=== PATIENT | male | born 1955 | race African-American/Black ===

== ENCOUNTER 2017-12-11 21:52 | Emergency (ER) | payer OTHER ==
--- NOTE | 2017-12-12 00:53 | ER ---
Nurse's Notes [facility] Name: Shelia Miranda Age: 62 yrs Sex: Male : 1955 Arrival Date: 12/11/2017 Time: 21:55 Bed 23 Private MD: Diagnosis: Gastrostomy complication, unspecified Presentation: 12/11 21:58 Presenting complaint: EMS states: "Patient is from [facility] and today he ao pull his PEG tube. Staff was unable to put it back.". Transition of care: patient was not received from another setting of care. Onset of symptoms is unknown. Care prior to arrival: None. 21:58 Method Of Arrival: EMS: [facility] ao 21:58 Acuity: WINSOME 4 ao Triage Assessment: 12/12 01:44 General: Behavior is calm. ao Historical: - Allergies: 12/11 22:24 No Known Allergies; ao - Home Meds: 22:24 aspirin 81 mg Oral chew 1 tab once daily [Active]; Catapres Oral [Active]; Albuterol ao Nebulizer [Active]; lisinopril 20 mg Oral tab 1 tab once daily [Active]; Tegretol 100 mg/5 mL Oral susp 10 mL twice a day [Active]; Nitrostat SL [Active]; Ativan 0.5 mg Oral tab 1 tab 3 times per day [Active]; Vitamin D Oral 2000 unit daily [Active]; - PMHx: 22:24 Anxiety; Aphasia; BPH; Chronic pain; COPD; Dementia; Depression; Diabetes - NIDDM; ao Hypertension; insomnia; Pneumonia; Schizophrenia; Seizures; VASCULAR DEMENTIA; - PSHx: 22:24 Unable to obtain; ao - Immunization history:: Adult Immunizations unknown. - Social history:: Smoking status: unknown. Screenin:19 Abuse screen: Denies threats or abuse. Denies injuries from another. Nutritional ao screening: No deficits noted. Tuberculosis screening: Fall Risk Fall in past 12 months (25 points). Secondary diagnosis (15 points). Assessment: 22:15 General: Appears in no apparent distress. comfortable. ao 22:15 Pain: Unable to use pain scale. FLACC scale score is 0 out of 10. Neuro: Level of ao Consciousness is awake. Cardiovascular: Capillary refill < 3 seconds Patient's skin is warm and dry. Respiratory: Airway is patent Respiratory effort is even, unlabored, Respiratory pattern is regular, symmetrical. GI: Abdomen is non-distended, PEG tube not in place. Reported patient pull PEG tube. NO SS of bleeding noted. : No signs and/or symptoms were reported regarding the genitourinary system. EENT: No signs and/or symptoms were reported regarding the EENT system. Derm: No signs and/or symptoms reported regarding the dermatologic system. Musculoskeletal: No signs and/or symptoms reported regarding the musculoskeletal system. 23:19 Reassessment: Patient appears in no apparent distress at this time. Patient and/or ao family updated on plan of care and expected duration. Pain level reassessed. Patient is alert, oriented x 3, equal unlabored respirations, skin warm/dry/pink. PEG tube inserted by AYSE Cleaning. Patient waiting on tube placement to be discharge. 23:55 Reassessment: Report given to JANESSA Deshpande. Patient to be taken to her room. ao 12/12 00:05 Reassessment: Patient appears in no apparent distress at this time. Patient and/or ao family updated on plan of care and expected duration. Pain level reassessed. Patient is alert, oriented x 3, equal unlabored respirations, skin warm/dry/pink. Waiting on Xray report. 01:15 Reassessment: Called report to [facility] and spoke to ARIAS Mon. ao 01:24 Reassessment: Waiting on EMS. ao Vital Signs: 12/11 21:59 BP 151 / 91; Pulse 81; Resp 20; Temp 97.9(A); Pulse Ox 97% on R/A; Weight 79.38 kg (R); ao Height 5 ft. 9 in. (175.26 cm) (R); Pain 0/10; 23:10 BP 145 / 98; Pulse 86; Resp 18; Pulse Ox 98% on R/A; Pain 0/10; ao 12/12 00:06 BP 153 / 99; Pulse 82; Resp 18; Pulse Ox 99% on R/A; Pain 0/10; ao 01:15 BP 150 / 90; Pulse 76; Resp 18; Pulse Ox 96% on R/A; Pain 0/10; ao 12/11 21:59 Body Mass Index 25.84 (79.38 kg, 175.26 cm) ao ED Course: 12/11 21:55 Patient arrived in ED. em1 21:57 Pedro De Dios, RN is Primary Nurse. ao 21:59 Triage completed. ao 22:00 Arm band placed on right wrist. Patient placed in an exam room, on a stretcher, on ao nuclear monitoring technician, Patient notified of wait time. 22:04 Charlene Cleaning FNP-C is PHCP. snw 22:04 Domingo Sharma MD is Attending Physician. snw 23:15 Replace PEG Tube. Patient tolerated well. Secure tube with formtape. ao 23:20 Patient has correct armband on for positive identification. Pulse ox on. NIBP on. ao 23:37 X-ray completed. Portable x-ray completed in exam room. Patient tolerated procedure kw well. 23:37 ENTEROSTOMY TUBE CHECK W/CONTR In Process Unspecified. EDMS 12/12 01:46 Patient did not have IV access during this emergency room visit. ao Administered Medications: No medications were administered Outcome: 00:53 Discharge ordered by . snw 01:44 Discharged to half-way. Report called to VERÓNICA ao 01:44 Condition: stable 01:44 Discharge instructions given to half-way, Instructed on discharge instructions, follow up and referral plans. Demonstrated understanding of instructions, follow-up care. 01:46 Patient left the ED. ao Signatures: Dispatcher [employer] EDMA Charlene Cleaning FNP-C FNP-Juni Spangler em1 Kelsey Garcia kw Pedro De Dios, RN RN ao
--- NOTE | 2017-12-12 00:53 | EDPHYS ---
Physician Documentation [facility] Name: Shelia Miranda Age: 62 yrs Sex: Male : 1955 Arrival Date: 12/11/2017 Time: 21:55 Bed 23 Private MD: ED Physician Domingo Sharma HPI: 12/11 23:09 This 62 yrs old Black Male presents to ER via EMS with complaints of g-tube snw displacement. 23:09 The patient represents for recheck after previously being evaluated for g-tube snw dislodged. Previous care: replaced with 18 F G-tube. The patient has experienced similar episodes in the past, multiple times. It is unknown whether or not the patient has recently seen a physician. Historical: - Allergies: 22:24 No Known Allergies; ao - Home Meds: 22:24 aspirin 81 mg Oral chew 1 tab once daily [Active]; Catapres Oral [Active]; Albuterol ao Nebulizer [Active]; lisinopril 20 mg Oral tab 1 tab once daily [Active]; Tegretol 100 mg/5 mL Oral susp 10 mL twice a day [Active]; Nitrostat SL [Active]; Ativan 0.5 mg Oral tab 1 tab 3 times per day [Active]; Vitamin D Oral 2000 unit daily [Active]; - PMHx: 22:24 Anxiety; Aphasia; BPH; Chronic pain; COPD; Dementia; Depression; Diabetes - NIDDM; ao Hypertension; insomnia; Pneumonia; Schizophrenia; Seizures; VASCULAR DEMENTIA; - PSHx: 22:24 Unable to obtain; ao - Immunization history:: Adult Immunizations unknown. - Social history:: Smoking status: unknown. ROS: 23:09 Constitutional: Negative for fever, chills, and weight loss, Eyes: Negative for injury, snw pain, redness, and discharge, ENT: Negative for injury, pain, and discharge, Neck: Negative for injury, pain, and swelling, Cardiovascular: Negative for chest pain, palpitations, and edema, Respiratory: Negative for shortness of breath, cough, wheezing, and pleuritic chest pain, Back: Negative for injury and pain, : Negative for injury, bleeding, discharge, and swelling, MS/Extremity: Negative for injury and deformity, Skin: Negative for injury, rash, and discoloration, Neuro: Negative for headache, weakness, numbness, tingling, and seizure. 23:09 Abdomen/GI: Positive for abdominal pain, of the left upper quadrant. Exam: 23:11 Constitutional: This is a well developed, well nourished patient who is awake, alert, snw and in no acute distress. Head/Face: Normocephalic, atraumatic. Eyes: Pupils equal round and reactive to light, extra-ocular motions intact. Lids and lashes normal. Conjunctiva and sclera are non-icteric and not injected. Cornea within normal limits. Periorbital areas with no swelling, redness, or edema. ENT: Nares patent. No nasal discharge, no septal abnormalities noted. Tympanic membranes are normal and external auditory canals are clear. Oropharynx with no redness, swelling, or masses, exudates, or evidence of obstruction, uvula midline. Mucous membranes moist. Neck: Trachea midline, no thyromegaly or masses palpated, and no cervical lymphadenopathy. Supple, full range of motion without nuchal rigidity, or vertebral point tenderness. No Meningismus. Chest/axilla: Normal chest wall appearance and motion. Nontender with no deformity. No lesions are appreciated. Cardiovascular: Regular rate and rhythm with a normal S1 and S2. No gallops, murmurs, or rubs. Normal PMI, no JVD. No pulse deficits. Respiratory: Lungs have equal breath sounds bilaterally, clear to auscultation and percussion. No rales, rhonchi or wheezes noted. No increased work of breathing, no retractions or nasal flaring. 23:11 Abdomen/GI: Inspection: scar(s), are noted in the left upper quadrant, G-tube placement site with scarring, no exudate, no bleeding. 23:11 Musculoskeletal/extremity: Extremities: the patient is contracted, diffusely. Vital Signs: 21:59 BP 151 / 91; Pulse 81; Resp 20; Temp 97.9(A); Pulse Ox 97% on R/A; Weight 79.38 kg (R); ao Height 5 ft. 9 in. (175.26 cm) (R); Pain 0/10; 23:10 BP 145 / 98; Pulse 86; Resp 18; Pulse Ox 98% on R/A; Pain 0/10; ao 0412 00:06 BP 153 / 99; Pulse 82; Resp 18; Pulse Ox 99% on R/A; Pain 0/10; ao 01:15 BP 150 / 90; Pulse 76; Resp 18; Pulse Ox 96% on R/A; Pain 0/10; ao 12/11 21:59 Body Mass Index 25.84 (79.38 kg, 175.26 cm) ao Procedures: 12/11 23:12 G-tube placement: a 18 Yi catheter was placed, by the ED physician, Charlene DIALLO. MDM: 22:04 Patient medically screened. snw 23:12 Data reviewed: vital signs, nurses notes. Data interpreted: Pulse oximetry: on room air snw is 97 %. Interpretation: normal. Special discussion: Based on the patient's Hx, exam, and Dx evaluation, there is no indication for emergent surgery or inpatient Tx. It is understood by the patient/guardian that if the Sx's persist or worsen they need to return immediately for re-evaluation. Based on the history and exam findings, there is no indication for further emergent testing or inpatient evaluation. I discussed with the patient/guardian the need to see the primary care provider for further evaluation of the symptoms. 12/11 23:36 Order name: ENTEROSTOMY TUBE CHECK W/CONTR EDMS Administered Medications: No medications were administered Disposition: 12/12 09:13 Co-signature as Attending Physician, Domingo Sharma MD I agree with the assessment and [facility] plan of care. Disposition: 12/12/17 00:53 Discharged to Home. Impression: Gastrostomy complication, unspecified. - Condition is Stable. - Discharge Instructions: Gastrostomy Tube Replacement, Gastrostomy Tube Home Guide, Adult. - Medication Reconciliation Form, Thank You Letter, Antibiotic Education, Prescription Opioid Use, SBAR form form. - Follow up: Private Physician; When: As needed; Reason: Recheck today's complaints, Continuance of care, Re-evaluation by your physician. Signatures: Dispatcher [employer] Domingo Hammer MD MD cha Therrien, Shelly, FNP-C FNP-Pedro Mitchell, RN RN ao Corrections: (The following items were deleted from the chart) 12/11 23:36 23:14 Abdomen 1 View (KUB)+RAD.RAD.[email or web address] ordered. EDAR EDMS
[2017-12-12 02:19] VITALS: TEMP 97.9
[2017-12-12 02:23] VITALS: BP 150/90; O2SAT 96
--- NOTE | 2017-12-12 08:37 | RAD REPORT ---
EXAM DESCRIPTION: RAD - ENTEROSTOMY TUBE CHECK W/CONTR - 12/11/2017 11:58 pm CLINICAL HISTORY: Abdominal pain evaluate gastrostomy tube FINDINGS: Contrast has been injected into the gastrostomy tube. It opacifies the proximal duodenum. The tip of the tube probably lies within the distal stomach. There is no extravasation of contrast
== END 2017-12-12 01:46 | disposition home or self-care (01) ==
LOC: ER 21:52
PROC: 0D20XUZ Change Feeding Device in Upper Intestinal Tract, External Approach (ICD-10-PCS; principal; 2017-12-12)
DX: K94.20 Gastrostomy complication, unspecified (principal); I10 Essential (primary) hypertension; E11.9 Type 2 diabetes mellitus without complications; J44.9 Chronic obstructive pulmonary disease, unspecified; F32.9 Major depressive disorder, single episode, unspecified; F41.9 Anxiety disorder, unspecified; F01.50 Vascular dementia, unspecified severity, without behavioral disturbance, psychotic disturbance, mood disturbance, and anxiety; Z79.82 Long term (current) use of aspirin
CPT/HCPCS: 49465; 99284

== ENCOUNTER 2018-02-26 14:39 | Emergency (ER) | payer OTHER ==
--- NOTE | 2018-02-26 14:46 | EDPHYS ---
Physician Documentation [facility] Name: Shelia Miranda Age: 62 yrs Sex: Male : 1955 Arrival Date: 02/26/2018 Time: 14:40 Bed 6 Private MD: ED Physician Domingo Sharma HPI: 02/26 14:42 This 62 yrs old Black Male presents to ER via Unassigned with complaints of Problem jr8 With Feeding Tube. 14:42 Onset: The symptoms/episode began/occurred acutely, today. Severity of symptoms: At jr8 their worst the symptoms were mild in the emergency department the symptoms are unchanged. The patient has experienced similar episodes in the past, multiple times. The patient has not recently seen a physician. Pulled gastrostomy tube out today after feeding . Historical: - Allergies: 14:53 No Known Drug Allergies; ph - Home Meds: 14:53 aspirin 81 mg Oral chew 1 tab once daily [Active]; Albuterol Inhl [Active]; Ativan 0.5 ph mg Oral tab 1 tab 3 times per day [Active]; Catapres Oral [Active]; lisinopril 20 mg Oral tab 1 tab once daily [Active]; Nitrostat SL [Active]; Tegretol 100 mg/5 mL Oral susp 10 mL twice a day [Active]; Vitamin D Oral 2000 unit daily [Active]; - PMHx: 14:53 Anxiety; Aphasia; BPH; Chronic pain; COPD; Dementia; Depression; Diabetes - NIDDM; ph Hypertension; insomnia; Pneumonia; Schizophrenia; Seizures; VASCULAR DEMENTIA; - PSHx: 14:53 Unable to obtain; ph - Immunization history:: Adult Immunizations unknown. - Social history:: Smoking status: unknown. - Ebola Screening: : No symptoms or risks identified at this time. ROS: 14:42 Eyes: Negative for injury, pain, redness, and discharge, ENT: Negative for injury, jr8 pain, and discharge, Neck: Negative for injury, pain, and swelling, Cardiovascular: Negative for chest pain, palpitations, and edema, Respiratory: Negative for shortness of breath, cough, wheezing, and pleuritic chest pain, Abdomen/GI: Negative for abdominal pain, nausea, vomiting, diarrhea, and constipation, Back: Negative for injury and pain, MS/Extremity: Negative for injury and deformity, Skin: Negative for injury, rash, and discoloration, Neuro: Negative for headache, weakness, numbness, tingling, and seizure. Exam: 14:42 Eyes: Pupils equal round and reactive to light, extra-ocular motions intact. Lids and jr8 lashes normal. Conjunctiva and sclera are non-icteric and not injected. Cornea within normal limits. Periorbital areas with no swelling, redness, or edema. ENT: Nares patent. No nasal discharge, no septal abnormalities noted. Tympanic membranes are normal and external auditory canals are clear. Oropharynx with no redness, swelling, or masses, exudates, or evidence of obstruction, uvula midline. Mucous membranes moist. Neck: Trachea midline, no thyromegaly or masses palpated, and no cervical lymphadenopathy. Supple, full range of motion without nuchal rigidity, or vertebral point tenderness. No Meningismus. Cardiovascular: Regular rate and rhythm with a normal S1 and S2. No gallops, murmurs, or rubs. Normal PMI, no JVD. No pulse deficits. Respiratory: Lungs have equal breath sounds bilaterally, clear to auscultation and percussion. No rales, rhonchi or wheezes noted. No increased work of breathing, no retractions or nasal flaring. Abdomen/GI: Soft, non-tender, with normal bowel sounds. No distension or tympany. No guarding or rebound. No evidence of tenderness throughout. Back: No spinal tenderness. No costovertebral tenderness. Full range of motion. Skin: Warm, dry with normal turgor. Normal color with no rashes, no lesions, and no evidence of cellulitis. MS/ Extremity: Pulses equal, no cyanosis. Neurovascular intact. Full, normal range of motion. Neuro: Awake and alert, GCS 15, oriented to person, place, time, and situation. Cranial nerves II-XII grossly intact. Motor strength 5/5 in all extremities. Sensory grossly intact. Cerebellar exam normal. Normal gait. Vital Signs: 14:47 BP 137 / 68; Pulse 64; Resp 18; Temp 97.8; Pulse Ox 99% ; ph Procedures: 14:42 G-tube placement: a 16 [place] catheter was placed, by the ED physician, Presley VELEZ jr8 confirmed with KUB with gastrographin . MDM: 14:41 Patient medically screened. jr8 14:42 Data reviewed: vital signs, nurses notes, radiologic studies, plain films, and as a jr8 result, I will discharge patient. Data interpreted: Pulse oximetry: on room air is 100 %. Interpretation: normal. Counseling: I had a detailed discussion with the patient and/or guardian regarding: the historical points, exam findings, and any diagnostic results supporting the discharge/admit diagnosis, radiology results, the need for outpatient follow up, a front desk lead, to return to the emergency department if symptoms worsen or persist or if there are any questions or concerns that arise at home. 02/26 14:42 Order name: PEG Tube Check w/contrast; Complete Time: 15:25 jr8 Administered Medications: No medications were administered Disposition: 02/27 06:34 Co-signature as Attending Physician, Domingo Sharma MD I agree with the assessment and lana plan of care. Disposition: 02/26/18 14:45 Discharged to Home. Impression: Gastrostomy complications - pulled G-Tube. - Condition is Stable. - Discharge Instructions: Gastrostomy Tube Replacement. - Medication Reconciliation Form, Thank You Letter, Antibiotic Education, Prescription Opioid Use form. - Follow up: Private Physician; When: 2 - 3 days; Reason: Recheck today's complaints, Continuance of care, Re-evaluation by your physician. - Problem is new. - Symptoms have improved. Signatures: Dispatcher [employer] EDCO Domingo Sharma MD MD cha Roszak, Josh, PA PA jr8 Ximena Camara RN RN ph Corrections: (The following items were deleted from the chart) 02/26 16:03 14:45 02/26/2018 14:45 Discharged to Home. Impression: Gastrostomy complications - ph pulled G-Tube. Condition is Stable. Forms are Medication Reconciliation Form, Thank You Letter, Antibiotic Education, Prescription Opioid Use. Follow up: Private Physician; When: 2 - 3 days; Reason: Recheck today's complaints, Continuance of care, Re-evaluation by your physician. Problem is new. Symptoms have improved. jr8
--- NOTE | 2018-02-26 15:24 | RAD REPORT ---
EXAM DESCRIPTION: RAD - ENTEROSTOMY TUBE CHECK W/CONTR - 02/26/2018 3:04 pm CLINICAL HISTORY: Abdominal pain, enterostomy tube check COMPARISON: KUB December 2017 FINDINGS: Enterostomy tube was adjusted or repositioned. Two images were obtained prior to and follo wing retrograde injection of contrast through the enterostomy tube. Initial image shows a nonspecific bowel gas pattern. No obstruction, free air or pneumatosis. Post co ntrast injection image shows all contrast contained within the lumen of the stomach and proximal duod enum. No extravasation. Tube is well positioned. IMPRESSION: Enterostomy tube is well positioned within the stomach. No extravasation.
--- NOTE | 2018-02-26 16:04 | ER ---
Nurse's Notes [facility] Name: Shelia Miranda Age: 62 yrs Sex: Male : 1955 Arrival Date: 02/26/2018 Time: 14:40 Bed 6 Private MD: Diagnosis: Gastrostomy complications-pulled G-Tube Presentation: 02/26 14:41 Presenting complaint: EMS states: " Pt from [facility], pulled out PEG tube, last ph seen in place by staff at approx 8 am. Transition of care: patient was not received from another setting of care. Onset of symptoms was February 26, 2018. Risk Assessment: Do you want to hurt yourself or someone else? Patient reports no desire to harm self or others. Initial Sepsis Screen: Does the patient meet any 2 criteria? No. Patient's initial sepsis screen is negative. Does the patient have a suspected source of infection? No. Patient's initial sepsis screen is negative. Care prior to arrival: None. 14:41 Method Of Arrival: EMS: [facility] 14:41 Acuity: WINSOME 4 ph Historical: - Allergies: 14:53 No Known Drug Allergies; ph - Home Meds: 14:53 aspirin 81 mg Oral chew 1 tab once daily [Active]; Albuterol Inhl [Active]; Ativan 0.5 ph mg Oral tab 1 tab 3 times per day [Active]; Catapres Oral [Active]; lisinopril 20 mg Oral tab 1 tab once daily [Active]; Nitrostat SL [Active]; Tegretol 100 mg/5 mL Oral susp 10 mL twice a day [Active]; Vitamin D Oral 2000 unit daily [Active]; - PMHx: 14:53 Anxiety; Aphasia; BPH; Chronic pain; COPD; Dementia; Depression; Diabetes - NIDDM; ph Hypertension; insomnia; Pneumonia; Schizophrenia; Seizures; VASCULAR DEMENTIA; - PSHx: 14:53 Unable to obtain; ph - Immunization history:: Adult Immunizations unknown. - Social history:: Smoking status: unknown. - Ebola Screening: : No symptoms or risks identified at this time. Screenin:49 Abuse screen: Denies threats or abuse. Denies injuries from another. Nutritional ph screening: No deficits noted. Tuberculosis screening: No symptoms or risk factors identified. Fall Risk None identified. Assessment: 14:53 General: Appears in no apparent distress. comfortable, slender, Behavior is calm, ph cooperative. Pain: Denies pain. Neuro: Level of Consciousness is awake, alert, obeys commands, Oriented to person, place. Cardiovascular: Capillary refill < 3 seconds Patient's skin is warm and dry. Respiratory: Airway is patent Respiratory effort is even, unlabored. GI: Abdomen is flat, non-distended, PEG tube site noted to L abdomen, tube accidentally removed by pt, site slightly reddened and swollen in appearance, ERP currently at bedside to insert new tube, 18 omani Santiago placed. Derm: Skin is healthy with good turgor, Skin is pink, warm \\T\\ dry. 14:55 Reassessment: Radiology at bedside for Xray to check placement of PEG. ph 15:20 Reassessment: [facility] notified that pt is ready to be transported back to facility. Vital Signs: 14:47 BP 137 / 68; Pulse 64; Resp 18; Temp 97.8; Pulse Ox 99% ; ph ED Course: 14:40 Patient arrived in ED. ph 14:41 Presley Gilbert PA is PHCP. jr8 14:41 Domingo Sharma MD is Attending Physician. jr8 14:47 Triage completed. ph 14:49 Arm band placed on. ph 14:49 Patient has correct armband on for positive identification. Placed in gown. Bed in low ph position. Call light in reach. Side rails up X2. Pulse ox on. NIBP on. Warm blanket given. 15:01 X-ray completed. Portable x-ray completed in exam room. Patient tolerated procedure kc2 well. 15:01 PEG Tube Check w/contrast In Process Unspecified. EDMS 16:03 Ximena Camara, ARIAS is Primary Nurse. ph 16:03 No provider procedures requiring assistance completed. Patient did not have IV access ph during this emergency room visit. Administered Medications: No medications were administered Outcome: 14:45 Discharge ordered by . jr8 16:03 Patient left the ED. ph 16:03 Discharged to halfway. ph 16:03 Condition: good Signatures: Dispatcher [employer] EDNazia Devries RN RN Presley Gilbert PA PA jr8 Ximena Camara RN RN Crys Petersen kc2 Corrections: (The following items were deleted from the chart) 17:20 14:53 GI: Abdomen is flat, non-distended, PEG tube site noted to L abdomen, tube ph accidentally removed by pt, site slightly reddened and swollen in appearance, ERP currently at bedside to insert new tube ph
[2018-02-26 16:07] VITALS: BP 137/68; TEMP 97.8; O2SAT 99
== END 2018-02-26 16:03 | disposition home or self-care (01) ==
LOC: ER 14:39
PROC: 0D20XUZ Change Feeding Device in Upper Intestinal Tract, External Approach (ICD-10-PCS; principal; 2018-02-26)
DX: K94.23 Gastrostomy malfunction (principal); Y83.3 Surgical operation with formation of external stoma as the cause of abnormal reaction of the patient, or of later complication, without mention of misadventure at the time of the procedure; Y73.8 Miscellaneous gastroenterology and urology devices associated with adverse incidents, not elsewhere classified; Y92.129 Unspecified place in nursing home as the place of occurrence of the external cause; I10 Essential (primary) hypertension; E11.9 Type 2 diabetes mellitus without complications; J44.9 Chronic obstructive pulmonary disease, unspecified
CPT/HCPCS: 49465; 99283

== ENCOUNTER 2018-03-13 09:17 | Emergency (ER) | payer OTHER ==
--- NOTE | 2018-03-13 10:40 | ER ---
Nurse's Notes [facility] Name: Shelia Miranda Age: 62 yrs Sex: Male : 1955 Arrival Date: 03/13/2018 Time: 09:16 Bed 18 Private MD: Diagnosis: PEG TUBE Replacement Presentation: 03/13 09:28 Presenting complaint: EMS states: NH staff called this morning, d/t pt having a sg displaced PEG/G-Tube, believed to have been in place all night and dislodged this morning some time. Transition of care: patient was not received from another setting of care. Onset of symptoms was March 13, 2018. Risk Assessment: Do you want to hurt yourself or someone else? Patient reports no desire to harm self or others. Initial Sepsis Screen: Does the patient meet any 2 criteria? No. Patient's initial sepsis screen is negative. Does the patient have a suspected source of infection? No. Patient's initial sepsis screen is negative. Care prior to arrival: None. 09:28 Method Of Arrival: EMS: [facility] sg 09:28 Acuity: WINSOME 4 sg Historical: - Allergies: 09:30 No Known Allergies; sg - PMHx: 09:30 Anxiety; Aphasia; BPH; Chronic pain; COPD; Dementia; Depression; Diabetes - NIDDM; sg Hypertension; insomnia; Pneumonia; Schizophrenia; Seizures; VASCULAR DEMENTIA; - PSHx: 09:30 Unable to obtain; sg - Immunization history:: Adult Immunizations up to date. - Social history:: Smoking status: Patient/guardian denies using tobacco. - Ebola Screening: : Patient negative for fever greater than or equal to 101.5 degrees Fahrenheit, and additional compatible Ebola Virus Disease symptoms Patient denies exposure to infectious person Patient denies travel to an Ebola-affected area in the 21 days before illness onset No symptoms or risks identified at this time. - Family history:: not pertinent. - Hospitalizations: : No recent hospitalization is reported. - History obtained from: EMS. Screenin:30 Abuse screen: Denies threats or abuse. Denies injuries from another. Nutritional sg screening: No deficits noted. Tuberculosis screening: No symptoms or risk factors identified. Never had TB. Fall Risk None identified. Assessment: 09:30 Reassessment: Roosevelt CUHNG at bedside evaluating pt at this time. General: Appears in no sg apparent distress. comfortable, slender, unkempt, well developed, well nourished, Behavior is calm, cooperative, appropriate for age. Pain: Denies pain. Neuro: Level of Consciousness is awake, obeys commands, confused, Oriented to person, Contour Path Tape Mill Operator are equal bilaterally Moves all extremities. Speech is normal, Facial symmetry appears normal. Cardiovascular: Heart tones S1 S2 present Capillary refill is brisk in bilateral fingers Patient's skin is warm and dry. Chest pain is denied. Respiratory: Airway is patent Respiratory effort is even, unlabored, Respiratory pattern is regular, symmetrical. GI: Abdomen is flat, non-distended, PEG tube Site clean. Site reddened. PEG tube missing from the site at this time. : No deficits noted. EENT: No deficits noted. Derm: Skin is intact, is thin, Skin is dry, Skin is normal, Skin temperature is warm. Musculoskeletal: Circulation, motion, and sensation intact. Swelling absent. 09:41 Reassessment: Patient appears in no apparent distress at this time. XRAY at bedside at this time. 10:48 Reassessment: Patient appears in no apparent distress at this time. Report called to [facility], awaiting transport at this time. 11:30 Reassessment: Patient appears in no apparent distress at this time. Patient and/or sg family updated on plan of care and expected duration. Pain level reassessed. pt resting at this time, resp even and unlabored, no S/S of distress noted at this time. Vital Signs: 09:34 BP 122 / 71; Pulse 72; Resp 17; Temp 97.9; Pulse Ox 99% on R/A; Pain 0/10; sg ED Course: 09:16 Patient arrived in ED. sg 09:22 [facility] kav 09:22 Jonathan Noble MD is Attending Physician. kav 09:29 Triage completed. sg 09:30 Patient has correct armband on for positive identification. Bed in low position. Call light in reach. Side rails up X2. Pulse ox on. NIBP on. Warm blanket given. Head of bed elevated. 09:30 No provider procedures requiring assistance completed. sg 09:33 Arm band placed on. EKG completed in triage. Results shown to MD. sg 09:41 Cortes Monae, RN is Primary Nurse. sg 10:05 PEG Tube Check w/contrast In Process Unspecified. EDMS 12:02 Awaiting transportation. sg 12:54 Patient did not have IV access during this emergency room visit. sg Administered Medications: No medications were administered Outcome: 10:39 Discharge ordered by MD. núñez 12:53 Discharged to home ambulatory, with family. sg 12:53 Condition: good 12:53 Discharge instructions given to patient, Instructed on discharge instructions, follow up and referral plans. safety practices, Demonstrated understanding of instructions, follow-up care. 12:54 Patient left the ED. sg Signatures: Dispatcher [employer] EDMS Cortes Monae, RN RN Nadine Smith, COILER SHELDON núñez
--- NOTE | 2018-03-13 10:40 | EDPHYS ---
Physician Documentation [facility] Name: Shelia Miranda Age: 62 yrs Sex: Male : 1955 Arrival Date: 03/13/2018 Time: 09:16 Bed 18 Private MD: ED Physician Jonathan Noble HPI: 03/13 09:36 This 62 yrs old Black Male presents to ER via EMS with complaints of Removed PEG Tube. kav 09:36 Onset: The symptoms/episode began/occurred acutely, this morning. Associated signs and kav symptoms: The patient has no apparent associated signs or symptoms. Modifying factors: The patient symptoms are alleviated by nothing, the patient symptoms are aggravated by nothing. The patient has experienced similar episodes in the past, multiple times. patient reportedly removed his peg tube this morning. 09:37 reported peg tube removal by patient. Severity of symptoms: At their worst the symptoms kav were very mild just prior to arrival. Historical: - Allergies: 09:30 No Known Allergies; sg - PMHx: 09:30 Anxiety; Aphasia; BPH; Chronic pain; COPD; Dementia; Depression; Diabetes - NIDDM; sg Hypertension; insomnia; Pneumonia; Schizophrenia; Seizures; VASCULAR DEMENTIA; - PSHx: 09:30 Unable to obtain; sg - Immunization history:: Adult Immunizations up to date. - Social history:: Smoking status: Patient/guardian denies using tobacco. - Ebola Screening: : Patient negative for fever greater than or equal to 101.5 degrees Fahrenheit, and additional compatible Ebola Virus Disease symptoms Patient denies exposure to infectious person Patient denies travel to an Ebola-affected area in the 21 days before illness onset No symptoms or risks identified at this time. - Family history:: not pertinent. - Hospitalizations: : No recent hospitalization is reported. - History obtained from: EMS. ROS: 09:37 Constitutional: Negative for fever, chills, and weight loss, Eyes: Negative for injury, kav pain, redness, and discharge, ENT: Negative for injury, pain, and discharge, Neck: Negative for injury, pain, and swelling, Cardiovascular: Negative for chest pain, palpitations, and edema, Respiratory: Negative for shortness of breath, cough, wheezing, and pleuritic chest pain, Back: Negative for injury and pain, : Negative for injury, bleeding, discharge, and swelling, MS/Extremity: Negative for injury and deformity, Skin: Negative for injury, rash, and discoloration, Neuro: Negative for headache, weakness, numbness, tingling, and seizure, Psych: Negative for depression, anxiety, suicide ideation, homicidal ideation, and hallucinations, Allergy/Immunology: Negative for hives, rash, and allergies, Endocrine: Negative for neck swelling, polydipsia, polyuria, polyphagia, and marked weight changes, Hematologic/Lymphatic: Negative for swollen nodes, abnormal bleeding, and unusual bruising. 09:37 Abdomen/GI: Positive for PEG Tube removal this am. Exam: 09:37 Constitutional: This is a well developed, well nourished patient who is awake, alert, kav and in no acute distress. Head/Face: Normocephalic, atraumatic. Eyes: Pupils equal round and reactive to light, extra-ocular motions intact. Lids and lashes normal. Conjunctiva and sclera are non-icteric and not injected. Cornea within normal limits. Periorbital areas with no swelling, redness, or edema. ENT: Nares patent. No nasal discharge, no septal abnormalities noted. Tympanic membranes are normal and external auditory canals are clear. Oropharynx with no redness, swelling, or masses, exudates, or evidence of obstruction, uvula midline. Mucous membranes moist. Neck: Trachea midline, no thyromegaly or masses palpated, and no cervical lymphadenopathy. Supple, full range of motion without nuchal rigidity, or vertebral point tenderness. No Meningismus. Chest/axilla: Normal chest wall appearance and motion. Nontender with no deformity. No lesions are appreciated. Cardiovascular: Regular rate and rhythm with a normal S1 and S2. No gallops, murmurs, or rubs. Normal PMI, no JVD. No pulse deficits. Respiratory: Lungs have equal breath sounds bilaterally, clear to auscultation and percussion. No rales, rhonchi or wheezes noted. No increased work of breathing, no retractions or nasal flaring. Back: No spinal tenderness. No costovertebral tenderness. Full range of motion. Skin: Warm, dry with normal turgor. Normal color with no rashes, no lesions, and no evidence of cellulitis. MS/ Extremity: Pulses equal, no cyanosis. Neurovascular intact. Full, normal range of motion. Neuro: Awake and alert, GCS 15, oriented to person, place, time, and situation. Cranial nerves II-XII grossly intact. Motor strength 5/5 in all extremities. Sensory grossly intact. Cerebellar exam normal. Normal gait. Psych: Awake, alert, with orientation to person, place and time. Behavior, mood, and affect are within normal limits. 09:37 Abdomen/GI: Inspection: ostomy opening with no peg tube, Bowel sounds: normal, Palpation: abdomen is soft and non-tender, in all quadrants. Vital Signs: 09:34 BP 122 / 71; Pulse 72; Resp 17; Temp 97.9; Pulse Ox 99% on R/A; Pain 0/10; sg Procedures: 09:37 G-tube placement: a 18 Mongolian catheter was placed, by the ED physician, Nadine CHUNG. MDM: 09:37 Differential Diagnosis PEG tube removed by patient. Data reviewed: vital signs, nurses ka notes. 10:35 ED course: awaiting radiology results. ka 10:39 Medical screening is not applicable. kav 10:41 ED course: post gastrograffin xray with appropriate placement. [facility] 03/13 09:23 Order name: PEG Tube Check w/contrast; Complete Time: 11:54 kav Administered Medications: No medications were administered Disposition: 17:18 Co-signature as Attending Physician, Jonathan Noble MD I agree with the assessment and kdr plan of care. Disposition: 03/13/18 10:39 Discharged to Home. Impression: PEG TUBE Replacement. - Condition is Stable. - Discharge Instructions: PEG, Home Care, [id number]. - Medication Reconciliation Form, Thank You Letter, Antibiotic Education, Prescription Opioid Use form. - Follow up: Private Physician; When: 5 - 6 days; Reason: If symptoms return, Recheck today's complaints, Continuance of care, Re-evaluation by your physician. - Problem is new. - Symptoms have improved. Signatures: Dispatcher [employer] EDMS Cortes Monae RN RN sg Rittger, Kevin, MD MD kdr Vern, Katherine, FNP FNP ka Corrections: (The following items were deleted from the chart) 12:54 10:39 03/13/2018 10:39 Discharged to Home. Impression: PEG TUBE Replacement. Condition sg is Stable. Discharge Instructions: PEG, Home Care, [id number]. Forms are Medication Reconciliation Form, Thank You Letter, Antibiotic Education, Prescription Opioid Use. Follow up: Private Physician; When: 5 - 6 days; Reason: If symptoms return, Recheck today's complaints, Continuance of care, Re-evaluation by your physician. Problem is new. Symptoms have improved. kav
--- NOTE | 2018-03-13 11:22 | RAD REPORT ---
EXAM DESCRIPTION: RAD - ENTEROSTOMY TUBE CHECK W/CONTR - 03/13/2018 10:05 am CLINICAL HISTORY: peg tube replacement COMPARISON: ENTEROSTOMY TUBE CHECK W/CONTR dated 02/26/2018; ENTEROSTOMY TUBE CHECK W/CONTR dated 12/01 FINDINGS: Contrast was infused via existing enterostomy tube. Contrast is seen to fill the stomach a nd small intestine, indicating appropriate localization.
[2018-03-13 12:58] VITALS: BP 122/71; TEMP 97.9; O2SAT 99
== END 2018-03-13 12:54 | disposition home or self-care (01) ==
LOC: ER 09:17
PROC: 0D20XUZ Change Feeding Device in Upper Intestinal Tract, External Approach (ICD-10-PCS; principal; 2018-03-13)
DX: Z43.1 Encounter for attention to gastrostomy (principal); J44.9 Chronic obstructive pulmonary disease, unspecified; E11.9 Type 2 diabetes mellitus without complications; I10 Essential (primary) hypertension
CPT/HCPCS: 49465; 99284

== ENCOUNTER 2018-03-14 09:16 | Emergency (ER) | payer OTHER ==
--- NOTE | 2018-03-14 10:20 | ER ---
Nurse's Notes [facility] Name: Shelia Miranda Age: 62 yrs Sex: Male : 1955 Arrival Date: 03/14/2018 Time: 09:19 Bed 23 Private MD: Diagnosis: Gastrostomy [id number]-M-ceav displacement Presentation: 03/14 09:19 Presenting complaint: EMS states: pt brought to ED for peg tube displacement. No other dm5 complaints. Transition of care: patient was received from another setting of care (long-term care [facility]. Onset of symptoms was March 14, 2018. Risk Assessment: Do you want to hurt yourself or someone else? Patient reports no desire to harm self or others. Initial Sepsis Screen: Does the patient meet any 2 criteria? No. Patient's initial sepsis screen is negative. Does the patient have a suspected source of infection? Yes: Dysuria/Frequency/Urgency/UTI. Care prior to arrival: None. 09:19 Method Of Arrival: EMS: [facility]5 09:19 Acuity: WINSOME 4 dm5 Triage Assessment: 09:25 General: Appears in no apparent distress. Behavior is calm, cooperative. Pain: Denies dm5 pain. GI: Abdomen is round. Historical: - Allergies: 09:25 No Known Allergies; aa5 - PMHx: 09:23 Anxiety; Aphasia; BPH; Chronic pain; COPD; Dementia; Depression; Diabetes - NIDDM; dm5 Hypertension; insomnia; Pneumonia; Schizophrenia; Seizures; VASCULAR DEMENTIA; - Immunization history:: Adult Immunizations unknown. - Social history:: Smoking status: unknown. - Ebola Screening: : No symptoms or risks identified at this time. Screenin:25 Abuse screen: No signs of abuse noted. Nutritional screening: No deficits noted. aa5 Tuberculosis screening: No symptoms or risk factors identified. Fall Risk Fall in past 12 months (25 points). Secondary diagnosis (15 points) impaired mobility, Mental Status- Overestimates/Forgets Limitations (15 pts.). Total Stephens Fall Scale indicates High Risk Score (45 or more points). Fall prevention measures have been instituted. Side Rails Up X 2 Placed Close to Nursing Station. Assessment: 09:25 General: Appears comfortable, Behavior is calm, cooperative. Pain: Denies pain. Neuro: aa5 Level of Consciousness is awake, obeys commands, confused, Oriented to person, place, Police Detective are equal bilaterally Speech is normal, Left pupil is round and reactive to light, measures 3 mm in size. Right eye is cloudy. . Cardiovascular: Heart tones S1 S2 present Rhythm is regular. Respiratory: Airway is patent Respiratory effort is even, unlabored, Respiratory pattern is regular, symmetrical, Breath sounds are clear bilaterally. GI: Abdomen is flat, non-distended, no s/s of infection noted to PEG tube site. Bowel sounds present X 4 quads. Abd is soft and non tender X 4 quads. : brief noted. EENT: No signs and/or symptoms were reported regarding the EENT system. Derm: Skin is dry, Skin is normal, Skin temperature is warm. Musculoskeletal: Range of motion: limited in left knee, left ankle, right knee and right ankle. 09:30 Reassessment: PEG tube replaced by PA, 16 FR. . aa5 10:30 Reassessment: Report given to Natasha nurse at [facility]. Natasha states aa5 they will arrange transportation back to retirement with [facility] [place] . 10:50 Reassessment: Pt cleaned of urinary incontinence, clean brief applied. Abdominal binder aa5 placer to prevent pt from pulling PEG tube out per PA. . 10:50 Neuro: Level of Consciousness is awake, obeys commands, confused, Oriented to person, aa5 place. Respiratory: Airway is patent Respiratory effort is even, unlabored, Respiratory pattern is regular, symmetrical. Derm: Skin is dry, Skin is normal, Skin temperature is warm. 11:30 Neuro: Level of Consciousness is awake, obeys commands, confused, Oriented to person, aa5 place. Respiratory: Airway is patent Respiratory effort is even, unlabored, Respiratory pattern is regular, symmetrical. Derm: Skin is dry, Skin is normal, Skin temperature is warm. 12:30 Reassessment: Pt resting in bed with eyes closed, respirations are even and unlabored. aa5 Pt easy to awaken to verbal stimuli. States no complaints at this time. Awaiting transportation for transfer back to retirement. . 13:20 Neuro: Level of Consciousness is awake, obeys commands, confused, Oriented to person, aa5 place. Respiratory: Airway is patent Respiratory effort is even, unlabored, Respiratory pattern is regular, symmetrical. Derm: Skin is dry, Skin is normal, Skin temperature is warm. Vital Signs: 09:23 BP 115 / 86; Pulse 70; Resp 18; Temp 98.3(TE); Pulse Ox 99% on R/A; dm5 10:30 BP 144 / 87; Pulse 69; Resp 18 S; Pulse Ox 98% on R/A; aa5 11:30 BP 137 / 93; Pulse 66; Resp 16 S; Pulse Ox 97% on R/A; aa5 12:30 BP 140 / 85; Pulse 66; Resp 16 S; Temp 98.0(TE); Pulse Ox 98% on R/A; aa5 12:56 BP 132 / 86; Pulse 66; Resp 16 S; Pulse Ox 97% on R/A; aa5 13:20 BP 130 / 79; Pulse 67; Resp 18 S; Temp 98.2(TE); Pulse Ox 99% on R/A; aa5 ED Course: 09:19 Patient arrived in ED. dm5 09:21 Triage completed. dm5 09:23 Arm band placed on left wrist. dm5 09:24 Presley Gilbert PA is PHCP. jr8 09:24 Jonathan Noble MD is Attending Physician. jr8 09:25 Patient has correct armband on for positive identification. Bed in low position. Call aa5 light in reach. Side rails up X2. 09:25 No provider procedures requiring assistance completed. aa5 09:44 Elana Mortensen, ARIAS is Primary Nurse. aa5 10:00 Report given to ARIAS Worthington. aa5 10:13 PEG Tube Check w/contrast In Process Unspecified. EDTN 10:45 [facility] called to notify us that transport will be here from 08-02, to transport Mr Miranda back to the facility. 10:50 Patient did not have IV access during this emergency room visit. aa5 Administered Medications: No medications were administered Outcome: 10:20 Discharge ordered by . jr8 13:45 Patient left the ED. aa5 13:45 Discharged to retirement. Report called to Natasha with [facility] transportation aa5 13:45 Condition: stable 13:45 Discharge instructions given to Natasha (nurse at [facility]) Instructed on discharge instructions, follow up and referral plans. Signatures: [facility] Roxie Ramirez RN RN dm5 Elana Mortensen, RN RN aa5 Presley Gilbert, AGUSTIN PA jr8 Dainelle Arguello Corrections: (The following items were deleted from the chart) General: Appears comfortable, Behavior is calm, cooperative, aa5 aa5 : Pain: Denies pain. aa5 aa5 : Neuro: Level of Consciousness is awake, obeys commands, confused, Oriented to aa5 person, place, Police Detective are equal bilaterally Speech is normal, Left pupil is round and reactive to light, measures 3 mm in size. Right eye is cloudy. . aa5 Cardiovascular: Heart tones S1 S2 present Rhythm is regular aa5 aa5 Respiratory: Airway is patent Respiratory effort is even, unlabored, Respiratory aa5 pattern is regular, symmetrical, Breath sounds are clear bilaterally. aa5 : GI: Abdomen is flat, non-distended, no s/s of infection noted to PEG tube site. aa5 Bowel sounds present X 4 quads. Abd is soft and non tender X 4 quads. aa5 : brief noted aa5 aa5 : EENT: No signs and/or symptoms were reported regarding the EENT system. aa5 aa5 : Derm: Skin is dry, Skin is normal, Skin temperature is warm aa5 aa5 : Musculoskeletal: Range of motion: limited in left knee, left ankle, right knee aa5 and right ankle aa5 13:53 13:51 Patient left the ED. aa5 aa5
--- NOTE | 2018-03-14 10:20 | EDPHYS ---
Physician Documentation [facility] Name: Shelia Miranda Age: 62 yrs Sex: Male : 1955 Arrival Date: 03/14/2018 Time: 09:19 Bed 23 Private MD: ED Physician Jonathan Noble HPI: 03/14 10:16 This 62 yrs old Black Male presents to ER via EMS with complaints of Peg tube jr8 displacement. 10:16 Onset: The symptoms/episode began/occurred acutely, today. Associated signs and jr8 symptoms: The patient has no apparent associated signs or symptoms. The patient has experienced similar episodes in the past, multiple times. The patient has not recently seen a physician. Patient had G-Tube displacement again . Historical: - Allergies: 09:25 No Known Allergies; aa5 - PMHx: 09:23 Anxiety; Aphasia; BPH; Chronic pain; COPD; Dementia; Depression; Diabetes - NIDDM; dm5 Hypertension; insomnia; Pneumonia; Schizophrenia; Seizures; VASCULAR DEMENTIA; - Immunization history:: Adult Immunizations unknown. - Social history:: Smoking status: unknown. - Ebola Screening: : No symptoms or risks identified at this time. ROS: 10:16 Eyes: Negative for injury, pain, redness, and discharge, ENT: Negative for injury, jr8 pain, and discharge, Neck: Negative for injury, pain, and swelling, Cardiovascular: Negative for chest pain, palpitations, and edema, Respiratory: Negative for shortness of breath, cough, wheezing, and pleuritic chest pain, Abdomen/GI: Negative for abdominal pain, nausea, vomiting, diarrhea, and constipation, Back: Negative for injury and pain, MS/Extremity: Negative for injury and deformity, Skin: Negative for injury, rash, and discoloration, Neuro: Negative for headache, weakness, numbness, tingling, and seizure. Exam: 10:16 Cardiovascular: Regular rate and rhythm with a normal S1 and S2. No gallops, murmurs, jr8 or rubs. Normal PMI, no JVD. No pulse deficits. Respiratory: Lungs have equal breath sounds bilaterally, clear to auscultation and percussion. No rales, rhonchi or wheezes noted. No increased work of breathing, no retractions or nasal flaring. Abdomen/GI: Soft, non-tender, with normal bowel sounds. No distension or tympany. No guarding or rebound. No evidence of tenderness throughout. Gastrostomy stoma site without discharge, erythema, or cellulitis Back: No spinal tenderness. No costovertebral tenderness. Full range of motion. Skin: Warm, dry with normal turgor. Normal color with no rashes, no lesions, and no evidence of cellulitis. MS/ Extremity: Pulses equal, no cyanosis. Neurovascular intact. Full, normal range of motion. Neuro: Awake and alert, GCS 15, oriented to person, place, time, and situation. Cranial nerves II-XII grossly intact. Motor strength 5/5 in all extremities. Sensory grossly intact. Cerebellar exam normal. Normal gait. Vital Signs: 09:23 BP 115 / 86; Pulse 70; Resp 18; Temp 98.3(TE); Pulse Ox 99% on R/A; dm5 10:30 BP 144 / 87; Pulse 69; Resp 18 S; Pulse Ox 98% on R/A; aa5 11:30 BP 137 / 93; Pulse 66; Resp 16 S; Pulse Ox 97% on R/A; aa5 12:30 BP 140 / 85; Pulse 66; Resp 16 S; Temp 98.0(TE); Pulse Ox 98% on R/A; aa5 12:56 BP 132 / 86; Pulse 66; Resp 16 S; Pulse Ox 97% on R/A; aa5 13:20 BP 130 / 79; Pulse 67; Resp 18 S; Temp 98.2(TE); Pulse Ox 99% on R/A; aa5 Procedures: 10:16 G-tube placement: a 16 [place] catheter was placed, by the ED physician, Presley VELEZ. jr8 MDM: 09:24 Patient medically screened. jr8 10:16 Data reviewed: vital signs, nurses notes, radiologic studies, plain films, and as a jr8 result, I will discharge patient. Data interpreted: Pulse oximetry: on room air is 99 %. Interpretation: normal. Counseling: I had a detailed discussion with the patient and/or guardian regarding: the historical points, exam findings, and any diagnostic results supporting the discharge/admit diagnosis, radiology results, the need for outpatient follow up, a chief optometry service, to return to the emergency department if symptoms worsen or persist or if there are any questions or concerns that arise at home. 03/14 09:35 Order name: PEG Tube Check w/contrast; Complete Time: 11:28 jr8 Administered Medications: No medications were administered Disposition: 17:28 Co-signature as Attending Physician, Jonathan Noble MD I agree with the assessment and kdr plan of care. Disposition: 03/14/18 10:20 Discharged to Home. Impression: Gastrostomy complications - G-tube displacement . - Condition is Stable. - Discharge Instructions: Gastrostomy Tube Replacement. - Medication Reconciliation Form, Thank You Letter, Antibiotic Education, Prescription Opioid Use form. - Follow up: Private Physician; When: 2 - 3 days; Reason: Recheck today's complaints, Continuance of care, Re-evaluation by your physician. - Problem is new. - Symptoms have improved. Signatures: Dispatcher [employer] EDNJ Roxie Rose, RN RN dm5 Jonathan Noble MD MD [facility] Elana Mortensen RN RN aa5 Presley Gilbert PA PA jr8 Corrections: (The following items were deleted from the chart) 13:51 10:20 03/14/2018 10:20 Discharged to Home. Impression: Gastrostomy complications - aa5 G-tube displacement . Condition is Stable. Forms are Medication Reconciliation Form, Thank You Letter, Antibiotic Education, Prescription Opioid Use. Follow up: Private Physician; When: 2 - 3 days; Reason: Recheck today's complaints, Continuance of care, Re-evaluation by your physician. Problem is new. Symptoms have improved. jr8
--- NOTE | 2018-03-14 11:17 | RAD REPORT ---
EXAM DESCRIPTION: RAD - ENTEROSTOMY TUBE CHECK W/CONTR - 03/14/2018 10:13 am CLINICAL HISTORY: G-tube COMPARISON: ENTEROSTOMY TUBE CHECK W/CONTR dated 03/13/2018 FINDINGS: Contrast was infused into the patient's gastrostomy tube. Contrast was seen filling the st omach and duodenum. No leakage of contrast into the peritoneal cavity identified. IMPRESSION: Appropriate placement of the gastrostomy tube noted.
[2018-03-14 13:59] VITALS: TEMP 98
[2018-03-14 14:00] VITALS: BP 132/86; O2SAT 97
== END 2018-03-14 13:51 | disposition home or self-care (01) ==
LOC: ER 09:16
PROC: 0DH63UZ Insertion of Feeding Device into Stomach, Percutaneous Approach (ICD-10-PCS; principal; 2018-03-14)
DX: K94.23 Gastrostomy malfunction (principal); F01.50 Vascular dementia, unspecified severity, without behavioral disturbance, psychotic disturbance, mood disturbance, and anxiety; I10 Essential (primary) hypertension
CPT/HCPCS: 49465; 99283

== ENCOUNTER 2018-03-21 17:59 | Emergency (ER) | payer OTHER ==
[2012-04-03 10:07] VITALS: BP 166/77
--- NOTE | 2018-03-21 18:57 | ER ---
Nurse's Notes [facility] Name: Shelia Miranda Age: 62 yrs Sex: Male : 1955 Arrival Date: 03/21/2018 Time: 18:01 Bed 28 Private MD: Diagnosis: Encounter for fitting and adjustment of other gastrointestinal appliance and device-PEG tube displaced Presentation: 03/21 18:34 Presenting complaint: EMS states: "PULLED OUT HIS PEG TUBE". Transition of care: rv patient was received from another setting of care (home health care), [place]. Onset of symptoms was March 21, 2018 at 18:00. Risk Assessment: Do you want to hurt yourself or someone else? Patient reports no desire to harm self or others. Initial Sepsis Screen: Does the patient meet any 2 criteria? No. Patient's initial sepsis screen is negative. Does the patient have a suspected source of infection? No. Patient's initial sepsis screen is negative. Care prior to arrival: None. 18:34 Method Of Arrival: EMS: [facility] rv 18:34 Acuity: WINSOME 3 rv Historical: - Allergies: 18:38 No Known Allergies; rv - Home Meds: 18:38 Albuterol Inhl [Active]; aspirin 81 mg Oral chew 1 tab once daily [Active]; Ativan 0.5 rv mg Oral tab 1 tab 3 times per day [Active]; Catapres Oral [Active]; lisinopril 20 mg Oral tab 1 tab once daily [Active]; Nitrostat SL [Active]; Tegretol 100 mg/5 mL Oral susp 10 mL twice a day [Active]; Vitamin D Oral 2000 unit daily [Active]; - Immunization history:: Adult Immunizations up to date. - Social history:: Smoking status: unknown. - Ebola Screening: : Patient negative for fever greater than or equal to 101.5 degrees Fahrenheit, and additional compatible Ebola Virus Disease symptoms Patient denies exposure to infectious person Patient denies travel to an Ebola-affected area in the 21 days before illness onset. Screenin:41 Abuse screen: Denies threats or abuse. Denies injuries from another. Nutritional rv screening: No deficits noted. Tuberculosis screening: No symptoms or risk factors identified. Fall Risk None identified. Assessment: 18:39 General: Appears in no apparent distress. comfortable, Behavior is calm, cooperative. rv Pain: Denies pain. Neuro: Level of Consciousness is awake, alert, Oriented to person. Cardiovascular: Heart tones S1 S2 present. Respiratory: Airway is patent. GI: No signs and/or symptoms were reported involving the gastrointestinal system. GI:. : No signs and/or symptoms were reported regarding the genitourinary system. EENT: No signs and/or symptoms were reported regarding the EENT system. Derm: Skin is intact. 20:06 Reassessment: Patient appears in no apparent distress at this time. Patient and/or rv family updated on plan of care and expected duration. Pain level reassessed. Patient is alert, oriented x 3, equal unlabored respirations, skin warm/dry/pink. CALLED [facility]. AWAITING TRANSPORT FROM "[facility]". 21:38 Reassessment: Patient appears in no apparent distress at this time. Patient and/or rv family updated on plan of care and expected duration. Pain level reassessed. Patient is alert, oriented x 3, equal unlabored respirations, skin warm/dry/pink. STILL AWAITING FOR THE TRANSPORT FROM [facility]. Vital Signs: 18:59 BP 138 / 89; Pulse 64; Pulse Ox 99% on R/A; rv 20:06 BP 131 / 81; Pulse Ox 100% on R/A; rv 21:37 BP 121 / 87; Pulse 77; Pulse Ox 95% on R/A; rv ED Course: 18:01 Patient arrived in ED. iw 18:12 Alexx Curtis NP is PHCP. pm1 18:12 Hakeem Peters MD is Attending Physician. pm1 18:35 Triage completed. rv 18:41 Arm band placed on right wrist. rv 18:41 PEG TUBE INSERTION. rv 18:42 Patient has correct armband on for positive identification. Bed in low position. Call rv light in reach. Side rails up X 1. Side rails up X2. Pulse ox on. NIBP on. 18:45 X-ray completed. Portable x-ray completed in exam room. Patient tolerated procedure bb2 well. 18:45 PEG Tube Check w/contrast In Process Unspecified. EDMS 22:10 Patient did not have IV access during this emergency room visit. rv Administered Medications: No medications were administered Outcome: 18:56 Discharge ordered by . pm1 22:09 Discharged to HOME HEALTH rv 22:09 Condition: improved 22: Discharge instructions given to patient. 22:10 Patient left the ED. rv Signatures: Dispatcher [employer] Nazia Mendoza RN RN iw Marinas, Patrick, NP MIXING PAN TENDER pm1 Kasey Cote bb2 Gregorio Sewell RN RN rv
--- NOTE | 2018-03-21 18:57 | EDPHYS ---
Physician Documentation [facility] Name: Shelia Miranda Age: 62 yrs Sex: Male : 1955 Arrival Date: 03/21/2018 Time: 18:01 Bed 28 Private MD: ED Physician Hakeem Peters HPI: 03/21 18:27 This 62 yrs old Black Male presents to ER via Unassigned with complaints of Displaced pm1 G-tube. 18:27 Pulled out PEG tube by accident. Possibly out for three hours per senior care due to pm1 last time he was checked on. 18:27 Onset: The symptoms/episode began/occurred today. The patient has experienced similar pm1 episodes in the past, multiple times, and the symptoms today are exactly the same, Displaced PEG Tube. Historical: - Allergies: 18:38 No Known Allergies; rv - Home Meds: 18:38 Albuterol Inhl [Active]; aspirin 81 mg Oral chew 1 tab once daily [Active]; Ativan 0.5 rv mg Oral tab 1 tab 3 times per day [Active]; Catapres Oral [Active]; lisinopril 20 mg Oral tab 1 tab once daily [Active]; Nitrostat SL [Active]; Tegretol 100 mg/5 mL Oral susp 10 mL twice a day [Active]; Vitamin D Oral 2000 unit daily [Active]; - Immunization history:: Adult Immunizations up to date. - Social history:: Smoking status: unknown. - Ebola Screening: : Patient negative for fever greater than or equal to 101.5 degrees Fahrenheit, and additional compatible Ebola Virus Disease symptoms Patient denies exposure to infectious person Patient denies travel to an Ebola-affected area in the 21 days before illness onset. ROS: 18:40 Constitutional: Negative for fever, chills, and weight loss, Cardiovascular: Negative pm1 for chest pain, palpitations, and edema, Respiratory: Negative for shortness of breath, cough, wheezing, and pleuritic chest pain, Abdomen/GI: Negative for abdominal pain, nausea, vomiting, diarrhea, and constipation, Back: Negative for injury and pain, MS/Extremity: Negative for injury and deformity, Skin: Negative for injury, rash, and discoloration, Neuro: Negative for headache, weakness, numbness, tingling, and seizure. Exam: 18:40 Constitutional: This is a well developed, well nourished patient who is awake, alert, pm1 and in no acute distress. Head/Face: Normocephalic, atraumatic. Neck: Trachea midline, no thyromegaly or masses palpated, and no cervical lymphadenopathy. Supple, full range of motion without nuchal rigidity, or vertebral point tenderness. No Meningismus. Chest/axilla: Normal chest wall appearance and motion. Nontender with no deformity. No lesions are appreciated. Cardiovascular: Regular rate and rhythm with a normal S1 and S2. No gallops, murmurs, or rubs. Normal PMI, no JVD. No pulse deficits. Respiratory: Lungs have equal breath sounds bilaterally, clear to auscultation and percussion. No rales, rhonchi or wheezes noted. No increased work of breathing, no retractions or nasal flaring. 18:40 Back: No spinal tenderness. No costovertebral tenderness. Full range of motion. Skin: Warm, dry with normal turgor. Normal color with no rashes, no lesions, and no evidence of cellulitis. MS/ Extremity: Pulses equal, no cyanosis. Neurovascular intact. Contractures to bilateral lower extremities 18:40 Abdomen/GI: Inspection: PEG tube stoma without any signs of redness, irritation, or infection, Bowel sounds: normal, Palpation: abdomen is soft and non-tender. Vital Signs: 18:59 BP 138 / 89; Pulse 64; Pulse Ox 99% on R/A; rv 20:06 BP 131 / 81; Pulse Ox 100% on R/A; rv 21:37 BP 121 / 87; Pulse 77; Pulse Ox 95% on R/A; rv Procedures: 18:26 G-tube placement: a 16 [place] catheter was placed, by the ED physician, Alexx Curtis pm1 [employer] OFFIC[employer] Patient tolerated well. Placement verified by auscultation. Pending verification with contrast and x-ray. MDM: 18:12 Patient medically screened. pm1 18:53 Counseling: I had a detailed discussion with the patient and/or guardian regarding: the pm1 historical points, exam findings, and any diagnostic results supporting the discharge/admit diagnosis, radiology results, the need for outpatient follow up, to return to the emergency department if symptoms worsen or persist or if there are any questions or concerns that arise at home. 21:30 Data reviewed: vital signs. Data interpreted: Pulse oximetry: on room air is 100 %. pm1 Interpretation: normal. 03/21 18:26 Order name: PEG Tube Check w/contrast; Complete Time: 21:08 pm1 Administered Medications: No medications were administered Disposition: 03/22 07:16 Co-signature as Attending Physician, Hakeem Peters MD. rn Disposition: 03/21/18 18:56 Discharged to Home. Impression: Encounter for fitting and adjustment of other gastrointestinal appliance and device - PEG tube displaced. - Condition is Stable. - Discharge Instructions: PEG Tube Home Guide. - Medication Reconciliation Form, Thank You Letter form. - Follow up: Emergency Department; When: As needed; Reason: Worsening of condition. Follow up: Private Physician; When: As needed; Reason: Recheck today's complaints, Continuance of care, Re-evaluation by your physician. - Problem is new. - Symptoms have improved. Signatures: Dispatcher [employer] EDHakeem Ahuja MD MD rn Alexx Curtis, MAJOR GIFTS OFFICER MAJOR GIFTS OFFICER pm1 Gregorio Sewell RN RN rv Corrections: (The following items were deleted from the chart) 03/21 22:10 18:56 03/21/2018 18:56 Discharged to Home. Impression: Encounter for fitting and rv adjustment of other gastrointestinal appliance and device - PEG tube displaced. Condition is Stable. Forms are Medication Reconciliation Form, Thank You Letter, Antibiotic Education, Prescription Opioid Use. Follow up: Emergency Department; When: As needed; Reason: Worsening of condition. Follow up: Private Physician; When: As needed; Reason: Recheck today's complaints, Continuance of care, Re-evaluation by your physician. Problem is new. Symptoms have improved. pm1
--- NOTE | 2018-03-21 21:06 | RAD REPORT ---
EXAM DESCRIPTION: RAD - ENTEROSTOMY TUBE CHECK W/CONTR - 03/21/2018 6:48 pm CLINICAL HISTORY: Dislodged PEG tube COMPARISON: KUB March 14 FINDINGS: KUB images were obtained prior to and subsequent to retrograde injection of contrast throu gh the patient's indwelling PEG tube. PEG tube was replaced or repositioned prior to contrast injecti on. Initial image shows a large amount of contrast and stool throughout nondilated colon. No abnormal air collection, calcification or other worrisome finding. Post contrast injection shows all contrast contained within the lumen of the stomach. Balloon tip PEG tube is in the distal stomach. IMPRESSION: PEG tube is in good position. No extravasation or leakage of contrast.
[2018-03-21 22:16] VITALS: BP 121/87; O2SAT 95
== END 2018-03-21 22:10 | disposition home or self-care (01) ==
LOC: ER 17:59
PROC: 0D20XUZ Change Feeding Device in Upper Intestinal Tract, External Approach (ICD-10-PCS; principal; 2018-03-21)
DX: Z43.1 Encounter for attention to gastrostomy (principal)
CPT/HCPCS: 49465; 99283

== ENCOUNTER 2018-03-27 13:21 | Emergency (ER) | payer OTHER ==
--- NOTE | 2018-03-27 14:52 | EDPHYS ---
Physician Documentation [facility] Name: Shelia Miranda Age: 62 yrs Sex: Male : 1955 Arrival Date: 03/27/2018 Time: 13:24 Bed 18 Private MD: ED Physician Jonathan Noble HPI: 03/27 13:28 This 62 yrs old Black Male presents to ER via EMS with complaints of Pulled Out G-Tube. kav 13:28 Onset: The symptoms/episode began/occurred acutely, just prior to arrival. Associated kav signs and symptoms: The patient has no apparent associated signs or symptoms. The patient has experienced similar episodes in the past, chronically. Historical: - Allergies: 13:30 No Known Allergies; aj1 - Home Meds: 13:30 aspirin 81 mg Oral chew 1 tab once daily [Active]; Catapres 0.1 mg oral tab every 8 aj1 hours as needed for SBP >160 [Active]; Vitamin D Oral 2000 unit daily [Active]; Albuterol Inhl [Active]; lisinopril 20 mg Oral tab 1 tab once daily [Active]; Ativan 0.5 mg Oral tab 1 tab 3 times per day [Active]; Nitrostat 0.3 mg sublingual subl as needed [Active]; Tegretol 100 mg/5 mL Oral susp 10 mL twice a day [Active]; - PMHx: 13:30 vitamin d deficiency; dysphagia; aphasia; Dementia; Anxiety; Schizophrenia; bph; COPD; aj1 Depression; Hypertension; - Immunization history:: Adult Immunizations up to date. - Social history:: Smoking status: Patient/guardian denies using tobacco. - Family history:: not pertinent. - Ebola Screening: : Patient denies travel to an Ebola-affected area in the 21 days before illness onset. - Hospitalizations: : No recent hospitalization is reported. - History obtained from: EMS. ROS: 13:28 Constitutional: Negative for fever, chills, and weight loss, Eyes: Negative for injury, kav pain, redness, and discharge, ENT: Negative for injury, pain, and discharge, Neck: Negative for injury, pain, and swelling, Cardiovascular: Negative for chest pain, palpitations, and edema, Respiratory: Negative for shortness of breath, cough, wheezing, and pleuritic chest pain, Back: Negative for injury and pain, : Negative for injury, bleeding, discharge, and swelling, MS/Extremity: Negative for injury and deformity, Skin: Negative for injury, rash, and discoloration, Neuro: Negative for headache, weakness, numbness, tingling, and seizure, Psych: Negative for depression, anxiety, suicide ideation, homicidal ideation, and hallucinations, Allergy/Immunology: Negative for hives, rash, and allergies, Endocrine: Negative for neck swelling, polydipsia, polyuria, polyphagia, and marked weight changes, Hematologic/Lymphatic: Negative for swollen nodes, abnormal bleeding, and unusual bruising. 13:28 Abdomen/GI: Positive for PEG tube displaced. Exam: 13:28 Constitutional: This is a well developed, well nourished patient who is awake, alert, kav and in no acute distress. Head/Face: Normocephalic, atraumatic. Eyes: Pupils equal round and reactive to light, extra-ocular motions intact. Lids and lashes normal. Conjunctiva and sclera are non-icteric and not injected. Cornea within normal limits. Periorbital areas with no swelling, redness, or edema. ENT: Nares patent. No nasal discharge, no septal abnormalities noted. Tympanic membranes are normal and external auditory canals are clear. Oropharynx with no redness, swelling, or masses, exudates, or evidence of obstruction, uvula midline. Mucous membranes moist. Neck: Trachea midline, no thyromegaly or masses palpated, and no cervical lymphadenopathy. Supple, full range of motion without nuchal rigidity, or vertebral point tenderness. No Meningismus. Chest/axilla: Normal chest wall appearance and motion. Nontender with no deformity. No lesions are appreciated. Cardiovascular: Regular rate and rhythm with a normal S1 and S2. No gallops, murmurs, or rubs. Normal PMI, no JVD. No pulse deficits. Respiratory: Lungs have equal breath sounds bilaterally, clear to auscultation and percussion. No rales, rhonchi or wheezes noted. No increased work of breathing, no retractions or nasal flaring. Back: No spinal tenderness. No costovertebral tenderness. Full range of motion. Skin: Warm, dry with normal turgor. Normal color with no rashes, no lesions, and no evidence of cellulitis. MS/ Extremity: Pulses equal, no cyanosis. Neurovascular intact. Full, normal range of motion. Neuro: Awake and alert, GCS 15, oriented to person, place, time, and situation. Cranial nerves II-XII grossly intact. Motor strength 5/5 in all extremities. Sensory grossly intact. Cerebellar exam normal. Normal gait. Psych: Awake, alert, with orientation to person, place and time. Behavior, mood, and affect are within normal limits. 13:28 Abdomen/GI: Inspection: no peg tube in place on arrival to ED, Bowel sounds: normal, Palpation: abdomen is soft and non-tender, in all quadrants. Vital Signs: 13:30 BP 129 / 92; Pulse 67; Resp 20; Temp 97.7; Pulse Ox 98% on R/A; Pain 0/10; aj1 15:15 BP 122 / 85; Pulse 62; Resp 18; Pulse Ox 97% ; aj1 Procedures: 13:28 G-tube placement: a 20 [place] catheter was placed, by the ED physician, Nadine CHUNG. MDM: 13:26 Medical screening is not applicable. [facility] 13:28 Data reviewed: vital signs, nurses notes. [facility] 03/27 13:27 Order name: PEG Tube Check w/contrast; Complete Time: 17:25 ka Administered Medications: No medications were administered Disposition: 15:36 Co-signature as Attending Physician, Jonathan Noble MD I agree with the assessment and kdr plan of care. Disposition: 03/27/18 14:52 Discharged to Home. Impression: Gastrostomy complication, unspecified. - Condition is Stable. - Discharge Instructions: Gastrostomy Tube Replacement, Gastrostomy Tube Home Guide, Adult, Gastrostomy Tube Replacement, Care After. - Medication Reconciliation Form, Thank You Letter form. - Follow up: Private Physician; When: 2 - 3 days; Reason: If symptoms return, Recheck today's complaints, Continuance of care, Re-evaluation by your physician. - Problem is new. - Symptoms have improved. Signatures: Dispatcher [employer] EDMS Va Mitchell, RN RN aj1 Jonathan Noble MD MD kdr Vern, Katherine, SHELDON LAMBERTP Marisol Kinsey RN RN ss Corrections: (The following items were deleted from the chart) 15:16 14:52 03/27/2018 14:52 Discharged to Home. Impression: Gastrostomy complication, ss unspecified. Condition is Stable. Forms are Medication Reconciliation Form, Thank You Letter, Antibiotic Education, Prescription Opioid Use. Follow up: Private Physician; When: 2 - 3 days; Reason: If symptoms return, Recheck today's complaints, Continuance of care, Re-evaluation by your physician. Problem is new. Symptoms have improved. kav
--- NOTE | 2018-03-27 14:52 | ER ---
Nurse's Notes [facility] Name: Shelia Miranda Age: 62 yrs Sex: Male : 1955 Arrival Date: 03/27/2018 Time: 13:24 Bed 18 Private MD: Diagnosis: Gastrostomy complication, unspecified Presentation: 03/27 13:25 Presenting complaint: EMS states: They were called by retirement staff because aj1 patient pulled out his G-tube. Transition of care: patient was received from another setting of care ([facility]. Onset of symptoms was March 27, 2018. Risk Assessment: Do you want to hurt yourself or someone else? Patient reports no desire to harm self or others. Initial Sepsis Screen: Does the patient meet any 2 criteria? No. Patient's initial sepsis screen is negative. Does the patient have a suspected source of infection? No. Patient's initial sepsis screen is negative. Care prior to arrival: None. 13:25 Method Of Arrival: EMS: [place] [id number] 13:25 Acuity: WINSOME 4 aj1 Triage Assessment: 13:30 General: Appears in no apparent distress. comfortable, Behavior is calm, cooperative. aj1 Pain: Denies pain. Historical: - Allergies: 13:30 No Known Allergies; aj1 - Home Meds: 13:30 aspirin 81 mg Oral chew 1 tab once daily [Active]; Catapres 0.1 mg oral tab every 8 aj1 hours as needed for SBP >160 [Active]; Vitamin D Oral 2000 unit daily [Active]; Albuterol Inhl [Active]; lisinopril 20 mg Oral tab 1 tab once daily [Active]; Ativan 0.5 mg Oral tab 1 tab 3 times per day [Active]; Nitrostat 0.3 mg sublingual subl as needed [Active]; Tegretol 100 mg/5 mL Oral susp 10 mL twice a day [Active]; - PMHx: 13:30 vitamin d deficiency; dysphagia; aphasia; Dementia; Anxiety; Schizophrenia; bph; COPD; aj1 Depression; Hypertension; - Immunization history:: Adult Immunizations up to date. - Social history:: Smoking status: Patient/guardian denies using tobacco. - Family history:: not pertinent. - Ebola Screening: : Patient denies travel to an Ebola-affected area in the 21 days before illness onset. - Hospitalizations: : No recent hospitalization is reported. - History obtained from: EMS. Screenin:31 Abuse screen: Denies threats or abuse. Denies injuries from another. Nutritional aj1 screening: No deficits noted. Tuberculosis screening: No symptoms or risk factors identified. 15:15 Fall Risk None identified. aj1 Assessment: 13:31 General: Appears in no apparent distress. comfortable, Behavior is calm, cooperative, aj1 appropriate for age. Pain: Denies pain. Neuro: Level of Consciousness is awake, alert. Cardiovascular: Patient's skin is warm and dry. Respiratory: Airway is patent Respiratory effort is even, unlabored, Respiratory pattern is regular, symmetrical. GI: Abdomen is flat, non-distended, Patient has pulled out his G-tube. : No signs and/or symptoms were reported regarding the genitourinary system. EENT: No signs and/or symptoms were reported regarding the EENT system. Derm: No signs and/or symptoms reported regarding the dermatologic system. Skin is pink, warm \T\ dry. normal. Musculoskeletal: No signs and/or symptoms reported regarding the musculoskeletal system. 14:30 Reassessment: Patient appears in no apparent distress at this time. No changes from aj1 previously documented assessment. Patient and/or family updated on plan of care and expected duration. Pain level reassessed. Patient is alert, oriented x 3, equal unlabored respirations, skin warm/dry/pink. 15:10 Reassessment: Report called to healthcare nurse, JANESSA Kaur. 15:15 Reassessment: Patient appears in no apparent distress at this time. No changes from aj1 previously documented assessment. Patient and/or family updated on plan of care and expected duration. Pain level reassessed. Patient is alert, oriented x 3, equal unlabored respirations, skin warm/dry/pink. Vital Signs: 13:30 BP 129 / 92; Pulse 67; Resp 20; Temp 97.7; Pulse Ox 98% on R/A; Pain 0/10; aj1 15:15 BP 122 / 85; Pulse 62; Resp 18; Pulse Ox 97% ; aj1 ED Course: 13:24 Patient arrived in ED. aj1 13:26 Triage completed. aj1 13:26 Nadine Davidson FNP is PHCP. kaerik 13:26 Jonathan Noble MD is Attending Physician. kav 13:30 Arm band placed on Patient placed in an exam room. aj1 13:31 Patient has correct armband on for positive identification. Bed in low position. Call aj1 light in reach. Side rails up X2. 13:31 No provider procedures requiring assistance completed. aj1 14:59 PEG Tube Check w/contrast In Process Unspecified. EDLA 15:15 Va Mitchell, RN is Primary Nurse. aj1 15:15 Patient did not have IV access during this emergency room visit. ss 15:15 Patient did not have IV access during this emergency room visit. aj1 Administered Medications: No medications were administered Outcome: 14:52 Discharge ordered by MD. kav 15:15 Discharged to retirement. Report called to JANESSA Kaur 15:15 Condition: good 15:15 Discharge instructions given to patient, retirement, Instructed on discharge instructions, follow up and referral plans. Demonstrated understanding of instructions, follow-up care. 15:16 Discharged to retirement. via ambulance aj 15:16 Condition: good 15:16 Discharge instructions given to retirement, Instructed on discharge instructions, follow up and referral plans. Demonstrated understanding of instructions, follow-up care. 15:16 Patient left the ED. ss Signatures: Dispatcher [employer] EDLA Va Mitchell, RN RN aj1 Nadine Davidson, Marisol Chaidez, RN RN
[2018-03-27 15:20] VITALS: TEMP 97.7
[2018-03-27 15:21] VITALS: BP 122/85; O2SAT 97
--- NOTE | 2018-03-27 15:27 | RAD REPORT ---
EXAM DESCRIPTION: RAD - ENTEROSTOMY TUBE CHECK W/CONTR - 03/27/2018 2:59 pm CLINICAL HISTORY: Dislodged enterostomy tube COMPARISON: March 21 FINDINGS: Enterostomy tube was replaced or repositioned. Imaging was performed prior to and followin g retrograde contrast in traction through the tube. Hospitality Services Manager film shows a large amount of contrast scattered in the colon from a prior diagnostic study. No obstruction or free air. Post-injection image shows the balloon tip in the antrum of the stomach all contrast is contained wit hin the lumen of the stomach and duodenum. IMPRESSION: Enterostomy tube has been repositioned. No extravasation or leakage of contrast.
== END 2018-03-27 15:16 | disposition home or self-care (01) ==
LOC: ER 13:21
PROC: 0DH63UZ Insertion of Feeding Device into Stomach, Percutaneous Approach (ICD-10-PCS; principal; 2018-03-27)
DX: K94.23 Gastrostomy malfunction (principal); I10 Essential (primary) hypertension; F03.90 Unspecified dementia, unspecified severity, without behavioral disturbance, psychotic disturbance, mood disturbance, and anxiety; J44.9 Chronic obstructive pulmonary disease, unspecified
CPT/HCPCS: 49465; 99283

== ENCOUNTER 2018-03-28 14:48 | Emergency (ER) | payer OTHER ==
--- NOTE | 2018-03-28 16:08 | EDPHYS ---
Physician Documentation [facility] Name: Shelia Mrianda Age: 62 yrs Sex: Male : 1955 Arrival Date: 03/28/2018 Time: 14:54 Bed 26 Private MD: ED Physician Domingo Sharma HPI: 03/28 15:27 This 62 yrs old Black Male presents to ER via EMS with complaints of Pulled G tube out. lana 15:27 The patient presents with abdominal pain in the upper abdomen. Onset: The lana symptoms/episode began/occurred just prior to arrival. The symptoms radiate to. Associated signs and symptoms: none. The symptoms are described as dull. Severity of pain: At its worst the pain was very mild in the emergency department the pain is unchanged. The patient has experienced similar episodes in the past, multiple times. Historical: - Allergies: 14:57 No Known Allergies; mb3 - Immunization history:: Adult Immunizations up to date. - Social history:: Smoking status: unknown. - Ebola Screening: : Patient denies travel to an Ebola-affected area in the 21 days before illness onset No symptoms or risks identified at this time. - Family history:: not pertinent. ROS: 15:27 Constitutional: Negative for fever, chills, and weight loss, Eyes: Negative for injury, lana pain, redness, and discharge, ENT: Negative for injury, pain, and discharge, Neck: Negative for injury, pain, and swelling, Cardiovascular: Negative for chest pain, palpitations, and edema, Respiratory: Negative for shortness of breath, cough, wheezing, and pleuritic chest pain, Back: Negative for injury and pain, : Negative for injury, bleeding, discharge, and swelling, MS/Extremity: Negative for injury and deformity, Skin: Negative for injury, rash, and discoloration, Neuro: Negative for headache, weakness, numbness, tingling, and seizure, Psych: Negative for depression, anxiety, suicide ideation, homicidal ideation, and hallucinations, Allergy/Immunology: Negative for hives, rash, and allergies, Endocrine: Negative for neck swelling, polydipsia, polyuria, polyphagia, and marked weight changes, Hematologic/Lymphatic: Negative for swollen nodes, abnormal bleeding, and unusual bruising. 15:27 Abdomen/GI: Positive for abdominal pain, of the left upper quadrant. Exam: 15:27 Constitutional: This is a well developed, well nourished patient who is awake, alert, lana and in no acute distress. Head/Face: Normocephalic, atraumatic. Eyes: Pupils equal round and reactive to light, extra-ocular motions intact. Lids and lashes normal. Conjunctiva and sclera are non-icteric and not injected. Cornea within normal limits. Periorbital areas with no swelling, redness, or edema. ENT: Nares patent. No nasal discharge, no septal abnormalities noted. Tympanic membranes are normal and external auditory canals are clear. Oropharynx with no redness, swelling, or masses, exudates, or evidence of obstruction, uvula midline. Mucous membranes moist. Neck: Trachea midline, no thyromegaly or masses palpated, and no cervical lymphadenopathy. Supple, full range of motion without nuchal rigidity, or vertebral point tenderness. No Meningismus. Chest/axilla: Normal chest wall appearance and motion. Nontender with no deformity. No lesions are appreciated. Cardiovascular: Regular rate and rhythm with a normal S1 and S2. No gallops, murmurs, or rubs. Normal PMI, no JVD. No pulse deficits. Respiratory: Lungs have equal breath sounds bilaterally, clear to auscultation and percussion. No rales, rhonchi or wheezes noted. No increased work of breathing, no retractions or nasal flaring. Back: No spinal tenderness. No costovertebral tenderness. Full range of motion. Male : Normal genitalia with no discharge or lesions. Skin: Warm, dry with normal turgor. Normal color with no rashes, no lesions, and no evidence of cellulitis. MS/ Extremity: Pulses equal, no cyanosis. Neurovascular intact. Full, normal range of motion. Neuro: Awake and alert, GCS 15, oriented to person, place, time, and situation. Cranial nerves II-XII grossly intact. Motor strength 5/5 in all extremities. Sensory grossly intact. Cerebellar exam normal. Normal gait. Psych: Awake, alert, with orientation to person, place and time. Behavior, mood, and affect are within normal limits. 15:27 Abdomen/GI: Inspection: abdomen appears normal, Bowel sounds: normal, Palpation: nontender, Liver: no appreciated palpable abnormalities, Hernia: not appreciated, peg missing. Vital Signs: 14:59 BP 140 / 94; Pulse 80; Resp 18; Temp 98(O); Pulse Ox 98% ; Weight 86.18 kg; Height 6 mb3 ft. 3 in. (190.50 cm); Pain 0/10; 16:37 BP 145 / 98; Pulse 79; Resp 18; Pulse Ox 98% on R/A; mb3 17:31 BP 155 / 97; Pulse 80; Resp 18; Pulse Ox 98% ; mb3 14:59 Body Mass Index 23.75 (86.18 kg, 190.50 cm) mb3 Procedures: 16:08 G-tube placement: a 18 Yi catheter was placed, by the ED physician, Domingo Sharma cha, MD. MDM: 14:54 Patient medically screened. [facility] 15:27 Data reviewed: vital signs, nurses notes, radiologic studies. [facility] 03/28 15:39 Order name: ENTEROSTOMY TUBE CHECK W/CONTR EDAZ Administered Medications: No medications were administered Disposition: 03/28/18 16:08 Discharged to Home. Impression: Gastrostomy status - replacement. - Condition is Stable. - Discharge Instructions: Gastrostomy Tube Home Guide, Adult, PEG Tube Home Guide, [id number], PEG Tube Home Guide. - Medication Reconciliation Form, Thank You Letter, Antibiotic Education, Prescription Opioid Use form. - Follow up: Private Physician; When: 2 - 3 days; Reason: Recheck today's complaints, Continuance of care, Re-evaluation by your physician. Follow up: Kenan Wong MD; When: 5 - 6 days; Reason: Recheck today's complaints, Re-evaluation by your physician. - Problem is new. - Symptoms have improved. Signatures: Dispatcher [employer] [facility] Domingo Sharma MD MD cha Barnett, Mark, RN RN mb3 Corrections: (The following items were deleted from the chart) 15:39 15:33 Abdomen 1 View+RAD.RAD.BRZ ordered. [facility] 16:09 16:08 03/28/2018 16:08 Discharged to Home. Impression: Gastrostomy status - lana replacement. Condition is Stable. Discharge Instructions: Gastrostomy Tube Home Guide, Adult, PEG Tube Home Guide, [id number]-ox-Uqke, PEG Tube Home Guide. Forms are Medication Reconciliation Form, Thank You Letter, Antibiotic Education, Prescription Opioid Use. Follow up: Private Physician; When: 2 - 3 days; Reason: Recheck today's complaints, Continuance of care, Re-evaluation by your physician. Problem is new. Symptoms have improved. lana 17:32 16:09 03/28/2018 16:08 Discharged to Home. Impression: Gastrostomy status - mb3 replacement. Condition is Stable. Discharge Instructions: Gastrostomy Tube Home Guide, Adult, PEG Tube Home Guide, [id number], PEG Tube Home Guide. Forms are Medication Reconciliation Form, Thank You Letter, Antibiotic Education, Prescription Opioid Use. Follow up: Private Physician; When: 2 - 3 days; Reason: Recheck today's complaints, Continuance of care, Re-evaluation by your physician. Follow up: Kenan Wong; When: 5 - 6 days; Reason: Recheck today's complaints, Re-evaluation by your physician. Problem is new. Symptoms have improved. lana
--- NOTE | 2018-03-28 16:08 | ER ---
Nurse's Notes [facility] Name: Shelia Miranda Age: 62 yrs Sex: Male : 1955 Arrival Date: 03/28/2018 Time: 14:54 Bed 26 Private MD: Diagnosis: Gastrostomy status-replacement Presentation: 03/28 14:54 Presenting complaint: EMS states: Pt from [facility], pulled his peg tube mb3 out. Was here yesterday for the same thing. Transition of care: patient was received from another setting of care (long-term care facility), [facility]. Onset of symptoms is unknown. Risk Assessment: Do you want to hurt yourself or someone else? Patient reports no desire to harm self or others. Initial Sepsis Screen: Does the patient meet any 2 criteria? No. Patient's initial sepsis screen is negative. Does the patient have a suspected source of infection? No. Patient's initial sepsis screen is negative. Care prior to arrival: None. 14:54 Method Of Arrival: EMS: [facility] mb3 14:54 Acuity: WINSOME 4 mb3 14:54 Acuity: WINSOME 4 mb3 Triage Assessment: 14:57 General: Appears in no apparent distress. comfortable, Behavior is calm, cooperative, mb3 flat. Pain: Denies pain. EENT: No deficits noted. Neuro: No deficits noted. Neuro: at baseline for pt. Cardiovascular: No deficits noted. Respiratory: No deficits noted. GI: Reports G tube out, pt does not know how it came out. Does have dementia. : No signs and/or symptoms were reported regarding the genitourinary system. Derm: hole for gtube present at [facility]. Historical: - Allergies: 14:57 No Known Allergies; mb3 - Immunization history:: Adult Immunizations up to date. - Social history:: Smoking status: unknown. - Ebola Screening: : Patient denies travel to an Ebola-affected area in the 21 days before illness onset No symptoms or risks identified at this time. - Family history:: not pertinent. Screenin:00 Abuse screen: Denies threats or abuse. Nutritional screening: No deficits noted. mb3 Tuberculosis screening: No symptoms or risk factors identified. Fall Risk Fall in past 12 months (25 points). Secondary diagnosis (15 points) No IV (0 pts). Ambulatory Aid- None/Bed Rest/Nurse Assist (0 pts). Gait- Impaired (20 pts.). Mental Status- Overestimates/Forgets Limitations (15 pts.). Total Stephens Fall Scale indicates High Risk Score (45 or more points). Fall prevention measures have been instituted. Side Rails Up X 2 Placed Close to Nursing Station Frequent Obs/Assessments Occuring As available patient and family educated on Fall Prevention Program and Strategies. Assessment: 16:35 Reassessment: see triage assessment. 3 16:38 Reassessment: Called [facility], they will get transport on the [facility] here to pick pt up. Vital Signs: 14:59 BP 140 / 94; Pulse 80; Resp 18; Temp 98(O); Pulse Ox 98% ; Weight 86.18 kg; Height 6 3 ft. 3 in. (190.50 cm); Pain 0/10; 16:37 BP 145 / 98; Pulse 79; Resp 18; Pulse Ox 98% on R/A; mb3 17:31 BP 155 / 97; Pulse 80; Resp 18; Pulse Ox 98% ; mb3 14:59 Body Mass Index 23.75 (86.18 kg, 190.50 cm) mb3 ED Course: 14:54 Patient arrived in ED. mb3 14:54 Domingo Sharma MD is Attending Physician. [facility] 14:56 Triage completed. mb3 16:08 Kenan Wong MD is Referral Physician. [facility] 16:09 Patient moved to radiology via stretcher. bb2 16:09 X-ray completed. Patient tolerated procedure well. Patient moved back from radiology. bb2 16:10 ENTEROSTOMY TUBE CHECK W/CONTR In Process Unspecified. EDIN 16:32 Cristofer Lo, RN is Primary Nurse. mb3 17:29 Arm band placed on right wrist. mb3 17:30 g tube placement. Patient did not have IV access during this emergency room visit. mb3 17:31 Patient has correct armband on for positive identification. mb3 Administered Medications: No medications were administered Outcome: 16:08 Discharge ordered by . [facility] 17:30 Discharged to home via ambulance. mb3 17:30 Condition: stable 17:30 Discharge instructions given to EMS, Instructed on discharge instructions, Demonstrated understanding of instructions, follow-up care. 17:32 Patient left the ED. mb3 Signatures: Dispatcher [employer] EDMS Domingo Sharma, MD MD lana Kera, Kasey bb2 Cristofer Lo, RN RN mb3
--- NOTE | 2018-03-28 16:37 | RAD REPORT ---
EXAM DESCRIPTION: RAD - ENTEROSTOMY TUBE CHECK W/CONTR - 03/28/2018 4:12 pm CLINICAL HISTORY: Replacement or repositioning of enterostomy tube COMPARISON: March 27 FINDINGS: Imaging was performed prior to and subsequent to retrograde injection of contrast through the replaced or repositioned enterostomy tube. The initial examination shows continued presence of a large quantity of contrast opacified stool in t he colon. The post-injection image shows balloon tip in the antrum of the stomach. All injected contrast remain s within the lumen of the stomach and duodenal C-loop. IMPRESSION: Enterostomy tube in good position.
[2018-03-28 17:37] VITALS: TEMP 98; O2SAT 98
[2018-03-28 17:39] VITALS: BP 155/97
== END 2018-03-28 17:32 | disposition home or self-care (01) ==
LOC: ER 14:48
PROC: 0D20XUZ Change Feeding Device in Upper Intestinal Tract, External Approach (ICD-10-PCS; principal; 2018-03-28)
DX: Z43.1 Encounter for attention to gastrostomy (principal); Z46.59 Encounter for fitting and adjustment of other gastrointestinal appliance and device
CPT/HCPCS: 49465; 99283

== ENCOUNTER 2018-03-29 07:23 | Emergency (ER) | payer OTHER ==
--- NOTE | 2018-03-29 08:18 | EDPHYS ---
Physician Documentation [facility] Name: Shelia Miranda Age: 62 yrs Sex: Male : 1955 Arrival Date: 03/29/2018 Time: 07:25 Bed 16 Private MD: ED Physician Jonathan Noble HPI: 03/29 07:33 This 62 yrs old Black Male presents to ER via EMS with complaints of g - tube pulled rh1 out. 07:33 Onset: The symptoms/episode began/occurred this morning. Associated signs and symptoms: rh1 Pertinent negatives: abdominal pain, vomiting. The patient has experienced similar episodes in the past. The patient has been recently seen at the [facility] Emergency Department, yesterday. Pt. reported to have pulled out his g - tube this morning around 0430.. Historical: - Allergies: 07:33 No Known Allergies; em - Home Meds: 07:33 Albuterol Inhl [Active]; Vitamin D Oral 2000 unit daily [Active]; Tegretol 100 mg/5 mL em Oral susp 10 mL twice a day [Active]; Nitrostat 0.3 mg SL subl as needed [Active]; aspirin 81 mg Oral chew 1 tab once daily [Active]; Ativan 0.5 mg Oral tab 1 tab 3 times per day [Active]; Catapres 0.1 mg Oral tab every 8 hours as needed for SBP >160 [Active]; lisinopril 20 mg Oral tab 1 tab once daily [Active]; - PMHx: 07:33 Dementia; COPD; Depression; DYSPHAGIA; Hypertension; Schizophrenia; BPH; Aphasia; em Anxiety; vitamin d deficiency; - Immunization history:: Adult Immunizations up to date. - Social history:: Smoking status: unknown. - Ebola Screening: : Patient negative for fever greater than or equal to 101.5 degrees Fahrenheit, and additional compatible Ebola Virus Disease symptoms Patient denies exposure to infectious person Patient denies travel to an Ebola-affected area in the 21 days before illness onset No symptoms or risks identified at this time. ROS: 07:33 Constitutional: Negative for fever and weight loss. rh1 07:33 Abdomen/GI: Negative for abdominal pain, vomiting. 07:33 All other systems are negative. Exam: 07:33 Constitutional: This is a well developed, well nourished patient who is awake, alert, rh1 and in no acute distress. Cardiovascular: Regular rate and rhythm with a normal S1 and S2. No gallops, murmurs, or rubs. No JVD. No pulse deficits. Respiratory: Lungs have equal breath sounds bilaterally, clear to auscultation. No rales, rhonchi or wheezes noted. No increased work of breathing. 07:33 Abdomen/GI: Inspection: abdomen appears normal, bruising, is not seen, distension, is not seen, with left upper abdomen g - tube site, minimal bloody crusting, Bowel sounds: normal, in all quadrants, active, all quadrants, Palpation: abdomen is soft and non-tender, in all quadrants. 07:33 Neuro: Orientation: to person, place, Mentation: is normal, no acute changes. Vital Signs: 07:33 BP 155 / 101; Pulse 96; Resp 16; Temp 98.6(O); Pulse Ox 100% on R/A; Pain 0/10; em 08:27 BP 133 / 94; Pulse 89; Resp 17; Pulse Ox 99% on R/A; em MDM: 07:33 ED course: G - tube replaced, awaiting xray confirmation. rh1 07:36 Patient medically screened. rh1 08:16 Data reviewed: vital signs, nurses notes, old medical records, radiologic studies, rh1 plain films, no evidence of extravasation of contrast - reviewed with Aide KILLIAN. Data interpreted: Pulse oximetry: on room air is 100 %. Counseling: I had a detailed discussion with the patient and/or guardian regarding: the historical points, exam findings, and any diagnostic results supporting the discharge/admit diagnosis, radiology results, the need for outpatient follow up, a family practitioner, to return to the emergency department if symptoms worsen or persist or if there are any questions or concerns that arise at home. 03/29 07:37 Order name: ENTEROSTOMY TUBE CHECK W/CONTR EDMS Administered Medications: No medications were administered Disposition: 15:45 Co-signature as Attending Physician, Jonathan Noble MD I agree with the assessment and kdr plan of care. Disposition: 03/29/18 08:18 Discharged to Home. Impression: Encounter for attention to gastrostomy. - Condition is Stable. - Discharge Instructions: Gastrostomy Tube Replacement. - Medication Reconciliation Form, Thank You Letter, Antibiotic Education, Prescription Opioid Use form. - Follow up: Private Physician; When: 1 - 2 days; Reason: Recheck today's complaints, Continuance of care, Re-evaluation by your physician. Follow up: Emergency Department; When: As needed; Reason: If symptoms return, Worsening of condition. - Problem is new. - Symptoms have improved. Signatures: Dispatcher [employer] [facility] Jonathan Noble MD MD kdr Gunnar Hercules, CRIME INVESTIGATOR SPECIAL AGENT CRIME INVESTIGATOR SPECIAL AGENT em Juana Brooks, CLAY THROWER CLAY THROWER rh1 Corrections: (The following items were deleted from the chart) 07:37 07:34 Abdomen 1 View (KUB)+RAD.RAD.BRZ ordered. [facility] 09:18 08:18 03/29/2018 08:18 Discharged to Home. Impression: Encounter for attention to em gastrostomy. Condition is Stable. Forms are Medication Reconciliation Form, Thank You Letter, Antibiotic Education, Prescription Opioid Use. Follow up: Private Physician; When: 1 - 2 days; Reason: Recheck today's complaints, Continuance of care, Re-evaluation by your physician. Follow up: Emergency Department; When: As needed; Reason: If symptoms return, Worsening of condition. Problem is new. Symptoms have improved. rh1
--- NOTE | 2018-03-29 08:18 | ER ---
Nurse's Notes [facility] Name: Shelia Miranda Age: 62 yrs Sex: Male : 1955 Arrival Date: 03/29/2018 Time: 07:25 Bed 16 Private MD: Diagnosis: Encounter for attention to gastrostomy Presentation: 03/29 07:25 Transition of care: patient was received from another setting of care (long-term care facility), [facility]. 07:25 Acuity: WINSOME 4 07:30 Presenting complaint: EMS states: c/o pulled 18 Fr G tube around [id number] this em morning, denies pain. Onset of symptoms was March 29, 2018. Risk Assessment: Do you want to hurt yourself or someone else? Patient reports no desire to harm self or others. Initial Sepsis Screen: Does the patient meet any 2 criteria? No. Patient's initial sepsis screen is negative. Does the patient have a suspected source of infection? No. Patient's initial sepsis screen is negative. Care prior to arrival: None. 07:30 Method Of Arrival: EMS: [facility] [place] em Triage Assessment: 07:33 General: Appears in no apparent distress. comfortable, Behavior is calm, cooperative. em Pain: Denies pain. Historical: - Allergies: 07:33 No Known Allergies; em - Home Meds: 07:33 Albuterol Inhl [Active]; Vitamin D Oral 2000 unit daily [Active]; Tegretol 100 mg/5 mL em Oral susp 10 mL twice a day [Active]; Nitrostat 0.3 mg SL subl as needed [Active]; aspirin 81 mg Oral chew 1 tab once daily [Active]; Ativan 0.5 mg Oral tab 1 tab 3 times per day [Active]; Catapres 0.1 mg Oral tab every 8 hours as needed for SBP >160 [Active]; lisinopril 20 mg Oral tab 1 tab once daily [Active]; - PMHx: 07:33 Dementia; COPD; Depression; DYSPHAGIA; Hypertension; Schizophrenia; BPH; Aphasia; em Anxiety; vitamin d deficiency; - Immunization history:: Adult Immunizations up to date. - Social history:: Smoking status: unknown. - Ebola Screening: : Patient negative for fever greater than or equal to 101.5 degrees Fahrenheit, and additional compatible Ebola Virus Disease symptoms Patient denies exposure to infectious person Patient denies travel to an Ebola-affected area in the 21 days before illness onset No symptoms or risks identified at this time. Screenin:36 Abuse screen: no apparent signs noted. Nutritional screening: No deficits noted. em Tuberculosis screening: No symptoms or risk factors identified. Fall Risk None identified. Assessment: 07:37 General: Appears in no apparent distress. comfortable, Behavior is calm, cooperative. em Pain: Denies pain. Neuro: Level of Consciousness is awake, alert, obeys commands, Oriented to person, place. Cardiovascular: Capillary refill < 3 seconds Patient's skin is warm and dry. Respiratory: Airway is patent Respiratory effort is even, unlabored, Respiratory pattern is regular, symmetrical, Breath sounds are clear bilaterally. GI: PEG tube Site clean. out Bowel sounds present X 4 quads. Derm: Skin is intact, Skin is pink, warm \T\ dry. Musculoskeletal: Capillary refill < 3 seconds. 07:45 General: The previous assessment is accurate, call light remains within reach of ss patient. Appears comfortable. . 07:48 Reassessment: Patient appears in no apparent distress at this time. taped G tube in em place with sterile gauze. 08:27 Reassessment: Patient appears in no apparent distress at this time. Patient and/or em family updated on plan of care and expected duration. Pain level reassessed. awake and alert, respirations even and unlabored, skin pink warm and dry. 09:16 Reassessment: Patient appears in no apparent distress at this time. report given to em EMS, report called to [facility] spoke with Vijay. Vital Signs: 07:33 BP 155 / 101; Pulse 96; Resp 16; Temp 98.6(O); Pulse Ox 100% on R/A; Pain 0/10; em 08:27 BP 133 / 94; Pulse 89; Resp 17; Pulse Ox 99% on R/A; em ED Course: 07:25 Patient arrived in ED. em 07:25 Triage completed. ss 07:29 Juana Brooks NP is PHCP. rh1 07:29 Jonathan Noble MD is Attending Physician. rh1 07:33 Arm band placed on. em 07:36 Patient has correct armband on for positive identification. Bed in low position. Call em light in reach. Side rails up X2. 07:47 Gunnar Hercules LVN is Primary Nurse. em 08:22 X-ray completed. Portable x-ray completed in exam room. Patient tolerated procedure kw well. 08:27 No provider procedures requiring assistance completed. Patient did not have IV access em during this emergency room visit. 08:39 attempted to call [facility] to arrange transport. Unable to speak to anyone. So I called [facility] for transportation back to [facility] they will dispatch a truck this way. 08:58 ENTEROSTOMY TUBE CHECK W/CONTR In Process Unspecified. EDMS Administered Medications: No medications were administered Outcome: 08:18 Discharge ordered by . [facility] 09:17 Discharged to home via ambulance. em 09:17 Condition: good 09:17 Discharge instructions given to half-way, EMS, Instructed on discharge instructions, Demonstrated understanding of instructions. 09:18 Patient left the ED. em Signatures: Dispatcher [employer] EDMS Gunnar Hercules LVN LVN em Marisol Cordova RN RN Kelsey Turner Rachel, NP SEMI DRIVER [facility] Danielle Arguello
[2018-03-29 09:23] VITALS: TEMP 98.6
[2018-03-29 09:25] VITALS: BP 133/94; O2SAT 99
--- NOTE | 2018-03-29 11:40 | RAD REPORT ---
EXAM DESCRIPTION: RAD - ENTEROSTOMY TUBE CHECK W/CONTR - 03/29/2018 8:58 am CLINICAL HISTORY: with contrast, confirm g - tube placement Abdominal pain COMPARISON: ENTEROSTOMY TUBE CHECK W/CONTR dated 03/28/2018 FINDINGS: Two abdominal radiographs were obtained, before and after the injection of contrast into t he PEG tube. On the pre-injection radiograph, oral contrast is seen in the colon. On the post injecti on radiographs, the stomach and duodenum is seen to fill with contrast without leakage, confirming ap propriate PEG tube placement.
== END 2018-03-29 09:18 | disposition home or self-care (01) ==
LOC: ER 07:23
DX: Z43.1 Encounter for attention to gastrostomy (principal); I10 Essential (primary) hypertension; F32.9 Major depressive disorder, single episode, unspecified; J44.9 Chronic obstructive pulmonary disease, unspecified; F41.9 Anxiety disorder, unspecified; F03.90 Unspecified dementia, unspecified severity, without behavioral disturbance, psychotic disturbance, mood disturbance, and anxiety; Z79.82 Long term (current) use of aspirin
CPT/HCPCS: 49465; 99283

== ENCOUNTER 2018-03-30 06:08 | Emergency (ER) | payer OTHER ==
--- NOTE | 2018-03-30 07:17 | ER ---
Nurse's Notes [facility] Name: Shelia Miranda Age: 62 yrs Sex: Male : 1955 Arrival Date: 03/30/2018 Time: 06:11 Bed 18 Private MD: Diagnosis: Peg Tube Replacment;Peg Tube Dislogement Presentation: 03/30 06:12 Presenting complaint: EMS states: [facility] staff reports that pt has pulled out his g-tube aa1 again. Transition of care: patient was received from another setting of care (long-term care facility), [facility]. Onset of symptoms was March 30, 2018. Risk Assessment: Do you want to hurt yourself or someone else? Patient reports no desire to harm self or others. Initial Sepsis Screen: Does the patient meet any 2 criteria? No. Patient's initial sepsis screen is negative. Does the patient have a suspected source of infection? No. Patient's initial sepsis screen is negative. Care prior to arrival: None. 06:12 Method Of Arrival: EMS: [facility] aa1 06:12 Acuity: WINSOME 4 aa1 Historical: - Allergies: 06:18 No Known Allergies; aa1 - PMHx: 06:18 Anxiety; Aphasia; BPH; COPD; Dementia; Depression; DYSPHAGIA; Hypertension; aa1 Schizophrenia; vitamin d deficiency; - PSHx: 06:18 peg tube; aa1 - Immunization history:: Adult Immunizations up to date. - Social history:: Smoking status: Patient/guardian denies using tobacco. - Ebola Screening: : No symptoms or risks identified at this time. - Family history:: not pertinent. - Hospitalizations: : No recent hospitalization is reported. Screenin:19 Abuse screen: Denies threats or abuse. Denies injuries from another. Nutritional aa1 screening: On NPO diet. Tuberculosis screening: No symptoms or risk factors identified. Fall Risk None identified. Assessment: 06:19 General: Appears in no apparent distress. comfortable, Behavior is calm. Pain: Denies aa1 pain. Neuro: Level of Consciousness is awake, alert, Oriented to person. Respiratory: Airway is patent Respiratory effort is even, unlabored, Respiratory pattern is regular, symmetrical. GI: peg tube insertion site present with no peg tube in place. : No signs and/or symptoms were reported regarding the genitourinary system. EENT: No signs and/or symptoms were reported regarding the EENT system. Derm: Skin is intact, is healthy with good turgor, Skin is pink, warm \T\ dry. Musculoskeletal: Circulation, motion, and sensation intact. Capillary refill < 3 seconds. 06:50 Reassessment: Patient appears in no apparent distress at this time. No changes from aa1 previously documented assessment. Patient and/or family updated on plan of care and expected duration. Pain level reassessed. Awaiting CT scan to confirm tube placement. 07:17 Reassessment: Patient appears in no apparent distress at this time. No changes from em previously documented assessment. Patient and/or family updated on plan of care and expected duration. Pain level reassessed. pending CT results. 07:30 Reassessment: Patient appears in no apparent distress at this time. Patient and/or em family updated on plan of care and expected duration. Pain level reassessed. placed abdominal binder on pt with Velcro side on back, pt discharged, pending transportation back to facility. 09:06 Reassessment: report given to [facility], ER provider emphasized the use em of abdominal binder to [facility], staff verbalizes understanding with providers instructions. 10:00 Reassessment: Patient appears in no apparent distress at this time. Patient and/or em family updated on plan of care and expected duration. Pain level reassessed. pt abdominal binder in place. 11:02 Reassessment: cleaned patient of urinary incontinence and placed extensive padded ss dressing under abd binder. Pt verbalizes understanding importance of leaving abdominal area alone if tempted to feel the urge to tug on G tube. 11:48 Reassessment: updated report given to [facility], new G tube inserted, re-bandaged and em abdominal binder placed, report given to EMS. Vital Signs: 06:18 BP 125 / 87; Pulse 74; Resp 18; Temp 97.6; Pulse Ox 98% on R/A; Pain 0/10; aa1 07:18 BP 134 / 92; Pulse 63; Resp 18; Pulse Ox 97% on R/A; Pain 0/10; em 08:30 BP 140 / 88; Pulse 65; Resp 16; Pulse Ox 97% on R/A; em 09:30 BP 154 / 91; Pulse 61; Resp 18; Pulse Ox 98% on R/A; em 11:37 BP 131 / 93; Pulse 68; Resp 16; Pulse Ox 98% on R/A; em ED Course: 06:11 Patient arrived in ED. aa1 06:12 Nadine Davidson FNP is PHCP. kav 06:12 Domingo Sharma MD is Attending Physician. kav 06:16 Triage completed. aa1 06:18 Arm band placed on right wrist. Patient placed in an exam room, on a stretcher. aa1 06:19 Patient has correct armband on for positive identification. Bed in low position. Call aa1 light in reach. Pulse ox on. NIBP on. 07:00 Report given to Gunnar Hercules LVN. aa1 07:00 Report received from ARIAS Anderson. em 07:00 Pulse ox on. NIBP on. em 07:09 Gunnar Hercules LVN is Primary Nurse. 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 07:48 PEG Tube Check w/contrast In Process Unspecified. EDMS 08:17 called [facility] and let the staff know the patient was ready to come eb back and the RN said she would call and arrange transport for patient. 08:28 No provider procedures requiring assistance completed. Patient did not have IV access em during this emergency room visit. 11:25 PEG Tube Check w/contrast In Process Unspecified. EDMS Administered Medications: No medications were administered Outcome: 07:16 Discharge ordered by . ka 11:49 Discharged to [facility]. Report called to ARIAS Linares em 11:49 Condition: stable 11:49 Discharge instructions given to [facility], EMS, Instructed on discharge instructions, Demonstrated understanding of instructions. 11:50 Patient left the ED. Signatures: Dispatcher [employer] Trudy Davey RN RN aa1 Nadine Davidson FNP FNP kav Munoz, Edgar, LVN LVN em Marisol Cordova RN RN Danielle Arguello
--- NOTE | 2018-03-30 07:17 | EDPHYS ---
Physician Documentation [facility] Name: Shelia Miranda Age: 62 yrs Sex: Male : 1955 Arrival Date: 03/30/2018 Time: 06:11 Bed 18 Private MD: ED Physician Domingo Sharma HPI: 03/30 06:13 This 62 yrs old Black Male presents to ER via Unassigned with complaints of Pulled out kav G-Tube. 06:13 This 62 yrs old Black Male presents to ER via Unassigned with complaints of Pulled out kav G-Tube. 06:16 The patient presents with Patient removed PEG-Tube. Onset: The symptoms/episode kav began/occurred acutely. The symptoms do not radiate. Associated signs and symptoms: none. Modifying factors: The symptoms are alleviated by nothing, the symptoms are aggravated by Not wearing abdominal binder. Severity of pain: At its worst the pain was very mild just prior to arrival. The patient has experienced similar episodes in the past, chronically, and the symptoms today are exactly the same. The patient has been recently seen at the [facility] Emergency Department, yesterday. Patient has multiple ED visits for replacement of PEG Tube.. Historical: - Allergies: 06:18 No Known Allergies; aa1 - PMHx: 06:18 Anxiety; Aphasia; BPH; COPD; Dementia; Depression; DYSPHAGIA; Hypertension; aa1 Schizophrenia; vitamin d deficiency; - PSHx: 06:18 peg tube; aa1 - Immunization history:: Adult Immunizations up to date. - Social history:: Smoking status: Patient/guardian denies using tobacco. - Ebola Screening: : No symptoms or risks identified at this time. - Family history:: not pertinent. - Hospitalizations: : No recent hospitalization is reported. ROS: 06:25 Constitutional: Negative for fever, chills, and weight loss, Eyes: Negative for injury, kav pain, redness, and discharge, ENT: Negative for injury, pain, and discharge, Neck: Negative for injury, pain, and swelling, Cardiovascular: Negative for chest pain, palpitations, and edema, Respiratory: Negative for shortness of breath, cough, wheezing, and pleuritic chest pain, Back: Negative for injury and pain, : Negative for injury, bleeding, discharge, and swelling, MS/Extremity: Negative for injury and deformity, Skin: Negative for injury, rash, and discoloration, Neuro: Negative for headache, weakness, numbness, tingling, and seizure, Psych: Negative for depression, anxiety, suicide ideation, homicidal ideation, and hallucinations, Allergy/Immunology: Negative for hives, rash, and allergies, Endocrine: Negative for neck swelling, polydipsia, polyuria, polyphagia, and marked weight changes, Hematologic/Lymphatic: Negative for swollen nodes, abnormal bleeding, and unusual bruising. 06:25 Abdomen/GI: Positive for PEG Tube replacement. Exam: 06:25 Constitutional: This is a well developed, well nourished patient who is awake, alert, kav and in no acute distress. Head/Face: Normocephalic, atraumatic. Eyes: Pupils equal round and reactive to light, extra-ocular motions intact. Lids and lashes normal. Conjunctiva and sclera are non-icteric and not injected. Cornea within normal limits. Periorbital areas with no swelling, redness, or edema. ENT: Nares patent. No nasal discharge, no septal abnormalities noted. Tympanic membranes are normal and external auditory canals are clear. Oropharynx with no redness, swelling, or masses, exudates, or evidence of obstruction, uvula midline. Mucous membranes moist. Neck: Trachea midline, no thyromegaly or masses palpated, and no cervical lymphadenopathy. Supple, full range of motion without nuchal rigidity, or vertebral point tenderness. No Meningismus. Chest/axilla: Normal chest wall appearance and motion. Nontender with no deformity. No lesions are appreciated. Cardiovascular: Regular rate and rhythm with a normal S1 and S2. No gallops, murmurs, or rubs. Normal PMI, no JVD. No pulse deficits. Respiratory: Lungs have equal breath sounds bilaterally, clear to auscultation and percussion. No rales, rhonchi or wheezes noted. No increased work of breathing, no retractions or nasal flaring. Back: No spinal tenderness. No costovertebral tenderness. Full range of motion. Skin: Warm, dry with normal turgor. Normal color with no rashes, no lesions, and no evidence of cellulitis. MS/ Extremity: Pulses equal, no cyanosis. Neurovascular intact. Full, normal range of motion. Neuro: Awake and alert, GCS 15, oriented to person, place, time, and situation. Cranial nerves II-XII grossly intact. Motor strength 5/5 in all extremities. Sensory grossly intact. Cerebellar exam normal. Normal gait. Psych: Awake, alert, with orientation to person, place and time. Behavior, mood, and affect are within normal limits. 06:25 Abdomen/GI: Inspection: PEG Tube removed by patient, Bowel sounds: normal, in all quadrants. Vital Signs: 06:18 BP 125 / 87; Pulse 74; Resp 18; Temp 97.6; Pulse Ox 98% on R/A; Pain 0/10; aa1 07:18 BP 134 / 92; Pulse 63; Resp 18; Pulse Ox 97% on R/A; Pain 0/10; em 08:30 BP 140 / 88; Pulse 65; Resp 16; Pulse Ox 97% on R/A; em 09:30 BP 154 / 91; Pulse 61; Resp 18; Pulse Ox 98% on R/A; em 11:37 BP 131 / 93; Pulse 68; Resp 16; Pulse Ox 98% on R/A; em Procedures: 06:25 G-tube placement: a 18 Telugu catheter was placed, by the ED physician, Nadine CHUNG. MDM: 06:12 Medical screening is not applicable. [facility] 06:25 Data reviewed: vital signs, nurses notes. [facility] 10:12 ED course: awaiting EMS transfer. [facility] 03/30 06:13 Order name: PEG Tube Check w/contrast [facility] 03/30 10:49 Order name: PEG Tube Check w/contrast [facility] 03/30 06:35 Order name: Misc. Order: Abdominal Binder; Complete Time: 07:42 ka Administered Medications: No medications were administered Disposition: 03/31 10:47 Co-signature as Attending Physician, Domingo Sharma MD I agree with the assessment and lana plan of care. Disposition: 03/30/18 07:16 Discharged to Home. Impression: Peg Tube Replacment, Peg Tube Dislogement. - Condition is Stable. - Discharge Instructions: PEG Tube Home Guide, [id number]. - Medication Reconciliation Form, Thank You Letter form. - Follow up: Private Physician; When: 1 - 2 days; Reason: If symptoms return, Recheck today's complaints, Continuance of care, Re-evaluation by your physician. - Problem is new. - Symptoms have improved. - Notes: Please ensure that abdominal binder is in place at all times. Signatures: Dispatcher [employer] EDTrudy Wilson, RN RN aa1 Domingo Sharma MD MD cha Vern, Katherine, LUGGER LUGGER Marisol Kinsey RN RN ss Corrections: (The following items were deleted from the chart) 03/30 06:18 06:13 Onset: The symptoms/episode began/occurred acutely, kav kav :18 06:13 Associated signs and symptoms: The patient has no apparent associated signs or kav symptoms, kav :18 06:13 Modifying factors: The patient symptoms are alleviated by nothing, the patient kav symptoms are aggravated by nothing, kav :18 06:13 The patient has experienced similar episodes in the past, chronically, and the kav symptoms today are exactly the same, kav :18 06:13 The patient has not recently seen a physician, kav kav :18 06:13 Patient reportedly pulled out his peg-tube. . wilton núñez 11:50 07:16 03/30/2018 07:16 Discharged to Home. Impression: Peg Tube Replacment; Peg Tube ss Dislogement. Condition is Stable. Forms are Medication Reconciliation Form, Thank You Letter, Antibiotic Education, Prescription Opioid Use. Follow up: Private Physician; When: 1 - 2 days; Reason: If symptoms return, Recheck today's complaints, Continuance of care, Re-evaluation by your physician. Problem is new. Symptoms have improved. kav
--- NOTE | 2018-03-30 11:40 | RAD REPORT ---
EXAM DESCRIPTION: RAD - ENTEROSTOMY TUBE CHECK W/CONTR - 03/30/2018 7:48 am CLINICAL HISTORY: Enterostomy tube repositioning or replacement COMPARISON: March 29, March 28 FINDINGS: Initial image continues to show dense contrast filling the nondilated colon. No antegrade movement of this stool and contrast column. Post-injection image shows contrast within the duodenum. Enterostomy tube but bulging is in the right upper quadrant. This is probably within the duodenal bulb given the absence of any gastric contrast. IMPRESSION: Enterostomy tube positioning as detailed.
--- NOTE | 2018-03-30 11:47 | RAD REPORT ---
EXAM DESCRIPTION: RAD - ENTEROSTOMY TUBE CHECK W/CONTR - 03/30/2018 11:26 am CLINICAL HISTORY: Enterostomy tube check or repositioning COMPARISON: March 30 FINDINGS: Enterostomy tube was repositioned. Balloon tip is now in the left upper quadrant gastric f undus. All injected contrast remains within the lumen of the stomach. IMPRESSION: Enterostomy tube tip is in the fundus of the stomach. No extravasation.
[2018-03-30 11:53] VITALS: TEMP 97.6
[2018-03-30 11:56] VITALS: O2SAT 98
[2018-03-30 11:57] VITALS: BP 131/93
== END 2018-03-30 11:50 | disposition home or self-care (01) ==
LOC: ER 06:08
PROC: 0DH63UZ Insertion of Feeding Device into Stomach, Percutaneous Approach (ICD-10-PCS; principal; 2018-03-30)
DX: K94.23 Gastrostomy malfunction (principal); I10 Essential (primary) hypertension; F03.90 Unspecified dementia, unspecified severity, without behavioral disturbance, psychotic disturbance, mood disturbance, and anxiety; Y83.3 Surgical operation with formation of external stoma as the cause of abnormal reaction of the patient, or of later complication, without mention of misadventure at the time of the procedure
CPT/HCPCS: 49465; 99284

== ENCOUNTER 2018-03-31 14:59 | Emergency (ER) | payer OTHER ==
--- NOTE | 2018-03-31 15:21 | EDPHYS ---
Physician Documentation [facility] Name: Shelia Miranda Age: 62 yrs Sex: Male : 1955 Arrival Date: 03/31/2018 Time: 14:58 Bed 17 Private MD: ED Physician Hari Cam HPI: 03/31 15:09 This 62 yrs old Black Male presents to ER via EMS with complaints of Pulled out G tube. ps1 15:09 The patient has experienced similar episodes in the past. The patient has been recently ps1 seen at the [facility] Emergency Department, yesterday. patient here for g tube being pulled out. Seen multiple times for same. No pain. . Historical: - Allergies: 15:02 No Known Drug Allergies; aj - Home Meds: 15:02 Albuterol Inhl [Active]; aspirin 81 mg Oral chew 1 tab once daily [Active]; Ativan 0.5 aj mg Oral tab 1 tab 3 times per day [Active]; Catapres 0.1 mg Oral tab every 8 hours as needed for SBP >160 [Active]; lisinopril 20 mg Oral tab 1 tab once daily [Active]; Nitrostat 0.3 mg SL subl as needed [Active]; Tegretol 100 mg/5 mL Oral susp 10 mL twice a day [Active]; Vitamin D Oral 2000 unit daily [Active]; - PMHx: 15:02 Anxiety; Aphasia; BPH; COPD; Dementia; Depression; DYSPHAGIA; Hypertension; aj Schizophrenia; vitamin d deficiency; - PSHx: 15:02 peg tube; aj - Immunization history:: Adult Immunizations up to date. - Social history:: Smoking status: Patient/guardian denies using tobacco. - Ebola Screening: : Patient negative for fever greater than or equal to 101.5 degrees Fahrenheit, and additional compatible Ebola Virus Disease symptoms Patient denies exposure to infectious person Patient denies travel to an Ebola-affected area in the 21 days before illness onset No symptoms or risks identified at this time. ROS: 15:09 Unable to obtain ROS due to non verbal. ps1 Exam: 15:09 Constitutional: This is a well developed, well nourished patient who is awake, alert, ps1 and in no acute distress. Head/Face: Normocephalic, atraumatic. Chest/axilla: Normal chest wall appearance and motion. Nontender with no deformity. No lesions are appreciated. Cardiovascular: Regular rate and rhythm. No gallops, murmurs, or rubs. Normal PMI, no JVD. No pulse deficits. Respiratory: Lungs have equal breath sounds bilaterally, clear to auscultation and percussion. No rales, rhonchi or wheezes noted. No increased work of breathing, no retractions or nasal flaring. Skin: Warm, dry with normal turgor. Normal color with no rashes, no lesions, and no evidence of cellulitis. 15:09 Abdomen/GI: displaced G tube. Open ostomy. . ps1 Vital Signs: 15:02 BP 123 / 87; Pulse 71; Resp 19; Temp 97.8; Pulse Ox 95% on R/A; Weight 79.38 kg; Height aj 6 ft. 0 in. (182.88 cm); 15:02 Body Mass Index 23.73 (79.38 kg, 182.88 cm) Procedures: 15:12 G-tube placement: a 16 [place] Island[place] catheter was placed, by the ED physician, Hari caruso MD. MDM: 15:09 Patient medically screened. ps1 15:20 Data reviewed: vital signs, nurses notes, radiologic studies, plain films. ED course: ps1 16F patel placed. Patient tolerated procedure well. Stable for discharge. . 07 15:23 Order name: ENTEROSTOMY TUBE CHECK W/CONTR EDMS Administered Medications: No medications were administered Disposition: 15:22 Chart complete. ps1 Disposition: 03/31/18 15:20 Discharged to Home. Impression: Encounter for percutaneous gastrostomy tube replacement. - Condition is Stable. - Discharge Instructions: PEG Tube Home Guide, [id number]. - Medication Reconciliation Form, Thank You Letter, Antibiotic Education, Prescription Opioid Use form. - Follow up: Private Physician; When: As needed; Reason: Continuance of care, Re-evaluation by your physician. Follow up: Emergency Department; When: As needed; Reason: If symptoms return. - Problem is new. - Symptoms have improved. Signatures: [facility] Shannen Sequeira RN RN aj Singer, Phillip, MD MD ps1 Corrections: (The following items were deleted from the chart) 15:23 15:19 Abdomen 1 View (KUB)+RAD.RAD.BRZ ordered. [facility] 16:05 15:20 03/31/2018 15:20 Discharged to Home. Impression: Encounter for percutaneous aj gastrostomy tube replacement. Condition is Stable. Forms are Medication Reconciliation Form, Thank You Letter, Antibiotic Education, Prescription Opioid Use. Follow up: Private Physician; When: As needed; Reason: Continuance of care, Re-evaluation by your physician. Follow up: Emergency Department; When: As needed; Reason: If symptoms return. Problem is new. Symptoms have improved. ps1
--- NOTE | 2018-03-31 15:21 | ER ---
Nurse's Notes [facility] Name: Shelia Miranda Age: 62 yrs Sex: Male : 1955 Arrival Date: 03/31/2018 Time: 14:58 Bed 17 Private MD: Diagnosis: Encounter for percutaneous gastrostomy tube replacement Presentation: 03/31 14:59 Presenting complaint: EMS states: Pulled out G tube just prior to arrival. aj 15:00 Transition of care: patient was not received from another setting of care. Onset of aj symptoms was March 31, 2018. Risk Assessment: Do you want to hurt yourself or someone else? Patient reports no desire to harm self or others. Initial Sepsis Screen: Does the patient meet any 2 criteria? No. Patient's initial sepsis screen is negative. Does the patient have a suspected source of infection? No. Patient's initial sepsis screen is negative. Care prior to arrival: None. 15:00 Method Of Arrival: EMS: [facility] aj 15:00 Acuity: WINSOME 4 aj Triage Assessment: 15:02 General: Appears in no apparent distress. comfortable, Behavior is calm, cooperative, aj appropriate for age. Pain: Denies pain. Neuro: Level of Consciousness is awake, alert, obeys commands, Oriented to person, place, time, situation, Appropriate for age. Respiratory: Airway is patent Respiratory effort is even, unlabored, Respiratory pattern is regular, symmetrical. GI: PEG tube site with missing tube. Patient removed [employer]. Derm: Skin is intact, is healthy with good turgor, Skin is pink, warm \T\ dry. normal. Historical: - Allergies: 15:02 No Known Drug Allergies; aj - Home Meds: 15:02 Albuterol Inhl [Active]; aspirin 81 mg Oral chew 1 tab once daily [Active]; Ativan 0.5 aj mg Oral tab 1 tab 3 times per day [Active]; Catapres 0.1 mg Oral tab every 8 hours as needed for SBP >160 [Active]; lisinopril 20 mg Oral tab 1 tab once daily [Active]; Nitrostat 0.3 mg SL subl as needed [Active]; Tegretol 100 mg/5 mL Oral susp 10 mL twice a day [Active]; Vitamin D Oral 2000 unit daily [Active]; - PMHx: 15:02 Anxiety; Aphasia; BPH; COPD; Dementia; Depression; DYSPHAGIA; Hypertension; aj Schizophrenia; vitamin d deficiency; - PSHx: 15:02 peg tube; aj - Immunization history:: Adult Immunizations up to date. - Social history:: Smoking status: Patient/guardian denies using tobacco. - Ebola Screening: : Patient negative for fever greater than or equal to 101.5 degrees Fahrenheit, and additional compatible Ebola Virus Disease symptoms Patient denies exposure to infectious person Patient denies travel to an Ebola-affected area in the 21 days before illness onset No symptoms or risks identified at this time. Screenin:21 Abuse screen: Denies threats or abuse. Denies injuries from another. Nutritional aj screening: No deficits noted. Tuberculosis screening: No symptoms or risk factors identified. Fall Risk None identified. Assessment: 15:19 Reassessment: See triage note. aj 15:42 Reassessment: Called Ced at [facility] and notified him that patient is ready aj for discharge and informed nurse of patel placement and verification. Vital Signs: 15:02 BP 123 / 87; Pulse 71; Resp 19; Temp 97.8; Pulse Ox 95% on R/A; Weight 79.38 kg; Height aj 6 ft. 0 in. (182.88 cm); 15:02 Body Mass Index 23.73 (79.38 kg, 182.88 cm) aj ED Course: 14:58 Patient arrived in ED. aj 15:00 Hari Cam MD is Attending Physician. aj 15:01 Triage completed. aj 15:02 Arm band placed on left wrist. Patient placed in an exam room. aj 15:06 Shannen Sequeira, RN is Primary Nurse. aj 15:20 Patel placement to PEG tube site by Dr Cam. aj 15:21 Patient has correct armband on for positive identification. aj 15:21 Patient did not have IV access during this emergency room visit. aj 15:43 ENTEROSTOMY TUBE CHECK W/CONTR In Process Unspecified. EDMS Administered Medications: No medications were administered Outcome: 15:20 Discharge ordered by . ps1 16:04 Discharged to intermediate. Report called to See nurses notes aj 16:04 Condition: good 16:04 Discharge instructions given to intermediate, Instructed on follow up and referral plans. Demonstrated understanding of instructions, follow-up care. 16:05 Patient left the ED. aj Signatures: Dispatcher zulily Shannen Aviles, ARIAS RN Hari Castaneda MD MD ps1
[2018-03-31 16:17] VITALS: BP 123/87; TEMP 97.8; O2SAT 95
--- NOTE | 2018-03-31 16:30 | RAD REPORT ---
EXAM DESCRIPTION: RAD - ENTEROSTOMY TUBE CHECK W/CONTR - 03/31/2018 3:42 pm CLINICAL HISTORY: Enterostomy tube check or repositioning COMPARISON: Multiple preceding studies FINDINGS: Initial image shows the large contrast opacified stool volume throughout the colon. No sig nificant antegrade movement has occurred. Post-injection image shows the PEG tube balloon to be present in the body of the stomach. All injecte d contrast is contained within the lumen of the stomach. IMPRESSION: Repositioning and testing of the enterostomy tube as detailed.
== END 2018-03-31 16:05 | disposition home or self-care (01) ==
LOC: ER 14:59
DX: Z43.1 Encounter for attention to gastrostomy (principal); I10 Essential (primary) hypertension; J44.9 Chronic obstructive pulmonary disease, unspecified; F20.9 Schizophrenia, unspecified; Z79.82 Long term (current) use of aspirin
CPT/HCPCS: 49465; 99283

== ENCOUNTER 2018-04-01 09:22 | Emergency (ER) | payer OTHER ==
--- NOTE | 2018-04-01 11:03 | RAD REPORT ---
EXAM DESCRIPTION: RAD - ENTEROSTOMY TUBE CHECK W/CONTR - 04/01/2018 10:54 am CLINICAL HISTORY: Enterostomy tube repositioning or replacement COMPARISON: Multiple similar examinations over several days FINDINGS: Initial examination again notes a large volume of contrast opacified stool in a nondilated colon. There has been some minimal antegrade movement of the stool volume. Postcontrast examination shows balloon tip in the proximal to midportion of the stomach. All administ ered contrast remains within the lumen of the stomach. IMPRESSION: Enterostomy tube is in good position. No extravasation of contrast.
--- NOTE | 2018-04-01 11:13 | EDPHYS ---
Physician Documentation [facility] Name: Shelia Miranda Age: 62 yrs Sex: Male : 1955 Arrival Date: 04/01/2018 Time: 09:25 Bed 8 Private MD: ED Physician Domingo Sharma HPI: 04/01 09:50 This 62 yrs old Black Male presents to ER via EMS with complaints of dislodged peg tube.cp 09:50 Onset: The symptoms/episode began/occurred at an unknown time. The patient has cp experienced similar episodes in the past, multiple times. Historical: - Home Meds: 09:29 Albuterol Inhl [Active]; aspirin 81 mg Oral chew 1 tab once daily [Active]; Ativan 0.5 ph mg Oral tab 1 tab 3 times per day [Active]; Catapres 0.1 mg Oral tab every 8 hours as needed for SBP >160 [Active]; lisinopril 20 mg Oral tab 1 tab once daily [Active]; Nitrostat 0.3 mg SL subl as needed [Active]; Tegretol 100 mg/5 mL Oral susp 10 mL twice a day [Active]; Vitamin D Oral 2000 unit daily [Active]; - PMHx: 09:29 Anxiety; Aphasia; BPH; COPD; Dementia; Depression; DYSPHAGIA; Hypertension; ph Schizophrenia; vitamin d deficiency; - PSHx: 09:29 peg tube; ph - Immunization history:: Adult Immunizations unknown. - Social history:: Smoking status: Patient/guardian denies using tobacco. - Ebola Screening: : No symptoms or risks identified at this time. ROS: 09:55 Abdomen/GI: Positive for dislodged PEG tube. cp 09:55 All other systems are negative. Exam: 11:00 Constitutional: The patient appears in no acute distress, alert, awake, non-toxic, well cp developed, frail. 11:00 Head/Face: Normocephalic, atraumatic. cp 11:00 Eyes: Periorbital structures: appear normal, Conjunctiva: normal, no exudate, no injection, Lids and lashes: appear normal, bilaterally. 11:00 ENT: External ear(s): are unremarkable, Nose: is normal, Mouth: Lips: moist, Oral mucosa: moist, Posterior pharynx: is normal, airway is patent. 11:00 Chest/axilla: Inspection: normal, Palpation: is normal, no crepitus, no tenderness. 11:00 Cardiovascular: Rate: normal, Rhythm: regular. 11:00 Respiratory: the patient does not display signs of respiratory distress, Respirations: normal, no use of accessory muscles, no retractions, no splinting, no tachypnea, labored breathing, is not present, Breath sounds: are clear throughout, no decreased breath sounds, no stridor, no wheezing. 11:00 Abdomen/GI: Inspection: distension, is not seen, open ostomy w/o PEG in place, Bowel cp sounds: active, all quadrants, Palpation: abdomen is soft and non-tender, in all quadrants, rebound tenderness, is not appreciated, involuntary guarding, is not appreciated. 11:00 Skin: cellulitis, is not appreciated, no rash present. cp Vital Signs: 09:31 BP 131 / 87; Pulse 72; Resp 18; Temp 97.5; Pulse Ox 98% on R/A; ph 11:00 BP 137 / 91; Pulse 68; Resp 19; Temp 98.0; Pulse Ox 96% on R/A; ph Procedures: 11:15 G-tube placement: a 18 Slovenian catheter was placed, by the ED physician, Domingo EVLEZ. cp MDM: 09:27 Patient medically screened. cp 11:12 Data reviewed: vital signs, nurses notes, radiologic studies, plain films. cp 11:12 Counseling: I had a detailed discussion with the patient and/or guardian regarding: the cp historical points, exam findings, and any diagnostic results supporting the discharge/admit diagnosis, radiology results, to return to the emergency department if symptoms worsen or persist or if there are any questions or concerns that arise at home. Response to treatment: the patient's symptoms have resolved after treatment, and as a result, I will discharge patient. 04/01 09:55 Order name: PEG Tube Check w/contrast; Complete Time: 11:06 cp 04/01 09:32 Order name: Misc. Order: 18 kosovan peg tube; Complete Time: 10:16 cp 04/01 09:33 Order name: Misc. Order: abdominal binder; Complete Time: 10:16 cp Administered Medications: No medications were administered Disposition: 13:00 Chart complete. cp 13:34 Co-signature as Attending Physician, Domingo Sharma MD I agree with the assessment and lana plan of care. Disposition: 04/01/18 11:13 Discharged to Home. Impression: Encounter for attention to gastrostomy. - Condition is Stable. - Medication Reconciliation Form, Thank You Letter, Antibiotic Education, Prescription Opioid Use form. - Follow up: Private Physician; When: 1 - 2 days; Reason: Recheck today's complaints. - Problem is an ongoing problem. - Symptoms have improved. Signatures: Dispatcher [employer] Domingo Hammer MD MD cha Hall, Patricia, RN RN ph Domingo Bronson, PA PA cp Corrections: (The following items were deleted from the chart) 12:43 11:13 04/01/2018 11:13 Discharged to Home. Impression: Encounter for attention to ph gastrostomy. Condition is Stable. Forms are Medication Reconciliation Form, Thank You Letter, Antibiotic Education, Prescription Opioid Use. Follow up: Private Physician; When: 1 - 2 days; Reason: Recheck today's complaints. Problem is an ongoing problem. Symptoms have improved. cp
--- NOTE | 2018-04-01 11:13 | ER ---
Nurse's Notes [facility] Name: Shelia Miranda Age: 62 yrs Sex: Male : 1955 Arrival Date: 04/01/2018 Time: 09:25 Bed 8 Private MD: Diagnosis: Encounter for attention to gastrostomy Presentation: 04/01 09:29 Presenting complaint: EMS states: " Pt from [facility], pulled out feeding tube.". ph Transition of care: patient was not received from another setting of care. Onset of symptoms was April 01, 2018. Risk Assessment: Do you want to hurt yourself or someone else? Patient reports no desire to harm self or others. Initial Sepsis Screen: Does the patient meet any 2 criteria? No. Patient's initial sepsis screen is negative. Does the patient have a suspected source of infection? No. Patient's initial sepsis screen is negative. 09:29 Method Of Arrival: EMS: [facility] 09:29 Acuity: WINSOME 4 09:29 Care prior to arrival: None. ph Historical: - Home Meds: : Albuterol Inhl [Active]; aspirin 81 mg Oral chew 1 tab once daily [Active]; Ativan 0.5 ph mg Oral tab 1 tab 3 times per day [Active]; Catapres 0.1 mg Oral tab every 8 hours as needed for SBP >160 [Active]; lisinopril 20 mg Oral tab 1 tab once daily [Active]; Nitrostat 0.3 mg SL subl as needed [Active]; Tegretol 100 mg/5 mL Oral susp 10 mL twice a day [Active]; Vitamin D Oral 2000 unit daily [Active]; - PMHx: 09:29 Anxiety; Aphasia; BPH; COPD; Dementia; Depression; DYSPHAGIA; Hypertension; ph Schizophrenia; vitamin d deficiency; - PSHx: 09:29 peg tube; ph - Immunization history:: Adult Immunizations unknown. - Social history:: Smoking status: Patient/guardian denies using tobacco. - Ebola Screening: : No symptoms or risks identified at this time. Screenin:32 Abuse screen: Denies threats or abuse. Denies injuries from another. Nutritional ph screening: No deficits noted. Tuberculosis screening: No symptoms or risk factors identified. Fall Risk No fall in past 12 months (0 pts). Secondary diagnosis (15 points) impaired mobility, No IV (0 pts). Ambulatory Aid- None/Bed Rest/Nurse Assist (0 pts). Gait- Normal/Bed Rest/Wheelchair (0 pts) Mental Status- Overestimates/Forgets Limitations (15 pts.). Total Stephens Fall Scale indicates High Risk Score (45 or more points). Fall prevention measures have been instituted. Side Rails Up X 2 Placed Close to Nursing Station Frequent Obs/Assessments Occuring As available patient and family educated on Fall Prevention Program and Strategies. Assessment: 09:50 General: Appears in no apparent distress. comfortable, slender, Behavior is calm, ph cooperative. Pain: Denies pain. Neuro: Level of Consciousness is awake, alert, obeys commands, Oriented to person, place, situation. Cardiovascular: Capillary refill < 3 seconds in bilateral fingers Patient's skin is warm and dry. Respiratory: Airway is patent Respiratory effort is even, unlabored. GI: Abdomen is flat, non-distended, PEG tube removed, site clean with no redness or discharge noted. Derm: Skin is intact, is healthy with good turgor, Skin is normal. Musculoskeletal: Circulation, motion, and sensation intact. 10:00 Reassessment: Patient appears in no apparent distress at this time. Patient and/or ph family updated on plan of care and expected duration. Pain level reassessed. ERP at bedside to place PEG tube, [address], awaiting XRAY to check placement. Vital Signs: 09:31 BP 131 / 87; Pulse 72; Resp 18; Temp 97.5; Pulse Ox 98% on R/A; ph 11:00 BP 137 / 91; Pulse 68; Resp 19; Temp 98.0; Pulse Ox 96% on R/A; ph ED Course: 09:25 Patient arrived in ED. iw 09:27 Domingo Bronson PA is PHCP. cp 09:27 Domingo Sharma MD is Attending Physician. cp 09:31 Triage completed. ph 09:32 Arm band placed on. ph 09:33 Ximena Camara, RN is Primary Nurse. ph 09:33 Patient has correct armband on for positive identification. Bed in low position. Call ph light in reach. Side rails up X2. Pulse ox on. NIBP on. Warm blanket given. 10:19 No provider procedures requiring assistance completed. Patient did not have IV access ph during this emergency room visit. 10:49 X-ray completed. Portable x-ray completed in exam room. Patient tolerated procedure jb2 well. 10:50 PEG Tube Check w/contrast In Process Unspecified. EDMS Administered Medications: No medications were administered Outcome: 11:13 Discharge ordered by . cp 12:43 Patient left the ED. ph 12:43 Discharged to prison. ph 12:43 Condition: good 12:43 Discharge instructions given to prison. Signatures: Dispatcher [employer] EDMS Stew Dewey jb2 Nazia Bose, ARIAS RN iw Ximena Camara RN RN ph Aiyana, Domingo, PA PA cp Corrections: (The following items were deleted from the chart) 10:20 10:16 General: Appears in no apparent distress. comfortable, slender, Behavior is calm, ph cooperative, ph 10:20 10:16 Pain: Denies pain. ph ph 10:20 10:16 Neuro: Level of Consciousness is awake, alert, obeys commands, Oriented to ph person, place, situation, ph 10:20 10:16 Cardiovascular: Capillary refill < 3 seconds in bilateral fingers Patient's skin ph is warm and dry. ph 10:20 10:16 Respiratory: Airway is patent Respiratory effort is even, unlabored, ph ph 10:20 10:16 GI: Abdomen is flat, non-distended, PEG tube removed, site clean with no redness ph or discharge noted ph 10:20 10:16 Derm: Skin is intact, is healthy with good turgor, Skin is normal, ph ph 10:20 10:16 Musculoskeletal: Circulation, motion, and sensation intact. ph ph
[2018-04-01 12:48] VITALS: BP 131/87; TEMP 97.5; O2SAT 98
== END 2018-04-01 12:43 | disposition home or self-care (01) ==
LOC: ER 09:22
PROC: 0DH63UZ Insertion of Feeding Device into Stomach, Percutaneous Approach (ICD-10-PCS; principal; 2018-04-01)
DX: K94.23 Gastrostomy malfunction (principal); F03.90 Unspecified dementia, unspecified severity, without behavioral disturbance, psychotic disturbance, mood disturbance, and anxiety; I10 Essential (primary) hypertension; Y83.3 Surgical operation with formation of external stoma as the cause of abnormal reaction of the patient, or of later complication, without mention of misadventure at the time of the procedure
CPT/HCPCS: 49465; 99283

== ENCOUNTER 2018-04-07 15:22 | Emergency (ER) | payer OTHER ==
--- NOTE | 2018-04-07 17:24 | EDPHYS ---
Physician Documentation [facility] Name: Shelia Miranda Age: 62 yrs Sex: Male : 1955 Arrival Date: 04/07/2018 Time: 15:29 Bed 24 Private MD: ED Physician Jonathan Noble HPI: 04/07 16:00 This 62 yrs old Black Male presents to ER via EMS with complaints of Problem With pm1 Feeding Tube. 16:00 Patient accidentally removed his PEG tube. Onset: The symptoms/episode began/occurred pm1 just prior to arrival. Severity of symptoms: Pain is currently a 0 / 10. The patient has experienced similar episodes in the past, multiple times. The patient has been recently seen at the [facility] Emergency Department, last week, same complaint of PEG tube removal. Historical: - Allergies: 16:08 No Known Allergies; rv - PMHx: 15:31 Anxiety; Aphasia; BPH; COPD; Dementia; Depression; DYSPHAGIA; Hypertension; ss Schizophrenia; vitamin d deficiency; - Immunization history:: Adult Immunizations up to date. - Social history:: Smoking status: Patient/guardian denies using tobacco. - Ebola Screening: : Patient denies exposure to infectious person Patient denies travel to an Ebola-affected area in the 21 days before illness onset. ROS: 16:00 Constitutional: Negative for fever, chills, and weight loss, Eyes: Negative for injury, pm1 pain, redness, and discharge, ENT: Negative for injury, pain, and discharge, Neck: Negative for injury, pain, and swelling, Cardiovascular: Negative for chest pain, palpitations, and edema, Respiratory: Negative for shortness of breath, cough, wheezing, and pleuritic chest pain, Abdomen/GI: Negative for abdominal pain, nausea, vomiting, diarrhea, and constipation, Back: Negative for injury and pain, MS/Extremity: Negative for injury and deformity, Skin: Negative for injury, rash, and discoloration, Neuro: Negative for headache, weakness, numbness, tingling, and seizure. Exam: 16:00 Constitutional: This is a well developed, well nourished patient who is awake, alert, pm1 and in no acute distress. Head/Face: Normocephalic, atraumatic. Eyes: Pupils equal round and reactive to light, extra-ocular motions intact. Lids and lashes normal. Conjunctiva and sclera are non-icteric and not injected. Cornea within normal limits. Periorbital areas with no swelling, redness, or edema. ENT: Nares patent. No nasal discharge, no septal abnormalities noted. Tympanic membranes are normal and external auditory canals are clear. Oropharynx with no redness, swelling, or masses, exudates, or evidence of obstruction, uvula midline. Mucous membranes moist. Neck: Trachea midline, no thyromegaly or masses palpated, and no cervical lymphadenopathy. Supple, full range of motion without nuchal rigidity, or vertebral point tenderness. No Meningismus. Chest/axilla: Normal chest wall appearance and motion. Nontender with no deformity. No lesions are appreciated. Cardiovascular: Regular rate and rhythm with a normal S1 and S2. No gallops, murmurs, or rubs. Normal PMI, no JVD. No pulse deficits. Respiratory: Lungs have equal breath sounds bilaterally, clear to auscultation and percussion. No rales, rhonchi or wheezes noted. No increased work of breathing, no retractions or nasal flaring. 16:00 Back: No spinal tenderness. No costovertebral tenderness. Full range of motion. Skin: Warm, dry with normal turgor. Normal color with no rashes, no lesions, and no evidence of cellulitis. MS/ Extremity: Pulses equal, no cyanosis. Neurovascular intact. Full, normal range of motion. 16:00 Abdomen/GI: Inspection: PEG stoma without any signs of infection, surrounding cellulitis or bleeding, Bowel sounds: Palpation: abdomen is soft and non-tender. Vital Signs: 15:31 BP 134 / 94; Pulse 84; Resp 16; Temp 97.6(O); Pulse Ox 97% on R/A; Weight 95.25 kg; ss Pain 0/10; 16:44 BP 133 / 82; rv 17:21 BP 143 / 93; rv 18:31 BP 140 / 91 LA Supine (auto/reg); jp3 Procedures: 16:40 G-tube placement: a 18 Bengali catheter was placed, by the ED physician, Alexx Curtis pm1 [employer] Patient tolerated well. Placement verified by auscultation and return of gastric content. MDM: 15:45 Patient medically screened. pm1 17:23 Data reviewed: vital signs. Data interpreted: Pulse oximetry: on room air is 97 %. pm1 Interpretation: normal. Counseling: I had a detailed discussion with the patient and/or guardian regarding: the historical points, exam findings, and any diagnostic results supporting the discharge/admit diagnosis, radiology results, to return to the emergency department if symptoms worsen or persist or if there are any questions or concerns that arise at home. 04/07 16:27 Order name: PEG Tube Check w/contrast; Complete Time: 17:28 pm1 Administered Medications: No medications were administered Disposition: 04/07/18 17:24 Discharged to Home. Impression: Encounter for fitting and adjustment of other gastrointestinal appliance and device - PEG tube placement. - Condition is Stable. - Discharge Instructions: PEG Tube Home Guide. - Medication Reconciliation Form, Thank You Letter, Antibiotic Education, Prescription Opioid Use form. - Follow up: Emergency Department; When: As needed; Reason: Worsening of condition. Follow up: Private Physician; When: As needed; Reason: Recheck today's complaints, Continuance of care, Re-evaluation by your physician. - Problem is new. - Symptoms have improved. Addendum: 04/10/2018 07:26 Co-signature as Attending Physician, Jonathan Noble MD I agree with the assessment and k dr plan of care. Signatures: Dispatcher [employer] EDVT Jonathan Noble MD MD kdr Marisol Cordova RN RN ss Alexx Curtis, AYSE [employer]RARIAN pm1 Gergorio Sewell RN RN rv Corrections: (The following items were deleted from the chart) 04/07 19:05 17:24 04/07/2018 17:24 Discharged to Home. Impression: Encounter for fitting and rv adjustment of other gastrointestinal appliance and device - PEG tube placement. Condition is Stable. Forms are Medication Reconciliation Form, Thank You Letter, Antibiotic Education, Prescription Opioid Use. Follow up: Emergency Department; When: As needed; Reason: Worsening of condition. Follow up: Private Physician; When: As needed; Reason: Recheck today's complaints, Continuance of care, Re-evaluation by your physician. Problem is new. Symptoms have improved. pm1
--- NOTE | 2018-04-07 17:24 | ER ---
Nurse's Notes [facility] Name: Shelia Miranda Age: 62 yrs Sex: Male : 1955 Arrival Date: 04/07/2018 Time: 15:29 Bed 24 Private MD: Diagnosis: Encounter for fitting and adjustment of other gastrointestinal appliance and device-PEG tube placement Presentation: 04/07 15:29 Presenting complaint: EMS states: sent by [facility] for evaluation of partially displaced ss G-TUBE. Transition of care: patient was received from [facility] setting of care [facility]. Onset of symptoms is unknown. Risk Assessment: Do you want to hurt yourself or someone else? Patient reports no desire to harm self or others. Initial Sepsis Screen: Does the patient meet any 2 criteria? No. Patient's initial sepsis screen is negative. Does the patient have a suspected source of infection? No. Patient's initial sepsis screen is negative. Care prior to arrival: None. 15:29 Method Of Arrival: EMS: [facility] 15:29 Acuity: WINSOME 4 ss 15:[address] in [address]. ss Historical: - Allergies: 16:08 No Known Allergies; rv - PMHx: 15:31 Anxiety; Aphasia; BPH; COPD; Dementia; Depression; DYSPHAGIA; Hypertension; ss Schizophrenia; vitamin d deficiency; - Immunization history:: Adult Immunizations up to date. - Social history:: Smoking status: Patient/guardian denies using tobacco. - Ebola Screening: : Patient denies exposure to infectious person Patient denies travel to an Ebola-affected area in the 21 days before illness onset. Screenin:01 Abuse screen: Denies threats or abuse. Denies injuries from another. Nutritional rv screening: No deficits noted. Tuberculosis screening: No symptoms or risk factors identified. Fall Risk None identified. Assessment: 15:59 General: Appears in no apparent distress. comfortable, Behavior is calm. Pain: Denies rv pain. Neuro: Level of Consciousness is awake, alert, Oriented to person, place. Cardiovascular: Capillary refill < 3 seconds. Respiratory: Airway is patent. GI: PEG TUBE IS DISPLACED. : No signs and/or symptoms were reported regarding the genitourinary system. EENT: No signs and/or symptoms were reported regarding the EENT system. Derm: Skin is intact. 17:47 Reassessment: Patient appears in no apparent distress at this time. Patient and/or rv family updated on plan of care and expected duration. Pain level reassessed. Patient is alert, oriented x 3, equal unlabored respirations, skin warm/dry/pink. CALLED IN [place] FOR REPORT AND ARRANGEMENT OF TRANSPORTATION FOR THE PATIENT. 18:41 Reassessment: TALKED TO [facility], TRANSPORTATION WAS rv ARRANGED AN A HOUR AGO. Vital Signs: 15:31 BP 134 / 94; Pulse 84; Resp 16; Temp 97.6(O); Pulse Ox 97% on R/A; Weight 95.25 kg; ss Pain 0/10; 16:44 BP 133 / 82; rv 17:21 BP 143 / 93; rv 18:31 BP 140 / 91 LA Supine (auto/reg); jp3 ED Course: 15:29 Patient arrived in ED. ss 15:30 Triage completed. ss 15:31 Arm band placed on right wrist. ss 15:44 Alexx Curtis NP is PHCP. pm1 15:44 Jonathan Noble MD is Attending Physician. pm1 16:44 PEG TUBE PLACEMENT. rv 16:45 Patient has correct armband on for positive identification. Bed in low position. Call rv light in reach. Side rails up X2. NIBP on. 17:11 X-ray completed. Portable x-ray completed in exam room. Patient tolerated procedure ml well. 17:12 PEG Tube Check w/contrast In Process Unspecified. EDMS 19:04 Patient did not have IV access during this emergency room visit. rv Administered Medications: No medications were administered Outcome: 17:24 Discharge ordered by . pm1 19:04 Discharged to assisted. Report called to [facility] Transfer form completed. rv 19:04 Condition: good 19:04 Discharge instructions given to EMS, Instructed on discharge instructions. 19:05 Patient left the ED. rv Signatures: Dispatcher [employer] SHIRLEYMS Jodi Gómez Shelby, RN RN Alexx Curtis, AYSE BIOLOGICAL CHEMIST pm1 Gregorio Sewell RN RN Isak Yarbrough jp3
--- NOTE | 2018-04-07 17:27 | RAD REPORT ---
EXAM DESCRIPTION: RAD - ENTEROSTOMY TUBE CHECK W/CONTR - 04/07/2018 5:14 pm CLINICAL HISTORY: PEG tube replacement COMPARISON: ENTEROSTOMY TUBE CHECK W/CONTR dated 04/01/2018; ENTEROSTOMY TUBE CHECK W/CONTR dated 03/04 FINDINGS: Two radiographs of the abdomen were performed. The pre-injection radiograph demonstrates c ontrast in the colon. The post-injection radiograph through the G-tube shows contrast within the smal l bowel, indicating appropriate placement.
[2018-04-07 19:17] VITALS: TEMP 97.6; O2SAT 97
[2018-04-07 19:20] VITALS: BP 140/91
== END 2018-04-07 19:05 | disposition home or self-care (01) ==
LOC: ER 15:22
PROC: 0DH63UZ Insertion of Feeding Device into Stomach, Percutaneous Approach (ICD-10-PCS; principal; 2018-04-07)
DX: T85.598A Other mechanical complication of other gastrointestinal prosthetic devices, implants and grafts, initial encounter (principal); F03.90 Unspecified dementia, unspecified severity, without behavioral disturbance, psychotic disturbance, mood disturbance, and anxiety; I10 Essential (primary) hypertension; Y83.3 Surgical operation with formation of external stoma as the cause of abnormal reaction of the patient, or of later complication, without mention of misadventure at the time of the procedure; Y92.9 Unspecified place or not applicable
CPT/HCPCS: 49465; 99283

== ENCOUNTER 2018-04-09 10:21 | Emergency (ER) | payer OTHER ==
--- NOTE | 2018-04-09 10:29 | EDPHYS ---
Physician Documentation [facility] Name: Shelia Miranda Age: 62 yrs Sex: Male : 1955 Arrival Date: 04/09/2018 Time: 10:22 Bed 18 Private MD: ED Physician Hakeem Peters HPI: 04/09 10:31 This 62 yrs old Black Male presents to ER via Unassigned with complaints of PEG tube. jr8 10:31 Patient brought in by EMS today because he pulled his gastrostomy tube again. Patient jr8 otherwise without complaint and hemodynamically stable . Severity of symptoms: At their worst the symptoms were very mild in the emergency department the symptoms are unchanged. The patient has experienced similar episodes in the past, multiple times. The patient has not recently seen a physician. Historical: - Allergies: 10:34 No Known Allergies; jl7 - Immunization history:: Adult Immunizations unknown. - Social history:: Smoking status: Patient/guardian denies using tobacco. - Ebola Screening: : No symptoms or risks identified at this time. ROS: 10:31 Eyes: Negative for injury, pain, redness, and discharge, ENT: Negative for injury, jr8 pain, and discharge, Neck: Negative for injury, pain, and swelling, Cardiovascular: Negative for chest pain, palpitations, and edema, Respiratory: Negative for shortness of breath, cough, wheezing, and pleuritic chest pain, Abdomen/GI: Negative for abdominal pain, nausea, vomiting, diarrhea, and constipation, Back: Negative for injury and pain, MS/Extremity: Negative for injury and deformity, Skin: Negative for injury, rash, and discoloration, Neuro: Negative for headache, weakness, numbness, tingling, and seizure. Exam: 10:31 Eyes: Pupils equal round and reactive to light, extra-ocular motions intact. Lids and jr8 lashes normal. Conjunctiva and sclera are non-icteric and not injected. Cornea within normal limits. Periorbital areas with no swelling, redness, or edema. ENT: Nares patent. No nasal discharge, no septal abnormalities noted. Tympanic membranes are normal and external auditory canals are clear. Oropharynx with no redness, swelling, or masses, exudates, or evidence of obstruction, uvula midline. Mucous membranes moist. Neck: Trachea midline, no thyromegaly or masses palpated, and no cervical lymphadenopathy. Supple, full range of motion without nuchal rigidity, or vertebral point tenderness. No Meningismus. Cardiovascular: Regular rate and rhythm with a normal S1 and S2. No gallops, murmurs, or rubs. Normal PMI, no JVD. No pulse deficits. Respiratory: Lungs have equal breath sounds bilaterally, clear to auscultation and percussion. No rales, rhonchi or wheezes noted. No increased work of breathing, no retractions or nasal flaring. Abdomen/GI: Soft, non-tender, with normal bowel sounds. No distension or tympany. No guarding or rebound. No evidence of tenderness throughout. Stoma site for gastrostomy present, clean, and without erythema or discharge Back: No spinal tenderness. No costovertebral tenderness. Full range of motion. Skin: Warm, dry with normal turgor. Normal color with no rashes, no lesions, and no evidence of cellulitis. MS/ Extremity: Pulses equal, no cyanosis. Neurovascular intact. Full, normal range of motion. Neuro: Awake and alert, GCS 15, oriented to person, place, time, and situation. Cranial nerves II-XII grossly intact. Motor strength 5/5 in all extremities. Sensory grossly intact. Cerebellar exam normal. Normal gait. Vital Signs: 10:34 BP 125 / 84; Pulse 72; Resp 16; Pulse Ox 100% ; Pain 0/10; jl7 Procedures: 10:31 G-tube placement: a 14 Brazilian catheter was placed, by the ED physician, Presley VELEZ. jr8 MDM: 10:23 Patient medically screened. jr8 10:28 Data reviewed: vital signs, nurses notes, and as a result, I will discharge patient. jr8 Data interpreted: Pulse oximetry: on room air is 100 %. Interpretation: normal. Counseling: I had a detailed discussion with the patient and/or guardian regarding: the historical points, exam findings, and any diagnostic results supporting the discharge/admit diagnosis, the need for outpatient follow up, a on site coordinator, to return to the emergency department if symptoms worsen or persist or if there are any questions or concerns that arise at home. Administered Medications: No medications were administered Disposition: 15:22 Co-signature as Attending Physician, Hakeem Peters MD. rn Disposition: 04/09/18 10:29 Discharged to Home. Impression: Gastrostomy complications - Gastrostomy Replacement . - Condition is Stable. - Discharge Instructions: Gastrostomy Tube Replacement, Gastrostomy Tube Replacement, Care After. - Medication Reconciliation Form, Thank You Letter, Antibiotic Education, Prescription Opioid Use form. - Follow up: Private Physician; When: As needed; Reason: Recheck today's complaints, Continuance of care, Re-evaluation by your physician. - Problem is new. - Symptoms are resolved. Signatures: Hakeem Peters MD MD rn Roszak, Josh, PA PA jr8 Jennifer Bang RN RN jl7 Corrections: (The following items were deleted from the chart) 10:58 10:29 04/09/2018 10:29 Discharged to Home. Impression: Gastrostomy complications - jl7 Gastrostomy Replacement . Condition is Stable. Forms are Medication Reconciliation Form, Thank You Letter, Antibiotic Education, Prescription Opioid Use. Follow up: Private Physician; When: As needed; Reason: Recheck today's complaints, Continuance of care, Re-evaluation by your physician. Problem is new. Symptoms are resolved. jr8
--- NOTE | 2018-04-09 10:58 | ER ---
Nurse's Notes [facility] Name: Shelia Miranda Age: 62 yrs Sex: Male : 1955 Arrival Date: 04/09/2018 Time: 10:22 Bed 18 Private MD: Diagnosis: Gastrostomy complications-Gastrostomy Replacement Presentation: 04/09 10:23 Presenting complaint: EMS states: He pulled his PEG tube out about 0600 this morning. jl7 Transition of care: patient was not received from another setting of care. Onset of symptoms was April 09, 2018 at 06:00. Risk Assessment: Do you want to hurt yourself or someone else? Patient reports no desire to harm self or others. Initial Sepsis Screen: Does the patient meet any 2 criteria? No. Patient's initial sepsis screen is negative. Does the patient have a suspected source of infection? No. Patient's initial sepsis screen is negative. Care prior to arrival: None. 10:23 Method Of Arrival: EMS: [facility] jl7 10:23 Acuity: WINSOME 4 jl7 Triage Assessment: 10:34 General: Appears in no apparent distress. uncomfortable, Behavior is calm, cooperative. jl7 Pain: Denies pain. Neuro: Level of Consciousness is awake, alert, obeys commands, Oriented to person, place. Cardiovascular: Patient's skin is warm and dry. Respiratory: Airway is patent Respiratory effort is even, unlabored, Respiratory pattern is regular, symmetrical. GI:. Derm: Skin is dry, Skin is normal, Skin temperature is warm. Historical: - Allergies: 10:34 No Known Allergies; jl7 - Immunization history:: Adult Immunizations unknown. - Social history:: Smoking status: Patient/guardian denies using tobacco. - Ebola Screening: : No symptoms or risks identified at this time. Screenin:37 Abuse screen: Denies threats or abuse. Denies injuries from another. Nutritional jl7 screening: No deficits noted. Tuberculosis screening: No symptoms or risk factors identified. 10:46 Fall Risk Total Stephens Fall Scale indicates High Risk Score (45 or more points). Fall jl7 prevention measures have been instituted. Side Rails Up X 2 Placed Close to Nursing Station Frequent Obs/Assessments Occuring As available patient and family educated on Fall Prevention Program and Strategies. Assessment: 10:37 Reassessment: ERP at bedside, Tube placed and secured. jl7 Vital Signs: 10:34 BP 125 / 84; Pulse 72; Resp 16; Pulse Ox 100% ; Pain 0/10; jl7 ED Course: 10:22 Patient arrived in ED. jl7 10:23 Presley Gilbert PA is PHCP. jr8 10:23 Hakeem Peters MD is Attending Physician. jr8 10:34 Triage completed. jl7 10:34 Arm band placed on right wrist. jl7 10:37 Patient has correct armband on for positive identification. Bed in low position. Call jl7 light in reach. Side rails up X2. Pulse ox on. NIBP on. 10:37 No provider procedures requiring assistance completed. Patient did not have IV access jl7 during this emergency room visit. 10:40 Jennifer Bang, RN is Primary Nurse. jl7 Administered Medications: No medications were administered Outcome: 10:29 Discharge ordered by . jr8 10:37 Discharged to [facility]. jl7 10:37 Condition: stable 10:37 Discharge instructions given to patient, EMS, Instructed on discharge instructions, follow up and referral plans. Demonstrated understanding of instructions, follow-up care. 10:58 Patient left the ED. jl7 Signatures: Presley Gilbert PA PA jr8 Jennifer Bang, RN RN jl7
[2018-04-09 11:01] VITALS: BP 125/84; O2SAT 100
== END 2018-04-09 10:58 | disposition home or self-care (01) ==
LOC: ER 10:21
PROC: 0D20XUZ Change Feeding Device in Upper Intestinal Tract, External Approach (ICD-10-PCS; principal; 2018-04-09)
DX: K94.29 Other complications of gastrostomy (principal)
CPT/HCPCS: 99283

== ENCOUNTER 2018-04-15 16:16 | Emergency (ER) | payer OTHER ==
--- NOTE | 2018-04-15 17:25 | EDPHYS ---
Physician Documentation [facility] Name: Shelia Miranda Age: 62 yrs Sex: Male : 1955 Arrival Date: 04/15/2018 Time: 16:20 Bed 11 Private MD: ED Physician Domingo Sharma HPI: 04/15 17:20 This 62 yrs old Black Male presents to ER via EMS with complaints of Displaced G-tube. lana 17:20 The patient presents with abdominal pain in the upper abdomen, in the left upper lana quadrant. Onset: The symptoms/episode began/occurred just prior to arrival. The symptoms do not radiate. Associated signs and symptoms: none. The symptoms are described as peg out. Severity of pain: At its worst the pain was very mild in the emergency department the pain is unchanged. The patient has experienced similar episodes in the past, multiple times. Historical: - Allergies: 19:16 NKA; iw - PMHx: 16:53 Anxiety; Aphasia; BPH; COPD; Dementia; Depression; DYSPHAGIA; Hypertension; iw Schizophrenia; vitamin d deficiency; - Immunization history:: Adult Immunizations up to date. - Ebola Screening: : Patient negative for fever greater than or equal to 101.5 degrees Fahrenheit, and additional compatible Ebola Virus Disease symptoms Patient denies exposure to infectious person Patient denies travel to an Ebola-affected area in the 21 days before illness onset No symptoms or risks identified at this time. - Family history:: not pertinent. - Social history:: Smoking status: unknown. ROS: 17:20 Constitutional: Negative for fever, chills, and weight loss, Eyes: Negative for injury, lana pain, redness, and discharge, ENT: Negative for injury, pain, and discharge, Neck: Negative for injury, pain, and swelling, Cardiovascular: Negative for chest pain, palpitations, and edema, Respiratory: Negative for shortness of breath, cough, wheezing, and pleuritic chest pain, Back: Negative for injury and pain, : Negative for injury, bleeding, discharge, and swelling, MS/Extremity: Negative for injury and deformity, Skin: Negative for injury, rash, and discoloration, Neuro: Negative for headache, weakness, numbness, tingling, and seizure, Psych: Negative for depression, anxiety, suicide ideation, homicidal ideation, and hallucinations, Allergy/Immunology: Negative for hives, rash, and allergies, Endocrine: Negative for neck swelling, polydipsia, polyuria, polyphagia, and marked weight changes, Hematologic/Lymphatic: Negative for swollen nodes, abnormal bleeding, and unusual bruising. 17:20 Abdomen/GI: Positive for abdominal pain, of the left upper quadrant. Exam: 17:20 Constitutional: This is a well developed, well nourished patient who is awake, alert, lana and in no acute distress. Head/Face: Normocephalic, atraumatic. Eyes: Pupils equal round and reactive to light, extra-ocular motions intact. Lids and lashes normal. Conjunctiva and sclera are non-icteric and not injected. Cornea within normal limits. Periorbital areas with no swelling, redness, or edema. ENT: Nares patent. No nasal discharge, no septal abnormalities noted. Tympanic membranes are normal and external auditory canals are clear. Oropharynx with no redness, swelling, or masses, exudates, or evidence of obstruction, uvula midline. Mucous membranes moist. Neck: Trachea midline, no thyromegaly or masses palpated, and no cervical lymphadenopathy. Supple, full range of motion without nuchal rigidity, or vertebral point tenderness. No Meningismus. Chest/axilla: Normal chest wall appearance and motion. Nontender with no deformity. No lesions are appreciated. Cardiovascular: Regular rate and rhythm with a normal S1 and S2. No gallops, murmurs, or rubs. Normal PMI, no JVD. No pulse deficits. Respiratory: Lungs have equal breath sounds bilaterally, clear to auscultation and percussion. No rales, rhonchi or wheezes noted. No increased work of breathing, no retractions or nasal flaring. Back: No spinal tenderness. No costovertebral tenderness. Full range of motion. Male : Normal genitalia with no discharge or lesions. Skin: Warm, dry with normal turgor. Normal color with no rashes, no lesions, and no evidence of cellulitis. MS/ Extremity: Pulses equal, no cyanosis. Neurovascular intact. Full, normal range of motion. Neuro: Awake and alert, GCS 15, oriented to person, place, time, and situation. Cranial nerves II-XII grossly intact. Motor strength 5/5 in all extremities. Sensory grossly intact. Cerebellar exam normal. Normal gait. Psych: Awake, alert, with orientation to person, place and time. Behavior, mood, and affect are within normal limits. 17:20 Abdomen/GI: Inspection: abdomen appears normal, Bowel sounds: normal, Palpation: abdomen is soft and non-tender, Liver: no appreciated palpable abnormalities, Hernia: not appreciated, peg site with small deflatedfoley. Vital Signs: 16:53 BP 134 / 75; Pulse 89; Resp 16; Temp 98.2; Pulse Ox 98% on R/A; Weight 74.84 kg; Height iw 5 ft. 10 in. (177.80 cm); Pain 0/10; 16:53 Body Mass Index 23.67 (74.84 kg, 177.80 cm) iw Procedures: 17:20 G-tube placement: a 20 Turkmen catheter was placed, by the ED physician, Domingo Sharma cha, MD. MDM: 16:23 Patient medically screened. [facility] 17:20 Data reviewed: vital signs, nurses notes, radiologic studies, plain films. [facility] 04/15 17:44 Order name: ENTEROSTOMY TUBE CHECK W/CONTR EDMS Administered Medications: No medications were administered Disposition: 04/15/18 17:24 Discharged to Home. Impression: Gastrostomy status - replacment. - Condition is Stable. - Discharge Instructions: Gastrostomy Tube Home Guide, Adult, PEG Tube Home Guide, [id number], PEG Tube Home Guide. - Medication Reconciliation Form, Thank You Letter, Antibiotic Education, Prescription Opioid Use form. - Follow up: Private Physician; When: 2 - 3 days; Reason: Recheck today's complaints, Continuance of care, Re-evaluation by your physician. Follow up: Kenan Wong MD; When: 2 - 3 days; Reason: Recheck today's complaints, Re-evaluation by your physician. - Problem is new. - Symptoms have improved. Signatures: Dispatcher [employer] [facility] Domingo Sharma MD MD cha Chretien, Felicia, RN RN Nazia Bose RN RN iw Corrections: (The following items were deleted from the chart) 17:44 17:21 Abdomen 1 View (KUB)+RAD.RAD.BRZ ordered. [facility] 20:25 17:24 04/15/2018 17:24 Discharged to Home. Impression: Gastrostomy status - replacment. fc Condition is Stable. Forms are Medication Reconciliation Form, Thank You Letter, Antibiotic Education, Prescription Opioid Use. Follow up: Private Physician; When: 2 - 3 days; Reason: Recheck today's complaints, Continuance of care, Re-evaluation by your physician. Follow up: Kenan Wong; When: 2 - 3 days; Reason: Recheck today's complaints, Re-evaluation by your physician. Problem is new. Symptoms have improved. lana
--- NOTE | 2018-04-15 17:25 | ER ---
Nurse's Notes [facility] Name: Shelia Miranda Age: 62 yrs Sex: Male : 1955 Arrival Date: 04/15/2018 Time: 16:20 Bed 11 Private MD: Diagnosis: Gastrostomy status-replacment Presentation: 04/15 16:30 Presenting complaint: EMS states: displaced G-tube, patel in place temporarily. iw Transition of care: patient was received from another setting of care (long-term care [facility]. Onset of symptoms was April 15, 2018. Risk Assessment: Do you want to hurt yourself or someone else? Patient reports no desire to harm self or others. Initial Sepsis Screen: Does the patient meet any 2 criteria? No. Patient's initial sepsis screen is negative. Does the patient have a suspected source of infection? No. Patient's initial sepsis screen is negative. Care prior to arrival: None. 16:30 Method Of Arrival: EMS: [facility] iw 16:30 Acuity: WINSOME 4 iw Historical: - Allergies: 19:16 NKA; iw - PMHx: 16:53 Anxiety; Aphasia; BPH; COPD; Dementia; Depression; DYSPHAGIA; Hypertension; iw Schizophrenia; vitamin d deficiency; - Immunization history:: Adult Immunizations up to date. - Ebola Screening: : Patient negative for fever greater than or equal to 101.5 degrees Fahrenheit, and additional compatible Ebola Virus Disease symptoms Patient denies exposure to infectious person Patient denies travel to an Ebola-affected area in the 21 days before illness onset No symptoms or risks identified at this time. - Family history:: not pertinent. - Social history:: Smoking status: unknown. Screenin:00 Abuse screen: Denies threats or abuse. Denies injuries from another. Nutritional iw screening: On NPO diet. Tuberculosis screening: No symptoms or risk factors identified. Fall Risk None identified. Assessment: 16:45 General: Appears in no apparent distress. Behavior is calm. Pain: Unable to use pain iw scale. FLACC scale score is 0 out of 10. Neuro: Level of Consciousness is awake, alert. Cardiovascular: Patient's skin is warm and dry. Respiratory: Respiratory effort is even, unlabored, Respiratory pattern is regular, symmetrical. GI: Abdomen is flat, patel in place. :. Derm: Skin is pink, warm \T\ dry. normal. 19:17 Reassessment: Patient appears in no apparent distress at this time. Patient and/or iw family updated on plan of care and expected duration. Pain level reassessed. oriented to self, baseline. 19:19 Reassessment: waiting for transportation back to [facility]. iw 19:30 Reassessment: No changes from previously documented assessment. Patient and/or family fc updated on plan of care and expected duration. Pain level reassessed. Patient is alert, oriented x 3, equal unlabored respirations, skin warm/dry/pink. Pt with binder intact. 19:50 Reassessment: [facility] contacted for transport back to longterm, ID was fc contacted and informed pt would be returning there soon. Vital Signs: 16:53 BP 134 / 75; Pulse 89; Resp 16; Temp 98.2; Pulse Ox 98% on R/A; Weight 74.84 kg; Height iw 5 ft. 10 in. (177.80 cm); Pain 0/10; 16:53 Body Mass Index 23.67 (74.84 kg, 177.80 cm) ED Course: 16:20 Patient arrived in ED. iw 16:22 Domingo Sharma MD is Attending Physician. lana 16:51 Nazia Bose, RN is Primary Nurse. iw 16:52 Triage completed. iw 16:53 Arm band placed on. iw 17:23 Kenan Wong MD is Referral Physician. lana 17:44 X-ray completed. Portable x-ray completed in exam room. Patient tolerated procedure ag1 well. 17:45 ENTEROSTOMY TUBE CHECK W/CONTR In Process Unspecified. EDMS 17:45 G-tube placement. iw 19:06 Patient has correct armband on for positive identification. Bed in low position. Call mh5 light in reach. Side rails up X2. Warm blanket given. changed into clean diaper . 19:23 Patient did not have IV access during this emergency room visit. iw 19:34 Primary Nurse role handed off by Nazia Bose, RN rg2 Administered Medications: No medications were administered Outcome: 17:24 Discharge ordered by . lana 19:18 Discharged to longterm. iw 19:18 Condition: good 19:18 Discharge instructions given to patient, Instructed on discharge instructions, follow up and referral plans. Demonstrated understanding of instructions, follow-up care. 20:25 Patient left the ED. fc Signatures: Dispatcher [employer] EDAnjelica Multani rg2 Domingo Sharma MD MD cha Chretien, Felicia, RN RN Nazia Cole RN RN iw [place], [facility] Natasha Hammonds [facility]
--- NOTE | 2018-04-15 18:14 | RAD REPORT ---
EXAM DESCRIPTION: RAD - ENTEROSTOMY TUBE CHECK W/CONTR - 04/15/2018 5:48 pm CLINICAL HISTORY: Abdominal pain/ re- insertion of a gastrostomy tube FINDINGS: The family service worker film demonstrates contrast throughout the colon. A gastrostomy tube overlies the stomach. Gastrografin was administered into the gastrostomy tube. The stomach is opacified with contrast. No extravasation of contrast is seen. A total of 2 films were obtained
[2018-04-15 20:39] VITALS: BP 134/75; TEMP 98.2; O2SAT 98
== END 2018-04-15 20:25 | disposition home or self-care (01) ==
LOC: ER 16:16
PROC: 0D20XUZ Change Feeding Device in Upper Intestinal Tract, External Approach (ICD-10-PCS; principal; 2018-04-15)
DX: Z93.1 Gastrostomy status (principal); I10 Essential (primary) hypertension; R13.10 Dysphagia, unspecified; F03.90 Unspecified dementia, unspecified severity, without behavioral disturbance, psychotic disturbance, mood disturbance, and anxiety; F20.9 Schizophrenia, unspecified
CPT/HCPCS: 49465; 99283

== ENCOUNTER 2018-04-16 09:16 | Emergency (ER) | payer OTHER ==
--- NOTE | 2018-04-16 09:36 | ER ---
Nurse's Notes [facility] Name: Shelia Miranda Age: 62 yrs Sex: Male : 1955 Arrival Date: 04/16/2018 Time: 09:18 Bed 15 Private MD: Diagnosis: Gastrostomy complications Presentation: 04/16 09:19 Presenting complaint: EMS states: Pt pulled out feeding approx 3 hours ago, replaced w/ ph 18 Fr Santiago by detention staff. EMS states, " He has been approved to have a button placed so they were hoping that he could be admitted through the ER and have it done.". Transition of care: patient was not received from another setting of care. Onset of symptoms was April 16, 2018. Risk Assessment: Do you want to hurt yourself or someone else? Patient reports no desire to harm self or others. Initial Sepsis Screen: Does the patient meet any 2 criteria? No. Patient's initial sepsis screen is negative. Does the patient have a suspected source of infection? No. Patient's initial sepsis screen is negative. Care prior to arrival: None. 09:19 Method Of Arrival: EMS: [employer] 09:19 Acuity: WINSOME 4 ph Triage Assessment: 09:27 General: Appears in no apparent distress. comfortable, slender, Behavior is calm, ph cooperative, quiet. Pain: Denies pain. Neuro: Level of Consciousness is awake, alert, obeys commands, Oriented to person, place. Cardiovascular: Capillary refill < 3 seconds in bilateral fingers Patient's skin is warm and dry. Respiratory: Airway is patent Respiratory effort is even, unlabored. GI: Abdomen is flat, non-distended, [address] of PEG tube. Derm: Skin is healthy with good turgor, Skin is pink, warm \\T\\ dry. Historical: - Allergies: 09:24 NKA; ph - PMHx: 09:24 Anxiety; Aphasia; BPH; COPD; Dementia; Depression; DYSPHAGIA; Hypertension; ph Schizophrenia; vitamin d deficiency; - Immunization history:: Adult Immunizations unknown. - Social history:: Smoking status: Patient/guardian denies using tobacco. - Ebola Screening: : No symptoms or risks identified at this time. Screenin:25 Abuse screen: Denies threats or abuse. Denies injuries from another. Nutritional ph screening: No deficits noted. Tuberculosis screening: No symptoms or risk factors identified. Fall Risk None identified. Assessment: 09:50 Reassessment: Patient appears in no apparent distress at this time. ph 10:28 Reassessment: Patient appears in no apparent distress at this time. Patient and/or ph family updated on plan of care and expected duration. Pain level reassessed. Report called to Ellen BIANCHI at [facility], informed receiving nurse that pt could not be admitted for G button placement because it is an outpatient procedure, awaiting EMS for transport. 12:19 Reassessment: Patient appears in no apparent distress at this time. Patient and/or ph family updated on plan of care and expected duration. Pain level reassessed. Pt resting quietly, Santiago remains in place in abdomen, awaiting EMS for transport back to detention. Vital Signs: 09:25 BP 142 / 95; Pulse 84; Resp 18; Temp 97.9; Pulse Ox 97% on R/A; ph 11:07 BP 141 / 87; Pulse 81; Resp 18; Pulse Ox 98% on R/A; ph 12:29 BP 137 / 89; Pulse 85; Resp 18; Pulse Ox 98% on R/A; ph 13:12 Temp 97.7(TE); ph ED Course: 09:18 Patient arrived in ED. ph 09:22 Presley Gilbert PA is [facility]. jr8 09:22 Jonathan Noble MD is Attending Physician. jr8 09:23 Triage completed. ph 09:23 Arm band placed on. ph 09:26 Patient has correct armband on for positive identification. Bed in low position. Call ph light in reach. Side rails up X2. Pulse ox on. NIBP on. Warm blanket given. 09:34 Kenan Wong MD is Referral Physician. jr8 09:36 Ximena Camara, ARIAS is Primary Nurse. ph 11:07 No provider procedures requiring assistance completed. Patient did not have IV access ph during this emergency room visit. Administered Medications: No medications were administered Outcome: 09:35 Discharge ordered by . jr8 13:12 Discharged to detention. Report called to Ellen ph 13:12 Condition: good 13:12 Discharge instructions given to detention, Instructed on discharge instructions. ph 13:13 Patient left the ED. ph Signatures: Presley Gilbert PA PA jr8 Ximena Camara, RN RN ph
--- NOTE | 2018-04-16 09:36 | EDPHYS ---
Physician Documentation [facility] Name: Shelia Miranda Age: 62 yrs Sex: Male : 1955 Arrival Date: 04/16/2018 Time: 09:18 Bed 15 Private MD: ED Physician Jonathan Noble HPI: 04/16 09:23 This 62 yrs old Black Male presents to ER via EMS with complaints of Problem With jr8 Feeding Tube. 09:23 Patient was sent over for gastrostomy tube placement as he pulled it out. Upon arrival jr8 patient has patent and functioning Santiago in place of gastrostomy tube. It was explained by EMS that the [facility] was hoping we could admit him for a button placement as he was cleared by his physicians to have one placed . Severity of symptoms: At their worst the symptoms were very mild in the emergency department the symptoms are unchanged. The patient has experienced similar episodes in the past, multiple times. The patient has not recently seen a physician. Historical: - Allergies: 09:24 NKA; ph - PMHx: 09:24 Anxiety; Aphasia; BPH; COPD; Dementia; Depression; DYSPHAGIA; Hypertension; ph Schizophrenia; vitamin d deficiency; - Immunization history:: Adult Immunizations unknown. - Social history:: Smoking status: Patient/guardian denies using tobacco. - Ebola Screening: : No symptoms or risks identified at this time. ROS: 09:23 Eyes: Negative for injury, pain, redness, and discharge, ENT: Negative for injury, jr8 pain, and discharge, Neck: Negative for injury, pain, and swelling, Cardiovascular: Negative for chest pain, palpitations, and edema, Respiratory: Negative for shortness of breath, cough, wheezing, and pleuritic chest pain, Abdomen/GI: Negative for abdominal pain, nausea, vomiting, diarrhea, and constipation, Back: Negative for injury and pain, MS/Extremity: Negative for injury and deformity, Skin: Negative for injury, rash, and discoloration, Neuro: Negative for headache, weakness, numbness, tingling, and seizure. Exam: 09:23 Eyes: Pupils equal round and reactive to light, extra-ocular motions intact. Lids and jr8 lashes normal. Conjunctiva and sclera are non-icteric and not injected. Cornea within normal limits. Periorbital areas with no swelling, redness, or edema. ENT: Nares patent. No nasal discharge, no septal abnormalities noted. Tympanic membranes are normal and external auditory canals are clear. Oropharynx with no redness, swelling, or masses, exudates, or evidence of obstruction, uvula midline. Mucous membranes moist. Neck: Trachea midline, no thyromegaly or masses palpated, and no cervical lymphadenopathy. Supple, full range of motion without nuchal rigidity, or vertebral point tenderness. No Meningismus. Cardiovascular: Regular rate and rhythm with a normal S1 and S2. No gallops, murmurs, or rubs. Normal PMI, no JVD. No pulse deficits. Respiratory: Lungs have equal breath sounds bilaterally, clear to auscultation and percussion. No rales, rhonchi or wheezes noted. No increased work of breathing, no retractions or nasal flaring. Abdomen/GI: Soft, non-tender, with normal bowel sounds. No distension or tympany. No guarding or rebound. No evidence of tenderness throughout. Back: No spinal tenderness. No costovertebral tenderness. Full range of motion. Skin: Warm, dry with normal turgor. Normal color with no rashes, no lesions, and no evidence of cellulitis. MS/ Extremity: Pulses equal, no cyanosis. Neurovascular intact. Full, normal range of motion. Neuro: Awake and alert, GCS 15, oriented to person, place, time, and situation. Cranial nerves II-XII grossly intact. Motor strength 5/5 in all extremities. Sensory grossly intact. Cerebellar exam normal. Normal gait. Vital Signs: 09:25 BP 142 / 95; Pulse 84; Resp 18; Temp 97.9; Pulse Ox 97% on R/A; ph 11:07 BP 141 / 87; Pulse 81; Resp 18; Pulse Ox 98% on R/A; ph 12:29 BP 137 / 89; Pulse 85; Resp 18; Pulse Ox 98% on R/A; ph 13:12 Temp 97.7(TE); ph MDM: 09:22 Patient medically screened. jr8 09:23 Data reviewed: vital signs, nurses notes, and as a result, I will discharge patient. jr8 Data interpreted: Pulse oximetry: on room air is 97 %. Interpretation: normal. 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 ED course: Relayed to patients nurse that this is considered an outpatient procedure and that the ED will not admit for the possibly having button placed. GI has not seen patient yet or established care from we understand. We do not have GI on today to see him as well . Administered Medications: No medications were administered Disposition: 14:46 Co-signature as Attending Physician, Jonathan Noble MD I agree with the assessment and kdr plan of care. Disposition: 04/16/18 09:35 Discharged to Home. Impression: Gastrostomy complications. - Condition is Stable. - Discharge Instructions: Gastrostomy Tube Home Guide, Adult. - Medication Reconciliation Form, Thank You Letter, Antibiotic Education, Prescription Opioid Use form. - Follow up: Knean Wong MD; When: 2 - 3 days; Reason: Recheck today's complaints, Continuance of care, Re-evaluation by your physician. - Problem is new. - Symptoms have improved. Signatures: Jonathan Noble MD MD kdr Presley Gilbert PA PA jr8 Ximena Camara RN RN ph Corrections: (The following items were deleted from the chart) 13:13 09:35 04/16/2018 09:35 Discharged to Home. Impression: Gastrostomy complications. ph Condition is Stable. Forms are Medication Reconciliation Form, Thank You Letter, Antibiotic Education, Prescription Opioid Use. Follow up: Kenan Wong; When: 2 - 3 days; Reason: Recheck today's complaints, Continuance of care, Re-evaluation by your physician. Problem is new. Symptoms have improved. jr8
[2018-04-16 13:28] VITALS: O2SAT 98
[2018-04-16 13:29] VITALS: BP 137/89; TEMP 97.7
== END 2018-04-16 13:13 | disposition home or self-care (01) ==
LOC: ER 09:16
DX: K94.29 Other complications of gastrostomy (principal); I10 Essential (primary) hypertension; F03.90 Unspecified dementia, unspecified severity, without behavioral disturbance, psychotic disturbance, mood disturbance, and anxiety
CPT/HCPCS: 99283

== ENCOUNTER 2018-04-18 08:57 | Emergency (ER) | payer OTHER ==
--- NOTE | 2018-04-18 09:51 | RAD REPORT ---
EXAM DESCRIPTION: RAD - ENTEROSTOMY TUBE CHECK W/CONTR - 04/18/2018 9:39 am CLINICAL HISTORY: Enterostomy tube repositioning COMPARISON: April 15 FINDINGS: Two KUB images were obtained, 1 prior to and 1 subsequent to retrograde injection of contr ast via the repositioned or replaced enterostomy tube. Post-contrast image shows the enterostomy tube bulb to be positioned in the antrum of the stomach. Th e majority of contrast remains within the lumen of the stomach and duodenum. There is a minimal amoun t of contrast present were the tube enters the stomach. A small extraluminal collection is suspected. Patient continues to show the impacted nondilated colon filled with stool and contrast. No antegrade movement from prior imaging. IMPRESSION: Enterostomy tube check shows a small amount of contrast near the tube entry site into th e stomach. A small amount of extraluminal contrast is suspected.
--- NOTE | 2018-04-18 10:43 | RAD REPORT ---
EXAM DESCRIPTION: CT - Abdomen Pelvis Wo Contrast - 04/18/2018 10:25 am CLINICAL HISTORY: Abdominal pain, dementia, altered mental status, chronic displacement of G-tube COMPARISON: KUB imaging same date TECHNIQUE: Axial [address] imaging of the abdomen and pelvis was performed without IV contrast. No IV contrast was given because of allergy, abnormal renal function, patient refusal or physician re quest. Oral contrast was given. All CT scans are performed using dose optimization technique as appropriate and may include automated exposure control or mA/KV adjustment according to patient size. FINDINGS: Scarring and/ or atelectasis present. No pneumothorax or pleural effusion. No pericardial effusion. The liver, spleen and pancreas show no suspicious findings on non-contrast imaging. Gallbladder is co ntracted. No biliary tree dilatation. No hydronephrosis or suspicious renal mass. No significant adrenal finding. Isodense renal masses an d pyelonephritis cannot be excluded in the absence of IV contrast. The urinary bladder is without sig nificant finding. G-tube is in place. Balloon tip is in the antrum of the stomach. The retrograde contrast injection fo r the tube placement check ease contained within the lumen of the stomach. No abscess or free air. No acute small bowel finding. No dilated colon. The patient has a dense contrast and stool collection t hroughout the colon as has been seen on numerous prior KUB studies. Patient may have little or no col on peristalsis with the barium impaction. Garcia of the rectum are mildly prominent. There is no surro unding inflammatory stranding. No free air, free fluid or inflammatory stranding. No hernia, mass or bulky lymphadenopathy. No suspicious bony findings. IMPRESSION: CT demonstrates no extraluminal contrast. G-tube tip is in the antrum of the stomach. Th e CT study is more sensitive for assessment of contrast positioning. No free air or surgically emergent finding. Continued barium and stool impaction throughout a nondilated colon. Full assessment is limited is the absence of IV contrast.
--- NOTE | 2018-04-18 10:47 | ER ---
Nurse's Notes [facility] Name: Shelia Miranda Age: 62 yrs Sex: Male : 1955 Arrival Date: 04/18/2018 Time: 08:59 Bed 25 Private MD: Diagnosis: Gastrostomy status-replaced Presentation: 04/18 09:05 Presenting complaint: EMS states: called out for pulled G-tube, pt was seen here 2 days em ago for same complaint. Transition of care: patient was not received from another setting of care. Onset of symptoms was April 18, 2018. Risk Assessment: Do you want to hurt yourself or someone else? Patient reports no desire to harm self or others. Initial Sepsis Screen: Does the patient meet any 2 criteria? No. Patient's initial sepsis screen is negative. Does the patient have a suspected source of infection? No. Patient's initial sepsis screen is negative. Care prior to arrival: None. 09:05 Method Of Arrival: EMS: [facility], [place] em 09:32 Acuity: WINSOME 4 iw Triage Assessment: 09:07 General: Appears in no apparent distress. comfortable, Behavior is calm, cooperative. em Pain: Denies pain. Historical: - Allergies: 09:07 NKA; em - PMHx: 09:07 Dementia; COPD; BPH; Aphasia; Anxiety; DYSPHAGIA; Hypertension; Depression; vitamin d em deficiency; Schizophrenia; - Immunization history:: Adult Immunizations up to date. - Social history:: Smoking status: unknown. - Ebola Screening: : Patient negative for fever greater than or equal to 101.5 degrees Fahrenheit, and additional compatible Ebola Virus Disease symptoms Patient denies exposure to infectious person Patient denies travel to an Ebola-affected area in the 21 days before illness onset No symptoms or risks identified at this time. Screenin:07 Abuse screen: no apparent signs noted. Nutritional screening: No deficits noted. em Tuberculosis screening: No symptoms or risk factors identified. Fall Risk Secondary diagnosis (15 points) dementia, impaired mobility, Gait- Normal/Bed Rest/Wheelchair (0 pts) Mental Status- Overestimates/Forgets Limitations (15 pts.). Total Stephens Fall Scale indicates Low Risk Score (25-44 pts). Fall prevention measures have been instituted. Side Rails Up X 2 Placed close to Nursing Station. Assessment: 09:10 General: Appears in no apparent distress. comfortable, Behavior is calm, cooperative. em Pain: Denies pain. Neuro: Level of Consciousness is awake, alert, Oriented to person. Cardiovascular: Capillary refill < 3 seconds Patient's skin is warm and dry. Respiratory: Airway is patent Respiratory effort is even, unlabored, Respiratory pattern is regular, symmetrical. GI: Abdomen is flat, surgical site, missing G tube Bowel sounds present X 4 quads. 09:20 Reassessment: Patient appears in no apparent distress at this time. I agree with above iw assessment by Gunnar Hercules LVN. 10:00 Reassessment: Patient appears in no apparent distress at this time. Patient and/or em family updated on plan of care and expected duration. Pain level reassessed. respirations even and unlabored, skin pink warm and dry. 10:58 Reassessment: Patient appears in no apparent distress at this time. Patient and/or em family updated on plan of care and expected duration. Pain level reassessed. respirations even and unlabored, skin pink warm and dry. Vital Signs: 09:09 BP 116 / 80; Pulse 85; Resp 16; Temp 97.8(O); Pulse Ox 98% on R/A; Pain 0/10; em 09:49 BP 121 / 81; Pulse 66; Resp 18; Pulse Ox 98% on R/A; mh5 10:57 BP 123 / 83; Pulse 70; Resp 16; Pulse Ox 98% on R/A; em ED Course: 08:59 Patient arrived in ED. jb4 09:04 Gunnar Hercules LVN is Primary Nurse. em 09:05 Marlo Mills MD is Attending Physician. gs 09:07 Arm band placed on. em 09:07 Patient has correct armband on for positive identification. Placed in gown. Bed in low em position. Call light in reach. 09:08 [facility]C [facility] kb 09:32 Triage completed. iw 09:36 X-ray completed. Patient tolerated procedure well. Patient moved back from radiology. jb2 09:37 ENTEROSTOMY TUBE CHECK W/CONTR In Process Unspecified. EDMS 09:47 G TUBE PLACEMENT. mh5 10:25 CT Abd/Pelvis - Without Cont In Process Unspecified. EDMS 10:55 Patient did not have IV access during this emergency room visit. em Administered Medications: No medications were administered Outcome: 10:46 Discharge ordered by MD. puga 12:25 Discharged to [facility]. iw 12:25 Condition: good 12:25 Discharge instructions given to 12:26 Patient left the ED. iw Signatures: Dispatcher [employer] EDShari Quinn, YOEL MANAGER INTERVENTIONAL-Stew Nielsen jb2 Gunnar Hercules, LIME SUPERVISOR LIME SUPERVISOR Nazia Corral RN RN iw Bryson, James, RN RN jb4 Martinez, Maria [facility] Marlo Mills MD MD Corrections: (The following items were deleted from the chart) 10:58 09:10 : No signs and/or symptoms were reported regarding the genitourinary system. em em
--- NOTE | 2018-04-18 10:47 | EDPHYS ---
Physician Documentation [facility] Name: Shelia Miranda Age: 62 yrs Sex: Male : 1955 Arrival Date: 04/18/2018 Time: 08:59 Bed 25 Private MD: ED Physician Marlo Mills HPI: 04/18 09:18 This 62 yrs old Black Male presents to ER via EMS with complaints of pulled out g-tube. kb 09:18 Pt sent from correction for replacement of g-tube. Onset: The symptoms/episode kb began/occurred today. Severity of symptoms: At their worst the symptoms were moderate in the emergency department the symptoms are unchanged. The patient has experienced similar episodes in the past, multiple times. The patient has been recently seen at the [facility] Emergency Department, this week, for similar complaints. Historical: - Allergies: 09:07 NKA; em - PMHx: 09:07 Dementia; COPD; BPH; Aphasia; Anxiety; DYSPHAGIA; Hypertension; Depression; vitamin d em deficiency; Schizophrenia; - Immunization history:: Adult Immunizations up to date. - Social history:: Smoking status: unknown. - Ebola Screening: : Patient negative for fever greater than or equal to 101.5 degrees Fahrenheit, and additional compatible Ebola Virus Disease symptoms Patient denies exposure to infectious person Patient denies travel to an Ebola-affected area in the 21 days before illness onset No symptoms or risks identified at this time. ROS: 09:17 Constitutional: Negative for fever, chills, and weight loss, Cardiovascular: Negative kb for chest pain, palpitations, and edema, Respiratory: Negative for shortness of breath, cough, wheezing, and pleuritic chest pain, Back: Negative for injury and pain, : Negative for injury, bleeding, discharge, and swelling, MS/Extremity: Negative for injury and deformity, Skin: Negative for injury, rash, and discoloration, Neuro: Negative for headache, weakness, numbness, tingling, and seizure. 09:17 Abdomen/GI: Positive for gastrostomy to abdomen. Exam: 09:17 Constitutional: This is a well developed, well nourished patient who is awake, alert, kb and in no acute distress. Head/Face: Normocephalic, atraumatic. Chest/axilla: Normal chest wall appearance and motion. Nontender with no deformity. No lesions are appreciated. Cardiovascular: Regular rate and rhythm with a normal S1 and S2. No gallops, murmurs, or rubs. Normal PMI, no JVD. No pulse deficits. Respiratory: Lungs have equal breath sounds bilaterally, clear to auscultation and percussion. No rales, rhonchi or wheezes noted. No increased work of breathing, no retractions or nasal flaring. Back: No spinal tenderness. No costovertebral tenderness. Full range of motion. Skin: Warm, dry with normal turgor. Normal color with no rashes, no lesions, and no evidence of cellulitis. MS/ Extremity: Pulses equal, no cyanosis. Neurovascular intact. Full, normal range of motion. Neuro: Awake and alert, GCS 15, oriented to person, place, time, and situation. Cranial nerves II-XII grossly intact. Motor strength 5/5 in all extremities. Sensory grossly intact. Cerebellar exam normal. Normal gait. 09:17 Abdomen/GI: Inspection: gastrostomy noted , Bowel sounds: normal, in all quadrants. Vital Signs: 09:09 BP 116 / 80; Pulse 85; Resp 16; Temp 97.8(O); Pulse Ox 98% on R/A; Pain 0/10; em 09:49 BP 121 / 81; Pulse 66; Resp 18; Pulse Ox 98% on R/A; mh5 10:57 BP 123 / 83; Pulse 70; Resp 16; Pulse Ox 98% on R/A; em Procedures: 09:16 G-tube placement: a 20 Andorran catheter was placed, by the ED physician, Shari puga PROGRAM CLINICIAN-C. MDM: 09:17 Data reviewed: vital signs, nurses notes. Data interpreted: Pulse oximetry: on room air kb is 98 %. Interpretation: normal. 09:17 Patient medically screened. kb 10:46 Counseling: I had a detailed discussion with the patient and/or guardian regarding: the kb historical points, exam findings, and any diagnostic results supporting the discharge/admit diagnosis, radiology results, the need for outpatient follow up, a family practitioner, to return to the emergency department if symptoms worsen or persist or if there are any questions or concerns that arise at home. 04/18 09:25 Order name: ENTEROSTOMY TUBE CHECK W/CONTR; Complete Time: 09:52 EDMS 04/18 10:01 Order name: CT Abd/Pelvis - Without Cont; Complete Time: 10:45 kb Administered Medications: No medications were administered Disposition: 04/18/18 10:46 Discharged to Home. Impression: Gastrostomy status - replaced. - Condition is Stable. - Discharge Instructions: Gastrostomy Tube Home Guide, Adult. - Medication Reconciliation Form, Thank You Letter, Antibiotic Education, Prescription Opioid Use form. - Follow up: Emergency Department; When: As needed; Reason: Worsening of condition. Follow up: Private Physician; When: 2 - 3 days; Reason: Recheck today's complaints, Continuance of care, Re-evaluation by your physician. Addendum: 04/19/2018 16:01 Co-signature as Attending Physician, Marlo Mills MD. g s Signatures: Dispatcher [employer] [facility] Shari Silva, PROGRAM CLINICIAN-C PROGRAM CLINICIAN-Ckb Gunnar Hercules, OPTOMECHANICAL TECHNICIAN OPTOMECHANICAL TECHNICIAN em Nazia Bose, ARIAS RN iw Marlo Mills MD MD Corrections: (The following items were deleted from the chart) 04/18 09:25 09:16 Abdomen 1 View (KUB)+RAD.RAD.BRZ ordered. [facility] 12:26 10:46 04/18/2018 10:46 Discharged to Home. Impression: Gastrostomy status - replaced. iw Condition is Stable. Discharge Instructions: Gastrostomy Tube Home Guide, Adult. Forms are Medication Reconciliation Form, Thank You Letter, Antibiotic Education, Prescription Opioid Use. Follow up: Emergency Department; When: As needed; Reason: Worsening of condition. Follow up: Private Physician; When: 2 - 3 days; Reason: Recheck today's complaints, Continuance of care, Re-evaluation by your physician. kb
[2018-04-18 12:46] VITALS: TEMP 97.8; O2SAT 98
[2018-04-18 12:48] VITALS: BP 123/83
== END 2018-04-18 12:26 | disposition home or self-care (01) ==
LOC: ER 08:57
DX: Z93.1 Gastrostomy status (principal); I10 Essential (primary) hypertension; F03.90 Unspecified dementia, unspecified severity, without behavioral disturbance, psychotic disturbance, mood disturbance, and anxiety
CPT/HCPCS: 49465; 74176; 99283

== ENCOUNTER 2018-04-22 19:36 | Emergency (ER) | payer OTHER ==
--- NOTE | 2018-04-22 21:23 | ER ---
Nurse's Notes [facility] Name: Shelia Miranda Age: 62 yrs Sex: Male : 1955 Arrival Date: 04/22/2018 Time: 19:37 Bed 19 Private MD: Diagnosis: Displaced gastronomy tube Presentation: 04/22 19:37 Presenting complaint: EMS states: "Patient pulled out PEG tube again, [place] [id number] Healthcare reports patient pulled feeding tube out sometime today.". 19:37 Transition of care: patient was received from another setting of care ([facility]. Onset of symptoms was April 22, 2018. Risk Assessment: Do you want to hurt yourself or someone else? Patient reports no desire to harm self or others. Initial Sepsis Screen: Does the patient meet any 2 criteria? No. Patient's initial sepsis screen is negative. Does the patient have a suspected source of infection? No. Patient's initial sepsis screen is negative. Care prior to arrival: None. 19:37 Method Of Arrival: EMS: [facility] 19:37 Acuity: WINSOME 3 bs1 Historical: - Allergies: 19:48 NKA; bs1 - Home Meds: 19:48 aspirin 81 mg Oral chew 1 tab once daily [Active]; Catapres 0.1 mg Oral tab [Active]; bs1 cholecalciferol (vitamin D3) oral oral [Active]; Albuterol-Ipratropium Inhl [Active]; Lisinopril Oral [Active]; lorazepam 1 mg Oral tab [Active]; Nitroglycerin SL [Active]; Tegretol Oral [Active]; TwoCal HN oral oral [Active]; tylenol [Active]; Tylenol #3 Oral [Active]; - PMHx: 19:48 Anxiety; Aphasia; BPH; COPD; Dementia; Depression; DYSPHAGIA; Hypertension; bs1 Schizophrenia; vitamin d deficiency; Pneumonia; pressure ulcer stage 2; contracture; - PSHx: 19:48 PEG tube; bs1 - Immunization history:: Adult Immunizations up to date. - Social history:: Smoking status: unknown. - Ebola Screening: : Patient negative for fever greater than or equal to 101.5 degrees Fahrenheit, and additional compatible Ebola Virus Disease symptoms Patient denies exposure to infectious person. Screenin:07 Abuse screen: Denies threats or abuse. Denies injuries from another. Nutritional bs1 screening: No deficits noted. Tuberculosis screening: No symptoms or risk factors identified. Fall Risk None identified. Assessment: 20:15 General: Appears in no apparent distress. Behavior is flat. Pain: Denies pain. Neuro: bs1 Level of Consciousness is awake, alert, Oriented to person, Facial symmetry appears normal. Cardiovascular: Heart tones S1 S2 present Capillary refill < 3 seconds Patient's skin is warm and dry. Respiratory: Airway is patent Trachea midline Respiratory effort is even, unlabored, Respiratory pattern is regular, symmetrical, Breath sounds are clear bilaterally. GI: Abdomen is flat, non-distended, patient came in for pulling PEG tube out, patient has abdominal binder in place. : No signs and/or symptoms were reported regarding the genitourinary system. EENT: No signs and/or symptoms were reported regarding the EENT system. Derm: history of stage 2 to sacral area. Musculoskeletal: Circulation, motion, and sensation intact. Capillary refill < 3 seconds. 21:15 Reassessment: Dr Martin inserted new PEG tube, patient tolerated. bs1 22:00 Reassessment: Patient appears in no apparent distress at this time. Patient and/or bs1 family updated on plan of care and expected duration. Pain level reassessed. Patient is alert, oriented x 3, equal unlabored respirations, skin warm/dry/pink. Report given to Anh Kaur [facility]. Vital Signs: 19:40 BP 123 / 90; Pulse 74; Resp 16; Temp 97.3(TE); Pulse Ox 99% on R/A; Pain 0/10; bs1 20:45 BP 128 / 72; Pulse 76; Resp 17; Pulse Ox 100% on R/A; bs1 21:45 BP 129 / 68; Pulse 72; Resp 16; Pulse Ox 99% on R/A; bs1 22:00 BP 144 / 83; Pulse 83; Resp 16; Temp 98; Pulse Ox 100% on R/A; Pain 0/10; bs1 ED Course: 19:37 Patient arrived in ED. bs1 19:37 Mayo Martin MD is Attending Physician. tw4 19:42 Triage completed. bs1 20:13 Sage, Kasey, RN is Primary Nurse. bs1 20:55 Inserted saline lock: 24 gauge in right wrist, using aseptic technique. bs1 21:07 Arm band placed on left wrist. bs1 21:07 Patient has correct armband on for positive identification. Bed in low position. Call bs1 light in reach. Side rails up X 1. Pulse ox on. NIBP on. Warm blanket given. 21:39 Abdomen 1 View (KUB) XRAY In Process Unspecified. EDMS 22:27 No provider procedures requiring assistance completed. bs1 22:31 IV discontinued, bleeding controlled, No redness/swelling at site. Pressure dressing bs1 applied. Administered Medications: No medications were administered Outcome: : Discharge ordered by . tw4 22:00 Discharged to snf. Report called to Natasha Kamara LVN bs1 22:00 Condition: stable 22:00 Discharge instructions given to EMS, Report given to [place] [facility] Instructed on discharge instructions. 22:32 Patient left the ED. bs1 Signatures: Dispatcher [employer] Kasey Saldaña RN RN bs1 Mayo Martin MD MD tw4
--- NOTE | 2018-04-22 21:23 | EDPHYS ---
Physician Documentation [facility] Name: Shelia Miranda Age: 62 yrs Sex: Male : 1955 Arrival Date: 04/22/2018 Time: 19:37 Bed 19 Private MD: ED Physician Mayo Martin HPI: 04/22 21:10 This 62 yrs old Black Male presents to ER via EMS with complaints of pulled G tube out. tw4 21:10 sent by the long term staff secondary to G tube displacement. Onset: The tw4 symptoms/episode began/occurred today. Severity of symptoms: At their worst the symptoms were moderate in the emergency department the symptoms are unchanged. The patient has not experienced similar symptoms in the past. Historical: - Allergies: 19:48 NKA; bs1 - Home Meds: 19:48 aspirin 81 mg Oral chew 1 tab once daily [Active]; Catapres 0.1 mg Oral tab [Active]; bs1 cholecalciferol (vitamin D3) oral oral [Active]; Albuterol-Ipratropium Inhl [Active]; Lisinopril Oral [Active]; lorazepam 1 mg Oral tab [Active]; Nitroglycerin SL [Active]; Tegretol Oral [Active]; TwoCal HN oral oral [Active]; tylenol [Active]; Tylenol #3 Oral [Active]; - PMHx: 19:48 Anxiety; Aphasia; BPH; COPD; Dementia; Depression; DYSPHAGIA; Hypertension; bs1 Schizophrenia; vitamin d deficiency; Pneumonia; pressure ulcer stage 2; contracture; - PSHx: 19:48 PEG tube; bs1 - Immunization history:: Adult Immunizations up to date. - Social history:: Smoking status: unknown. - Ebola Screening: : Patient negative for fever greater than or equal to 101.5 degrees Fahrenheit, and additional compatible Ebola Virus Disease symptoms Patient denies exposure to infectious person. ROS: 21:10 Constitutional: Negative for fever, chills, and weight loss, Cardiovascular: Negative tw4 for chest pain, palpitations, and edema, Respiratory: Negative for shortness of breath, cough, wheezing, and pleuritic chest pain, Abdomen/GI: Negative for abdominal pain, nausea, vomiting, diarrhea, and constipation, Back: Negative for injury and pain. Vital Signs: 19:40 BP 123 / 90; Pulse 74; Resp 16; Temp 97.3(TE); Pulse Ox 99% on R/A; Pain 0/10; bs1 20:45 BP 128 / 72; Pulse 76; Resp 17; Pulse Ox 100% on R/A; bs1 21:45 BP 129 / 68; Pulse 72; Resp 16; Pulse Ox 99% on R/A; bs1 22:00 BP 144 / 83; Pulse 83; Resp 16; Temp 98; Pulse Ox 100% on R/A; Pain 0/10; bs1 Procedures: 21:17 G-tube placement: a 18 Telugu catheter was placed, by the ED physician, Mayo peres MD. MDM: 19:37 Patient medically screened. tw4 21:17 Data reviewed: vital signs, nurses notes. 04/23 04:24 Counseling: I had a detailed discussion with the patient and/or guardian regarding: the tw4 historical points, exam findings, and any diagnostic results supporting the discharge/admit diagnosis. Special discussion: I discussed with the patient/guardian in detail that at this point there is no indication for admission to the hospital. It is understood, however, that if the symptoms persist or worsen the patient needs to return immediately for re-evaluation. 04/22 20:56 Order name: CBC with Manual Differential bs1 04/22 20:56 Order name: BMP bs1 04/22 20:56 Order name: Ptt, Activated bs1 04/22 20:56 Order name: PT-INR [facility] 04/22 21:18 Order name: Abdomen 1 View (KUB) XRAY Administered Medications: No medications were administered Disposition: 04:24 Chart complete. 04:24 Co-signature as Attending Physician, Mayo Martin MD. Disposition: 04/22/18 21:22 Discharged to Home. Impression: Displaced gastronomy tube. - Condition is Stable. - Discharge Instructions: PEG Tube Home Guide, [id number]. - Medication Reconciliation Form, Thank You Letter, Antibiotic Education, Prescription Opioid Use form. - Follow up: Private Physician; When: Upon discharge from the Emergency Department; Reason: Further diagnostic work-up, Recheck today's complaints, Re-evaluation by your physician. - Problem is new. - Symptoms have improved. Signatures: Dispatcher [employer] Kasey Saldaña RN RN bs1 Mayo Martin MD MD tw4 Corrections: (The following items were deleted from the chart) 04/22 22:32 21:22 04/22/2018 21:22 Discharged to Home. Impression: Displaced gastronomy tube. bs1 Condition is Stable. Forms are Medication Reconciliation Form, Thank You Letter, Antibiotic Education, Prescription Opioid Use. Follow up: Private Physician; When: Upon discharge from the Emergency Department; Reason: Further diagnostic work-up, Recheck today's complaints, Re-evaluation by your physician. Problem is new. Symptoms have improved. tw4
[2018-04-22 21:29] LABS: Absolute Monocytes 0.4 K/uL (0.1-1.3); Absolute Neutrophil 2.1 K/uL (1.8-8.0); Basophils % 0.7 % (0-1.3); Eosinophils % 9.1 % (0-4.4); Hematocrit 39.8 % (39.6-49.0); Lymphocytes % 40.1 % (15.3-44.8); MCH 30.8 pg (27.0-35.0); MCV 91.3 fL (80-100); Monocytes % 8.4 % (3.3-12.3); RBC Red Blood Cell Count 4.36 M/uL (4.33-5.43)
[2018-04-22 21:40] LABS: Protime INR 1.02
[2018-04-22 21:41] LABS: BUN Blood Urea Nitrogen 24 mg/dL (7-18); Bicarbonate 31 mmol/L (21-32); Glucose Level 76 mg/dL (74-106); Potassium 4.5 mmol/L (3.5-5.1); Sodium Level 138 mmol/L (136-145)
[2018-04-22 22:01] LABS: Blood Morphology Comment NOT SEEN (NOT SEEN); Platelet Estimate ADEQ
[2018-04-22 22:41] VITALS: BP 144/83; TEMP 98; O2SAT 100
--- NOTE | 2018-04-23 06:31 | RAD REPORT ---
EXAM DESCRIPTION: RAD - Abdomen 1 View (KUB) - 04/22/2018 9:39 pm CLINICAL HISTORY: Peg tube replacement or repositioning COMPARISON: April 18 FINDINGS: Barium impaction pattern of the colon again noted and stable. After repositioning or repla cement of the PEG tube the post-contrast image shows all contrast within the lumen of the stomach. Ba lloon tip is near the antrum.
== END 2018-04-22 22:32 | disposition home or self-care (01) ==
LOC: ER 19:36
DX: T85.528A Displacement of other gastrointestinal prosthetic devices, implants and grafts, initial encounter (principal); I10 Essential (primary) hypertension; F41.9 Anxiety disorder, unspecified; J44.9 Chronic obstructive pulmonary disease, unspecified; F32.9 Major depressive disorder, single episode, unspecified
CPT/HCPCS: 36415; 74018; 80048; 85025; 85610; 85730; 99284

== ENCOUNTER 2018-04-23 21:17 | Emergency (ER) | payer OTHER ==
--- NOTE | 2018-04-23 22:52 | RAD REPORT ---
EXAM DESCRIPTION: RAD - ENTEROSTOMY TUBE CHECK W/CONTR - 04/23/2018 10:44 pm CLINICAL HISTORY: gtube study Enterostomy tube placement. COMPARISON: Abdomen Pelvis Wo Contrast dated 04/18/2018 FINDINGS: Pre and post enterostomy tube contrast injection radiographs were performed. Contrast is n oted in the colon. On the post enterostomy tube injection study, contrast is seen within the distal s tomach/ small bowel, indicating appropriate enterostomy tube placement. No leakage is seen.
--- NOTE | 2018-04-23 22:56 | ER ---
Nurse's Notes [facility] Name: Shelia Miranda Age: 62 yrs Sex: Male : 1955 Arrival Date: 04/23/2018 Time: 21:20 Bed 18 Private MD: Diagnosis: Gastrostomy complications;Gastrostomy malfunction Presentation: 04/23 21:25 Presenting complaint: EMS states: "Patient pulled out PEG tube again today, blood sugar bs1 was 68 prior to arrival.". Transition of care: patient was received [facility]. Onset of symptoms was April 23, 2018. Risk Assessment: Do you want to hurt yourself or someone else? Patient reports no desire to harm self or others. Initial Sepsis Screen: Does the patient meet any 2 criteria? No. Patient's initial sepsis screen is negative. Does the patient have a suspected source of infection? No. Patient's initial sepsis screen is negative. Care prior to arrival: Glucose check: 68. 21:25 Method Of Arrival: EMS: [facility] bs1 21:25 Acuity: WINSOME 3 bs1 Historical: - Allergies: 21:30 NKA; bs1 - Home Meds: 21:30 Albuterol-Ipratropium Inhl [Active]; aspirin 81 mg Oral chew 1 tab once daily [Active]; bs1 Catapres 0.1 mg Oral tab [Active]; cholecalciferol (vitamin D3) Oral [Active]; lisinopril Oral [Active]; lorazepam 1 mg Oral tab [Active]; Nitroglycerin SL [Active]; Tegretol Oral [Active]; TwoCal HN Oral [Active]; Tylenol [Active]; Tylenol #3 Oral [Active]; - PMHx: 21:30 Anxiety; Aphasia; BPH; Contracture; COPD; Dementia; Depression; DYSPHAGIA; bs1 Hypertension; Pneumonia; pressure ulcer stage 2; Schizophrenia; vitamin d deficiency; - PSHx: 21:30 PEG tube placement; bs1 - Immunization history:: Adult Immunizations up to date. - Social history:: Smoking status: Patient/guardian denies using tobacco. - Ebola Screening: : Patient negative for fever greater than or equal to 101.5 degrees Fahrenheit, and additional compatible Ebola Virus Disease symptoms Patient denies exposure to infectious person. Screenin:43 Abuse screen: Denies threats or abuse. Denies injuries from another. Nutritional bs1 screening: No deficits noted. Tuberculosis screening: No symptoms or risk factors identified. Fall Risk None identified. Assessment: 21:31 General: Appears in no apparent distress. Behavior is calm. Pain: Denies pain. Neuro: bs1 Level of Consciousness is awake, alert. Cardiovascular: Heart tones S1 S2 present Capillary refill < 3 seconds Patient's skin is warm and dry. Respiratory: Airway is patent Trachea midline Respiratory effort is even, unlabored, Respiratory pattern is regular, symmetrical, Breath sounds are clear bilaterally. GI: PEG tube stoma open to air, abdominal binder on. per EMS report patient pulled PEG tube out. : No signs and/or symptoms were reported regarding the genitourinary system. EENT: No signs and/or symptoms were reported regarding the EENT system. Derm: stage 2 pressure ulcer to sacral area. Musculoskeletal: Circulation, motion, and sensation intact. Capillary refill < 3 seconds, Range of motion: limited in all extremities, patient contracted. 22:25 Reassessment: PEG tube inserted by Dr Mills. PEG tube secured with gauze/tape. bs1 Abdominal binder in place. 22:45 Reassessment: Patient appears in no apparent distress at this time. Patient and/or bs1 family updated on plan of care and expected duration. Pain level reassessed. Patient is alert, oriented x 3, equal unlabored respirations, skin warm/dry/pink. 23:08 Reassessment: Report called to [facility], report given to ARIAS Rocha. Nurse bs1 states that she will be calling [facility] for Transportation. Informed Charge nurse. 04/24 00:52 Reassessment: Patient appears in no apparent distress at this time. Patient and/or bs1 family updated on plan of care and expected duration. Pain level reassessed. Patient is alert, oriented x 3, equal unlabored respirations, skin warm/dry/pink. Report given to [facility]. Vital Signs: 04/23 21:30 BP 126 / 86; Pulse 72; Resp 16; Temp 98.2(A); Pulse Ox 97% on R/A; bs1 22:00 BP 122 / 77; Pulse 63; Resp 16; Pulse Ox 96% on R/A; bs1 23:00 BP 138 / 94; Pulse 75; Resp 16; Temp 98(A); Pulse Ox 96% on R/A; bs1 04/24 00:15 BP 135 / 95; Pulse 75; Resp 16; Temp 98(A); Pulse Ox 100% on R/A; Pain 0/10; bs1 ED Course: 04/23 21:20 Patient arrived in ED. edi 21:25 Kasey Sage RN is Primary Nurse. bs1 21:26 Marlo Mills MD is Attending Physician. 21:27 Triage completed. bs1 22:25 Reinsert of PEG tube. Dr Mills inserted 16Fr PEG tube. Patient tolertaed. bs1 22:42 X-ray completed. Patient tolerated procedure well. kp1 22:43 ENTEROSTOMY TUBE CHECK W/CONTR In Process Unspecified. EDMS 23:43 Patient has correct armband on for positive identification. Bed in low position. Call bs1 light in reach. Side rails up X 1. Pulse ox on. NIBP on. 04/24 00:51 Patient did not have IV access during this emergency room visit. bs1 00:52 Arm band placed on right wrist. bs1 Administered Medications: 04/23 22:59 Drug: Gastrografin Liquid 60 ml {Note: given by Radiologist.} Route: PO; bs1 04/24 00:52 Follow up: Response: No adverse reaction bs1 Outcome: 04/23 22:56 Discharge ordered by . 23:43 Condition: stable bs1 04/24 00:44 Discharged to alf. Report called to ARIAS Rocha bs1 Discharge instructions given to EMS, [facility], report givem to [facility] 00:53 Patient left the ED. bs1 Signatures: Dispatcher [employer] EDAZ Chahal Alycia kp1 Debbie Felipe RN RN ea Starr, Gregory, MD MD gs Salazar, Brittany, RN RN bs1
--- NOTE | 2018-04-23 22:56 | EDPHYS ---
Physician Documentation [facility] Name: Shelia Miranda Age: 62 yrs Sex: Male : 1955 Arrival Date: 04/23/2018 Time: 21:20 Bed 18 Private MD: ED Physician Marlo Mills Historical: - Allergies: 04/23 21:30 NKA; bs1 - Home Meds: 21:30 Albuterol-Ipratropium Inhl [Active]; aspirin 81 mg Oral chew 1 tab once daily [Active]; bs1 Catapres 0.1 mg Oral tab [Active]; cholecalciferol (vitamin D3) Oral [Active]; lisinopril Oral [Active]; lorazepam 1 mg Oral tab [Active]; Nitroglycerin SL [Active]; Tegretol Oral [Active]; TwoCal HN Oral [Active]; Tylenol [Active]; Tylenol #3 Oral [Active]; - PMHx: 21:30 Anxiety; Aphasia; BPH; Contracture; COPD; Dementia; Depression; DYSPHAGIA; bs1 Hypertension; Pneumonia; pressure ulcer stage 2; Schizophrenia; vitamin d deficiency; - PSHx: 21:30 PEG tube placement; bs1 - Immunization history:: Adult Immunizations up to date. - Social history:: Smoking status: Patient/guardian denies using tobacco. - Ebola Screening: : Patient negative for fever greater than or equal to 101.5 degrees Fahrenheit, and additional compatible Ebola Virus Disease symptoms Patient denies exposure to infectious person. Vital Signs: 21:30 BP 126 / 86; Pulse 72; Resp 16; Temp 98.2(A); Pulse Ox 97% on R/A; bs1 22:00 BP 122 / 77; Pulse 63; Resp 16; Pulse Ox 96% on R/A; bs1 23:00 BP 138 / 94; Pulse 75; Resp 16; Temp 98(A); Pulse Ox 96% on R/A; bs1 04/24 00:15 BP 135 / 95; Pulse 75; Resp 16; Temp 98(A); Pulse Ox 100% on R/A; Pain 0/10; bs1 MDM: 04/23 22:01 Patient medically screened. 04/23 22:38 Order name: ENTEROSTOMY TUBE CHECK W/CONTR; Complete Time: 22:55 EDMS Administered Medications: 22:59 Drug: Gastrografin Liquid 60 ml {Note: given by Radiologist.} Route: PO; bs1 04/24 00:52 Follow up: Response: No adverse reaction bs1 Disposition: 04/23/18 22:56 Discharged to Home. Impression: Gastrostomy complications, Gastrostomy malfunction. - Condition is Stable. - Discharge Instructions: Gastrostomy Tube Replacement. - Medication Reconciliation Form, Thank You Letter, Antibiotic Education, Prescription Opioid Use form. - Follow up: Private Physician; When: 2 - 3 days; Reason: Re-evaluation by your physician. Addendum: 05/02/2018 20:03 Addendum: cc-g-tube displaced HPI - limited pt in chronic vegetative state PMH-reviewed g s VSS SOC-[place] ROS-unable to obtain secondary to vegetative state no other concerns by providers. EXAM-AVSS GEN-NAD CV-rrr P-lungs clear GI-soft nontender G-tube site stable Procedure - replaced GTUBE without difficulty placement confirmed by gastrograffin pt tolerated well. Signatures: Dispatcher [employer] [facility] Marlo Mills MD MD Kasey Sage RN RN bs1 Corrections: (The following items were deleted from the chart) 04/23 22:38 22:25 Abdomen 1 View+RAD.RAD.BRZ ordered. [facility] 04/24 00:53 04/23 22:56 04/23/2018 22:56 Discharged to Home. Impression: Gastrostomy complications; bs1 Gastrostomy malfunction. Condition is Stable. Forms are Medication Reconciliation Form, Thank You Letter, Antibiotic Education, Prescription Opioid Use. Follow up: Private Physician; When: 2 - 3 days; Reason: Re-evaluation by your physician.
[2018-04-24 01:03] VITALS: TEMP 98
[2018-04-24 01:05] VITALS: BP 135/95; O2SAT 100
== END 2018-04-24 00:53 | disposition home or self-care (01) ==
LOC: ER 21:17
DX: K94.23 Gastrostomy malfunction (principal); F03.90 Unspecified dementia, unspecified severity, without behavioral disturbance, psychotic disturbance, mood disturbance, and anxiety; F20.9 Schizophrenia, unspecified; I10 Essential (primary) hypertension; J44.9 Chronic obstructive pulmonary disease, unspecified; Z79.82 Long term (current) use of aspirin
CPT/HCPCS: 49465; 82962; 99283; 99284

== ENCOUNTER 2018-04-24 09:57 | Emergency (ER) | payer OTHER ==
--- NOTE | 2018-04-24 12:34 | RAD REPORT ---
EXAM DESCRIPTION: RAD - ENTEROSTOMY TUBE CHECK W/CONTR - 04/24/2018 12:27 pm CLINICAL HISTORY: Enterostomy tube replacement/repositioning COMPARISON: Multiple prior studies FINDINGS: The following enterostomy tube replacement or repositioning. The balloon tip is in the fun dus of the stomach. All injected contrast remains within the lumen of the stomach. Barium impaction in the colon remains. No evidence for antegrade movement. IMPRESSION: Enterostomy tube tip is in the gastric fundus. All injected contrast remains within the lumen of the stomach.
--- NOTE | 2018-04-24 12:38 | EDPHYS ---
Physician Documentation [facility] Name: Shelia Miranda Age: 62 yrs Sex: Male : 1955 Arrival Date: 04/24/2018 Time: 09:59 Bed 18 Private MD: ED Physician Demetri Kenney HPI: 04/24 10:54 This 62 yrs old Black Male presents to ER via EMS with complaints of dislodged G-tube. snw 10:54 Onset: The symptoms/episode began/occurred suddenly. Associated signs and symptoms: The snw patient has no apparent associated signs or symptoms. The patient has experienced similar episodes in the past, chronically. multiple displacements over time. Historical: - Allergies: 10:05 NKA; dm5 - Immunization history:: Adult Immunizations up to date. - Social history:: Smoking status: Patient/guardian denies using tobacco. - Ebola Screening: : Patient negative for fever greater than or equal to 101.5 degrees Fahrenheit, and additional compatible Ebola Virus Disease symptoms Patient denies exposure to infectious person Patient denies travel to an Ebola-affected area in the 21 days before illness onset No symptoms or risks identified at this time. ROS: 10:51 Constitutional: Negative for fever, chills, and weight loss, Eyes: Negative for injury, snw pain, redness, and discharge, ENT: Negative for injury, pain, and discharge, Neck: Negative for injury, pain, and swelling, Cardiovascular: Negative for chest pain, palpitations, and edema, Respiratory: Negative for shortness of breath, cough, wheezing, and pleuritic chest pain, Back: Negative for injury and pain, : Negative for injury, bleeding, discharge, and swelling, MS/Extremity: Negative for injury and deformity, Skin: Negative for injury, rash, and discoloration, Neuro: Negative for headache, weakness, numbness, tingling, and seizure, Psych: Negative for depression, anxiety, suicide ideation, homicidal ideation, and hallucinations. 10:51 Abdomen/GI: Positive for pulled G-tube out. Exam: 10:48 Constitutional: This is a well developed, well nourished patient who is awake, alert, snw and in no acute distress. Head/Face: Normocephalic, atraumatic. 10:48 Neck: Trachea midline, no thyromegaly or masses palpated, and no cervical lymphadenopathy. Supple, full range of motion without nuchal rigidity, or vertebral point tenderness. No Meningismus. Chest/axilla: Normal chest wall appearance and motion. Nontender with no deformity. No lesions are appreciated. Cardiovascular: Regular rate and rhythm with a normal S1 and S2. No gallops, murmurs, or rubs. Normal PMI, no JVD. No pulse deficits. Respiratory: Lungs have equal breath sounds bilaterally, clear to auscultation and percussion. No rales, rhonchi or wheezes noted. No increased work of breathing, no retractions or nasal flaring. Abdomen/GI: Soft, non-tender, with normal bowel sounds. No distension or tympany. No guarding or rebound. No evidence of tenderness throughout. G-tube dislodged, scarring to stoma Back: No spinal tenderness. No costovertebral tenderness. Full range of motion. Skin: Warm, dry with normal turgor. Normal color with no rashes, no lesions, and no evidence of cellulitis. MS/ Extremity: Pulses equal, no cyanosis. Neurovascular intact. Full, normal range of motion. Neuro: Awake and alert, GCS 15, oriented to person, place, time, and situation. Cranial nerves II-XII grossly intact. Motor strength 5/5 in all extremities. Sensory grossly intact. Cerebellar exam normal. Normal gait. 10:48 Eyes: Sclera: + cataract to bilateral eyes, worse to right. 10:48 ENT: Dental exam: dental caries, missing teeth. Vital Signs: 10:05 BP 125 / 91; Pulse 74; Resp 18; Temp 97.7(TE); Pulse Ox 97% on R/A; Pain 0/10; em 11:02 BP 124 / 84; Pulse 71; Resp 16; Pulse Ox 97% on R/A; em Procedures: 10:47 G-tube placement: a 20 Uzbek catheter was placed, placed with surgilube, area snw frequently cannulated with scar tissue around stoma, site without evidence of infection. 12:20 G-tube placement: a 22 Uzbek catheter was placed, replaced in dept post pulling out snw again. Abd binder placed over dressing. MDM: 10:11 Patient medically screened. snw 11:45 Data reviewed: vital signs, nurses notes. Data interpreted: Pulse oximetry: on room air snw is 97 %. Awaiting: while awaiting x-ray for placement, Mr. Miranda pulled g-tube out, will replace. 04/24 12:27 Order name: ENTEROSTOMY TUBE CHECK W/CONTR; Complete Time: 12:37 EDMS Administered Medications: No medications were administered Disposition: 04/24/18 12:37 Discharged to Home. Impression: Enterostomy malfunction - replaced. - Condition is Stable. - Discharge Instructions: Gastrostomy Tube Replacement. - Medication Reconciliation Form, Thank You Letter, Antibiotic Education, Prescription Opioid Use form. - Follow up: Private Physician; When: 1 week; Reason: Recheck today's complaints, Continuance of care, Re-evaluation by your physician. - Problem is an acute exacerbation. - Symptoms are resolved. Addendum: 04/26/2018 08:06 Co-signature as Attending Physician, Demetri Kenney MD I agree with the assessment and w a plan of care. Signatures: Dispatcher [employer] Roxie Ramirez, ARIAS RN dm5 Charlene Cleaning, RESIDENTIAL REAL ESTATE SALES MANAGER-C RESIDENTIAL REAL ESTATE SALES MANAGER-Csnw Gunnar Hercules, ONLINE PROJECT MANAGER ONLINE PROJECT MANAGER em Demetri Kenney MD MD hi Corrections: (The following items were deleted from the chart) 04/24 10:54 10:48 Neck: Trachea midline, no thyromegaly or masses palpated, and no cervical snw lymphadenopathy. Supple, full range of motion without nuchal rigidity, or vertebral point tenderness. No Meningismus. Chest/axilla: Normal chest wall appearance and motion. Nontender with no deformity. No lesions are appreciated. Cardiovascular: Regular rate and rhythm with a normal S1 and S2. No gallops, murmurs, or rubs. Normal PMI, no JVD. No pulse deficits. Respiratory: Lungs have equal breath sounds bilaterally, clear to auscultation and percussion. No rales, rhonchi or wheezes noted. No increased work of breathing, no retractions or nasal flaring. Abdomen/GI: Soft, non-tender, with normal bowel sounds. No distension or tympany. No guarding or rebound. No evidence of tenderness throughout. Back: No spinal tenderness. No costovertebral tenderness. Full range of motion. Skin: Warm, dry with normal turgor. Normal color with no rashes, no lesions, and no evidence of cellulitis. MS/ Extremity: Pulses equal, no cyanosis. Neurovascular intact. Full, normal range of motion. Neuro: Awake and alert, GCS 15, oriented to person, place, time, and situation. Cranial nerves II-XII grossly intact. Motor strength 5/5 in all extremities. Sensory grossly intact. Cerebellar exam normal. Normal gait. snw 12:27 10:40 Abdomen 1 View (KUB)+RAD.RAD.BRZ ordered. EDMS EDMS 14:06 12:37 04/24/2018 12:37 Discharged to Home. Impression: Enterostomy malfunction - em replaced. Condition is Stable. Forms are Medication Reconciliation Form, Thank You Letter, Antibiotic Education, Prescription Opioid Use. Follow up: Private Physician; When: 1 week; Reason: Recheck today's complaints, Continuance of care, Re-evaluation by your physician. Problem is an acute exacerbation. Symptoms are resolved. snw
--- NOTE | 2018-04-24 12:38 | ER ---
Nurse's Notes [facility] Name: Shelia Miranda Age: 62 yrs Sex: Male : 1955 Arrival Date: 04/24/2018 Time: 09:59 Bed 18 Private MD: Diagnosis: Enterostomy malfunction-replaced Presentation: 04/24 10:03 Presenting complaint: EMS states: dislodged g-tube. Seen yesterday for the same thing. dm5 Transition of care: patient was received from another setting of care (long-term care [facility]), [facility]. Onset of symptoms was April 24, 2018. Risk Assessment: Do you want to hurt yourself or someone else? Patient reports no desire to harm self or others. Initial Sepsis Screen: Does the patient meet any 2 criteria? No. Patient's initial sepsis screen is negative. Does the patient have a suspected source of infection? No. Patient's initial sepsis screen is negative. Care prior to arrival: None. 10:03 Method Of Arrival: EMS: [facility] dm5 10:03 Acuity: WINSOME 4 dm5 Historical: - Allergies: 10:05 NKA; dm5 - Immunization history:: Adult Immunizations up to date. - Social history:: Smoking status: Patient/guardian denies using tobacco. - Ebola Screening: : Patient negative for fever greater than or equal to 101.5 degrees Fahrenheit, and additional compatible Ebola Virus Disease symptoms Patient denies exposure to infectious person Patient denies travel to an Ebola-affected area in the 21 days before illness onset No symptoms or risks identified at this time. Screenin:40 Abuse screen: no apparent signs noted. Nutritional screening: Difficulty em chewing/swallowing? Yes. Tuberculosis screening: No symptoms or risk factors identified. Fall Risk Ambulatory Aid- None/Bed Rest/Nurse Assist (0 pts). Gait- Impaired (20 pts.). Mental Status- Overestimates/Forgets Limitations (15 pts.). Total Stephens Fall Scale indicates Low Risk Score (25-44 pts). Fall prevention measures have been instituted. Side Rails Up X 2 Placed close to Nursing Station Frequent Obs/Assesments occuring. Assessment: 10:17 General: Appears in no apparent distress. comfortable, Behavior is calm, cooperative. em Pain: Denies pain. Neuro: Level of Consciousness is awake, alert, obeys commands, Oriented to person. Cardiovascular: Capillary refill < 3 seconds Patient's skin is warm and dry. Respiratory: Airway is patent Respiratory effort is even, unlabored, Respiratory pattern is regular, symmetrical, Breath sounds are clear bilaterally. GI: Abdomen is flat, Site clean. Site with drainage. PEG tube removed, covered with 4x4s. :. Derm: Skin is intact, Skin is pink, warm \T\ dry. 10:30 Reassessment: Patient appears in no apparent distress at this time. I agree with above iw assessment by Gunnar Hercules LVN. 11:01 Reassessment: Patient appears in no apparent distress at this time. Patient and/or em family updated on plan of care and expected duration. Pain level reassessed. pending radiology study. 11:40 Reassessment: Patient appears in no apparent distress at this time. pt pulled out PEG em tube, no trauma noted to site, charge nurse and AYSE Chang notified, called material dept. for new PEG tube. 12:00 Reassessment: AYSE Chang re-inserted PEG tube and abdominal binder placed on pt, [facility] em [facility] 12:45 Reassessment: Patient appears in no apparent distress at this time. Patient and/or em family updated on plan of care and expected duration. Pain level reassessed. pending transportation. 14:03 Reassessment: Patient appears in no apparent distress at this time. No changes from em previously documented assessment. Patient and/or family updated on plan of care and expected duration. Pain level reassessed. Vital Signs: 10:05 BP 125 / 91; Pulse 74; Resp 18; Temp 97.7(TE); Pulse Ox 97% on R/A; Pain 0/10; em 11:02 BP 124 / 84; Pulse 71; Resp 16; Pulse Ox 97% on R/A; em ED Course: 09:59 Patient arrived in ED. em 10:02 Triage completed. em 10:09 Gunnar Hercules LVN is Primary Nurse. em 10:11 Charlene Cleaning FNP-C is PHCP. snw 10:11 Demetri Kenney MD is Attending Physician. snw 10:40 Patient has correct armband on for positive identification. Bed in low position. Side em rails up X2. 10:46 Arm band placed on. em 11:53 Radiology exam delayed due to waiting for another tube to be placed. 1 12:27 ENTEROSTOMY TUBE CHECK W/CONTR In Process Unspecified. EDMS 12:27 X-ray completed. Patient tolerated procedure well. Patient moved back from radiology. mh1 12:47 [facility] contacted and informed that pt is ready to transport. mb4 12:47 EMS eta 45min per [facility] rep. mb4 14:04 No provider procedures requiring assistance completed. Patient did not have IV access em during this emergency room visit. Administered Medications: No medications were administered Outcome: 12:37 Discharge ordered by . snw 14:04 Discharged to retirement. Report called to [facility] Transfer form em completed. 14:04 Condition: good 14:04 Discharge instructions given to EMS, Instructed on discharge instructions, follow up and referral plans. Demonstrated understanding of instructions, follow-up care. 14:06 Patient left the ED. em Signatures: Dispatcher [employer] EDMS Roxie Rose, RN RN dm5 Charlene Cleaning, CORPORATE ACCOUNTANT-C CORPORATE ACCOUNTANT-Csnw Audra Rush 1 Gunnar Hercules, AUTOMOTIVE LOT ATTENDANT AUTOMOTIVE LOT ATTENDANT em Nazia Bose, RN ARIAS iw [place]er [place] RN RN tl2 Moraima Tyler mb4 Corrections: (The following items were deleted from the chart) 10:03 10:00 Presenting complaint: EMS states: dislodged g-tube. Seen here last night for the em same problem. em 10: 10:00 Transition of care: patient was received from another setting of care (long-term care facility), [facility] em 10: 10:00 Method Of Arrival: EMS: [facility] em em 10: 10:01 Onset of symptoms was April 24, 2018 em em 10: 10:01 Risk Assessment: Do you want to hurt yourself or someone else? Patient reports no em desire to harm self or others. em 10: 10:01 Initial Sepsis Screen: Does the patient meet any 2 criteria? No. Patient's em initial sepsis screen is negative. Does the patient have a suspected source of infection? No. Patient's initial sepsis screen is negative. em 10: 10:01 Care prior to arrival: None. em em 10:03 10:01 Acuity: WINSOME 4 em em 10:35 10:05 Pulse 74bpm; Resp 18bpm; Pulse Ox 97% RA; dm5 em 14:06 13:45 Reassessment: Patient appears in no apparent distress at this time. Patient em and/or family updated on plan of care and expected duration. Pain level reassessed. pending transportation em 19:12 10:30 Reassessment: Patient appears in no apparent distress at this time. I agree with iw above assessment by Gunnar Hercules LVN tl2
[2018-04-24 14:10] VITALS: TEMP 97.7; O2SAT 97
[2018-04-24 14:11] VITALS: BP 124/84
== END 2018-04-24 14:06 | disposition home or self-care (01) ==
LOC: ER 09:57
DX: K94.13 Enterostomy malfunction (principal)
CPT/HCPCS: 49465; 99283

== ENCOUNTER 2018-04-25 17:06 | Emergency (ER) | payer OTHER ==
--- NOTE | 2018-04-25 18:09 | ER ---
Nurse's Notes [facility] Name: Shelia Miranda Age: 62 yrs Sex: Male : 1955 Arrival Date: 04/25/2018 Time: 17:03 Bed 19 Private MD: Diagnosis: Enterostomy complication, unspecified Presentation: 04/25 17:03 Presenting complaint: EMS states: pt has pulled out g-tube at an unknown time, per EMS dm5 probably before 1400. Transition of care: patient was received from another setting of care ([facility]. Onset of symptoms was April 25, 2018. Risk Assessment: Do you want to hurt yourself or someone else? Patient reports no desire to harm self or others. Initial Sepsis Screen: Does the patient meet any 2 criteria? No. Patient's initial sepsis screen is negative. Does the patient have a suspected source of infection? No. Patient's initial sepsis screen is negative. Care prior to arrival: None. 17:03 Method Of Arrival: EMS: [facility] dm5 17:03 Acuity: WINSOME 4 dm5 Triage Assessment: 17:12 General: Appears in no apparent distress. Behavior is calm, cooperative. Pain: Denies dm5 pain. GI: G-tube has been removed with ballon still inflated and brought to facility by EMS. Site reddened some with some light bleeding noted on gauze covering insertion site. Historical: - Allergies: 17:09 NKA; dm5 - Home Meds: 17:09 Albuterol-Ipratropium Inhl [Active]; aspirin 81 mg Oral chew 1 tab once daily [Active]; dm5 Catapres 0.1 mg Oral tab [Active]; cholecalciferol (vitamin D3) Oral [Active]; lisinopril Oral [Active]; lorazepam 1 mg Oral tab [Active]; Nitroglycerin SL [Active]; Tegretol Oral [Active]; TwoCal HN Oral [Active]; Tylenol [Active]; Tylenol #3 Oral [Active]; - PMHx: 17:09 Anxiety; Aphasia; BPH; Contracture; COPD; Dementia; Depression; DYSPHAGIA; dm5 Hypertension; Pneumonia; pressure ulcer stage 2; Schizophrenia; vitamin d deficiency; - Immunization history:: Adult Immunizations up to date. - Social history:: Smoking status: Patient/guardian denies using tobacco. - Ebola Screening: : Patient negative for fever greater than or equal to 101.5 degrees Fahrenheit, and additional compatible Ebola Virus Disease symptoms Patient denies exposure to infectious person Patient denies travel to an Ebola-affected area in the 21 days before illness onset No symptoms or risks identified at this time. Screenin:03 Abuse screen: Denies threats or abuse. Denies injuries from another. Nutritional ss screening: No deficits noted. Tuberculosis screening: Never had TB. Fall Risk No fall in past 12 months (0 pts). Secondary diagnosis (15 points) impaired mobility, CVA, No IV (0 pts). Ambulatory Aid- None/Bed Rest/Nurse Assist (0 pts). Gait- Normal/Bed Rest/Wheelchair (0 pts) Mental Status- Overestimates/Forgets Limitations (15 pts.). Assessment: 17:03 General: Appears in no apparent distress. Behavior is calm, cooperative. Pain: Denies ss pain. Neuro: Level of Consciousness is awake, alert. Neuro: Reports Patient is at baseline mental status. . Cardiovascular: Capillary refill < 3 seconds is brisk in bilateral fingers. Respiratory: Airway is patent Respiratory effort is even, unlabored. GI: Patient pulled Gtube out. Is an often occurrence. No bleeding or drainage noted to stoma. Derm: No signs and/or symptoms reported regarding the dermatologic system. 18:03 Reassessment: Patient appears in no apparent distress at this time. XRAY at bedside to ss obtain post Gtube insertion to verify placement. 18:22 Reassessment: Called [facility] who report they will call for ss transportation now. 18:33 Reassessment: [facility] called back stating that ETA for transportation ss is approx 45 minutes. 19:19 Reassessment: Upon discharge, pt lying supine in bed, calm/cooperative, Gtube in place, sr5 tape secure. [place] at bedside for transport. Vital Signs: 17:09 BP 136 / 86; Pulse 80; Resp 18; Pulse Ox 98% on R/A; dm5 18:05 BP 137 / 87; Pulse 80; Resp 18; Pulse Ox 100% ; mh5 19:19 BP 138 / 84; Pulse 79; Resp 16; Temp 98.5(A); Pulse Ox 98% on R/A; sr5 ED Course: 17:03 Patient arrived in ED. dm5 17:06 Triage completed. dm5 17:08 Charlene Cleaning [facility]C [facility]. snw 17:08 Demetri Kenney MD is Attending Physician. snw 17:09 Arm band placed on right wrist. Patient placed in an exam room, on a stretcher. dm5 17:52 Patient has correct armband on for positive identification. Bed in low position. Call 5 light in reach. Side rails up X2. Warm blanket given. Pulse ox on. NIBP on. 18:07 ENTEROSTOMY TUBE CHECK W/CONTR In Process Unspecified. EDMS 18:09 X-ray completed. Portable x-ray completed in exam room. Patient tolerated procedure sw well. 18:09 Marisol Cordova, RN is Primary Nurse. 19:19 No provider procedures requiring assistance completed. Patient did not have IV access sr5 during this emergency room visit. Administered Medications: No medications were administered Outcome: 18:09 Discharge ordered by . snw 19:07 Patient left the ED. 5 19:[facility] [address] [address] sr5 19:19 Condition: stable 19:19 Discharge instructions given to EMS, Instructed on discharge instructions, follow up and referral plans. Demonstrated understanding of instructions, follow-up care. Signatures: Dispatcher [employer] Roxie Ramirez, RN RN [email or web address] Charlene Cleaning FNP-C [facility] Marisol Cordova, RN RN Lillie Wakefield Sam RN RN sr5 Natasha Hamm[address] [facility]
--- NOTE | 2018-04-25 18:09 | EDPHYS ---
Physician Documentation [facility] Name: Shelia Miranda Age: 62 yrs Sex: Male : 1955 Arrival Date: 04/25/2018 Time: 17:03 Bed 19 Private MD: ED Physician Demetri Kenney HPI: 04/25 17:41 This 62 yrs old Black Male presents to ER via EMS with complaints of dislodged G-tube. snw 17:41 The patient represents for recheck after previously being evaluated for g-tube snw dislodged. The patient was previously evaluated in the emergency department yesterday. Previous care: g-tube replaced. Present symptoms: none. The patient has experienced similar episodes in the past, chronically, with the last episode occurring yesterday. The patient has been recently seen by a physician: The patient has been recently seen at the [facility] Emergency Department, yesterday, for similar complaints. Historical: - Allergies: 17:09 NKA; dm5 - Home Meds: 17:09 Albuterol-Ipratropium Inhl [Active]; aspirin 81 mg Oral chew 1 tab once daily [Active]; dm5 Catapres 0.1 mg Oral tab [Active]; cholecalciferol (vitamin D3) Oral [Active]; lisinopril Oral [Active]; lorazepam 1 mg Oral tab [Active]; Nitroglycerin SL [Active]; Tegretol Oral [Active]; TwoCal HN Oral [Active]; Tylenol [Active]; Tylenol #3 Oral [Active]; - PMHx: 17:09 Anxiety; Aphasia; BPH; Contracture; COPD; Dementia; Depression; DYSPHAGIA; dm5 Hypertension; Pneumonia; pressure ulcer stage 2; Schizophrenia; vitamin d deficiency; - Immunization history:: Adult Immunizations up to date. - Social history:: Smoking status: Patient/guardian denies using tobacco. - Ebola Screening: : Patient negative for fever greater than or equal to 101.5 degrees Fahrenheit, and additional compatible Ebola Virus Disease symptoms Patient denies exposure to infectious person Patient denies travel to an Ebola-affected area in the 21 days before illness onset No symptoms or risks identified at this time. ROS: 17:40 Constitutional: Negative for fever, chills, and weight loss, Eyes: Negative for injury, snw pain, redness, and discharge, ENT: Negative for injury, pain, and discharge, Neck: Negative for injury, pain, and swelling, Cardiovascular: Negative for chest pain, palpitations, and edema, Respiratory: Negative for shortness of breath, cough, wheezing, and pleuritic chest pain, Back: Negative for injury and pain, : Negative for injury, bleeding, discharge, and swelling, MS/Extremity: Negative for injury and deformity, Skin: Negative for injury, rash, and discoloration, Neuro: Negative for headache, weakness, numbness, tingling, and seizure, Psych: Negative for depression, anxiety, suicide ideation, homicidal ideation, and hallucinations. 17:40 Abdomen/GI: Positive for pulled G-tube. Exam: 17:37 Constitutional: This is a well developed, well nourished patient who is awake, alert, snw and in no acute distress. Head/Face: Normocephalic, atraumatic. Eyes: Pupils equal round and reactive to light, extra-ocular motions intact. Lids and lashes normal. Conjunctiva and sclera are non-icteric and not injected. Cornea within normal limits. Periorbital areas with no swelling, redness, or edema. ENT: Nares patent. No nasal discharge, no septal abnormalities noted. Tympanic membranes are normal and external auditory canals are clear. Oropharynx with no redness, swelling, or masses, exudates, or evidence of obstruction, uvula midline. Mucous membranes moist. Neck: Trachea midline, no thyromegaly or masses palpated, and no cervical lymphadenopathy. Supple, full range of motion without nuchal rigidity, or vertebral point tenderness. No Meningismus. Chest/axilla: Normal chest wall appearance and motion. Nontender with no deformity. No lesions are appreciated. Cardiovascular: Regular rate and rhythm with a normal S1 and S2. No gallops, murmurs, or rubs. Normal PMI, no JVD. No pulse deficits. Respiratory: Lungs have equal breath sounds bilaterally, clear to auscultation and percussion. No rales, rhonchi or wheezes noted. No increased work of breathing, no retractions or nasal flaring. Back: No spinal tenderness. No costovertebral tenderness. Full range of motion. Skin: Warm, dry with normal turgor. Normal color with no rashes, no lesions, and no evidence of cellulitis. MS/ Extremity: Pulses equal, no cyanosis. Neurovascular intact. Full, normal range of motion. Neuro: Awake and alert, GCS 15, oriented to person, place, time, and situation. Cranial nerves II-XII grossly intact. Motor strength 5/5 in all extremities. Sensory grossly intact. Cerebellar exam normal. Normal gait. 17:37 Abdomen/GI: Inspection: abdomen appears normal, scar(s), are noted in the epigastric area, Bowel sounds: normal, Palpation: abdomen is soft and non-tender, in the G tube stoma with scarring, replaced G-tube yesterday x 2 while pt in ED. . Vital Signs: 17:09 BP 136 / 86; Pulse 80; Resp 18; Pulse Ox 98% on R/A; dm5 18:05 BP 137 / 87; Pulse 80; Resp 18; Pulse Ox 100% ; mh5 19:19 BP 138 / 84; Pulse 79; Resp 16; Temp 98.5(A); Pulse Ox 98% on R/A; sr5 MDM: 17:08 Patient medically screened. snw 18:09 Data reviewed: vital signs, nurses notes. Data interpreted: Pulse oximetry: on room air snw is 100 %. Interpretation: normal. Counseling: I had a detailed discussion with the patient and/or guardian regarding: the historical points, exam findings, and any diagnostic results supporting the discharge/admit diagnosis, radiology results, the need for outpatient follow up, to return to the emergency department if symptoms worsen or persist or if there are any questions or concerns that arise at home. Special discussion: Based on the history and exam findings, there is no indication for further emergent testing or inpatient evaluation. I discussed with the patient/guardian the need to see the garden consultant for further evaluation of the symptoms. 04/25 17:30 Order name: ENTEROSTOMY TUBE CHECK W/CONTR; Complete Time: 18:20 EDMS Administered Medications: No medications were administered Disposition: 04/26 08:31 Co-signature as Attending Physician, Demetri Kenney MD I agree with the assessment and wa plan of care. Disposition: 04/25/18 18:09 Discharged to Home. Impression: Enterostomy complication, unspecified. - Condition is Stable. - Discharge Instructions: Gastrostomy Tube Replacement. - Medication Reconciliation Form, Thank You Letter, Antibiotic Education, Prescription Opioid Use, SBAR form form. - Follow up: Private Physician; When: 2 - 3 days; Reason: Recheck today's complaints, Continuance of care, Re-evaluation by your physician. Follow up: Emergency Department; When: As needed; Reason: Worsening of condition. Signatures: Dispatcher [employer] [facility] Roxie Rose RN RN dm5 Charlene Cleaning, YOEL CHUNG-Natasha Spangler 5 Demetri Kenney MD MD wa Corrections: (The following items were deleted from the chart) 04/25 17:31 17:18 Abdomen 1 View (KUB)+RAD.RAD.BRZ ordered. [facility] EDAR 19:07 18:09 04/25/2018 18:09 Discharged to Home. Impression: Enterostomy complication, mh5 unspecified. Condition is Stable. Forms are Medication Reconciliation Form, Thank You Letter, Antibiotic Education, Prescription Opioid Use. Follow up: Private Physician; When: 2 - 3 days; Reason: Recheck today's complaints, Continuance of care, Re-evaluation by your physician. Follow up: Emergency Department; When: As needed; Reason: Worsening of condition. snw
--- NOTE | 2018-04-25 18:18 | RAD REPORT ---
EXAM DESCRIPTION: RAD - ENTEROSTOMY TUBE CHECK W/CONTR - 04/25/2018 6:07 pm CLINICAL HISTORY: Gtube placement COMPARISON: ENTEROSTOMY TUBE CHECK W/CONTR dated 04/24/2018 FINDINGS: Two abdominal radiographs were performed, pre and post injection of contrast via gastrosto my tube. On the post injection study, contrast is seen filling the stomach, confirming appropriate pl acement. Barium is present within the colon.
[2018-04-25 19:13] VITALS: BP 137/87; O2SAT 100
== END 2018-04-25 19:07 | disposition home or self-care (01) ==
LOC: ER 17:06
PROC: 0D20XUZ Change Feeding Device in Upper Intestinal Tract, External Approach (ICD-10-PCS; principal; 2018-04-25)
DX: Z43.1 Encounter for attention to gastrostomy (principal); R13.10 Dysphagia, unspecified; F20.9 Schizophrenia, unspecified; I10 Essential (primary) hypertension
CPT/HCPCS: 49465; 99283

== ENCOUNTER 2018-04-27 23:49 | Emergency (ER) | payer OTHER ==
--- NOTE | 2018-04-27 23:55 | EDPHYS ---
Physician Documentation [facility] Name: Shelia Miranda Age: 62 yrs Sex: Male : 1955 Arrival Date: 04/27/2018 Time: 23:54 Bed 17 Private MD: ED Physician Hakeem Peters HPI: 04/27 23:55 This 62 yrs old Black Male presents to ER via Unassigned with complaints of pulled out kb g-tube. 23:55 Pt pulled out g-tube. Onset: The symptoms/episode began/occurred today. Severity of kb symptoms: At their worst the symptoms were mild in the emergency department the symptoms are unchanged. The patient has experienced similar episodes in the past, multiple times. The patient has been recently seen at the [facility] Emergency Department, this week, for similar complaints. Historical: - Allergies: 04/28 00:10 NKA; lp1 - Home Meds: 00:10 Tegretol 100 mg/5 mL oral susp 10 mL twice a day [Active]; aspirin 81 mg Oral TbEC 1 lp1 tab once daily [Active]; lisinopril 20 mg oral tab once daily [Active]; Vitamin D3 1,000 unit oral tab daily [Active]; acetaminophen-codeine 300-30 mg oral tab three times a day [Active]; Catapres 0.1 mg Oral tab every 8 hours [Active]; ipratropium-albuterol 0.5 mg-3 mg(2.5 mg base)/3 mL inhalation nebu three times a day [Active]; - PMHx: 00:10 Anxiety; Aphasia; BPH; Contracture; COPD; Dementia; Depression; DYSPHAGIA; lp1 Hypertension; Pneumonia; pressure ulcer stage 2; Schizophrenia; vitamin d deficiency; - PSHx: 00:10 Unable to obtain; lp1 - Immunization history:: Adult Immunizations up to date. - Social history:: Smoking status: Patient/guardian denies using tobacco. - Ebola Screening: : No symptoms or risks identified at this time. ROS: 04/27 23:56 Constitutional: Negative for fever, chills, and weight loss, Cardiovascular: Negative kb for chest pain, palpitations, and edema, Respiratory: Negative for shortness of breath, cough, wheezing, and pleuritic chest pain, Back: Negative for injury and pain, : Negative for injury, bleeding, discharge, and swelling, Skin: Negative for injury, rash, and discoloration. MS/extremity: Positive for pulled out g-tube. Exam: 23:56 Constitutional: This is a well developed, well nourished patient who is awake, alert, kb and in no acute distress. Head/Face: Normocephalic, atraumatic. Chest/axilla: Normal chest wall appearance and motion. Nontender with no deformity. No lesions are appreciated. Cardiovascular: Regular rate and rhythm with a normal S1 and S2. No gallops, murmurs, or rubs. Normal PMI, no JVD. No pulse deficits. Respiratory: Lungs have equal breath sounds bilaterally, clear to auscultation and percussion. No rales, rhonchi or wheezes noted. No increased work of breathing, no retractions or nasal flaring. 23:56 Abdomen/GI: Inspection: gastrostomy noted, no bleeding or drainage. Vital Signs: 04/28 00:02 BP 111 / 74; Pulse 94; Resp 20; Temp 98.9(A); Pulse Ox 93% on R/A; Weight 77.11 kg; lp1 Procedures: 04/27 23:55 G-tube placement: a 18 [place] catheter was placed, by the ED physician, Shari LAMBERTP-C. MDM: 23:54 Patient medically screened. kb 23:55 Data reviewed: vital signs, nurses notes. Data interpreted: Pulse oximetry: on room air kb is 98 %. Interpretation: normal. Counseling: I had a detailed discussion with the patient and/or guardian regarding: the historical points, exam findings, and any diagnostic results supporting the discharge/admit diagnosis, the need for outpatient follow up, a family practitioner, to return to the emergency department if symptoms worsen or persist or if there are any questions or concerns that arise at home. Administered Medications: No medications were administered Disposition: 04/28 02:03 Co-signature as Attending Physician, Hakeem Peters MD. rn Disposition: 04/27/18 23:54 Discharged to Home. Impression: Gastrostomy status - replaced. - Condition is Stable. - Discharge Instructions: Gastrostomy Tube Home Guide, Adult. - Medication Reconciliation Form, Thank You Letter, Antibiotic Education, Prescription Opioid Use form. - Follow up: Emergency Department; When: As needed; Reason: Worsening of condition. Follow up: Private Physician; When: 2 - 3 days; Reason: Recheck today's complaints, Continuance of care, Re-evaluation by your physician. Signatures: Shari Silva FNP-C FNP-Hakeem Myers MD MD rn ManuelNichole RN RN lp1 Corrections: (The following items were deleted from the chart) 00:12 04/27 23:54 04/27/2018 23:54 Discharged to Home. Impression: Gastrostomy status - lp1 replaced. Condition is Stable. Forms are Medication Reconciliation Form, Thank You Letter, Antibiotic Education, Prescription Opioid Use. Follow up: Emergency Department; When: As needed; Reason: Worsening of condition. Follow up: Private Physician; When: 2 - 3 days; Reason: Recheck today's complaints, Continuance of care, Re-evaluation by your physician. kb
--- NOTE | 2018-04-28 00:12 | ER ---
Nurse's Notes [facility] Name: Shelia Miranda Age: 62 yrs Sex: Male : 1955 Arrival Date: 04/27/2018 Time: 23:54 Bed 17 Private MD: Diagnosis: Gastrostomy status-replaced Presentation: 04/28 00:00 Presenting complaint: EMS states: Called for patient who pulled out G-tube; No redness lp1 noted to site. Transition of care: patient was not received from another setting of care. Onset of symptoms was April 27, 2018 at 23:15. Risk Assessment: Do you want to hurt yourself or someone else? Patient reports no desire to harm self or others. Initial Sepsis Screen: Does the patient meet any 2 criteria? No. Patient's initial sepsis screen is negative. Does the patient have a suspected source of infection? No. Patient's initial sepsis screen is negative. Care prior to arrival: None. 00:00 Method Of Arrival: EMS: [facility] lp1 00:00 Acuity: WINSOME 4 lp1 Historical: - Allergies: 00:10 NKA; lp1 - Home Meds: 00:10 Tegretol 100 mg/5 mL oral susp 10 mL twice a day [Active]; aspirin 81 mg Oral TbEC 1 lp1 tab once daily [Active]; lisinopril 20 mg oral tab once daily [Active]; Vitamin D3 1,000 unit oral tab daily [Active]; acetaminophen-codeine 300-30 mg oral tab three times a day [Active]; Catapres 0.1 mg Oral tab every 8 hours [Active]; ipratropium-albuterol 0.5 mg-3 mg(2.5 mg base)/3 mL inhalation nebu three times a day [Active]; - PMHx: 00:10 Anxiety; Aphasia; BPH; Contracture; COPD; Dementia; Depression; DYSPHAGIA; lp1 Hypertension; Pneumonia; pressure ulcer stage 2; Schizophrenia; vitamin d deficiency; - PSHx: 00:10 Unable to obtain; lp1 - Immunization history:: Adult Immunizations up to date. - Social history:: Smoking status: Patient/guardian denies using tobacco. - Ebola Screening: : No symptoms or risks identified at this time. Screenin:02 Abuse screen: Denies threats or abuse. Denies injuries from another. Nutritional lp1 screening: No deficits noted. Tuberculosis screening: No symptoms or risk factors identified. Fall Risk Total Stephens Fall Scale indicates High Risk Score (45 or more points). Fall prevention measures have been instituted. Side Rails Up X 2 Frequent Obs/Assessments Occuring As available patient and family educated on Fall Prevention Program and Strategies. Assessment: 00:02 General: Appears in no apparent distress. Behavior is calm. Pain: Unable to use pain lp1 scale. Patient is disoriented. FLACC scale score is 0 out of 10. Neuro: Level of Consciousness is awake. Cardiovascular: Patient's skin is warm and dry. Respiratory: Respiratory effort is even. GI: Abdomen is flat, non-distended, Site clean. : No deficits noted. EENT: No deficits noted. Derm: No signs and/or symptoms reported regarding the dermatologic system. Musculoskeletal: Range of motion: limited in left knee and right knee. Vital Signs: 00:02 BP 111 / 74; Pulse 94; Resp 20; Temp 98.9(A); Pulse Ox 93% on R/A; Weight 77.11 kg; lp1 ED Course: 04/27 23:54 Patient arrived in ED. kb 23:54 [facility] kb 23:54 Hakeem Peters MD is Attending Physician. 04/28 00:00 Nichole Manuel, RN is Primary Nurse. lp1 00:01 Triage completed. lp1 00:02 Arm band placed on right wrist. lp1 00:04 Patient has correct armband on for positive identification. lp1 00:10 Assisted Shari Silva NP with insertion of G-tube. Patient did not have IV access lp1 during this emergency room visit. Administered Medications: No medications were administered Outcome: 04/27 23:54 Discharge ordered by . kb 04/28 00:11 Discharged to [facility]. lp1 Condition: good Discharge instructions given to EMS. 00:12 Patient left the ED. lp1 Signatures: Shari Silva FNP-C FNP-Nichole Sotelo, RN RN lp1
[2018-04-28 00:16] VITALS: BP 111/74; TEMP 98.9; O2SAT 93
== END 2018-04-28 00:12 | disposition home or self-care (01) ==
LOC: ER 23:49
DX: Z93.1 Gastrostomy status (principal); F41.9 Anxiety disorder, unspecified; F32.9 Major depressive disorder, single episode, unspecified; J44.9 Chronic obstructive pulmonary disease, unspecified; F03.90 Unspecified dementia, unspecified severity, without behavioral disturbance, psychotic disturbance, mood disturbance, and anxiety; Z79.82 Long term (current) use of aspirin
CPT/HCPCS: 49465; 71045; 99283

== ENCOUNTER 2018-04-28 09:07 | Emergency (ER) | payer OTHER ==
--- NOTE | 2018-04-28 10:55 | RAD REPORT ---
EXAM DESCRIPTION: RAD - Chest Single View - 04/28/2018 10:27 am CLINICAL HISTORY: Low-grade temperature COMPARISON: July 2016 TECHNIQUE: AP portable chest image was obtained 0955 hours . FINDINGS: No peripheral mass or consolidation. Interstitial markings are prominent but not clearly d ifferent. No failure or volume overload. Heart and vasculature are normal. No measurable pleural effu bianca and no pneumothorax. No gross bony abnormality seen. No acute aortic findings suspected. IMPRESSION: No acute cardiopulmonary process. Interstitial markings are prominent but not clearly different from the comparison.
--- NOTE | 2018-04-28 10:56 | RAD REPORT ---
EXAM DESCRIPTION: RAD - ENTEROSTOMY TUBE CHECK W/CONTR - 04/28/2018 10:27 am CLINICAL HISTORY: Peg tube placement or repositioning COMPARISON: Multiple prior studies FINDINGS: Enterostomy tube is in the fundus of the stomach. Post contrast imaging shows all contrast remaining within the lumen of the stomach. The barium and stool volume within the colon has been reduced since prior imaging. There is a signifi cant amount of stool and contrast remaining. IMPRESSION: Enterostomy tube tip is in the fundus of the stomach. All injected contrast remains within the lumen of the stomach.
--- NOTE | 2018-04-28 11:03 | ER ---
Nurse's Notes [facility] Name: Shelia Miranda Age: 62 yrs Sex: Male : 1955 Arrival Date: 04/28/2018 Time: 09:09 Bed 16 Private MD: Diagnosis: Enterostomy complication, unspecified Presentation: 04/28 09:10 Presenting complaint: EMS states: pt denies pulling PEG tube at skilled nursing; PEG tube hj was out since this AM per nursing staff;. Transition of care: patient was received from another setting of care (long-term care facility). Onset of symptoms was April 28, 2018. Risk Assessment: Do you want to hurt yourself or someone else? Patient reports no desire to harm self or others. Initial Sepsis Screen: Does the patient meet any 2 criteria? No. Patient's initial sepsis screen is negative. Does the patient have a suspected source of infection? No. Patient's initial sepsis screen is negative. Care prior to arrival: None. 09:10 Method Of Arrival: EMS: [facility]; 09:10 Acuity: WINSOME 4 hj Triage Assessment: 09:10 General: Appears in no apparent distress. uncomfortable, Behavior is calm, cooperative, hj appropriate for age. Pain: Denies pain. 09:10 EENT: No signs and/or symptoms were reported regarding the EENT system. Neuro: Level of hj Consciousness is awake, alert, obeys commands, Oriented to person, place, time, situation, Appropriate for age. Cardiovascular: Capillary refill < 3 seconds Patient's skin is warm and dry. Respiratory: Airway is patent Respiratory effort is even, unlabored, Respiratory pattern is regular, symmetrical. GI: PEG tube out, stoma is healthy;. Historical: - Allergies: 09:14 NKA; hj - PMHx: 09:14 Anxiety; Aphasia; BPH; Contracture; COPD; Dementia; Depression; DYSPHAGIA; hj Hypertension; Pneumonia; pressure ulcer stage 2; Schizophrenia; vitamin d deficiency; - PSHx: 09:14 Unable to obtain; hj - Immunization history:: Adult Immunizations up to date. - Social history:: Smoking status: Patient/guardian denies using tobacco. - Ebola Screening: : Patient negative for fever greater than or equal to 101.5 degrees Fahrenheit, and additional compatible Ebola Virus Disease symptoms Patient denies exposure to infectious person Patient denies travel to an Ebola-affected area in the 21 days before illness onset. Screenin:10 Abuse screen: Denies threats or abuse. Denies injuries from another. Nutritional hj screening: No deficits noted. Tuberculosis screening: No symptoms or risk factors identified. Fall Risk None identified. Assessment: 09:14 Reassessment: see triage assessment;. hj 10:32 Reassessment: Patient and/or family updated on plan of care and expected duration. Pain hj level reassessed. Patient is alert, oriented x 3, equal unlabored respirations, skin warm/dry/pink. awaiting xray results for PEG placement;. 11:11 Reassessment: Patient and/or family updated on plan of care and expected duration. Pain hj level reassessed. Patient is alert, oriented x 3, equal unlabored respirations, skin warm/dry/pink. called report to [facility] for transport; pt supposed to go to GI clinic after PEG tube placement here at ED;. 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 Vital Signs: 09:17 BP 125 / 87; Pulse 114; Resp 20; Temp 100(O); Pulse Ox 95% on R/A; Weight 49.9 kg; hj Height 5 ft. 9 in. (175.26 cm); 10:32 BP 124 / 85; Pulse 110; Resp 18; Temp 99.4(O); Pulse Ox 96% on R/A; hj 12:00 BP 123 / 87; Pulse 105; Resp 18; Pulse Ox 97% on R/A; hj 09:17 Body Mass Index 16.24 (49.90 kg, 175.26 cm) ED Course: 09:09 Patient arrived in ED. iw 09:09 Ander Lopez, RN is Primary Nurse. hj 09:10 Patient has correct armband on for positive identification. Bed in low position. Call light in reach. Side rails up X2. 09:12 Triage completed. hj 09:15 Charlene Cleaning FNP-C is PHCP. snw 09:15 Domingo Sharma MD is Attending Physician. snw 10:02 Arm band placed on left wrist. hj 10:26 X-ray completed. Patient tolerated procedure well. Patient moved back from radiology. mh1 10:27 Chest Single View XRAY In Process Unspecified. EDMS 10:27 Enterostomy Tube Check w/contr In Process Unspecified. EDMS 12:29 No provider procedures requiring assistance completed. Patient did not have IV access hj during this emergency room visit. Administered Medications: No medications were administered Outcome: 11:02 Discharge ordered by . carissa 12:30 Discharged to skilled nursing. Transfer form completed. Valuables list done. ARIAS goyal 12:30 Condition: stable 12:30 Instructed on follow up and referral plans. Demonstrated understanding of follow-up care. 12:31 Patient left the ED. hj Signatures: Dispatcher [employer] EDMS Charlene Cleaning, ASSOCIATE QUALITY ENGINEER-C ASSOCIATE QUALITY ENGINEER-Csnw Audra Rush 1 Nazia Bose, ARIAS RN Ander Lopez RN RN hj Corrections: (The following items were deleted from the chart) 11:59 11:11 Reassessment: Patient and/or family updated on plan of care and expected hj duration. Pain level reassessed. Patient is alert, oriented x 3, equal unlabored respirations, skin warm/dry/pink. called report to [facility] for transport; hj
--- NOTE | 2018-04-28 11:03 | EDPHYS ---
Physician Documentation [facility] Name: Shelia Miranda Age: 62 yrs Sex: Male : 1955 Arrival Date: 04/28/2018 Time: 09:09 Bed 16 Private MD: ED Physician Domingo Sharma HPI: 04/28 09:26 This 62 yrs old Black Male presents to ER via EMS with complaints of g-tube removed. snw 09:26 Patient presents to ED for recheck of: recent recurrent removal per pt. Progress: The snw patient reports stoma sclerosed. mildly tender. The patient has experienced similar episodes in the past, chronically. Historical: - Allergies: 09:14 NKA; hj - PMHx: :14 Anxiety; Aphasia; BPH; Contracture; COPD; Dementia; Depression; DYSPHAGIA; hj Hypertension; Pneumonia; pressure ulcer stage 2; Schizophrenia; vitamin d deficiency; - PSHx: :14 Unable to obtain; hj - Immunization history:: Adult Immunizations up to date. - Social history:: Smoking status: Patient/guardian denies using tobacco. - Ebola Screening: : Patient negative for fever greater than or equal to 101.5 degrees Fahrenheit, and additional compatible Ebola Virus Disease symptoms Patient denies exposure to infectious person Patient denies travel to an Ebola-affected area in the 21 days before illness onset. ROS: 09:26 Constitutional: Negative for fever, chills, and weight loss, Eyes: Negative for injury, snw pain, redness, and discharge, ENT: Negative for injury, pain, and discharge, Neck: Negative for injury, pain, and swelling, Cardiovascular: Negative for chest pain, palpitations, and edema, Respiratory: Negative for shortness of breath, cough, wheezing, and pleuritic chest pain, Back: Negative for injury and pain, : Negative for injury, bleeding, discharge, and swelling, MS/Extremity: Negative for injury and deformity, Skin: Negative for injury, rash, and discoloration, Neuro: Negative for headache, weakness, numbness, tingling, and seizure. 09:26 Abdomen/GI: Positive for enterostomy tube pulled. Exam: 09:22 Head/Face: Normocephalic, atraumatic. Eyes: Pupils equal round and reactive to light, snw extra-ocular motions intact. Lids and lashes normal. Conjunctiva and sclera are non-icteric and not injected. Cornea within normal limits. Periorbital areas with no swelling, redness, or edema. 09:22 Neck: Trachea midline, no thyromegaly or masses palpated, and no cervical lymphadenopathy. Supple, full range of motion without nuchal rigidity, or vertebral point tenderness. No Meningismus. Chest/axilla: Normal chest wall appearance and motion. Nontender with no deformity. No lesions are appreciated. 09:22 Respiratory: Lungs have equal breath sounds bilaterally, clear to auscultation and percussion. No rales, rhonchi or wheezes noted. No increased work of breathing, no retractions or nasal flaring. Back: No spinal tenderness. No costovertebral tenderness. Full range of motion. Skin: Warm, dry with normal turgor. Normal color with no rashes, no lesions, and no evidence of cellulitis. MS/ Extremity: Pulses equal, no cyanosis. Neurovascular intact. Full, normal range of motion. 09:22 Constitutional: The patient appears alert, awake, unkempt. 09:22 ENT: External ear(s): are unremarkable, Nose: is normal, Mouth: is normal, Dental exam: missing teeth, Voice: is normal. 09:22 Cardiovascular: Rate: tachycardic, Heart sounds: normal. 09:22 Abdomen/GI: Inspection: scar(s), are noted in the epigastric area, Bowel sounds: normal, Palpation: abdomen is soft and non-tender, in all quadrants, 20F enterostomy tube placed in sclerosed stoma without diff, baloon filled with 20ml NS, pt to x-ray for placement and Chest x-ray, 2nd to low grade temp. Vital Signs: 09:17 BP 125 / 87; Pulse 114; Resp 20; Temp 100(O); Pulse Ox 95% on R/A; Weight 49.9 kg; Height 5 ft. 9 in. (175.26 cm); 10:32 BP 124 / 85; Pulse 110; Resp 18; Temp 99.4(O); Pulse Ox 96% on R/A; 12:00 BP 123 / 87; Pulse 105; Resp 18; Pulse Ox 97% on R/A; 09:17 Body Mass Index 16.24 (49.90 kg, 175.26 cm) MDM: 09:16 Patient medically screened. snw 11:03 Data reviewed: vital signs, nurses notes. Data interpreted: Pulse oximetry: on room air snw is 96 %. Interpretation: acceptable. Counseling: I had a detailed discussion with the patient and/or guardian regarding: the historical points, exam findings, and any diagnostic results supporting the discharge/admit diagnosis, the presence of at least one elevated blood pressure reading (>120/80) during this emergency department visit, radiology results, the need for outpatient follow up, to return to the emergency department if symptoms worsen or persist or if there are any questions or concerns that arise at home. Special discussion: Based on the history and exam findings, there is no indication for further emergent testing or inpatient evaluation. I discussed with the patient/guardian the need to see the primary care provider for further evaluation of the symptoms. 04/28 09:17 Order name: Chest Single View XRAY; Complete Time: 10:58 snw 04/28 09:17 Order name: Enterostomy Tube Check w/contr; Complete Time: 10:58 snw Administered Medications: No medications were administered Disposition: 04/29 12:05 Co-signature as Attending Physician, Domingo Sharma MD I agree with the assessment and [facility] plan of care. Disposition: 04/28/18 11:02 Discharged to Home. Impression: Enterostomy complication, unspecified. - Condition is Stable. - Discharge Instructions: Gastrostomy Tube Replacement. - Medication Reconciliation Form, Thank You Letter, Antibiotic Education, Prescription Opioid Use form. - Follow up: Private Physician; When: Today; Reason: Recheck today's complaints, Continuance of care, Re-evaluation by your physician. Signatures: Dispatcher [employer] Domingo Hammer MD MD cha Therrien, Shelly, POLICE JUDGE-C POLICE JUDGE-Csnw Ander Lopez RN RN hj Corrections: (The following items were deleted from the chart) 04/28 12:31 11:02 04/28/2018 11:02 Discharged to Home. Impression: Enterostomy complication, hj unspecified. Condition is Stable. Forms are Medication Reconciliation Form, Thank You Letter, Antibiotic Education, Prescription Opioid Use. Follow up: Private Physician; When: Today; Reason: Recheck today's complaints, Continuance of care, Re-evaluation by your physician. snw
[2018-04-28 12:36] VITALS: TEMP 99.4
[2018-04-28 12:37] VITALS: BP 123/87; O2SAT 97
== END 2018-04-28 12:31 | disposition home or self-care (01) ==
LOC: ER 09:07
DX: K94.19 Other complications of enterostomy (principal)
CPT/HCPCS: 49465; 71045; 99283

== ENCOUNTER 2018-05-01 13:56 | Emergency (ER) | payer OTHER ==
--- NOTE | 2018-05-01 15:06 | EDPHYS ---
Physician Documentation [facility] Name: Shelia Miranda Age: 62 yrs Sex: Male : 1955 Arrival Date: 05/01/2018 Time: 13:59 Bed 26 Private MD: ED Physician Hakeem Peters HPI: 05/01 15:03 This 62 yrs old Black Male presents to ER via EMS with complaints of Problem With jr8 Feeding Tube - pulled tube out. 15:03 Patient pulled Gastrostomy tube . Onset: The symptoms/episode began/occurred acutely, jr8 today. Severity of symptoms: At their worst the symptoms were very mild. The patient has experienced similar episodes in the past, multiple times. Historical: - Allergies: 14:19 NKA; kr2 - Home Meds: 14:19 acetaminophen-codeine 300-30 mg Oral tab three times a day [Active]; aspirin 81 mg Oral kr2 TbEC 1 tab once daily [Active]; Catapres 0.1 mg Oral tab every 8 hours [Active]; ipratropium-albuterol 0.5 mg-3 mg(2.5 mg base)/3 mL Inhl nebu three times a day [Active]; Tegretol 100 mg/5 mL Oral susp 10 mL twice a day [Active]; lisinopril 20 mg Oral tab once daily [Active]; Vitamin D3 1,000 unit Oral tab daily [Active]; - PMHx: 14:19 Anxiety; Aphasia; BPH; Contracture; COPD; Dementia; Depression; DYSPHAGIA; kr2 Hypertension; Pneumonia; pressure ulcer stage 2; Schizophrenia; vitamin d deficiency; - PSHx: 14:20 G tube; kr2 - Immunization history:: Adult Immunizations unknown. - Social history:: Smoking status: Patient/guardian denies using tobacco. - Ebola Screening: : No symptoms or risks identified at this time. ROS: 15:03 Eyes: Negative for injury, pain, redness, and discharge, ENT: Negative for injury, jr8 pain, and discharge, Neck: Negative for injury, pain, and swelling, Cardiovascular: Negative for chest pain, palpitations, and edema, Respiratory: Negative for shortness of breath, cough, wheezing, and pleuritic chest pain, Abdomen/GI: Negative for abdominal pain, nausea, vomiting, diarrhea, and constipation, Back: Negative for injury and pain, MS/Extremity: Negative for injury and deformity, Skin: Negative for injury, rash, and discoloration, Neuro: Negative for headache, weakness, numbness, tingling, and seizure. Exam: 15:03 Cardiovascular: Regular rate and rhythm with a normal S1 and S2. No gallops, murmurs, jr8 or rubs. Normal PMI, no JVD. No pulse deficits. Respiratory: Lungs have equal breath sounds bilaterally, clear to auscultation and percussion. No rales, rhonchi or wheezes noted. No increased work of breathing, no retractions or nasal flaring. Abdomen/GI: Soft, non-tender, with normal bowel sounds. No distension or tympany. No guarding or rebound. No evidence of tenderness throughout. Back: No spinal tenderness. No costovertebral tenderness. Full range of motion. Skin: Warm, dry with normal turgor. Normal color with no rashes, no lesions, and no evidence of cellulitis. MS/ Extremity: Pulses equal, no cyanosis. Neurovascular intact. Full, normal range of motion. Neuro: Awake and alert, GCS 15, oriented to person, place, time, and situation. Cranial nerves II-XII grossly intact. Motor strength 5/5 in all extremities. Sensory grossly intact. Cerebellar exam normal. Normal gait. Vital Signs: 14:10 BP 135 / 84; Pulse 72; Resp 17; Temp 98.1; Pulse Ox 99% on R/A; Pain 0/10; kr2 15:26 BP 128 / 85; Pulse 70; Resp 17; Pulse Ox 98% on R/A; ss 16:24 BP 130 / 90; Pulse 72; Resp 18; Pulse Ox 99% on R/A; kr2 Procedures: 15:03 G-tube placement: a 16 Wallisian catheter was placed, by the ED physician, Presley VELEZ. jr8 MDM: 14:02 Patient medically screened. jr8 15:03 Data reviewed: vital signs, nurses notes, and as a result, I will discharge patient. jr8 Data interpreted: Pulse oximetry: on room air is 99 %. Interpretation: normal. Counseling: I had a detailed discussion with the patient and/or guardian regarding: the historical points, exam findings, and any diagnostic results supporting the discharge/admit diagnosis, the need for outpatient follow up, a aircraft technician, to return to the emergency department if symptoms worsen or persist or if there are any questions or concerns that arise at home. ED course: auscultated with normal gas sound over the stomach when air was pushed through tube . Administered Medications: No medications were administered Disposition: 17:09 Co-signature as Attending Physician, Hakeem Peters MD. rn Disposition: 05/01/18 15:05 Discharged to Home. Impression: Gastrostomy complications. - Condition is Stable. - Discharge Instructions: Gastrostomy Tube Replacement. - Medication Reconciliation Form, Thank You Letter, Antibiotic Education, Prescription Opioid Use form. - Follow up: Private Physician; When: As needed; Reason: Recheck today's complaints, Continuance of care, Re-evaluation by your physician. - Problem is new. - Symptoms have improved. Signatures: Hakeem Peters MD MD rn Roszak, Josh, PA PA jr8 No Shabazz RN RN kr2 Corrections: (The following items were deleted from the chart) 16:55 15:05 05/01/2018 15:05 Discharged to Home. Impression: Gastrostomy complications. kr2 Condition is Stable. Forms are Medication Reconciliation Form, Thank You Letter, Antibiotic Education, Prescription Opioid Use. Follow up: Private Physician; When: As needed; Reason: Recheck today's complaints, Continuance of care, Re-evaluation by your physician. Problem is new. Symptoms have improved. jr8
--- NOTE | 2018-05-01 15:06 | ER ---
Nurse's Notes [facility] Name: Shelia Miranda Age: 62 yrs Sex: Male : 1955 Arrival Date: 05/01/2018 Time: 13:59 Bed 26 Private MD: Diagnosis: Gastrostomy complications Presentation: 05/01 14:16 Presenting complaint: EMS states: patient pulled his PEG tube out. Transition of care: kr2 patient was received from another setting of care (long-term care [facility]. Onset of symptoms was May 01, 2018. Risk Assessment: Do you want to hurt yourself or someone else? Patient reports no desire to harm self or others. Initial Sepsis Screen: Does the patient meet any 2 criteria? No. Patient's initial sepsis screen is negative. Does the patient have a suspected source of infection? No. Patient's initial sepsis screen is negative. Care prior to arrival: None. 14:16 Method Of Arrival: EMS: [facility] kr2 14:16 Acuity: WINSOME 4 kr2 Triage Assessment: 14:20 General: Appears in no apparent distress. Behavior is calm, cooperative. Pain: Denies kr2 pain. EENT: Oral mucosa is dry. Neuro: Level of Consciousness is awake, alert, Oriented to person, place, situation. Cardiovascular: Capillary refill < 3 seconds in bilateral fingers Patient's skin is warm and dry. Respiratory: Airway is patent Respiratory effort is even, unlabored, Respiratory pattern is regular, symmetrical. GI: Abdomen is flat, non-distended, Patient has dressing covering PEG tube site, shelter reports he pulled it out. Derm: Skin with poor turgor Skin is dry, Skin is pink, warm \T\ dry. Skin temperature is warm. Musculoskeletal: Contractures to BLE. Historical: - Allergies: 14:19 NKA; kr2 - Home Meds: 14:19 acetaminophen-codeine 300-30 mg Oral tab three times a day [Active]; aspirin 81 mg Oral kr2 TbEC 1 tab once daily [Active]; Catapres 0.1 mg Oral tab every 8 hours [Active]; ipratropium-albuterol 0.5 mg-3 mg(2.5 mg base)/3 mL Inhl nebu three times a day [Active]; Tegretol 100 mg/5 mL Oral susp 10 mL twice a day [Active]; lisinopril 20 mg Oral tab once daily [Active]; Vitamin D3 1,000 unit Oral tab daily [Active]; - PMHx: 14:19 Anxiety; Aphasia; BPH; Contracture; COPD; Dementia; Depression; DYSPHAGIA; kr2 Hypertension; Pneumonia; pressure ulcer stage 2; Schizophrenia; vitamin d deficiency; - PSHx: 14:20 G tube; kr2 - Immunization history:: Adult Immunizations unknown. - Social history:: Smoking status: Patient/guardian denies using tobacco. - Ebola Screening: : No symptoms or risks identified at this time. Screenin:18 Abuse screen: Denies threats or abuse. Denies injuries from another. Nutritional kr2 screening: No deficits noted. Tuberculosis screening: No symptoms or risk factors identified. Fall Risk None identified. Assessment: 14:20 General: See triage assessment. kr2 15:00 Reassessment: Patient appears in no apparent distress at this time. Patient and/or kr2 family updated on plan of care and expected duration. Pain level reassessed. Patient is alert, oriented x 3, equal unlabored respirations, skin warm/dry/pink. AGUSTIN Simmons inserted new G tube, placement verified via auscultation. Binder in place to abdomen to protect G tube. 15:11 Reassessment: called [facility] and spoke with nurse who states that they will call to arrange transportation back to [facility]. Will call back with [facility]. Warm blanket provided to patient. ABD binder in place to protect new GTUBE. 16:24 Reassessment: No changes from previously documented assessment. kr2 Vital Signs: 14:10 BP 135 / 84; Pulse 72; Resp 17; Temp 98.1; Pulse Ox 99% on R/A; Pain 0/10; kr2 15:26 BP 128 / 85; Pulse 70; Resp 17; Pulse Ox 98% on R/A; ss 16:24 BP 130 / 90; Pulse 72; Resp 18; Pulse Ox 99% on R/A; kr2 ED Course: 13:59 Patient arrived in ED. kr2 14:00 Patient has correct armband on for positive identification. Bed in low position. Call kr2 light in reach. Side rails up X2. Pulse ox on. NIBP on. Noise minimized. Warm blanket given. Head of bed elevated. 14:01 Presley Gilbert PA is PHCP. jr8 14:01 Hakeem Peters MD is Attending Physician. jr8 14:16 No Shabazz, RN is Primary Nurse. kr2 14:18 Triage completed. kr2 14:22 Arm band placed on right wrist. kr2 16:54 No provider procedures requiring assistance completed. Patient did not have IV access kr2 during this emergency room visit. Administered Medications: No medications were administered Outcome: 15:05 Discharge ordered by . jr8 16:54 Discharged to shelter. transported back to [facility] via EMS due to kr2 inability to sit up and contractures to BLE. 16:54 Condition: good 16:55 Discharge instructions given to EMS, Instructed on discharge instructions, follow up kr2 and referral plans. Demonstrated understanding of instructions, follow-up care. 16:55 Patient left the ED. kr2 Signatures: Marisol Cordova RN RN Presley Gilbert PA PA jr8 No Shabazz, RN RN kr2 Corrections: (The following items were deleted from the chart) 15:27 14:16 General: See triage assessment. ss ss 15:27 15:00 Reassessment: Patient appears in no apparent distress at this time. Patient ss and/or family updated on plan of care and expected duration. Pain level reassessed. Patient is alert, oriented x 3, equal unlabored respirations, skin warm/dry/pink. Troy inserted new G tube, placement verified via auscultation ss
[2018-05-01 17:07] VITALS: TEMP 98.1
[2018-05-01 17:10] VITALS: BP 130/90; O2SAT 99
== END 2018-05-01 16:55 | disposition home or self-care (01) ==
LOC: ER 13:56
DX: K94.29 Other complications of gastrostomy (principal); I10 Essential (primary) hypertension; F32.9 Major depressive disorder, single episode, unspecified; F03.90 Unspecified dementia, unspecified severity, without behavioral disturbance, psychotic disturbance, mood disturbance, and anxiety; J44.9 Chronic obstructive pulmonary disease, unspecified; Z79.82 Long term (current) use of aspirin
CPT/HCPCS: 99283

== ENCOUNTER 2018-05-07 13:09 | Emergency (ER) | payer OTHER ==
[2012-04-03 10:07] VITALS: BP 166/77
--- NOTE | 2018-05-07 13:22 | EDPHYS ---
Physician Documentation [facility] Name: Shelia Miranda Age: 62 yrs Sex: Male : 1955 Arrival Date: 05/07/2018 Time: 13:17 Bed 26 Private MD: ED Physician Domingo Sharma HPI: 05/07 13:36 This 62 yrs old Black Male presents to ER via EMS with complaints of Displaced G-tube. snw 13:36 Onset: The symptoms/episode began/occurred suddenly, today. Associated signs and snw symptoms: The patient has no apparent associated signs or symptoms. Modifying factors: The patient symptoms are alleviated by nothing. The patient has experienced similar episodes in the past, chronically. last Mr. Miranda was here, I replaced his G-tube and discharged him to appt for g-button per [place] report. Pt arrives with stoma in same condition as last I saw. No g-button. Historical: - Allergies: 13:19 NKA; iw - PMHx: 13:19 Anxiety; BPH; Contracture; COPD; Dementia; Depression; DYSPHAGIA; Hypertension; iw Pneumonia; pressure ulcer stage 2; Schizophrenia; vitamin d deficiency; Aphasia; - PSHx: 13:19 G tube; iw - Immunization history:: Adult Immunizations up to date. - Social history:: Smoking status: Patient/guardian denies using tobacco. - Ebola Screening: : No symptoms or risks identified at this time. ROS: 13:37 Constitutional: Negative for fever, chills, and weight loss, Eyes: Negative for injury, snw pain, redness, and discharge, ENT: Negative for injury, pain, and discharge, Neck: Negative for injury, pain, and swelling, Cardiovascular: Negative for chest pain, palpitations, and edema, Respiratory: Negative for shortness of breath, cough, wheezing, and pleuritic chest pain, Back: Negative for injury and pain, : Negative for injury, bleeding, discharge, and swelling, MS/Extremity: Negative for injury and deformity, Skin: Negative for injury, rash, and discoloration, Neuro: Negative for headache, weakness, numbness, tingling, and seizure. 13:37 Abdomen/GI: Positive for displaced g-tube. Exam: 13:37 Constitutional: This is a well developed, well nourished patient who is awake, alert, snw and in no acute distress. Head/Face: Normocephalic, atraumatic. Eyes: Pupils equal round and reactive to light, extra-ocular motions intact. Lids and lashes normal. Conjunctiva and sclera are non-icteric and not injected. Cornea within normal limits. Periorbital areas with no swelling, redness, or edema. 13:37 Neck: Trachea midline, no thyromegaly or masses palpated, and no cervical lymphadenopathy. Supple, full range of motion without nuchal rigidity, or vertebral point tenderness. No Meningismus. Chest/axilla: Normal chest wall appearance and motion. Nontender with no deformity. No lesions are appreciated. Cardiovascular: Regular rate and rhythm with a normal S1 and S2. No gallops, murmurs, or rubs. Normal PMI, no JVD. No pulse deficits. Respiratory: Lungs have equal breath sounds bilaterally, clear to auscultation and percussion. No rales, rhonchi or wheezes noted. No increased work of breathing, no retractions or nasal flaring. Back: No spinal tenderness. No costovertebral tenderness. Full range of motion. Skin: Warm, dry with normal turgor. Normal color with no rashes, no lesions, and no evidence of cellulitis. MS/ Extremity: Pulses equal, no cyanosis. Neurovascular intact. Full, normal range of motion. Neuro: Awake and alert, GCS 15, oriented to person, place, time, and situation. Cranial nerves II-XII grossly intact. Motor strength 5/5 in all extremities. Sensory grossly intact. Cerebellar exam normal. Normal gait. 13:37 ENT: missing teeth. 13:37 Abdomen/GI: Inspection: abdomen appears normal, thin with stoma intact, no dc/bleeding, Bowel sounds: normal, Palpation: abdomen is soft and non-tender, in the left upper quadrant. Vital Signs: 13:56 BP 151 / 85; Pulse 60; Resp 18; Pulse Ox 98% ; tl3 Procedures: 13:32 Performed replacement of g-tube post pt removed. 22F g-tube placed, 20ml cc filled, snw will x-ray for placement. MDM: 13:19 Patient medically screened. snw 13:35 Data reviewed: vital signs, nurses notes. Data interpreted: Pulse oximetry: on room air snw is 98 %. Interpretation: normal. Counseling: I had a detailed discussion with the patient and/or guardian regarding: the historical points, exam findings, and any diagnostic results supporting the discharge/admit diagnosis, the presence of at least one elevated blood pressure reading (>120/80) during this emergency department visit, radiology results, the need for outpatient follow up, to return to the emergency department if symptoms worsen or persist or if there are any questions or concerns that arise at home. Special discussion: Based on the history and exam findings, there is no indication for further emergent testing or inpatient evaluation. I discussed with the patient/guardian the need to see the primary care provider for further evaluation of the symptoms. 05/07 13:19 Order name: Enterostomy Tube Check w/contr snw Administered Medications: No medications were administered Disposition: 14:24 Co-signature as Attending Physician, Domingo Sharma MD I agree with the assessment and lana plan of care. Disposition: 05/07/18 13:20 Discharged to Home. Impression: Encounter for fitting and adjustment of other gastrointestinal appliance and device. - Condition is Stable. - Discharge Instructions: Gastrostomy Tube Home Guide, Adult, Gastrostomy Tube Replacement, Care After. - Medication Reconciliation Form, Thank You Letter, Antibiotic Education, Prescription Opioid Use form. - Follow up: Private Physician; When: 2 - 3 days; Reason: Recheck today's complaints, Continuance of care, Re-evaluation by your physician. Follow up: Emergency Department; When: As needed; Reason: Worsening of condition. Signatures: Dispatcher [employer] Domingo Hammer MD MD cha Therrien, Shelly, COOPERER-C COOPERER-Csnw Nazia Bose, Patsy Miller RN, RN RN tl3 Corrections: (The following items were deleted from the chart) 14:01 13:20 05/07/2018 13:20 Discharged to Home. Impression: Encounter for fitting and tl3 adjustment of other gastrointestinal appliance and device. Condition is Stable. Forms are Medication Reconciliation Form, Thank You Letter, Antibiotic Education, Prescription Opioid Use. Follow up: Private Physician; When: 2 - 3 days; Reason: Recheck today's complaints, Continuance of care, Re-evaluation by your physician. Follow up: Emergency Department; When: As needed; Reason: Worsening of condition. snw
--- NOTE | 2018-05-07 13:22 | ER ---
Nurse's Notes [facility] Name: Shelia Miranda Age: 62 yrs Sex: Male : 1955 Arrival Date: 05/07/2018 Time: 13:17 Bed 26 Private MD: Diagnosis: Encounter for fitting and adjustment of other gastrointestinal appliance and device Presentation: 05/07 13:18 Presenting complaint: EMS states: displaced G-tube since 1100. Transition of care: iw patient was received from another setting of care ([facility]), [facility]. Onset of symptoms was May 07, 2018. Risk Assessment: Do you want to hurt yourself or someone else? Patient reports no desire to harm self or others. Initial Sepsis Screen: Does the patient meet any 2 criteria? No. Patient's initial sepsis screen is negative. Does the patient have a suspected source of infection? No. Patient's initial sepsis screen is negative. Care prior to arrival: None. 13:18 Method Of Arrival: EMS: [facility] iw 13:18 Acuity: WINSOME 4 iw Triage Assessment: 14:00 General: Behavior is calm, cooperative. tl3 Historical: - Allergies: 13:19 NKA; iw - PMHx: 13:19 Anxiety; BPH; Contracture; COPD; Dementia; Depression; DYSPHAGIA; Hypertension; iw Pneumonia; pressure ulcer stage 2; Schizophrenia; vitamin d deficiency; Aphasia; - PSHx: 13:19 G tube; iw - Immunization history:: Adult Immunizations up to date. - Social history:: Smoking status: Patient/guardian denies using tobacco. - Ebola Screening: : No symptoms or risks identified at this time. Screenin:19 Abuse screen: Denies threats or abuse. Denies injuries from another. Nutritional iw screening: On NPO diet. Tuberculosis screening: No symptoms or risk factors identified. Fall Risk None identified. Assessment: 13:56 General: Appears in no apparent distress. Pain: Denies pain. Neuro: Level of tl3 Consciousness is awake, obeys commands. Cardiovascular: Patient's skin is warm and dry. GI: g-tube replaced by Charlene. Vital Signs: 13:56 BP 151 / 85; Pulse 60; Resp 18; Pulse Ox 98% ; tl3 ED Course: 13:17 Patient arrived in ED. iw 13:17 Nazia Bose, RN is Primary Nurse. iw 13:18 Triage completed. iw 13:19 Charl[facility] Cleaning [facility]C [facility]. snw 13:19 Domingo Sharma MD is Attending Physician. snw 13:23 Arm band placed on. iw 13:38 X-ray completed. Portable x-ray completed in exam room. Patient tolerated procedure jb2 well. 13:43 Enterostomy Tube Check w/contr In Process Unspecified. EDMS 13:56 Patient has correct armband on for positive identification. Placed in gown. tl3 13:56 No provider procedures requiring assistance completed. Patient did not have IV access tl3 during this emergency room visit. Administered Medications: No medications were administered Outcome: 13:20 Discharge ordered by . snw 13:56 Discharged to assisted. tl3 13:56 Condition: stable 13:56 Discharge instructions given to assisted. 14:01 Patient left the ED. tl3 Signatures: Dispatcher [employer] EDOR Charlene Cleaning FNP-C DIGITAL ANALYST-[facility] Stew Dewey jb2 Nazia Bose, RN RN Patsy Lew RN RN tl3
--- NOTE | 2018-05-07 14:04 | RAD REPORT ---
EXAM DESCRIPTION: RAD - ENTEROSTOMY TUBE CHECK W/CONTR - 05/07/2018 1:43 pm CLINICAL HISTORY: g-tube placement COMPARISON: ENTEROSTOMY TUBE CHECK W/CONTR dated 04/28/2018 FINDINGS: Pre and post contrast injection radiographs were performed. Following contrast injection i nto the G-tube, the contrast is seen to pool in the stomach, indicating appropriate placement.
== END 2018-05-07 14:01 | disposition home or self-care (01) ==
LOC: ER 13:09
DX: Z46.59 Encounter for fitting and adjustment of other gastrointestinal appliance and device (principal); I10 Essential (primary) hypertension; F03.90 Unspecified dementia, unspecified severity, without behavioral disturbance, psychotic disturbance, mood disturbance, and anxiety; F20.9 Schizophrenia, unspecified
CPT/HCPCS: 49465; 99283

== ENCOUNTER 2018-05-09 10:09 | Emergency (ER) | payer OTHER ==
--- NOTE | 2018-05-09 10:41 | EDPHYS ---
Physician Documentation [facility] Name: Shelia Miranda Age: 62 yrs Sex: Male : 1955 Arrival Date: 05/09/2018 Time: 10:16 Bed 16 Private MD: ED Physician Jonathan Noble HPI: 05/09 10:39 This 62 yrs old Black Male presents to ER via EMS with complaints of Displaced G-tube. kb 10:39 Pt pulled G-tube out and was sent to have it replaced. Onset: The symptoms/episode kb began/occurred today. Severity of symptoms: At their worst the symptoms were moderate in the emergency department the symptoms are unchanged. The patient has experienced similar episodes in the past, multiple times. The patient has been recently seen at the [facility] Emergency Department, this week, for similar complaints. Historical: - Allergies: 10:39 NKA; em - PMHx: 10:39 Anxiety; Aphasia; BPH; Contracture; COPD; Dementia; Depression; DYSPHAGIA; em Hypertension; Pneumonia; pressure ulcer stage 2; Schizophrenia; vitamin d deficiency; - Immunization history:: Adult Immunizations up to date. - Social history:: Smoking status: unknown. - Ebola Screening: : Patient negative for fever greater than or equal to 101.5 degrees Fahrenheit, and additional compatible Ebola Virus Disease symptoms Patient denies exposure to infectious person Patient denies travel to an Ebola-affected area in the 21 days before illness onset No symptoms or risks identified at this time. ROS: 10:38 Constitutional: Negative for fever, chills, and weight loss, Cardiovascular: Negative kb for chest pain, palpitations, and edema, Respiratory: Negative for shortness of breath, cough, wheezing, and pleuritic chest pain, Abdomen/GI: Negative for abdominal pain, nausea, vomiting, diarrhea, and constipation, Back: Negative for injury and pain, MS/Extremity: Negative for injury and deformity, Neuro: Negative for headache, weakness, numbness, tingling, and seizure. Exam: 10:38 Constitutional: This is a well developed, well nourished patient who is awake, alert, kb and in no acute distress. Cardiovascular: Regular rate and rhythm with a normal S1 and S2. No gallops, murmurs, or rubs. Normal PMI, no JVD. No pulse deficits. Respiratory: Lungs have equal breath sounds bilaterally, clear to auscultation and percussion. No rales, rhonchi or wheezes noted. No increased work of breathing, no retractions or nasal flaring. 10:38 Abdomen/GI: Inspection: gastrostomy noted without tube in place . Vital Signs: 10:40 BP 147 / 86; Pulse 74; Resp 16; Temp 98.2; Pulse Ox 98% on R/A; Pain 0/10; iw Procedures: 10:37 G-tube placement: a 22 Kazakh catheter was placed, by the ED physician, Shari DIALLO. MDM: 10:30 Patient medically screened. kb 10:38 Data reviewed: vital signs, nurses notes. Data interpreted: Pulse oximetry: on room air kb is 98 %. Interpretation: normal. Counseling: I had a detailed discussion with the patient and/or guardian regarding: the historical points, exam findings, and any diagnostic results supporting the discharge/admit diagnosis, the need for outpatient follow up, a family practitioner, to return to the emergency department if symptoms worsen or persist or if there are any questions or concerns that arise at home. [id number] 11:14 Order name: ENTEROSTOMY TUBE CHECK W/CONTR; Complete Time: 11:50 EDMS Administered Medications: No medications were administered Disposition: 16:39 Co-signature as Attending Physician, Jonathan Noble MD I agree with the assessment and kdr plan of care. Disposition: 05/09/18 10:40 Discharged to Home. Impression: Gastrostomy status - tube replaced. - Condition is Stable. - Discharge Instructions: Gastrostomy Tube Home Guide, Adult. - Medication Reconciliation Form, Thank You Letter, Antibiotic Education, Prescription Opioid Use form. - Follow up: Emergency Department; When: As needed; Reason: Worsening of condition. Follow up: Private Physician; When: 2 - 3 days; Reason: Recheck today's complaints, Continuance of care, Re-evaluation by your physician. Signatures: Dispatcher [employer] EDMS Shari Silva FNP-C FNP-Ckb Rittger, Kevin, MD MD kdr Munoz, Edgar, TALCER TALCER em Nazia Bose, ARIAS RN iw Corrections: (The following items were deleted from the chart) 11:14 10:37 Abdomen 1 View (KUB)+RAD.RAD.BRZ ordered. EDMS EDSD 12:18 10:40 05/09/2018 10:40 Discharged to Home. Impression: Gastrostomy status - tube iw replaced. Condition is Stable. Forms are Medication Reconciliation Form, Thank You Letter, Antibiotic Education, Prescription Opioid Use. Follow up: Emergency Department; When: As needed; Reason: Worsening of condition. Follow up: Private Physician; When: 2 - 3 days; Reason: Recheck today's complaints, Continuance of care, Re-evaluation by your physician. kb
--- NOTE | 2018-05-09 10:41 | ER ---
Nurse's Notes [facility] Name: Shelia Miranda Age: 62 yrs Sex: Male : 1955 Arrival Date: 05/09/2018 Time: 10:16 Bed 16 Private MD: Diagnosis: Gastrostomy status-tube replaced Presentation: 05/09 10:38 Presenting complaint: EMS states: pulled g-tube. Transition of care: patient was not em received from another setting of care. Onset of symptoms was May 09, 2018. Risk Assessment: Do you want to hurt yourself or someone else? Patient reports no desire to harm self or others. Initial Sepsis Screen: Does the patient meet any 2 criteria? No. Patient's initial sepsis screen is negative. Does the patient have a suspected source of infection? No. Patient's initial sepsis screen is negative. Care prior to arrival: None. 10:38 Method Of Arrival: EMS: [facility] em 10:40 Acuity: WINSOME 4 iw Triage Assessment: 10:39 General: Appears in no apparent distress. comfortable, Behavior is calm, cooperative. em Pain: Denies pain. Historical: - Allergies: 10:39 NKA; em - PMHx: 10:39 Anxiety; Aphasia; BPH; Contracture; COPD; Dementia; Depression; DYSPHAGIA; em Hypertension; Pneumonia; pressure ulcer stage 2; Schizophrenia; vitamin d deficiency; - Immunization history:: Adult Immunizations up to date. - Social history:: Smoking status: unknown. - Ebola Screening: : Patient negative for fever greater than or equal to 101.5 degrees Fahrenheit, and additional compatible Ebola Virus Disease symptoms Patient denies exposure to infectious person Patient denies travel to an Ebola-affected area in the 21 days before illness onset No symptoms or risks identified at this time. Screenin:40 Abuse screen: Denies threats or abuse. Denies injuries from another. Nutritional iw screening: On NPO diet, Difficulty chewing/swallowing? Yes. Tuberculosis screening: No symptoms or risk factors identified. Fall Risk None identified. Assessment: 10:41 General: Appears in no apparent distress. Behavior is cooperative. Neuro: Level of iw Consciousness is awake, alert, obeys commands. 11:49 Reassessment: Patient appears in no apparent distress at this time. Patient and/or iw family updated on plan of care and expected duration. Pain level reassessed. called report [facility]. Vital Signs: 10:40 BP 147 / 86; Pulse 74; Resp 16; Temp 98.2; Pulse Ox 98% on R/A; Pain 0/10; iw ED Course: 10:16 Patient arrived in ED. iw 10:29 Shari Silva FNP-C is [facility]. kb 10:29 Jonathan Noble MD is Attending Physician. kb 10:37 Gunnar Hercules LVN is Primary Nurse. em 10:39 Arm band placed on. em 10:41 G-tube placement, 22 Fr. Patient did not have IV access during this emergency room iw visit. 10:45 Patient has correct armband on for positive identification. iw 11:18 X-ray completed. Portable x-ray completed in exam room. Patient tolerated procedure ml well. 11:19 ENTEROSTOMY TUBE CHECK W/CONTR In Process Unspecified. EDMS 12:18 Primary Nurse role handed off by Gunnar Hercules LVN iw 12:18 Nazia Bose, RN is Primary Nurse. iw 15:08 Triage completed. iw Administered Medications: No medications were administered Outcome: 10:40 Discharge ordered by . kb 12:15 Discharged to halfway. iw 12:15 Condition: good 12:15 Discharge instructions given to patient, Instructed on discharge instructions, Demonstrated understanding of instructions. 12:18 Patient left the ED. iw Signatures: Dispatcher [employer] EDTN Shari Silva FNP-C FNP-Gunnar Burrows LVN LVN em Nazia Bose, RN RN Jodi Gómez
--- NOTE | 2018-05-09 11:49 | RAD REPORT ---
EXAM DESCRIPTION: RAD - ENTEROSTOMY TUBE CHECK W/CONTR - 05/09/2018 11:21 am CLINICAL HISTORY: Dislodged PEG tube COMPARISON: May 07 and April 28 FINDINGS: Initial image shows PEG tube in the right upper quadrant. No abnormal air collection. Ther e remains a large stool and contrast volume in the colon. After retrograde contrast administration, contrast is seen within the antrum and duodenal C-loop. No extravasation identified.
[2018-05-09 12:23] VITALS: BP 147/86; TEMP 98.2; O2SAT 98
== END 2018-05-09 12:18 | disposition home or self-care (01) ==
LOC: ER 10:09
DX: Z93.1 Gastrostomy status (principal)
CPT/HCPCS: 49465; 99283

== ENCOUNTER 2018-05-27 12:04 | Emergency (ER) | payer OTHER ==
--- NOTE | 2018-05-27 13:25 | RAD REPORT ---
EXAM DESCRIPTION: RAD - ENTEROSTOMY TUBE CHECK W/CONTR - 05/27/2018 1:11 pm CLINICAL HISTORY: Enterostomy tube check or repositioning COMPARISON: Numerous similar examinations FINDINGS: KUB images of the abdomen and pelvis were obtained prior to and following the replacement or repositioning procedure of the gastric tube. Approximately 30 mL of Gastrografin contrast material was injected through the tubing. Post-contrast injection imaging shows all contrast within the lumen of the stomach and duodenal C-loo p. Bulb is in the antrum of the stomach. Patient continues to have a large amount of contrast opacified stool throughout the colon. IMPRESSION: Gastric enterostomy tube tip is in the antrum. No extravasation of the injected contrast .
--- NOTE | 2018-05-27 13:40 | EDPHYS ---
Physician Documentation [facility] Name: Shelia Miranda Age: 62 yrs Sex: Male : 1955 Arrival Date: 05/27/2018 Time: 12:07 Bed 26 Private MD: ED Physician Marlo Mills HPI: 05/27 12:15 This 62 yrs old Black Male presents to ER via EMS with complaints of peg tube placement.cp 12:15 The patient presents with missing PEG tube. Patient referred to ED for replacement of cp PEG tube. Patient seen multiple times in ED after reportedly pulling PEG tube out. 12:15 Onset: The symptoms/episode began/occurred at an unknown time. Associated signs and cp symptoms: Pertinent negatives: blood in stools, diarrhea, fever, vomiting. Historical: - Allergies: 12:17 NKA; aj - Home Meds: 12:17 acetaminophen-codeine 300-30 mg Oral tab three times a day [Active]; aspirin 81 mg Oral aj TbEC 1 tab once daily [Active]; Catapres 0.1 mg Oral tab every 8 hours [Active]; ipratropium-albuterol 0.5 mg-3 mg(2.5 mg base)/3 mL Inhl nebu three times a day [Active]; lisinopril 20 mg Oral tab once daily [Active]; Tegretol 100 mg/5 mL Oral susp 10 mL twice a day [Active]; Vitamin D3 1,000 unit Oral tab daily [Active]; - PMHx: 12:17 Anxiety; Aphasia; BPH; Contracture; COPD; Dementia; Depression; DYSPHAGIA; aj Hypertension; Pneumonia; pressure ulcer stage 2; Schizophrenia; vitamin d deficiency; - PSHx: 12:17 PEG tube; aj - Immunization history:: Adult Immunizations up to date. - Social history:: Smoking status: Patient/guardian denies using tobacco. - Ebola Screening: : Patient negative for fever greater than or equal to 101.5 degrees Fahrenheit, and additional compatible Ebola Virus Disease symptoms Patient denies exposure to infectious person Patient denies travel to an Ebola-affected area in the 21 days before illness onset No symptoms or risks identified at this time. ROS: 12:20 Constitutional: Negative for fever. cp 12:20 Abdomen/GI: Negative for vomiting, diarrhea, constipation, black/tarry stool, rectal cp bleeding. 12:20 Skin: Negative for cellulitis, rash. 12:20 Neuro: Negative for altered mental status. 12:20 Unable to obtain ROS due to baseline dementia. Exam: 12:30 Constitutional: The patient appears in no acute distress, non-toxic, well developed, cp frail. 12:30 Head/Face: Normocephalic, atraumatic. cp 12:30 Eyes: Periorbital structures: appear normal, Conjunctiva: normal, no exudate, no injection, Sclera: no appreciated abnormality, Lids and lashes: appear normal, bilaterally. 12:30 ENT: External ear(s): are unremarkable, Nose: is normal, Mouth: Lips: dry, Oral mucosa: moist, Posterior pharynx: is normal, airway is patent, no erythema, no exudate. 12:30 Chest/axilla: Inspection: normal, Palpation: is normal, no crepitus, no tenderness. 12:30 Cardiovascular: Rate: normal, Rhythm: regular, JVD: is not appreciated. 12:30 Respiratory: the patient does not display signs of respiratory distress, Respirations: normal, no use of accessory muscles, no retractions, no splinting, no tachypnea, labored breathing, is not present, Breath sounds: are clear throughout, no decreased breath sounds, no stridor, no wheezing. 12:30 Abdomen/GI: Inspection: gastrostomy noted w/o PEG tube, Bowel sounds: active, all cp quadrants, Palpation: abdomen is soft and non-tender, in all quadrants. 12:30 Skin: cellulitis, is not appreciated, no rash present. 12:30 Neuro: Orientation: no acute changes, per EMS, Mentation: no acute changes, per EMS. cp Vital Signs: 12:17 BP 140 / 89; Pulse 81; Resp 16; Temp 98.4; Pulse Ox 99% on R/A; Weight 81.65 kg; Height aj 6 ft. 1 in. (185.42 cm); 15:48 mg2 16:01 BP 151 / 89; Pulse 74; Resp 16; Pulse Ox 97% on R/A; mw2 12:17 Body Mass Index 23.75 (81.65 kg, 185.42 cm) aj 15:48 patient is sleeping mg2 Procedures: 13:35 G-tube placement: a 18 Macedonian catheter was placed, placed by AGUSTIN Davidson and cp verified by ADONIS benito. MDM: 12:12 Patient medically screened. cp 13:37 Data reviewed: vital signs, nurses notes, radiologic studies, plain films. cp 13:37 Test interpretation: by ED physician or midlevel provider: plain radiologic studies. cp Counseling: I had a detailed discussion with the patient and/or guardian regarding: the historical points, exam findings, and any diagnostic results supporting the discharge/admit diagnosis, radiology results, to return to the emergency department if symptoms worsen or persist or if there are any questions or concerns that arise at home. Response to treatment: the patient's symptoms have resolved after treatment, and as a result, I will discharge patient. 05/27 12:46 Order name: PEG Tube Check w/contrast cp 05/27 13:36 Order name: Misc. Order: abdominal binder; Complete Time: 13:59 cp Administered Medications: No medications were administered Disposition: 16:00 Chart complete. cp Disposition: 05/27/18 13:39 Discharged to Home. Impression: Gastrostomy status - Replacement of tube. - Condition is Stable. - Discharge Instructions: Gastrostomy Tube Home Guide, Adult. - Medication Reconciliation Form, Thank You Letter, Antibiotic Education, Prescription Opioid Use form. - Follow up: Emergency Department; When: As needed; Reason: Worsening of condition. - Problem is new. - Symptoms are resolved. Addendum: 05/31/2018 16:48 Co-signature as Attending Physician, Marlo Mills MD. g s Signatures: Dispatcher [employer] EDDE Shannen Sequeira RN RN aj Williams, Irene, RN RN iw Page, Corey, PA PA cp Starr, Gregory, MD MD gs Corrections: (The following items were deleted from the chart) 05/27 16:15 13:39 05/27/2018 13:39 Discharged to Home. Impression: Gastrostomy status - Replacement iw of tube. Condition is Stable. Forms are Medication Reconciliation Form, Thank You Letter, Antibiotic Education, Prescription Opioid Use. Follow up: Emergency Department; When: As needed; Reason: Worsening of condition. Problem is new. Symptoms are resolved. cp
--- NOTE | 2018-05-27 13:40 | ER ---
Nurse's Notes [facility] Name: Shelia Miranda Age: 62 yrs Sex: Male : 1955 Arrival Date: 05/27/2018 Time: 12:07 Bed 26 Private MD: Diagnosis: Gastrostomy status-Replacement of tube Presentation: 05/27 12:12 Presenting complaint: EMS states: Patient pulled out his G tube some time this AM or aj last night. Transition of care: patient was received from another setting of care ([facility]. Onset of symptoms is unknown. Risk Assessment: Do you want to hurt yourself or someone else? Patient reports no desire to harm self or others. Initial Sepsis Screen: Does the patient meet any 2 criteria? No. Patient's initial sepsis screen is negative. Does the patient have a suspected source of infection? No. Patient's initial sepsis screen is negative. Note Patient arrived in [facility] gown that was urine soaked with urine soaked linens. Patient was last seen in this facility 4 days ago. Care prior to arrival: None. 12:12 Method Of Arrival: EMS: [facility] aj 12:12 Acuity: WINSOME 4 aj Triage Assessment: 12:17 General: Appears in no apparent distress. slender, unkempt, Behavior is unresponsive. aj Smells of Urine. Pain: Unable to use pain scale. Patient is unresponsive. Neuro: Level of Consciousness is awake, WNL for patient. Oriented to none. Respiratory: Airway is patent Respiratory effort is even, unlabored, Respiratory pattern is regular, symmetrical. GI: PEG tube Removed [employer]. Site appears healed with no S\\T\\S of infection. Derm: Skin is intact, is healthy with good turgor, Skin is pink, warm \\T\\ dry. normal. Musculoskeletal: Contractures noted to bilateral arms and legs. Historical: - Allergies: 12:17 NKA; aj - Home Meds: 12:17 acetaminophen-codeine 300-30 mg Oral tab three times a day [Active]; aspirin 81 mg Oral aj TbEC 1 tab once daily [Active]; Catapres 0.1 mg Oral tab every 8 hours [Active]; ipratropium-albuterol 0.5 mg-3 mg(2.5 mg base)/3 mL Inhl nebu three times a day [Active]; lisinopril 20 mg Oral tab once daily [Active]; Tegretol 100 mg/5 mL Oral susp 10 mL twice a day [Active]; Vitamin D3 1,000 unit Oral tab daily [Active]; - PMHx: 12:17 Anxiety; Aphasia; BPH; Contracture; COPD; Dementia; Depression; DYSPHAGIA; aj Hypertension; Pneumonia; pressure ulcer stage 2; Schizophrenia; vitamin d deficiency; - PSHx: 12:17 PEG tube; aj - Immunization history:: Adult Immunizations up to date. - Social history:: Smoking status: Patient/guardian denies using tobacco. - Ebola Screening: : Patient negative for fever greater than or equal to 101.5 degrees Fahrenheit, and additional compatible Ebola Virus Disease symptoms Patient denies exposure to infectious person Patient denies travel to an Ebola-affected area in the 21 days before illness onset No symptoms or risks identified at this time. Screenin:37 Abuse screen: Denies threats or abuse. Denies injuries from another. Nutritional aj screening: No deficits noted. Tuberculosis screening: No symptoms or risk factors identified. Fall Risk None identified. Assessment: 12:37 Reassessment: See triage. aj 13:31 Reassessment: Adult Protective Services report filed. Confirmation number [id number]. aj 14:00 Reassessment: Abdominal binder in place. aj 14:30 Reassessment: Ellen stated "I will call them and call you back with an ETA.". aj 14:41 Reassessment: Ciro "Ellen signed off for the day. She made a note that [facility] would be there to get Mr Miranda between 1 hour to 1.5 hours.". Vital Signs: 12:17 BP 140 / 89; Pulse 81; Resp 16; Temp 98.4; Pulse Ox 99% on R/A; Weight 81.65 kg; Height aj 6 ft. 1 in. (185.42 cm); 15:48 mg2 16:01 BP 151 / 89; Pulse 74; Resp 16; Pulse Ox 97% on R/A; mw2 12:17 Body Mass Index 23.75 (81.65 kg, 185.42 cm) aj 15:48 patient is sleeping mg2 ED Course: 12:07 Patient arrived in ED. iw 12:09 Shannen Sequeira, RN is Primary Nurse. aj 12:11 Domingo Bronson PA is PHCP. cp 12:11 Marlo Mills MD is Attending Physician. cp 12:14 Triage completed. aj 12:17 Arm band placed on right wrist. Patient placed in an exam room, on a stretcher. aj 12:37 Patient has correct armband on for positive identification. aj 12:37 Replace G tube. aj 13:08 X-ray completed. Portable x-ray completed in exam room. jr1 13:09 PEG Tube Check w/contrast In Process Unspecified. EDMT 13:57 Report given to Ellen at [facility]. "Will call you back to let you know ETA of EMS.". aj 16:10 Patient did not have IV access during this emergency room visit. mg2 Administered Medications: No medications were administered Outcome: 13:39 Discharge ordered by MD. cp 16:10 Discharged to care home. mg2 16:10 Condition: stable 16:10 Discharge instructions given to patient, Instructed on discharge instructions, Demonstrated understanding of instructions. 16:15 Patient left the ED. iw Signatures: Dispatcher [employer] EDMS Shannen Sequeira, RN RN Paula Garcia jr1 Nazia Bose, RN RN iw Domingo Bronson PA PA Meenu Middleton mw2 Erik Stroud, RN RN mg2 Corrections: (The following items were deleted from the chart) 14:39 13:57 Report given to Ellen at [facility] aj aj
[2018-05-27 17:04] VITALS: TEMP 98.4
[2018-05-27 17:05] VITALS: BP 151/89; O2SAT 97
== END 2018-05-27 16:15 | disposition home or self-care (01) ==
LOC: ER 12:04
DX: Z93.1 Gastrostomy status (principal)
CPT/HCPCS: 49465; 99283

== ENCOUNTER 2018-05-30 10:28 | Emergency (ER) | payer OTHER ==
--- NOTE | 2018-05-30 12:10 | RAD REPORT ---
EXAM DESCRIPTION: RAD - ENTEROSTOMY TUBE CHECK W/CONTR - 05/30/2018 11:49 am CLINICAL HISTORY: g tube placement COMPARISON: ENTEROSTOMY TUBE CHECK W/CONTR dated 05/27/2018 FINDINGS: Contrast was infused via the gastrostomy tube. The contrast is seen in the stomach, indica ting adequate placement. No contrast extravasation or leakage seen. A single radiograph was obtained.
--- NOTE | 2018-05-30 12:15 | EDPHYS ---
Physician Documentation [facility] Name: Shelia Miranda Age: 62 yrs Sex: Male : 1955 Arrival Date: 05/30/2018 Time: 10:33 Bed 15 Private MD: ED Physician Hakeem Peters HPI: 05/30 10:57 This 62 yrs old Black Male presents to ER via EMS with complaints of Problem With jmm Feeding Tube. 10:57 Onset: The symptoms/episode began/occurred today. Associated signs and symptoms: The jmm patient has no apparent associated signs or symptoms. The patient has experienced similar episodes in the past, several times. This is a 62 year old male whom has taken his G Tube out according to EMS. This happens regularly. Patient has no other complaints of pain, shortness of breath, fever, chest pain. . Historical: - Allergies: 10:35 NKA; aa5 - PMHx: 10:35 Anxiety; Aphasia; BPH; Contracture; COPD; Dementia; Depression; DYSPHAGIA; aa5 Hypertension; Pneumonia; pressure ulcer stage 2; Schizophrenia; vitamin d deficiency; - PSHx: 10:35 PEG tube; aa5 - Immunization history:: Adult Immunizations unknown. - Social history:: Smoking status: Patient/guardian denies using tobacco. - Ebola Screening: : No symptoms or risks identified at this time. ROS: 10:57 Constitutional: Negative for fever, chills, and weight loss, Cardiovascular: Negative jm for chest pain, palpitations, and edema, Respiratory: Negative for shortness of breath, cough, wheezing, and pleuritic chest pain. 10:57 All other systems are negative. Exam: 10:57 Head/Face: atraumatic. Chest/axilla: Normal chest wall appearance and motion. jm Cardiovascular: Regular rate and rhythm. No edema appreciated Respiratory: Normal respirations, no respiratory distress appreciated 10:57 Constitutional: The patient appears in no acute distress, alert, awake. 10:57 Abdomen/GI: G tube insertion site noted, no surrounding erythema, induration, or purulent drainage appreciated. . 10:57 Skin: Appearance: Color: normal in color. 10:57 Psych: Behavior/mood is pleasant, cooperative. Vital Signs: 10:35 BP 156 / 92; Pulse 70; Resp 18 S; Temp 97.2(TE); Pulse Ox 100% on R/A; Pain 0/10; aa5 12:00 BP 164 / 93; Pulse 82; Resp 18 S; Pulse Ox 100% on R/A; aa5 Procedures: 10:57 G-tube placement: a 22 Canadian catheter was placed. kris MDM: 10:57 Patient medically screened. [facility] 12:12 Data reviewed: vital signs, nurses notes. [facility] 12:13 Data interpreted: Pulse oximetry: on room air is 100 %. Interpretation: normal. kris Counseling: I had a detailed discussion with the patient and/or guardian regarding: the historical points, exam findings, and any diagnostic results supporting the discharge/admit diagnosis, radiology results, the need for outpatient follow up, to return to the emergency department if symptoms worsen or persist or if there are any questions or concerns that arise at home. 05/30 11:15 Order name: Enterostomy Tube Check w/contr; Complete Time: 12:11 kris Administered Medications: No medications were administered Disposition: 15:45 Co-signature as Attending Physician, Hakeem Peters MD. rn Disposition: 05/30/18 12:15 Discharged to Home. Impression: Encounter for attention to gastrostomy. - Condition is Stable. - Discharge Instructions: Gastrostomy Tube Replacement. - Medication Reconciliation Form, Thank You Letter, Antibiotic Education, Prescription Opioid Use form. - Follow up: Private Physician; When: 2 - 3 days; Reason: Recheck today's complaints, Continuance of care, Re-evaluation by your physician. Signatures: Dispatcher [employer] EDMS Charlie Willis PA PA jmm Munoz, Edgar, ELEMENTARY ASSISTANT TEACHER ELEMENTARY ASSISTANT TEACHER Hakeem Davis MD MD rn Calderon, Audri, RN RN aa5 Corrections: (The following items were deleted from the chart) 13:30 12:15 05/30/2018 12:15 Discharged to Home. Impression: Encounter for attention to em gastrostomy. Condition is Stable. Forms are Medication Reconciliation Form, Thank You Letter, Antibiotic Education, Prescription Opioid Use. Follow up: Private Physician; When: 2 - 3 days; Reason: Recheck today's complaints, Continuance of care, Re-evaluation by your physician. [facility] 20:49 20:49 G-tube placement: a 22 Canadian catheter was placed, kris ponce
--- NOTE | 2018-05-30 12:15 | ER ---
Nurse's Notes [facility] Name: Shelia Miranda Age: 62 yrs Sex: Male : 1955 Arrival Date: 05/30/2018 Time: 10:33 Bed 15 Private MD: Diagnosis: Encounter for attention to gastrostomy Presentation: 05/30 10:33 Presenting complaint: EMS states: pulled out PEG tube today as reported by jail.aa5 10:33 Transition of care: patient was received from another setting of care (long-term care [facility] facility), [facility]. Onset of symptoms was May 30, 2018. Risk Assessment: Do you want to hurt yourself or someone else? Patient reports no desire to harm self or others. Initial Sepsis Screen: Does the patient meet any 2 criteria? No. Patient's initial sepsis screen is negative. Does the patient have a suspected source of infection? No. Patient's initial sepsis screen is negative. Care prior to arrival: None. 10:33 Method Of Arrival: EMS: [facility] aa5 10:33 Acuity: WINSOME 4 aa5 Historical: - Allergies: 10:35 NKA; aa5 - PMHx: 10:35 Anxiety; Aphasia; BPH; Contracture; COPD; Dementia; Depression; DYSPHAGIA; aa5 Hypertension; Pneumonia; pressure ulcer stage 2; Schizophrenia; vitamin d deficiency; - PSHx: 10:35 PEG tube; aa5 - Immunization history:: Adult Immunizations unknown. - Social history:: Smoking status: Patient/guardian denies using tobacco. - Ebola Screening: : No symptoms or risks identified at this time. Screenin:28 Abuse screen: Denies threats or abuse. Nutritional screening: No deficits noted. em Tuberculosis screening: No symptoms or risk factors identified. Fall Risk None identified. Assessment: 10:38 General: Appears comfortable, Behavior is calm, cooperative. Pain: Denies pain. Neuro: aa5 Level of Consciousness is awake, obeys commands, confused, Oriented to person, place, Delivery Rep are equal bilaterally Moves all extremities. Speech is normal, Unable to visualize right pupil. Left pupil is 3mm in size, round, and reactive to light. . Cardiovascular: Heart tones S1 S2 present Rhythm is regular. Respiratory: Airway is patent Respiratory effort is even, unlabored, Respiratory pattern is regular, symmetrical. GI: Abdomen is flat, non-distended, Bowel sounds present X 4 quads. Abd is soft X 4 quads PEG tube site without signs of infection, dressing and tape noted to site. : brief noted. EENT: No signs and/or symptoms were reported regarding the EENT system. Derm: Skin is dry, Skin is normal, Skin temperature is warm. Musculoskeletal: Pt is bed bound. 11:15 Reassessment: 16 Fr PEG tube placed by AGUSTIN Raphael, pt tolerated well. Abd binder aa5 placed after per AGUSTIN VO. . 12:00 Reassessment: Pt resting in bed with eyes closed respirations even and unlabored, skin aa5 is normal/warm/dry. 12:45 Reassessment: Report given to Nurse Ellen (at [facility]). aa5 13:00 Reassessment: Pt resting in bed with eyes closed, respirations even and unlabored, skin aa5 is normal/warm/dry. Awaiting transport back to jail. Pt awakens easily to verbal stimuli. Bed remains in low position, side rails x 2. . Vital Signs: 10:35 BP 156 / 92; Pulse 70; Resp 18 S; Temp 97.2(TE); Pulse Ox 100% on R/A; Pain 0/10; aa5 12:00 BP 164 / 93; Pulse 82; Resp 18 S; Pulse Ox 100% on R/A; aa5 ED Course: 10:33 Patient arrived in ED. ss 10:33 Arm band placed on Patient placed in an exam room, on a stretcher. aa5 10:33 Patient has correct armband on for positive identification. aa5 10:34 Charlie Willis PA is PHCP. [facility] 10:34 Hakeem Peters MD is Attending Physician. jmm 10:37 Elana Mortensen, ARIAS is Primary Nurse. aa5 10:44 Triage completed. aa5 11:48 X-ray completed. Portable x-ray completed in exam room. Patient tolerated procedure ml well. 11:50 Enterostomy Tube Check w/contr In Process Unspecified. EDMS 13:15 No provider procedures requiring assistance completed. aa5 13:28 Patient did not have IV access during this emergency room visit. em Administered Medications: No medications were administered Outcome: 12:15 Discharge ordered by . jmm 13:28 Discharged to home via ambulance. em 13:28 Condition: good 13:28 Discharge instructions given to jail, EMS, Instructed on discharge instructions, follow up and referral plans. 13:30 Patient left the ED. em Signatures: Dispatcher [employer] Charlie Gaviria PA PA jmm Munoz, Edgar, PRINT PRODUCTION COORDINATOR PRINT PRODUCTION COORDINATOR Jodi Urbina Audri, RN RN aa5 Marisol Cordova RN RN ss Corrections: (The following items were deleted from the chart) 10:47 10:35 BP 156 / 92; Pulse 70bpm; Resp 18bpm; Spontaneous; Pulse Ox 100% RA; Temp 98.2F aa5 Temporal; Pain 0/10; aa5 13:16 10:33 Transition of care: patient was received from another setting of care (long-term aa5 care facility), aa5
[2018-05-30 13:35] VITALS: TEMP 97.2; O2SAT 100
[2018-05-30 13:36] VITALS: BP 164/93
== END 2018-05-30 13:30 | disposition home or self-care (01) ==
LOC: ER 10:28
DX: Z43.1 Encounter for attention to gastrostomy (principal)
CPT/HCPCS: 49465; 99283

== ENCOUNTER 2018-06-02 06:46 | Emergency (ER) | payer OTHER ==
--- NOTE | 2018-06-02 07:02 | ER ---
Nurse's Notes [facility] Name: Shelia Miranda Age: 62 yrs Sex: Male : 1955 Arrival Date: 06/02/2018 Time: 06:48 Bed 5 Private MD: Diagnosis: Gastrostomy complications-Pulled gastrostomy tube Presentation: 06/02 06:49 Presenting complaint: EMS states: Called to [facility], pt pulled peg tube ea out. Transition of care: patient was received from another setting of care (long-term care facility), [facility]. Onset of symptoms was June 02, 2018. Risk Assessment: Do you want to hurt yourself or someone else? Patient reports no desire to harm self or others. Initial Sepsis Screen: Does the patient meet any 2 criteria? No. Patient's initial sepsis screen is negative. Does the patient have a suspected source of infection? No. Patient's initial sepsis screen is negative. Care prior to arrival: None. 06:49 Method Of Arrival: EMS: [facility] ea 06:49 Acuity: WINSOME 4 ea Triage Assessment: 06:53 General: Appears in no apparent distress. Behavior is calm, cooperative, appropriate ea for age. Pain: Denies pain. Neuro: Level of Consciousness is awake, alert, Oriented to person, place. Cardiovascular: Patient's skin is warm and dry. Respiratory: Airway is patent Respiratory effort is even, unlabored, Respiratory pattern is regular, symmetrical. GI: Abdomen is non-distended. Derm: Skin is dry, Skin is normal, Skin temperature is warm. Historical: - Allergies: 06:57 NKA; ea - Home Meds: 06:57 acetaminophen-codeine 300-30 mg Oral tab three times a day [Active]; aspirin 81 mg Oral ea TbEC 1 tab once daily [Active]; Catapres 0.1 mg Oral tab every 8 hours [Active]; ipratropium-albuterol 0.5 mg-3 mg(2.5 mg base)/3 mL Inhl nebu three times a day [Active]; lisinopril 20 mg Oral tab once daily [Active]; Tegretol 100 mg/5 mL Oral susp 10 mL twice a day [Active]; Vitamin D3 1,000 unit Oral tab daily [Active]; - PMHx: 06:57 vitamin d deficiency; Schizophrenia; pressure ulcer stage 2; Pneumonia; Hypertension; ea DYSPHAGIA; Depression; Dementia; COPD; Contracture; BPH; Aphasia; Anxiety; - PSHx: 06:57 PEG tube; ea - Immunization history:: Adult Immunizations up to date. - Social history:: Smoking status: Patient/guardian denies using tobacco. - Ebola Screening: : No symptoms or risks identified at this time. Screenin:52 Abuse screen: Denies threats or abuse. Nutritional screening: No deficits noted. ea Tuberculosis screening: No symptoms or risk factors identified. Fall Risk None identified. Vital Signs: 06:51 BP 128 / 80; Pulse 90; Resp 18; Temp 97.8; Pulse Ox 97% on R/A; Weight 90.72 kg; Height ea 6 ft. 3 in. (190.50 cm); Pain 0/10; 06:51 Body Mass Index 25.00 (90.72 kg, 190.50 cm) ea ED Course: 06:48 Patient arrived in ED. ea 06:50 Presley Gilbert PA is PHCP. jr8 06:51 Domingo Sharma MD is Attending Physician. jr8 06:51 Triage completed. ea 06:52 Patient has correct armband on for positive identification. Bed in low position. Call ea light in reach. Side rails up X2. 06:53 Arm band placed on right wrist. Patient placed in an exam room, on a stretcher, on ea pulse oximetry. 06:58 22 F kangaroo peg tube placed by provider, pt tolerated well. ea 07:38 Cortes Monae, RN is Primary Nurse. sg Administered Medications: No medications were administered Outcome: 07:02 Discharge ordered by . jr8 08:54 Patient left the ED. Signatures: Cortes Monae RN RN sg Smirch, Shelby, RN RN Presley Gilbert PA PA jr8 Antunez, Elena, RN RN ea
--- NOTE | 2018-06-02 07:02 | EDPHYS ---
Physician Documentation [facility] Name: Shelia Miranda Age: 62 yrs Sex: Male : 1955 Arrival Date: 06/02/2018 Time: 06:48 Bed 5 Private MD: ED Physician Domingo Sharma HPI: 06/02 07:00 This 62 yrs old Black Male presents to ER via EMS with complaints of Peg Tube jr8 displacement. 07:00 EMS called to bring patient to ED because he pulled gastrostomy tube . Onset: The jr8 symptoms/episode began/occurred acutely, today. Severity of symptoms: At their worst the symptoms were mild in the emergency department the symptoms are unchanged. The patient has experienced similar episodes in the past, multiple times. The patient has been recently seen by a physician:. Historical: - Allergies: 06:57 NKA; ea - Home Meds: 06:57 acetaminophen-codeine 300-30 mg Oral tab three times a day [Active]; aspirin 81 mg Oral ea TbEC 1 tab once daily [Active]; Catapres 0.1 mg Oral tab every 8 hours [Active]; ipratropium-albuterol 0.5 mg-3 mg(2.5 mg base)/3 mL Inhl nebu three times a day [Active]; lisinopril 20 mg Oral tab once daily [Active]; Tegretol 100 mg/5 mL Oral susp 10 mL twice a day [Active]; Vitamin D3 1,000 unit Oral tab daily [Active]; - PMHx: 06:57 vitamin d deficiency; Schizophrenia; pressure ulcer stage 2; Pneumonia; Hypertension; ea DYSPHAGIA; Depression; Dementia; COPD; Contracture; BPH; Aphasia; Anxiety; - PSHx: 06:57 PEG tube; ea - Immunization history:: Adult Immunizations up to date. - Social history:: Smoking status: Patient/guardian denies using tobacco. - Ebola Screening: : No symptoms or risks identified at this time. ROS: 07:00 Eyes: Negative for injury, pain, redness, and discharge, ENT: Negative for injury, jr8 pain, and discharge, Neck: Negative for injury, pain, and swelling, Cardiovascular: Negative for chest pain, palpitations, and edema, Respiratory: Negative for shortness of breath, cough, wheezing, and pleuritic chest pain, Abdomen/GI: Negative for abdominal pain, nausea, vomiting, diarrhea, and constipation, Back: Negative for injury and pain, MS/Extremity: Negative for injury and deformity, Skin: Negative for injury, rash, and discoloration, Neuro: Negative for headache, weakness, numbness, tingling, and seizure. Exam: 07:00 Eyes: Pupils equal round and reactive to light, extra-ocular motions intact. Lids and jr8 lashes normal. Conjunctiva and sclera are non-icteric and not injected. Cornea within normal limits. Periorbital areas with no swelling, redness, or edema. ENT: Nares patent. No nasal discharge, no septal abnormalities noted. Tympanic membranes are normal and external auditory canals are clear. Oropharynx with no redness, swelling, or masses, exudates, or evidence of obstruction, uvula midline. Mucous membranes moist. Neck: Trachea midline, no thyromegaly or masses palpated, and no cervical lymphadenopathy. Supple, full range of motion without nuchal rigidity, or vertebral point tenderness. No Meningismus. Cardiovascular: Regular rate and rhythm with a normal S1 and S2. No gallops, murmurs, or rubs. Normal PMI, no JVD. No pulse deficits. Respiratory: Lungs have equal breath sounds bilaterally, clear to auscultation and percussion. No rales, rhonchi or wheezes noted. No increased work of breathing, no retractions or nasal flaring. Abdomen/GI: Soft, non-tender, with normal bowel sounds. No distension or tympany. No guarding or rebound. No evidence of tenderness throughout. Back: No spinal tenderness. No costovertebral tenderness. Full range of motion. Skin: Warm, dry with normal turgor. Normal color with no rashes, no lesions, and no evidence of cellulitis. MS/ Extremity: Pulses equal, no cyanosis. Neurovascular intact. Full, normal range of motion. Neuro: Awake and alert, GCS 15, oriented to person, place, time, and situation. Cranial nerves II-XII grossly intact. Motor strength 5/5 in all extremities. Sensory grossly intact. Cerebellar exam normal. Normal gait. Vital Signs: 06:51 BP 128 / 80; Pulse 90; Resp 18; Temp 97.8; Pulse Ox 97% on R/A; Weight 90.72 kg; Height ea 6 ft. 3 in. (190.50 cm); Pain 0/10; 06:51 Body Mass Index 25.00 (90.72 kg, 190.50 cm) ea Procedures: 07:00 G-tube placement: a 22 Persian catheter was placed, by the ED physician, Presley VELEZ. jr8 MDM: 06:51 Patient medically screened. jr8 07:00 Data reviewed: vital signs, nurses notes, and as a result, I will discharge patient. jr8 Data interpreted: Pulse oximetry: on room air is 97 %. Interpretation: normal. Counseling: I had a detailed discussion with the patient and/or guardian regarding: the historical points, exam findings, and any diagnostic results supporting the discharge/admit diagnosis, the need for outpatient follow up, a family practitioner, to return to the emergency department if symptoms worsen or persist or if there are any questions or concerns that arise at home. Administered Medications: No medications were administered Disposition: 09:18 Co-signature as Attending Physician, Domingo Sharma MD I agree with the assessment and lana plan of care. Disposition: 06/02/18 07:02 Discharged to Home. Impression: Gastrostomy complications - Pulled gastrostomy tube. - Condition is Stable. - Discharge Instructions: Gastrostomy Tube Replacement, Gastrostomy Tube Home Guide, Adult. - Medication Reconciliation Form, Thank You Letter, Antibiotic Education, Prescription Opioid Use form. - Follow up: Private Physician; When: As needed; Reason: Recheck today's complaints, Continuance of care, Re-evaluation by your physician. - Problem is new. - Symptoms are resolved. Signatures: Domingo Sharma MD MD cha Smirch, Shelby RN Presley Yousif PA PA jr8 Debbie Felipe RN RN edi Corrections: (The following items were deleted from the chart) 08:54 07:02 06/02/2018 07:02 Discharged to Home. Impression: Gastrostomy complications - ss Pulled gastrostomy tube. Condition is Stable. Forms are Medication Reconciliation Form, Thank You Letter, Antibiotic Education, Prescription Opioid Use. Follow up: Private Physician; When: As needed; Reason: Recheck today's complaints, Continuance of care, Re-evaluation by your physician. Problem is new. Symptoms are resolved. jr8
[2018-06-02 09:00] VITALS: BP 128/80; TEMP 97.8; O2SAT 97
== END 2018-06-02 08:54 | disposition home or self-care (01) ==
LOC: ER 06:46
DX: K94.29 Other complications of gastrostomy (principal)
CPT/HCPCS: 99283

== ENCOUNTER 2018-06-25 09:20 | Emergency (ER) | payer OTHER ==
--- NOTE | 2018-06-25 10:22 | ER ---
Nurse's Notes [facility] Name: Shelia Miranda Age: 62 yrs Sex: Male : 1955 Arrival Date: 06/25/2018 Time: 09:31 Bed 16 Private MD: Diagnosis: Gastrostomy status-tube placement Presentation: 06/25 09:39 Presenting complaint: EMS states: Pt pulled G tube. Transition of care: patient was not la1 received from another setting of care. Onset of symptoms was June 25, 2018. Risk Assessment: Do you want to hurt yourself or someone else? Patient reports no desire to harm self or others. Initial Sepsis Screen: Does the patient meet any 2 criteria? No. Patient's initial sepsis screen is negative. Does the patient have a suspected source of infection? No. Patient's initial sepsis screen is negative. Care prior to arrival: None. 09:39 Method Of Arrival: EMS la1 09:39 Acuity: WINSOME 4 la1 Historical: - Allergies: 09:40 NKA; la1 - PMHx: 09:40 Anxiety; Aphasia; BPH; Contracture; COPD; Dementia; Depression; DYSPHAGIA; la1 Hypertension; Pneumonia; pressure ulcer stage 2; Schizophrenia; vitamin d deficiency; - Immunization history:: Adult Immunizations up to date. - Social history:: Smoking status: Patient/guardian denies using tobacco. - Ebola Screening: : No symptoms or risks identified at this time. Screenin:41 Abuse screen: Denies threats or abuse. Nutritional screening: No deficits noted. la1 Tuberculosis screening: No symptoms or risk factors identified. Fall Risk None identified. Assessment: 09:40 General: Appears in no apparent distress. Behavior is calm. Pain: Unable to use pain la1 scale. Patient is disoriented. Does not appear to understand pain scale. Neuro: Level of Consciousness is awake. Cardiovascular: Heart tones S1 S2 present. Respiratory: Airway is patent Respiratory effort is even, unlabored, Respiratory pattern is regular, symmetrical. GI: PEG tube not placed. : No signs and/or symptoms were reported regarding the genitourinary system. 10:41 Reassessment: Patient appears in no apparent distress at this time. No changes from la1 previously documented assessment. report called to [facility]. Vital Signs: 09:40 BP 117 / 94; Pulse 74; Resp 16; Temp 98.2; Pulse Ox 98% on R/A; la1 11:56 BP 115 / 84; Pulse 86; Resp 16; Pulse Ox 98% on R/A; la1 ED Course: 09:31 Patient arrived in ED. la1 09:34 Sh[facility] Silva F[facility]-C [facility]. kb 09:34 Jonathan Noble MD is Attending Physician. kb 09:39 Michael Pablo RN is Primary Nurse. la1 09:39 Triage completed. la1 09:39 Arm band placed on right wrist. la1 09:41 Call light in reach. la1 09:41 G tube 18 fr inserted balloon inflated with 20cc NS. Patient did not have IV access la1 during this emergency room visit. 10:10 ENTEROSTOMY TUBE CHECK W/CONTR In Process Unspecified. EDMS Administered Medications: No medications were administered Outcome: 10:22 Discharge ordered by . kb 11:56 Discharged to half-way. la1 11:56 Condition: stable 11:56 Discharge instructions given to half-way, Instructed on discharge instructions, follow up and referral plans. 11:56 Patient left the ED. la1 Signatures: Dispatcher [employer] EDMS Shari Silva FNP-C FNP-Michael Lozano RN RN la1 Corrections: (The following items were deleted from the chart) 10:41 10:41 Reassessment: Patient appears in no apparent distress at this time. No changes la1 from previously documented assessment. Patient and/or family updated on plan of care and expected duration. Pain level reassessed. la1
--- NOTE | 2018-06-25 10:23 | EDPHYS ---
Physician Documentation [facility] Name: Shelia Miranda Age: 62 yrs Sex: Male : 1955 Arrival Date: 06/25/2018 Time: 09:31 Bed 16 Private MD: ED Physician Jonathan Noble HPI: 06/25 09:36 This 62 yrs old Black Male presents to ER via Unassigned with complaints of displaced kb g-tube. 09:36 Pt brought to ER for placement of g-tube. Onset: The symptoms/episode began/occurred at an unknown time. Severity of symptoms: At their worst the symptoms were in the emergency department the symptoms are unchanged. The patient has experienced similar episodes in the past, multiple times. The patient has not recently seen a physician. Historical: - Allergies: 09:40 NKA; la1 - PMHx: 09:40 Anxiety; Aphasia; BPH; Contracture; COPD; Dementia; Depression; DYSPHAGIA; la1 Hypertension; Pneumonia; pressure ulcer stage 2; Schizophrenia; vitamin d deficiency; - Immunization history:: Adult Immunizations up to date. - Social history:: Smoking status: Patient/guardian denies using tobacco. - Ebola Screening: : No symptoms or risks identified at this time. ROS: 09:35 Constitutional: Negative for fever, chills, and weight loss, Cardiovascular: Negative kb for chest pain, palpitations, and edema, Respiratory: Negative for shortness of breath, cough, wheezing, and pleuritic chest pain, Back: Negative for injury and pain, MS/Extremity: Negative for injury and deformity, Skin: Negative for injury, rash, and discoloration, Neuro: Negative for headache, weakness, numbness, tingling, and seizure. 09:35 Abdomen/GI: Positive for gastrostomy . Exam: 09:35 Constitutional: This is a well developed, well nourished patient who is awake, alert, kb and in no acute distress. Head/Face: Normocephalic, atraumatic. Chest/axilla: Normal chest wall appearance and motion. Nontender with no deformity. No lesions are appreciated. Cardiovascular: Regular rate and rhythm with a normal S1 and S2. No gallops, murmurs, or rubs. Normal PMI, no JVD. No pulse deficits. Respiratory: Lungs have equal breath sounds bilaterally, clear to auscultation and percussion. No rales, rhonchi or wheezes noted. No increased work of breathing, no retractions or nasal flaring. Skin: Warm, dry with normal turgor. Normal color with no rashes, no lesions, and no evidence of cellulitis. MS/ Extremity: Pulses equal, no cyanosis. Neurovascular intact. Full, normal range of motion. Neuro: Awake and alert, GCS 15, oriented to person, place, time, and situation. Cranial nerves II-XII grossly intact. Motor strength 5/5 in all extremities. Sensory grossly intact. Cerebellar exam normal. Normal gait. 09:35 Abdomen/GI: Inspection: gastrostomy noted with no tube in place. , Bowel sounds: normal, in all quadrants, Palpation: abdomen is soft and non-tender, in all quadrants. Vital Signs: 09:40 BP 117 / 94; Pulse 74; Resp 16; Temp 98.2; Pulse Ox 98% on R/A; la1 11:56 BP 115 / 84; Pulse 86; Resp 16; Pulse Ox 98% on R/A; la1 Procedures: 09:40 G-tube placement: a 18 Singaporean catheter was placed, by the ED physician, Shari puga CAPSULE FILLER-C. MDM: 09:34 Patient medically screened. kb 09:35 Data reviewed: vital signs, nurses notes. Data interpreted: Pulse oximetry: on room air kb is 98 %. Interpretation: normal. Counseling: I had a detailed discussion with the patient and/or guardian regarding: the historical points, exam findings, and any diagnostic results supporting the discharge/admit diagnosis, radiology results, the need for outpatient follow up, a family practitioner, to return to the emergency department if symptoms worsen or persist or if there are any questions or concerns that arise at home. 06/25 10:09 Order name: ENTEROSTOMY TUBE CHECK W/CONTR EDMS Administered Medications: No medications were administered Disposition: 06/25/18 10:22 Discharged to Home. Impression: Gastrostomy status - tube placement. - Condition is Stable. - Discharge Instructions: PEG Tube Home Guide, [id number]. - Medication Reconciliation Form, Thank You Letter, Antibiotic Education, Prescription Opioid Use form. - Follow up: Emergency Department; When: As needed; Reason: Worsening of condition. Follow up: Private Physician; When: 2 - 3 days; Reason: Recheck today's complaints, Continuance of care, Re-evaluation by your physician. Addendum: 07/05/2018 08:01 Co-signature as Attending Physician, Jonathan Noble MD I agree with the assessment and k dr plan of care. Signatures: Dispatcher [employer] [facility] Shari Silva, CAPSULE FILLER-C CAPSULE FILLER-Ckb Jonathan Noble MD MD [facility] Michael Pablo RN RN la1 Corrections: (The following items were deleted from the chart) 06/25 10:09 09:35 Abdomen 1 View (KUB)+[id number].RAD.BRZ ordered. [facility] 11:56 10:22 06/25/2018 10:22 Discharged to Home. Impression: Gastrostomy status - tube la1 placement. Condition is Stable. Forms are Medication Reconciliation Form, Thank You Letter, Antibiotic Education, Prescription Opioid Use. Follow up: Emergency Department; When: As needed; Reason: Worsening of condition. Follow up: Private Physician; When: 2 - 3 days; Reason: Recheck today's complaints, Continuance of care, Re-evaluation by your physician. kb
[2018-06-25 12:04] VITALS: TEMP 98.2; O2SAT 98
[2018-06-25 12:05] VITALS: BP 115/84
--- NOTE | 2018-06-25 12:15 | RAD REPORT ---
EXAM DESCRIPTION: RAD - ENTEROSTOMY TUBE CHECK W/CONTR - 06/25/2018 10:10 am CLINICAL HISTORY: with gastrografin, chest g-tube placement COMPARISON: ENTEROSTOMY TUBE CHECK W/CONTR dated 05/30/2018 FINDINGS: Contrast injection into the gastrostomy tube was performed. The contrast is seen within th e stomach, indicating appropriate placement. Two radiographs were obtained.
== END 2018-06-25 11:56 | disposition home or self-care (01) ==
LOC: ER 09:20
DX: Z43.1 Encounter for attention to gastrostomy (principal); F03.90 Unspecified dementia, unspecified severity, without behavioral disturbance, psychotic disturbance, mood disturbance, and anxiety; I10 Essential (primary) hypertension
CPT/HCPCS: 49465; 99283

== ENCOUNTER 2018-06-30 06:01 | Emergency (ER) | payer OTHER ==
--- NOTE | 2018-06-30 06:32 | ER ---
Nurse's Notes [facility] Name: Shelia Miranda Age: 62 yrs Sex: Male : 1955 Arrival Date: 06/30/2018 Time: 06:06 Bed 7 Private MD: Diagnosis: G tube replacement Presentation: 06/30 06:07 Presenting complaint: EMS states: Pt pulled out G-tube about an hour [employer]. Vitals tl2 stable. Transition of care: patient was received from another setting of care (long-term care facility), [facility]. Onset of symptoms was June 30, 2018 at 05:00. Risk Assessment: Do you want to hurt yourself or someone else? Patient reports no desire to harm self or others. Initial Sepsis Screen: Does the patient meet any 2 criteria? No. Patient's initial sepsis screen is negative. Does the patient have a suspected source of infection? No. Patient's initial sepsis screen is negative. Care prior to arrival: None. 06:07 Method Of Arrival: EMS: [facility] tl2 06:07 Acuity: WINSOME 4 tl2 Triage Assessment: 06:10 General: Appears in no apparent distress. uncomfortable, Behavior is calm, cooperative, tl2 appropriate for age. Pain: Denies pain. Neuro: Level of Consciousness is awake, alert. Cardiovascular: Denies chest pain. Respiratory: Airway is patent Respiratory effort is even, unlabored, Respiratory pattern is regular, symmetrical. GI: PEG tube removed by patient. : No signs and/or symptoms were reported regarding the genitourinary system. Derm: Skin is pink, warm \T\ dry. Historical: - Allergies: 06:10 NKA; tl2 06:13 NKA; ea - Home Meds: 06:10 acetaminophen-codeine 300-30 mg Oral tab three times a day [Active]; aspirin 81 mg Oral tl2 TbEC 1 tab once daily [Active]; Catapres 0.1 mg Oral tab every 8 hours [Active]; ipratropium-albuterol 0.5 mg-3 mg(2.5 mg base)/3 mL Inhl nebu three times a day [Active]; lisinopril 20 mg Oral tab once daily [Active]; Tegretol 100 mg/5 mL Oral susp 10 mL twice a day [Active]; Vitamin D3 1,000 unit Oral tab daily [Active]; 06:13 Vitamin D3 1,000 unit Oral tab daily [Active]; Tegretol 100 mg/5 mL Oral susp 10 mL ea twice a day [Active]; lisinopril 20 mg Oral tab once daily [Active]; ipratropium-albuterol 0.5 mg-3 mg(2.5 mg base)/3 mL Inhl nebu three times a day [Active]; Catapres 0.1 mg Oral tab every 8 hours [Active]; aspirin 81 mg Oral TbEC 1 tab once daily [Active]; acetaminophen-codeine 300-30 mg Oral tab three times a day [Active]; - PMHx: 06:10 Anxiety; Aphasia; BPH; Contracture; COPD; Dementia; Depression; DYSPHAGIA; tl2 Hypertension; Pneumonia; pressure ulcer stage 2; Schizophrenia; vitamin d deficiency; 06:13 vitamin d deficiency; Schizophrenia; pressure ulcer stage 2; Pneumonia; Hypertension; ea DYSPHAGIA; Depression; Dementia; COPD; Contracture; BPH; Aphasia; Anxiety; - Immunization history:: Adult Immunizations up to date, Adult Immunizations up to date. - Social history:: Smoking status: Patient/guardian denies using tobacco, Smoking status: Patient/guardian denies using tobacco. - Ebola Screening: : No symptoms or risks identified at this time No symptoms or risks identified at this time. Screenin:09 Abuse screen: Denies threats or abuse. Nutritional screening: No deficits noted. ea Tuberculosis screening: No symptoms or risk factors identified. Fall Risk Gait- Normal/Bed Rest/Wheelchair (0 pts). Assessment: 06:13 General: see triage assessment. tl2 06:25 Reassessment: Patient and/or family updated on plan of care and expected duration. Pain ea level reassessed. Pt alert and O x 1, respirations even and unlabored, chest expansions even and symmetrical. No s/s of pain or discomfort noted at this time. [facility] at facility for transfer. Pt taken via stretcher. Vital Signs: 06:08 BP 145 / 93; Pulse 80; Resp 18; Temp 97.6(TE); Pulse Ox 97% on R/A; Weight 86.18 kg; ea Height 6 ft. 0 in. (182.88 cm); Pain 0/10; 06:08 Body Mass Index 25.77 (86.18 kg, 182.88 cm) ea ED Course: 06:06 Patient arrived in ED. tl2 06:08 Triage completed. tl2 06:10 Arm band placed on right wrist. tl2 06:12 Patient has correct armband on for positive identification. Bed in low position. Call tl2 light in reach. Side rails up X2. 06:13 16 Fr peg tube placed by Dr. Martin, balloon inflated, awaiting KUB to verify ea placement. Pt tolerated well. 06:22 Greer Land RN is Primary Nurse. tl2 06:23 Mayo Martin MD is Attending Physician. tw4 06:28 Patient did not have IV access during this emergency room visit. ea Administered Medications: No medications were administered Outcome: : Discharged to longterm. ea :27 Condition: improved 06:27 Discharge instructions given to EMS, Instructed on discharge instructions, follow up and referral plans. Demonstrated understanding of instructions, follow-up care. 06:31 Discharge ordered by MD. tw4 06:38 Patient left the ED. ea Signatures: Greer Land RN RN tl2 Debbie Felipe RN RN ea Wadley, Terrence, MD MD tw4
--- NOTE | 2018-06-30 06:32 | EDPHYS ---
Physician Documentation [facility] Name: Shelia Miranda Age: 62 yrs Sex: Male : 1955 Arrival Date: 06/30/2018 Time: 06:06 Bed 7 Private MD: ED Physician Mayo Martin HPI: 06/30 06:28 This 62 yrs old Black Male presents to ER via EMS with complaints of Pulled out G-tube. tw4 06:28 pulled out G tube. Severity of symptoms: At their worst the symptoms were moderate. The tw4 patient has not experienced similar symptoms in the past. Historical: - Allergies: 06:10 NKA; tl2 06:13 NKA; ea - Home Meds: 06:10 acetaminophen-codeine 300-30 mg Oral tab three times a day [Active]; aspirin 81 mg Oral tl2 TbEC 1 tab once daily [Active]; Catapres 0.1 mg Oral tab every 8 hours [Active]; ipratropium-albuterol 0.5 mg-3 mg(2.5 mg base)/3 mL Inhl nebu three times a day [Active]; lisinopril 20 mg Oral tab once daily [Active]; Tegretol 100 mg/5 mL Oral susp 10 mL twice a day [Active]; Vitamin D3 1,000 unit Oral tab daily [Active]; 06:13 Vitamin D3 1,000 unit Oral tab daily [Active]; Tegretol 100 mg/5 mL Oral susp 10 mL ea twice a day [Active]; lisinopril 20 mg Oral tab once daily [Active]; ipratropium-albuterol 0.5 mg-3 mg(2.5 mg base)/3 mL Inhl nebu three times a day [Active]; Catapres 0.1 mg Oral tab every 8 hours [Active]; aspirin 81 mg Oral TbEC 1 tab once daily [Active]; acetaminophen-codeine 300-30 mg Oral tab three times a day [Active]; - PMHx: 06:10 Anxiety; Aphasia; BPH; Contracture; COPD; Dementia; Depression; DYSPHAGIA; tl2 Hypertension; Pneumonia; pressure ulcer stage 2; Schizophrenia; vitamin d deficiency; 06:13 vitamin d deficiency; Schizophrenia; pressure ulcer stage 2; Pneumonia; Hypertension; ea DYSPHAGIA; Depression; Dementia; COPD; Contracture; BPH; Aphasia; Anxiety; - Immunization history:: Adult Immunizations up to date, Adult Immunizations up to date. - Social history:: Smoking status: Patient/guardian denies using tobacco, Smoking status: Patient/guardian denies using tobacco. - Ebola Screening: : No symptoms or risks identified at this time No symptoms or risks identified at this time. ROS: 06:28 Constitutional: Negative for fever, chills, and weight loss, Eyes: Negative for injury, tw4 pain, redness, and discharge, Cardiovascular: Negative for chest pain, palpitations, and edema, Respiratory: Negative for shortness of breath, cough, wheezing, and pleuritic chest pain. 06:28 Abdomen/GI: Positive for G tube displacement. Exam: 06:28 Head/Face: Normocephalic, atraumatic. Chest/axilla: Normal chest wall appearance and tw4 motion. Nontender with no deformity. No lesions are appreciated. Cardiovascular: Regular rate and rhythm with a normal S1 and S2. No gallops, murmurs, or rubs. Normal PMI, no JVD. No pulse deficits. Respiratory: Lungs have equal breath sounds bilaterally, clear to auscultation and percussion. No rales, rhonchi or wheezes noted. No increased work of breathing, no retractions or nasal flaring. 06:28 Constitutional: The patient appears in no acute distress, alert, awake. 06:28 Abdomen/GI: Inspection: abdomen appears normal, Bowel sounds: normal, Palpation: abdomen is soft and non-tender, stoma of G tube patent no active bleeding. Vital Signs: 06:08 BP 145 / 93; Pulse 80; Resp 18; Temp 97.6(TE); Pulse Ox 97% on R/A; Weight 86.18 kg; ea Height 6 ft. 0 in. (182.88 cm); Pain 0/10; 06:08 Body Mass Index 25.77 (86.18 kg, 182.88 cm) ea Procedures: 06:28 G-tube placement: a 16 Gibraltarian catheter was placed, by the ED physician, Mayo peres MD. MDM: 06:24 Patient medically screened. tw4 06:28 Differential Diagnosis g tube displacement. Data reviewed: vital signs, nurses notes. ja Counseling: I had a detailed discussion with the patient and/or guardian regarding: the historical points, exam findings, and any diagnostic results supporting the discharge/admit diagnosis. Special discussion: I discussed with the patient/guardian in detail that at this point there is no indication for admission to the hospital. It is understood, however, that if the symptoms persist or worsen the patient needs to return immediately for re-evaluation. ED course: G tube replaced without difficulty pt tolerated procedure well. Administered Medications: No medications were administered Disposition: 06/30/18 06:31 Discharged to Home. Impression: G tube replacement. - Condition is Stable. - Medication Reconciliation Form, Thank You Letter, Antibiotic Education, Prescription Opioid Use form. - Follow up: Private Physician; When: Upon discharge from the Emergency Department; Reason: If symptoms return, Recheck today's complaints, Continuance of care. - Problem is new. - Symptoms have improved. Signatures: Dispatcher [employer] [facility] Greer Land RN RN tl2 Debbie Felipe RN RN Mayo Posada MD MD tw4 Corrections: (The following items were deleted from the chart) 06:32 06:08 Abdomen 1 View (KUB)+RAD.RAD.BRZ ordered. [facility] 06:38 06:31 06/30/2018 06:31 Discharged to Home. Impression: G tube replacement. Condition is ea Stable. Forms are Medication Reconciliation Form, Thank You Letter, Antibiotic Education, Prescription Opioid Use. Follow up: Private Physician; When: Upon discharge from the Emergency Department; Reason: If symptoms return, Recheck today's complaints, Continuance of care. Problem is new. Symptoms have improved. tw4
[2018-06-30 06:43] VITALS: BP 145/93; TEMP 97.6; O2SAT 97
== END 2018-06-30 06:38 | disposition home or self-care (01) ==
LOC: ER 06:01
DX: Z43.1 Encounter for attention to gastrostomy (principal); Z46.89 Encounter for fitting and adjustment of other specified devices; F41.9 Anxiety disorder, unspecified; J44.9 Chronic obstructive pulmonary disease, unspecified; I10 Essential (primary) hypertension; N40.0 Benign prostatic hyperplasia without lower urinary tract symptoms
CPT/HCPCS: 99283

== ENCOUNTER 2018-07-06 13:57 | Emergency (ER) | payer OTHER ==
--- NOTE | 2018-07-06 16:05 | RAD REPORT ---
EXAM DESCRIPTION: RAD - Abdomen 1 View (KUB) - 07/06/2018 3:05 pm CLINICAL HISTORY: Abdominal pain, dislodged gastric tube COMPARISON: Multiple preceding studies FINDINGS: The patient's gastric tube was replaced or repositioned. Two KUB images were obtained prio r to and subsequent to contrast administration. Balloon tip of the gastric tube is in the antrum. All injected contrast remains within the lumen of the stomach and duodenum. Large amount of stool is scattered throughout the colon. No bowel obstruction, free air or pneumatosi s. IMPRESSION: Gastric tube has been replaced or repositioned. Balloon tip is in the antrum of the stom ach.
--- NOTE | 2018-07-06 16:17 | EDPHYS ---
Physician Documentation [facility] Name: Shelia Miranda Age: 62 yrs Sex: Male : 1955 Arrival Date: 07/06/2018 Time: 13:58 Bed 26 Private MD: ED Physician Jonathan Noble HPI: 07/06 14:26 This 62 yrs old Black Male presents to ER via EMS with complaints of Pulled G Tube Out. [facility] 14:26 Onset: The symptoms/episode began/occurred acutely, just prior to arrival. This is a 62 jmm year old male with a history of COPD, Dementia, contracture that presents to the ED after pulling out his G Tube. This occurs regularly. No other known complaints. . Historical: - Allergies: 14:12 NKA; kr2 - Home Meds: 14:12 acetaminophen-codeine 300-30 mg Oral tab three times a day [Active]; aspirin 81 mg Oral kr2 TbEC 1 tab once daily [Active]; Catapres 0.1 mg Oral tab every 8 hours [Active]; ipratropium-albuterol 0.5 mg-3 mg(2.5 mg base)/3 mL Inhl nebu three times a day [Active]; lisinopril 20 mg Oral tab once daily [Active]; Tegretol 100 mg/5 mL Oral susp 10 mL twice a day [Active]; Vitamin D3 1,000 unit Oral tab daily [Active]; - PMHx: 14:12 Anxiety; Aphasia; BPH; Contracture; COPD; Dementia; Depression; DYSPHAGIA; kr2 Hypertension; Pneumonia; pressure ulcer stage 2; Schizophrenia; vitamin d deficiency; - PSHx: 14:12 PEG tube; kr2 - Immunization history:: Adult Immunizations up to date. - Social history:: Smoking status: Patient/guardian denies using tobacco. - Ebola Screening: : No symptoms or risks identified at this time. ROS: 14:26 Constitutional: Negative for fever. jmm 14:26 Abdomen/GI: Negative for vomiting. 14:26 All other systems are negative. Exam: 14:26 Head/Face: atraumatic. Eyes: EOMI, no conjunctival erythema appreciated ENT: Moist jm Mucus Membranes Neck: Trachea midline, Supple Chest/axilla: Normal chest wall appearance and motion. Cardiovascular: Regular rate and rhythm. No edema appreciated Respiratory: Normal respirations, no respiratory distress appreciated 14:26 Constitutional: The patient appears in no acute distress, alert, awake. 14:26 Abdomen/GI: G-tube insertion site noted, no purulent drainage or surrounding erythema appreciated. . 14:26 Skin: Appearance: Color: normal in color. 14:26 Neuro: Motor: is normal. 14:26 Psych: Behavior/mood is pleasant, cooperative. Vital Signs: 14:20 BP 121 / 79; Pulse 74; Resp 18; Temp 98.1; Pulse Ox 99% on R/A; kr2 17:01 BP 130 / 78; Pulse 70; Resp 17; Pulse Ox 97% on R/A; kr2 Procedures: 16:40 G-tube placement: a 16 Qatari catheter was placed, placed by me. [facility] MDM: 14:26 Patient medically screened. [facility] 15:59 Data reviewed: vital signs, nurses notes. [facility] 07/06 14:26 Order name: Abdomen 1 View (KUB) XRAY; Complete Time: 16:10 [facility] Administered Medications: No medications were administered Disposition: 18:03 Co-signature as Attending Physician, Jonathan Noble MD I agree with the assessment and kdr plan of care. Disposition: 07/06/18 16:17 Discharged to Home. Impression: G-Tube Replacement. - Condition is Stable. - Discharge Instructions: Gastrostomy Tube Replacement, Care After. - Medication Reconciliation Form, Thank You Letter, Antibiotic Education, Prescription Opioid Use form. - Follow up: Private Physician; When: As needed; Reason: Recheck today's complaints, Continuance of care, Re-evaluation by your physician. Signatures: Dispatcher [employer] Jonathan Ortega MD MD kdr Mickail, Joel, PA PA [facility] No Shabazz RN RN kr2 Corrections: (The following items were deleted from the chart) 17:18 16:17 07/06/2018 16:17 Discharged to Home. Impression: G-Tube Replacement. Condition is kr2 Stable. Forms are Medication Reconciliation Form, Thank You Letter, Antibiotic Education, Prescription Opioid Use. Follow up: Private Physician; When: As needed; Reason: Recheck today's complaints, Continuance of care, Re-evaluation by your physician. [facility]
--- NOTE | 2018-07-06 16:17 | ER ---
Nurse's Notes [facility] Name: Shelia Miranda Age: 62 yrs Sex: Male : 1955 Arrival Date: 07/06/2018 Time: 13:58 Bed 26 Private MD: Diagnosis: G-Tube Replacement Presentation: 07/06 14:08 Presenting complaint: EMS states: Patient is a resident at [address] and pulled his G tube out. Transition of care: patient was received from another setting of care (long-term care facility), [facility]. Onset of symptoms was July 06, 2018. Risk Assessment: Do you want to hurt yourself or someone else? Patient reports no desire to harm self or others. Initial Sepsis Screen: Does the patient meet any 2 criteria? No. Patient's initial sepsis screen is negative. Does the patient have a suspected source of infection? No. Patient's initial sepsis screen is negative. Care prior to arrival: None. 14:08 Method Of Arrival: EMS kr2 14:08 Acuity: WINSOME 4 kr2 Triage Assessment: 14:19 General: Appears in no apparent distress. comfortable, Behavior is calm, cooperative. kr2 Pain: Denies pain. 14:19 GI: Abdomen is flat, non-distended, G tube site with scant amount of blood but kr2 surrounding skin intact, no s/sx of infection. Bowel sounds present X 4 quads. 14:19 Neuro: Level of Consciousness is awake, alert, Oriented to person, place. Respiratory: kr2 Airway is patent Respiratory effort is even, unlabored, Respiratory pattern is regular, symmetrical. Derm: Skin with poor turgor Skin is dry, Skin is pink, Skin temperature is warm. Musculoskeletal: contractures of upper and lower extremities. Historical: - Allergies: 14:12 NKA; kr2 - Home Meds: 14:12 acetaminophen-codeine 300-30 mg Oral tab three times a day [Active]; aspirin 81 mg Oral kr2 TbEC 1 tab once daily [Active]; Catapres 0.1 mg Oral tab every 8 hours [Active]; ipratropium-albuterol 0.5 mg-3 mg(2.5 mg base)/3 mL Inhl nebu three times a day [Active]; lisinopril 20 mg Oral tab once daily [Active]; Tegretol 100 mg/5 mL Oral susp 10 mL twice a day [Active]; Vitamin D3 1,000 unit Oral tab daily [Active]; - PMHx: 14:12 Anxiety; Aphasia; BPH; Contracture; COPD; Dementia; Depression; DYSPHAGIA; kr2 Hypertension; Pneumonia; pressure ulcer stage 2; Schizophrenia; vitamin d deficiency; - PSHx: 14:12 PEG tube; kr2 - Immunization history:: Adult Immunizations up to date. - Social history:: Smoking status: Patient/guardian denies using tobacco. - Ebola Screening: : No symptoms or risks identified at this time. Screenin:19 Abuse screen: Denies threats or abuse. Denies injuries from another. Nutritional kr2 screening: No deficits noted. Tuberculosis screening: No symptoms or risk factors identified. Fall Risk None identified. Assessment: 14:30 Reassessment: See triage note. kr2 15:42 Reassessment: Patient appears in no apparent distress at this time. Patient and/or kr2 family updated on plan of care and expected duration. Pain level reassessed. Patient denies pain at this time. 16:41 Reassessment: Patient appears in no apparent distress at this time. Patient and/or kr2 family updated on plan of care and expected duration. Pain level reassessed. [facility] notified of patient being ready to be discharged. They will arrange transport back to facility. 17:04 Reassessment: Patient appears in no apparent distress at this time. Patient and/or kr2 family updated on plan of care and expected duration. Pain level reassessed. [facility] here for transport. Vital Signs: 14:20 BP 121 / 79; Pulse 74; Resp 18; Temp 98.1; Pulse Ox 99% on R/A; kr2 17:01 BP 130 / 78; Pulse 70; Resp 17; Pulse Ox 97% on R/A; kr2 ED Course: 13:58 Patient arrived in ED. la1 14:00 Charlie Willis PA is PHCP. jmm 14:00 Jonathan Noble MD is Attending Physician. jmm 14:05 Arm band placed on. kr2 14:06 Placed in gown. Bed in low position. Call light in reach. Side rails up X 1. Side rails jp3 up X2. Warm blanket given. 14:08 Harika, No, RN is Primary Nurse. kr2 14:09 Triage completed. kr2 15:05 Abdomen 1 View (KUB) XRAY In Process Unspecified. EDMS 17:16 No provider procedures requiring assistance completed. Patient did not have IV access kr2 during this emergency room visit. Administered Medications: No medications were administered Outcome: 16:17 Discharge ordered by . kris 17:16 [facility]charged to [facility]. Report called to [facility], transported by kr2 [facility] 17:16 Condition: good 17:16 Discharge instructions given to EMS, Instructed on discharge instructions, follow up and referral plans. Demonstrated understanding of instructions, follow-up care. 17:18 Patient left the ED. kr2 Signatures: Dispatcher [employer] EDMS Charlie Willis PA PA jmm Attema, Lee, RN RN la1 No Shabazz, RN RN kr2 Isak Yarbrough jp3 Corrections: (The following items were deleted from the chart) 17:15 14:19 GI: Abdomen is flat, non-distended, G tube site with scant amount of blood but kr2 surrounding skin intact, no s/sx of infection. kr2
[2018-07-06 17:22] VITALS: TEMP 98.1
[2018-07-06 17:23] VITALS: BP 130/78; O2SAT 97
== END 2018-07-06 17:18 | disposition home or self-care (01) ==
LOC: ER 13:57
DX: Z43.1 Encounter for attention to gastrostomy (principal); I10 Essential (primary) hypertension; F41.9 Anxiety disorder, unspecified; F32.9 Major depressive disorder, single episode, unspecified; Z79.82 Long term (current) use of aspirin
CPT/HCPCS: 74018; 99283

== ENCOUNTER 2018-07-16 21:31 | Emergency (ER) | payer OTHER ==
--- NOTE | 2018-07-16 22:53 | ER ---
Nurse's Notes [facility] Name: Shelia Miranda Age: 62 yrs Sex: Male : 1955 Arrival Date: 07/16/2018 Time: 21:42 Bed 14 Private MD: Diagnosis: Encounter for attention to gastrostomy Presentation: 07/16 21:43 Presenting complaint: EMS states: Pt pulled out his button. Transition of care: patient jb4 was received from another setting of care (long-term care facility). Onset of symptoms was July 16, 2018. Risk Assessment: Do you want to hurt yourself or someone else? Patient reports no desire to harm self or others. Initial Sepsis Screen: Does the patient meet any 2 criteria? No. Patient's initial sepsis screen is negative. Does the patient have a suspected source of infection? No. Patient's initial sepsis screen is negative. Care prior to arrival: None. 21:43 Method Of Arrival: EMS: [place] [id number] 21:43 Acuity: WINSOME 3 jb4 Triage Assessment: 21:58 General: Appears in no apparent distress. comfortable, Behavior is calm, cooperative, jb4 appropriate for age. Pain: Denies pain. EENT: No signs and/or symptoms were reported regarding the EENT system. Neuro: Level of Consciousness is awake, alert, Oriented to person, place, time, situation. Cardiovascular: Patient's skin is warm and dry. Respiratory: Airway is patent Respiratory effort is even, unlabored, Respiratory pattern is regular. GI: Abdomen is flat, non-distended, button has been removed by the pt prior to arrival. : No signs and/or symptoms were reported regarding the genitourinary system. Derm: Skin is intact, Skin is dry, Skin is pink, warm \T\ dry. Skin temperature is warm. Musculoskeletal: Circulation, motion, and sensation intact. Historical: - Allergies: 21:58 NKA; jb4 - Home Meds: 21:58 Catapres 0.1 mg Oral tab every 8 hours [Active]; aspirin 81 mg Oral TbEC 1 tab once jb4 daily [Active]; acetaminophen-codeine 300-30 mg Oral tab three times a day [Active]; lisinopril 20 mg Oral tab once daily [Active]; ipratropium-albuterol 0.5 mg-3 mg(2.5 mg base)/3 mL Inhl nebu three times a day [Active]; Tegretol 100 mg/5 mL Oral susp 10 mL twice a day [Active]; Vitamin D3 1,000 unit Oral tab daily [Active]; - PMHx: 21:58 Anxiety; Contracture; COPD; Dementia; Depression; DYSPHAGIA; Hypertension; Pneumonia; jb4 pressure ulcer stage 2; Schizophrenia; vitamin d deficiency; BPH; Aphasia; - Immunization history:: Adult Immunizations unknown. - Social history:: Smoking status: unknown. - Ebola Screening: : No symptoms or risks identified at this time. Screenin:45 Abuse screen: Denies threats or abuse. Nutritional screening: No deficits noted. jb4 Tuberculosis screening: No symptoms or risk factors identified. Fall Risk None identified. Assessment: 21:45 General: see triage assessment.. jb4 23:00 Reassessment: Patient appears in no apparent distress at this time. Patient and/or jb4 family updated on plan of care and expected duration. Pain level reassessed. Patient is alert, oriented x 3, equal unlabored respirations, skin warm/dry/pink. Vital Signs: 21:58 BP 147 / 91; Pulse 81; Resp 18; Temp 97.9; Pulse Ox 99% on R/A; Weight 72.57 kg (R); jb4 Height 5 ft. 11 in. (180.34 cm) (R); 22:38 BP 140 / 95; Pulse 79; Resp 16; Pulse Ox 98% on R/A; mt 21:58 Body Mass Index 22.32 (72.57 kg, 180.34 cm) jb4 ED Course: 21:42 Patient arrived in ED. jb4 21:45 Patient has correct armband on for positive identification. Bed in low position. Side jb4 rails up X2. Pulse ox on. NIBP on. 21:46 Charl[facility] Cleaning [facility] snw 21:46 Marlo Mills MD is Attending Physician. snw 21:54 Triage completed. jb4 21:58 Arm band placed on left wrist. jb4 22:54 Enterostomy Tube Check w/contr In Process Unspecified. EDMS 23:00 No provider procedures requiring assistance completed. Patient did not have IV access jb4 during this emergency room visit. 23:03 Brenton Tanner, RN is Primary Nurse. jb4 Administered Medications: No medications were administered Outcome: 22:52 Discharge ordered by . carissa 23:00 Discharged to half-way. jbBoo 23:00 Condition: stable 23:00 Discharge instructions given to patient, Instructed on discharge instructions, follow up and referral plans. Demonstrated understanding of instructions, follow-up care. 23:04 Patient left the ED. jb4 Signatures: Dispatcher [employer] EDMS Charlene Cleaning, COPY CHASER-C COPY CHASER-Csnw Brenton Tanner, RN RN jb4 Alessia Borrego nm
--- NOTE | 2018-07-16 22:53 | EDPHYS ---
Physician Documentation [facility] Name: Shelia Miranda Age: 62 yrs Sex: Male : 1955 Arrival Date: 07/16/2018 Time: 21:42 Bed 14 Private MD: ED Physician Marlo Mills HPI: 07/16 21:49 This 62 yrs old Black Male presents to ER via Unassigned with complaints of pulled snw g-tube. 21:49 The patient represents for recheck after previously being evaluated for g-button snw removal. The patient has experienced similar episodes in the past, chronically. It is unknown whether or not the patient has recently seen a physician. Historical: - Allergies: 21:58 NKA; jb4 - Home Meds: 21:58 Catapres 0.1 mg Oral tab every 8 hours [Active]; aspirin 81 mg Oral TbEC 1 tab once jb4 daily [Active]; acetaminophen-codeine 300-30 mg Oral tab three times a day [Active]; lisinopril 20 mg Oral tab once daily [Active]; ipratropium-albuterol 0.5 mg-3 mg(2.5 mg base)/3 mL Inhl nebu three times a day [Active]; Tegretol 100 mg/5 mL Oral susp 10 mL twice a day [Active]; Vitamin D3 1,000 unit Oral tab daily [Active]; - PMHx: 21:58 Anxiety; Contracture; COPD; Dementia; Depression; DYSPHAGIA; Hypertension; Pneumonia; jb4 pressure ulcer stage 2; Schizophrenia; vitamin d deficiency; BPH; Aphasia; - Immunization history:: Adult Immunizations unknown. - Social history:: Smoking status: unknown. - Ebola Screening: : No symptoms or risks identified at this time. ROS: 21:48 Constitutional: Negative for fever, chills, and weight loss, Eyes: Negative for injury, snw pain, redness, and discharge, ENT: Negative for injury, pain, and discharge, Neck: Negative for injury, pain, and swelling, Cardiovascular: Negative for chest pain, palpitations, and edema, Respiratory: Negative for shortness of breath, cough, wheezing, and pleuritic chest pain, Back: Negative for injury and pain, : Negative for injury, bleeding, discharge, and swelling, MS/Extremity: Negative for injury and deformity, Skin: Negative for injury, rash, and discoloration, Neuro: Negative for headache, weakness, numbness, tingling, and seizure. 21:48 Abdomen/GI: Positive for pulled g-tube. Exam: 21:47 Constitutional: This is a well developed, well nourished patient who is awake, alert, snw and in no acute distress. Head/Face: Normocephalic, atraumatic. Eyes: Pupils equal round and reactive to light, extra-ocular motions intact. Lids and lashes normal. Conjunctiva and sclera are non-icteric and not injected. Cornea within normal limits. Periorbital areas with no swelling, redness, or edema. 21:47 Neck: Trachea midline, no thyromegaly or masses palpated, and no cervical lymphadenopathy. Supple, full range of motion without nuchal rigidity, or vertebral point tenderness. No Meningismus. Chest/axilla: Normal chest wall appearance and motion. Nontender with no deformity. No lesions are appreciated. Cardiovascular: Regular rate and rhythm with a normal S1 and S2. No gallops, murmurs, or rubs. Normal PMI, no JVD. No pulse deficits. Respiratory: Lungs have equal breath sounds bilaterally, clear to auscultation and percussion. No rales, rhonchi or wheezes noted. No increased work of breathing, no retractions or nasal flaring. Back: No spinal tenderness. No costovertebral tenderness. Full range of motion. Skin: Warm, dry with normal turgor. Normal color with no rashes, no lesions, and no evidence of cellulitis. MS/ Extremity: Pulses equal, no cyanosis. Neurovascular intact. Full, normal range of motion. Neuro: Awake and alert, GCS 15, oriented to person, place, time, and situation. Cranial nerves II-XII grossly intact. Motor strength 5/5 in all extremities. Sensory grossly intact. Cerebellar exam normal. Normal gait. Psych: Awake, alert, with orientation to person, place and time. Behavior, mood, and affect are within normal limits. 21:47 ENT: Dental exam: dental caries, that is moderate, missing teeth, diffusely. 21:47 Abdomen/GI: Inspection: abdomen appears normal, pulled g-button, no g-button in ED, g-tube 16 F placed with mild trauma to stoma, will x-ray with Gastrografin . Vital Signs: 21:58 BP 147 / 91; Pulse 81; Resp 18; Temp 97.9; Pulse Ox 99% on R/A; Weight 72.57 kg (R); jb4 Height 5 ft. 11 in. (180.34 cm) (R); 22:38 BP 140 / 95; Pulse 79; Resp 16; Pulse Ox 98% on R/A; mt 21:58 Body Mass Index 22.32 (72.57 kg, 180.34 cm) jb4 Procedures: 21:50 G-tube placement: a 16 Pakistani catheter was placed, by the ED physician, Charlene DIALLO. MDM: 21:53 Patient medically screened. snw 22:53 Data reviewed: vital signs, nurses notes, EMS record. Data interpreted: Pulse oximetry: snw on room air is 98 %. Interpretation: normal. Counseling: I had a detailed discussion with the patient and/or guardian regarding: the historical points, exam findings, and any diagnostic results supporting the discharge/admit diagnosis, the presence of at least one elevated blood pressure reading (>120/80) during this emergency department visit, radiology results, the need for outpatient follow up, to return to the emergency department if symptoms worsen or persist or if there are any questions or concerns that arise at home. Special discussion: Based on the history and exam findings, there is no indication for further emergent testing or inpatient evaluation. I discussed with the patient/guardian the need to see the primary care provider for further evaluation of the symptoms. 07/16 22:29 Order name: Enterostomy Tube Check w/contr snw 07/16 22:29 Order name: Misc. Order: abdominal binder; Complete Time: 23:04 snw Administered Medications: No medications were administered Disposition: 07/16/18 22:52 Discharged to Home. Impression: Encounter for attention to gastrostomy. - Condition is Stable. - Discharge Instructions: Gastrostomy Tube Replacement, Gastrostomy Tube Home Guide, Adult. - Medication Reconciliation Form, Thank You Letter, Antibiotic Education, Prescription Opioid Use form. - Follow up: Private Physician; When: 2 - 3 days; Reason: Recheck today's complaints, Continuance of care, Re-evaluation by your physician. Addendum: 07/20/2018 10:22 Co-signature as Attending Physician, Marlo Mills MD. g s Signatures: Dispatcher [employer] EDKY Charlene Cleaning, QUENCHING CAR OPERATOR-C QUENCHING CAR OPERATOR-Csnw Brenton Tanner, RN RN jb4 Marlo Mills MD MD gs Corrections: (The following items were deleted from the chart) 07/16 23:04 22:52 07/16/2018 22:52 Discharged to Home. Impression: Encounter for attention to jb4 gastrostomy. Condition is Stable. Discharge Instructions: Gastrostomy Tube Replacement, Gastrostomy Tube Home Guide, Adult. Forms are Medication Reconciliation Form, Thank You Letter, Antibiotic Education, Prescription Opioid Use. Follow up: Private Physician; When: 2 - 3 days; Reason: Recheck today's complaints, Continuance of care, Re-evaluation by your physician. snw
[2018-07-17 01:12] VITALS: TEMP 97.9
[2018-07-17 01:13] VITALS: BP 140/95; O2SAT 98
--- NOTE | 2018-07-17 08:09 | RAD REPORT ---
EXAM DESCRIPTION: RAD - ENTEROSTOMY TUBE CHECK W/CONTR - 07/16/2018 10:54 pm CLINICAL HISTORY: Re- insertion of gastrostomy tube FINDINGS: Gastrografin was administered into the gastrostomy tube. The tip lies within the distal st omach. Stomach and proximal duodenum were opacified with contrast. No extravasation of contrast is seen
== END 2018-07-16 23:04 | disposition home or self-care (01) ==
LOC: ER 21:31
DX: Z43.1 Encounter for attention to gastrostomy (principal); I10 Essential (primary) hypertension; F03.90 Unspecified dementia, unspecified severity, without behavioral disturbance, psychotic disturbance, mood disturbance, and anxiety; J44.9 Chronic obstructive pulmonary disease, unspecified
CPT/HCPCS: 49465; 99283

== ENCOUNTER 2018-07-17 14:08 | Emergency (ER) | payer OTHER ==
--- NOTE | 2018-07-17 15:48 | EDPHYS ---
Physician Documentation [facility] Name: Shelia Miranda Age: 62 yrs Sex: Male : 1955 Arrival Date: 07/17/2018 Time: 14:09 Bed 7 Private MD: ED Physician Hakeem Peters HPI: 07/17 14:49 This 62 yrs old Black Male presents to ER via EMS with complaints of Pulled G Tube. rn 14:49 EMS reports pulled out feeding tube once again. 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 . Onset: The symptoms/episode began/occurred at an unknown time. Severity of symptoms: At their worst the symptoms were mild in the emergency department the symptoms are unchanged. The patient has experienced similar episodes in the past. The patient has not recently seen a physician. Historical: - Allergies: 14:16 NKA; jl7 - PMHx: 14:16 Anxiety; BPH; Aphasia; Contracture; Dementia; COPD; Depression; DYSPHAGIA; jl7 Hypertension; Pneumonia; pressure ulcer stage 2; Schizophrenia; vitamin d deficiency; - Immunization history:: Adult Immunizations up to date. - Family history:: not pertinent. - Social history:: Smoking status: Patient/guardian denies using tobacco. - Ebola Screening: : No symptoms or risks identified at this time. - Hospitalizations: : No recent hospitalization is reported. ROS: 14:49 Unable to obtain ROS due to baseline dementia. rn Exam: 14:49 Constitutional: This is a well developed, well nourished patient who is awake, alert, rn and in no acute distress. Abdomen/GI: stoma open, no feeding tube, non-tender Vital Signs: 14:18 BP 133 / 86; Pulse 73; Resp 16 S; Temp 98(TE); Pulse Ox 98% on R/A; jl7 Procedures: 15:05 G-tube placement: a 18 Syriac catheter was placed, by the ED physician, Hakeem Peters MD. rn MDM: 14:09 Patient medically screened. rn 15:46 Differential Diagnosis displaced feeding tube. Data reviewed: vital signs, nurses rn notes, radiologic studies, plain films, and as a result, I will discharge patient. Counseling: I had a detailed discussion with the patient and/or guardian regarding: the historical points, exam findings, and any diagnostic results supporting the discharge/admit diagnosis, radiology results, the need for outpatient follow up, to return to the emergency department if symptoms worsen or persist or if there are any questions or concerns that arise at home. Special discussion: I discussed with the patient/guardian in detail that at this point there is no indication for admission to the hospital. It is understood, however, that if the symptoms persist or worsen the patient needs to return immediately for re-evaluation. 07/17 15:15 Order name: ENTEROSTOMY TUBE CHECK W/CONTR; Complete Time: 15:55 EDMS Administered Medications: No medications were administered Disposition: 07/17/18 15:48 Discharged to Home. Impression: Encounter for feeding tube replacement. - Condition is Stable. - Discharge Instructions: Gastrostomy Tube Replacement. - Medication Reconciliation Form, Thank You Letter, Antibiotic Education, Prescription Opioid Use form. - Follow up: Private Physician; When: As needed; Reason: Recheck today's complaints, Re-evaluation by your physician. - Problem is new. - Symptoms have improved. Signatures: Dispatcher [employer] [facility] Hakeem Peters MD MD rn Leal, Jahala, RN RN jl7 Corrections: (The following items were deleted from the chart) 15:15 15:06 Abdomen 1 View (KUB)+RAD.RAD.BRZ ordered. [facility] 16:18 15:48 07/17/2018 15:48 Discharged to Home. Impression: Encounter for feeding tube jl7 replacement. Condition is Stable. Forms are Medication Reconciliation Form, Thank You Letter, Antibiotic Education, Prescription Opioid Use. Follow up: Private Physician; When: As needed; Reason: Recheck today's complaints, Re-evaluation by your physician. Problem is new. Symptoms have improved. rn
--- NOTE | 2018-07-17 15:48 | ER ---
Nurse's Notes [facility] Name: Sehlia Miranda Age: 62 yrs Sex: Male : 1955 Arrival Date: 07/17/2018 Time: 14:09 Bed 7 Private MD: Diagnosis: Encounter for feeding tube replacement Presentation: 07/17 14:11 Presenting complaint: EMS states: [employer] workers reported pulled G tube. jl7 Transition of care: patient was received from another setting of care (long-term care [facility]), [facility]. Onset of symptoms was July 17, 2018. Risk Assessment: Do you want to hurt yourself or someone else? Patient reports no desire to harm self or others. Initial Sepsis Screen: Does the patient meet any 2 criteria? No. Patient's initial sepsis screen is negative. Does the patient have a suspected source of infection? No. Patient's initial sepsis screen is negative. Care prior to arrival: None. 14:11 Method Of Arrival: EMS: [employer] [facility] [facility] 14:11 Acuity: WINSOME 4 jl7 Historical: - Allergies: 14:16 NKA; jl7 - PMHx: 14:16 Anxiety; BPH; Aphasia; Contracture; Dementia; COPD; Depression; DYSPHAGIA; jl7 Hypertension; Pneumonia; pressure ulcer stage 2; Schizophrenia; vitamin d deficiency; - Immunization history:: Adult Immunizations up to date. - Family history:: not pertinent. - Social history:: Smoking status: Patient/guardian denies using tobacco. - Ebola Screening: : No symptoms or risks identified at this time. - Hospitalizations: : No recent hospitalization is reported. Screenin:15 Abuse screen: Denies threats or abuse. Denies injuries from another. Nutritional jl7 screening: No deficits noted. Tuberculosis screening: No symptoms or risk factors identified. Fall Risk None identified. Assessment: 14:15 General: Appears in no apparent distress. Pain: Denies pain. Neuro: Level of jl7 Consciousness is awake, alert, obeys commands. Cardiovascular: Patient's skin is warm and dry. Respiratory: Airway is patent Respiratory effort is even, unlabored, Respiratory pattern is regular, symmetrical. Derm: Skin is pink, warm \T\ dry. 15:30 Reassessment: abd binder placed to prevent pt from pulling PEG tube out. aa5 Vital Signs: 14:18 BP 133 / 86; Pulse 73; Resp 16 S; Temp 98(TE); Pulse Ox 98% on R/A; jl7 ED Course: 14:09 Patient arrived in ED. jl7 14:09 Hakeem Peters MD is Attending Physician. rn 14:14 Triage completed. jl7 14:15 Patient has correct armband on for positive identification. Bed in low position. Call jl7 light in reach. Side rails up X2. Pulse ox on. NIBP on. 14:18 Arm band placed on right wrist. jl7 15:00 Assited provider with PEG tube placement, 18 Fr, completed by Dr. Peters. aa5 15:46 ENTEROSTOMY TUBE CHECK W/CONTR In Process Unspecified. EDMS 15:51 Jennifer Bang, RN is Primary Nurse. jl7 16:16 Patient did not have IV access during this emergency room visit. jl7 Administered Medications: No medications were administered Outcome: 15:48 Discharge ordered by MD. rn 16:16 Discharged to intermediate. Report called to [facility] Transfer form completed. jl7 16:16 Condition: stable 16:16 Discharge instructions given to patient, intermediate, Instructed on discharge instructions, follow up and referral plans. Demonstrated understanding of instructions, follow-up care. 16:18 Patient left the ED. jl7 Signatures: Dispatcher [employer] EDAK Hakeem Peters MD MD rn Calderon, Audri, RN RN aa5 Jennifer Bang, ARIAS RN jl7
--- NOTE | 2018-07-17 15:49 | RAD REPORT ---
EXAM DESCRIPTION: RAD - ENTEROSTOMY TUBE CHECK W/CONTR - 07/17/2018 3:43 pm CLINICAL HISTORY: confirm feeding tube placement, with contrast COMPARISON: ENTEROSTOMY TUBE CHECK W/CONTR dated 07/16/2018 FINDINGS: Two radiographs were obtained, pre and post feeding tube contrast injection. On the post i njection radiographs contrast is seen in the bowel without free spill, indicating appropriate placeme nt.
[2018-07-17 17:04] VITALS: BP 133/86; TEMP 98; O2SAT 98
== END 2018-07-17 16:18 | disposition home or self-care (01) ==
LOC: ER 14:08
DX: Z43.1 Encounter for attention to gastrostomy (principal)
CPT/HCPCS: 49465; 99283

== ENCOUNTER 2018-07-18 15:49 | Emergency (ER) | payer OTHER ==
--- NOTE | 2018-07-18 17:35 | RAD REPORT ---
EXAM DESCRIPTION: RAD - ENTEROSTOMY TUBE CHECK W/CONTR - 07/18/2018 5:29 pm CLINICAL HISTORY: Gastrostomy tube placement FINDINGS: Gastrografin was administered into a gastrostomy tube. The tip lies within the proximal st omach. Contrast flowed into the duodenum. No extravasation of contrast is noted
--- NOTE | 2018-07-18 17:42 | EDPHYS ---
Physician Documentation [facility] Name: Shelia Miranda Age: 62 yrs Sex: Male : 1955 Arrival Date: 07/18/2018 Time: 15:51 Bed 15 Private MD: ED Physician Liv Chang HPI: 07/18 17:05 This 62 yrs old Black Male presents to ER via EMS with complaints of D/C OWN PEG. pm1 17:05 Onset: The symptoms/episode began/occurred unknown. Associated signs and symptoms: The pm1 patient has no apparent associated signs or symptoms. The patient has experienced similar episodes in the past, multiple times. Patient at [facility] and presents today with removing his own peg tube. Patient with multiple visits for the same complaint. Unknown time of removal. Historical: - Allergies: 15:55 NKA; bp - Home Meds: 15:55 acetaminophen-codeine 300-30 mg Oral tab three times a day [Active]; aspirin 81 mg Oral bp chew 1 tab once daily [Active]; Catapres 0.1 mg Oral tab every 8 hours [Active]; ipratropium-albuterol 0.5 mg-3 mg(2.5 mg base)/3 mL Inhl nebu three times a day [Active]; lisinopril 20 mg Oral tab once daily [Active]; Tegretol 100 mg/5 mL Oral susp 10 mL twice a day [Active]; Vitamin D3 1,000 unit Oral tab daily [Active]; - PMHx: 15:55 Anxiety; Aphasia; BPH; Contracture; COPD; Dementia; Depression; DYSPHAGIA; bp Hypertension; Pneumonia; pressure ulcer stage 2; Schizophrenia; vitamin d deficiency; - Immunization history:: Adult Immunizations up to date. - Social history:: Smoking status: Patient/guardian denies using tobacco. - Ebola Screening: : Patient negative for fever greater than or equal to 101.5 degrees Fahrenheit, and additional compatible Ebola Virus Disease symptoms Patient denies exposure to infectious person Patient denies travel to an Ebola-affected area in the 21 days before illness onset No symptoms or risks identified at this time. ROS: 17:05 Constitutional: Negative for fever, chills, and weight loss, Eyes: Negative for injury, pm1 pain, redness, and discharge, ENT: Negative for injury, pain, and discharge, Neck: Negative for injury, pain, and swelling, Cardiovascular: Negative for chest pain, palpitations, and edema, Respiratory: Negative for shortness of breath, cough, wheezing, and pleuritic chest pain, Abdomen/GI: Negative for abdominal pain, nausea, vomiting, diarrhea, and constipation, Back: Negative for injury and pain, : Negative for injury, bleeding, discharge, and swelling, MS/Extremity: Negative for injury and deformity, Skin: Negative for injury, rash, and discoloration, Neuro: Negative for headache, weakness, numbness, tingling, and seizure. Exam: 17:05 Constitutional: This is a well developed, well nourished patient who is awake, alert, pm1 and in no acute distress. Head/Face: Normocephalic, atraumatic. Eyes: Pupils equal round and reactive to light, extra-ocular motions intact. Lids and lashes normal. Conjunctiva and sclera are non-icteric and not injected. Cornea within normal limits. Periorbital areas with no swelling, redness, or edema. ENT: Nares patent. No nasal discharge, no septal abnormalities noted. Tympanic membranes are normal and external auditory canals are clear. Oropharynx with no redness, swelling, or masses, exudates, or evidence of obstruction, uvula midline. Mucous membranes moist. Neck: Trachea midline, no thyromegaly or masses palpated, and no cervical lymphadenopathy. Supple, full range of motion without nuchal rigidity, or vertebral point tenderness. No Meningismus. Chest/axilla: Normal chest wall appearance and motion. Nontender with no deformity. No lesions are appreciated. Cardiovascular: Regular rate and rhythm with a normal S1 and S2. No gallops, murmurs, or rubs. Normal PMI, no JVD. No pulse deficits. Respiratory: Lungs have equal breath sounds bilaterally, clear to auscultation and percussion. No rales, rhonchi or wheezes noted. No increased work of breathing, no retractions or nasal flaring. Abdomen/GI: Soft, non-tender, with normal bowel sounds. No distension or tympany. No guarding or rebound. No evidence of tenderness throughout. 17:05 Back: No spinal tenderness. No costovertebral tenderness. Full range of motion. MS/ Extremity: Pulses equal, no cyanosis. Neurovascular intact. Full, normal range of motion. 17:05 Skin: Appearance: normal except for affected area, PEG tube stoma present to abdominal area. Vital Signs: 15:55 BP 118 / 67; Pulse 74; Resp 20; Temp 97.6; Pulse Ox 97% ; bp 17:30 BP 150 / 96; Pulse 64; Resp 16; Pulse Ox 97% ; bp Procedures: 17:05 G-tube placement: a 16 Korean catheter was placed, by the ED physician, Alexx Curtis pm1 PATIENT SUPPORT SPECIALIST tolerated well by patient and gastric content aspirated. MDM: 16:24 Patient medically screened. pm1 17:09 Data reviewed: vital signs. Data interpreted: Pulse oximetry: on room air is 97 %. pm1 Interpretation: normal. 17:41 Counseling: I had a detailed discussion with the patient and/or guardian regarding: the pm1 historical points, exam findings, and any diagnostic results supporting the discharge/admit diagnosis, radiology results, the need for outpatient follow up, to return to the emergency department if symptoms worsen or persist or if there are any questions or concerns that arise at home. 07/18 17:04 Order name: Enterostomy Tube Check w/contr; Complete Time: 17:41 pm1 Administered Medications: No medications were administered Disposition: 07/18/18 17:41 Discharged to Home. Impression: Encounter for attention to gastrostomy. - Condition is Stable. - Discharge Instructions: Gastrostomy Tube Replacement, Care After, PEG Tube Home Guide. - Medication Reconciliation Form, Thank You Letter form. - Follow up: Emergency Department; When: As needed; Reason: Worsening of condition. Follow up: Private Physician; When: As needed; Reason: Recheck today's complaints, Continuance of care, Re-evaluation by your physician. - Problem is new. - Symptoms have improved. Addendum: 07/22/2018 17:27 Co-signature as Attending Physician, Liv Chang MD. m a2 Signatures: Dispatcher [employer] EDPA Alexx Curtis, AYSE PATIENT SUPPORT SPECIALIST pm1 Westley Garduno RN RN bp Alzahri, Mohammad, MD MD ma2 Corrections: (The following items were deleted from the chart) 07/18 18:02 17:41 07/18/2018 17:41 Discharged to Home. Impression: Encounter for attention to bp gastrostomy. Condition is Stable. Discharge Instructions: Gastrostomy Tube Replacement, Care After, PEG Tube Home Guide. Forms are Medication Reconciliation Form, Thank You Letter, Antibiotic Education, Prescription Opioid Use. Follow up: Emergency Department; When: As needed; Reason: Worsening of condition. Follow up: Private Physician; When: As needed; Reason: Recheck today's complaints, Continuance of care, Re-evaluation by your physician. Problem is new. Symptoms have improved. pm1
--- NOTE | 2018-07-18 17:42 | ER ---
Nurse's Notes [facility] Name: Shelia Miranda Age: 62 yrs Sex: Male : 1955 Arrival Date: 07/18/2018 Time: 15:51 Bed 15 Private MD: Diagnosis: Encounter for attention to gastrostomy Presentation: 07/18 15:52 Presenting complaint: EMS states: PULLED HIS PEG AGAIN. Transition of care: patient was bp received from another setting of care ([facility]. Onset of symptoms is unknown. Risk Assessment: Do you want to hurt yourself or someone else? Patient reports no desire to harm self or others. Initial Sepsis Screen: Does the patient meet any 2 criteria? No. Patient's initial sepsis screen is negative. Does the patient have a suspected source of infection? No. Patient's initial sepsis screen is negative. Care prior to arrival: None. 15:52 Method Of Arrival: EMS: [facility] bp 15:52 Acuity: WINSOME 4 bp Triage Assessment: 15:55 General: Appears in no apparent distress. comfortable, Behavior is flat. Pain: Denies bp pain. Historical: - Allergies: 15:55 NKA; bp - Home Meds: 15:55 acetaminophen-codeine 300-30 mg Oral tab three times a day [Active]; aspirin 81 mg Oral bp chew 1 tab once daily [Active]; Catapres 0.1 mg Oral tab every 8 hours [Active]; ipratropium-albuterol 0.5 mg-3 mg(2.5 mg base)/3 mL Inhl nebu three times a day [Active]; lisinopril 20 mg Oral tab once daily [Active]; Tegretol 100 mg/5 mL Oral susp 10 mL twice a day [Active]; Vitamin D3 1,000 unit Oral tab daily [Active]; - PMHx: 15:55 Anxiety; Aphasia; BPH; Contracture; COPD; Dementia; Depression; DYSPHAGIA; bp Hypertension; Pneumonia; pressure ulcer stage 2; Schizophrenia; vitamin d deficiency; - Immunization history:: Adult Immunizations up to date. - Social history:: Smoking status: Patient/guardian denies using tobacco. - Ebola Screening: : Patient negative for fever greater than or equal to 101.5 degrees Fahrenheit, and additional compatible Ebola Virus Disease symptoms Patient denies exposure to infectious person Patient denies travel to an Ebola-affected area in the 21 days before illness onset No symptoms or risks identified at this time. Screenin:57 Abuse screen: Denies threats or abuse. Denies injuries from another. Nutritional bp screening: No deficits noted. Tuberculosis screening: No symptoms or risk factors identified. Fall Risk None identified. Assessment: 15:57 General: SEE TRIAGE NOTE. bp 17:09 Reassessment: G-TUBE REPLACED BY PROVIDER, XRAY CONFIRMATION PENDING. bp 17:50 Reassessment: PLACEMENT CONFIRMED, TRANSPORT CONTACTED. bp 18:01 Reassessment: TRANSPORT AT B/S FOR RETURN TO [facility]. bp Vital Signs: 15:55 BP 118 / 67; Pulse 74; Resp 20; Temp 97.6; Pulse Ox 97% ; bp 17:30 BP 150 / 96; Pulse 64; Resp 16; Pulse Ox 97% ; bp ED Course: 15:51 Patient arrived in ED. bp 15:53 Triage completed. bp 15:55 Arm band placed on. bp 15:57 Patient has correct armband on for positive identification. Bed in low position. Call bp light in reach. Side rails up X2. 15:58 Alexx Curtis NP is PHCP. pm1 15:58 Liv Chang MD is Attending Physician. pm1 17:09 Westley Garduno, ARIAS is Primary Nurse. bp 17:10 16FR G-TUBE PLACEMENT. bp 17:29 Enterostomy Tube Check w/contr In Process Unspecified. EDMS 17:50 Patient did not have IV access during this emergency room visit. bp Administered Medications: No medications were administered Outcome: 17:41 Discharge ordered by . pm1 18:01 Discharged to skilled nursing. Report called to [facility] bp 18:01 Condition: stable 18:01 Discharge instructions given to EMS, Instructed on discharge instructions, follow up and referral plans. Demonstrated understanding of instructions, follow-up care. 18:02 Patient left the ED. bp Signatures: Dispatcher [employer] EDMS Alexx Curtis NP FORENSIC PSYCHIATRIST pm1 Westley Garduno, RN RN bp
[2018-07-18 19:13] VITALS: TEMP 97.6; O2SAT 97
[2018-07-18 19:14] VITALS: BP 150/96
== END 2018-07-18 18:02 | disposition home or self-care (01) ==
LOC: ER 15:49
PROC: 0D20XUZ Change Feeding Device in Upper Intestinal Tract, External Approach (ICD-10-PCS; principal; 2018-07-18)
DX: K94.29 Other complications of gastrostomy (principal); E55.9 Vitamin D deficiency, unspecified; I10 Essential (primary) hypertension; J44.9 Chronic obstructive pulmonary disease, unspecified; N40.0 Benign prostatic hyperplasia without lower urinary tract symptoms; F03.90 Unspecified dementia, unspecified severity, without behavioral disturbance, psychotic disturbance, mood disturbance, and anxiety; F20.9 Schizophrenia, unspecified; F41.9 Anxiety disorder, unspecified; Z79.82 Long term (current) use of aspirin; Z79.899 Other long term (current) drug therapy
CPT/HCPCS: 49465; 99283

== ENCOUNTER 2018-07-21 06:41 | Emergency (ER) | payer OTHER ==
--- NOTE | 2018-07-21 07:01 | ER ---
Nurse's Notes [facility] Name: Shelia Miranda Age: 62 yrs Sex: Male : 1955 Arrival Date: 07/21/2018 Time: 06:46 Bed 8 Private MD: Diagnosis: Gastrostomy complications-pulled gastostomy tube Presentation: 07/21 06:47 Presenting complaint: EMS states: EMS reports they were called to facility due to ea patient pulling out g-tube. Transition of care: patient was received from [facility] setting [facility]. Onset of symptoms was July 21, 2018. Risk Assessment: Do you want to hurt yourself or someone else? Patient reports no desire to harm self or others. Initial Sepsis Screen: Does the patient meet any 2 criteria? No. Patient's initial sepsis screen is negative. Does the patient have a suspected source of infection? No. Patient's initial sepsis screen is negative. Care prior to arrival: None. 06:47 Method Of Arrival: EMS: [facility] ea 06:47 Acuity: WINSOME 4 ea Triage Assessment: 06:52 General: Appears in no apparent distress. Behavior is calm, cooperative, appropriate ea for age. Pain: Denies pain. EENT: No signs and/or symptoms were reported regarding the EENT system. Neuro: Level of Consciousness is awake, alert, Oriented to person. Cardiovascular: Patient's skin is warm and dry. Respiratory: Airway is patent Respiratory effort is even, unlabored, Respiratory pattern is regular, symmetrical. GI: Abdomen is non-distended. Derm: Skin is pink, warm \T\ dry. Historical: - Allergies: 06:56 NKA; ea - Home Meds: 06:56 acetaminophen-codeine 300-30 mg Oral tab three times a day [Active]; aspirin 81 mg Oral ea chew 1 tab once daily [Active]; Catapres 0.1 mg Oral tab every 8 hours [Active]; ipratropium-albuterol 0.5 mg-3 mg(2.5 mg base)/3 mL Inhl nebu three times a day [Active]; Vitamin D3 1,000 unit Oral tab daily [Active]; Tegretol 100 mg/5 mL Oral susp 10 mL twice a day [Active]; lisinopril 20 mg Oral tab once daily [Active]; - PMHx: 06:56 vitamin d deficiency; Schizophrenia; pressure ulcer stage 2; Pneumonia; Hypertension; ea DYSPHAGIA; Depression; Dementia; COPD; Contracture; BPH; Aphasia; Anxiety; - Immunization history:: Adult Immunizations up to date. - Social history:: Smoking status: unknown. - Ebola Screening: : No symptoms or risks identified at this time. Screenin:52 Abuse screen: Denies threats or abuse. Nutritional screening: No deficits noted. ea Tuberculosis screening: No symptoms or risk factors identified. Fall Risk None identified. Assessment: 06:53 Reassessment: see triage assessment. ea Vital Signs: 06:51 BP 138 / 94; Pulse 81; Resp 18; Temp 97.8; Pulse Ox 96% on R/A; ea ED Course: 06:38 g tube reinsertion. ea 06:46 Patient arrived in ED. ak1 06:47 Domingo Sharma MD is Attending Physician. lana 06:47 Presley Gilbert [facility] jrSara 06:51 Triage completed. ea 06:53 Arm band placed on right wrist. ea 06:54 Patient has correct armband on for positive identification. ea 06:59 Patient did not have IV access during this emergency room visit. ea 07:00 Debbie Felipe RN is Primary Nurse. ea Administered Medications: No medications were administered Outcome: 06:59 Discharged to long term. Transfer form completed. ea 06:59 Condition: improved 06:59 Discharge instructions given to EMS, Instructed on discharge instructions, follow up and referral plans. Demonstrated understanding of instructions, follow-up care. 07:01 Discharge ordered by . jr8 07:19 Patient left the ED. Signatures: Briseyda Mckeon, RN Domingo Rosales ch, MD MD cha Roszak, Josh, PA PA jrHannah Ramires RN RN akDebbie Montana RN RN ea
--- NOTE | 2018-07-21 07:01 | EDPHYS ---
Physician Documentation [facility] Name: Shelia Miranda Age: 62 yrs Sex: Male : 1955 Arrival Date: 07/21/2018 Time: 06:46 Bed 8 Private MD: ED Physician Domingo Sharma HPI: 07/21 06:48 This 62 yrs old Black Male presents to ER via Unassigned with complaints of Pulled jr8 Gastrostomy tube. 06:48 Patient had pulled gastrostomy tube at [facility] sometime last night . Severity of jr8 symptoms: At their worst the symptoms were mild in the emergency department the symptoms are unchanged. The patient has experienced similar episodes in the past, multiple times. It is unknown whether or not the patient has recently seen a physician. Historical: - Allergies: 06:56 NKA; ea - Home Meds: 06:56 acetaminophen-codeine 300-30 mg Oral tab three times a day [Active]; aspirin 81 mg Oral ea chew 1 tab once daily [Active]; Catapres 0.1 mg Oral tab every 8 hours [Active]; ipratropium-albuterol 0.5 mg-3 mg(2.5 mg base)/3 mL Inhl nebu three times a day [Active]; Vitamin D3 1,000 unit Oral tab daily [Active]; Tegretol 100 mg/5 mL Oral susp 10 mL twice a day [Active]; lisinopril 20 mg Oral tab once daily [Active]; - PMHx: 06:56 vitamin d deficiency; Schizophrenia; pressure ulcer stage 2; Pneumonia; Hypertension; ea DYSPHAGIA; Depression; Dementia; COPD; Contracture; BPH; Aphasia; Anxiety; - Immunization history:: Adult Immunizations up to date. - Social history:: Smoking status: unknown. - Ebola Screening: : No symptoms or risks identified at this time. ROS: 06:48 Eyes: Negative for injury, pain, redness, and discharge, ENT: Negative for injury, jr8 pain, and discharge, Neck: Negative for injury, pain, and swelling, Cardiovascular: Negative for chest pain, palpitations, and edema, Respiratory: Negative for shortness of breath, cough, wheezing, and pleuritic chest pain, Back: Negative for injury and pain, MS/Extremity: Negative for injury and deformity, Skin: Negative for injury, rash, and discoloration, Neuro: Negative for headache, weakness, numbness, tingling, and seizure. 06:48 Abdomen/GI: Negative for abdominal pain, nausea, vomiting, diarrhea, and constipation. Exam: 06:48 Eyes: Pupils equal round and reactive to light, extra-ocular motions intact. Lids and jr8 lashes normal. Conjunctiva and sclera are non-icteric and not injected. Cornea within normal limits. Periorbital areas with no swelling, redness, or edema. ENT: Nares patent. No nasal discharge, no septal abnormalities noted. Tympanic membranes are normal and external auditory canals are clear. Oropharynx with no redness, swelling, or masses, exudates, or evidence of obstruction, uvula midline. Mucous membranes moist. Neck: Trachea midline, no thyromegaly or masses palpated, and no cervical lymphadenopathy. Supple, full range of motion without nuchal rigidity, or vertebral point tenderness. No Meningismus. Cardiovascular: Regular rate and rhythm with a normal S1 and S2. No gallops, murmurs, or rubs. Normal PMI, no JVD. No pulse deficits. Respiratory: Lungs have equal breath sounds bilaterally, clear to auscultation and percussion. No rales, rhonchi or wheezes noted. No increased work of breathing, no retractions or nasal flaring. Abdomen/GI: Soft, non-tender, with normal bowel sounds. No distension or tympany. No guarding or rebound. No evidence of tenderness throughout. Ostomy site without discharge or erythema Back: No spinal tenderness. No costovertebral tenderness. Full range of motion. Skin: Warm, dry with normal turgor. Normal color with no rashes, no lesions, and no evidence of cellulitis. MS/ Extremity: Pulses equal, no cyanosis. Neurovascular intact. Full, normal range of motion. Neuro: Awake and alert, GCS 15, oriented to person, place, time, and situation. Cranial nerves II-XII grossly intact. Motor strength 5/5 in all extremities. Sensory grossly intact. Cerebellar exam normal. Normal gait. Vital Signs: 06:51 BP 138 / 94; Pulse 81; Resp 18; Temp 97.8; Pulse Ox 96% on R/A; ea Procedures: 06:48 G-tube placement: a 16 [place] catheter was placed, by the ED physician, Presley VELEZ. jr8 MDM: 06:[address] [facility] 06:47 Patient medically screened. jr8 06:48 Data reviewed: vital signs, nurses notes, and as a result, I will discharge patient. jr8 Data interpreted: Pulse oximetry: on room air is 96 %. Interpretation: normal. Counseling: I had a detailed discussion with the patient and/or guardian regarding: the historical points, exam findings, and any diagnostic results supporting the discharge/admit diagnosis, the need for outpatient follow up, a family practitioner, to return to the emergency department if symptoms worsen or persist or if there are any questions or concerns that arise at home. Administered Medications: No medications were administered Disposition: 08:00 Co-signature as Attending Physician, Domingo Sharma MD I agree with the assessment and [facility] plan of care. Disposition: 07/21/18 07:01 Discharged to Home. Impression: Gastrostomy complications - pulled gastostomy tube. - Condition is Stable. - Medication Reconciliation Form, Thank You Letter, Antibiotic Education, Prescription Opioid Use form. - Follow up: Private Physician; When: As needed; Reason: Recheck today's complaints, Continuance of care, Re-evaluation by your physician. - Problem is new. - Symptoms have improved. Signatures: Briseyda Mckeon, RN Domingo Rosales ch, MD MD cha Roszak, Josh, PA PA jr8 Debbie Felipe RN RN edi Corrections: (The following items were deleted from the chart) 07:19 07:01 07/21/2018 07:01 Discharged to Home. Impression: Gastrostomy complications - ch pulled gastostomy tube. Condition is Stable. Forms are Medication Reconciliation Form, Thank You Letter, Antibiotic Education, Prescription Opioid Use. Follow up: Private Physician; When: As needed; Reason: Recheck today's complaints, Continuance of care, Re-evaluation by your physician. Problem is new. Symptoms have improved. jr8
[2018-07-21 07:26] VITALS: BP 138/94; TEMP 97.8; O2SAT 96
== END 2018-07-21 07:19 | disposition home or self-care (01) ==
LOC: ER 06:41
PROC: 0DH63UZ Insertion of Feeding Device into Stomach, Percutaneous Approach (ICD-10-PCS; principal; 2018-07-21)
DX: Z43.1 Encounter for attention to gastrostomy (principal); K94.29 Other complications of gastrostomy; E55.9 Vitamin D deficiency, unspecified; I10 Essential (primary) hypertension; J44.9 Chronic obstructive pulmonary disease, unspecified; N40.0 Benign prostatic hyperplasia without lower urinary tract symptoms; F20.9 Schizophrenia, unspecified; F03.90 Unspecified dementia, unspecified severity, without behavioral disturbance, psychotic disturbance, mood disturbance, and anxiety; F32.9 Major depressive disorder, single episode, unspecified; F41.9 Anxiety disorder, unspecified; Z79.82 Long term (current) use of aspirin; Z79.899 Other long term (current) drug therapy
CPT/HCPCS: 99283

== ENCOUNTER 2018-07-22 10:29 | Emergency (ER) | payer OTHER ==
--- NOTE | 2018-07-22 11:28 | RAD REPORT ---
EXAM DESCRIPTION: RAD - Abdomen 1 View (KUB) - 07/22/2018 11:08 am CLINICAL HISTORY: ABD PAIN Pain COMPARISON: Abdomen 1 View (KUB) dated 07/06/2018; Abdomen 1 View (KUB) dated 04/22/2018; Abdomen 1 Vi ew (KUB) dated 08/06/2017; Abdomen 1 View (KUB) dated 07/24/2017 FINDINGS: Two radiographs are submitted pre and post contrast injection via feeding tube. Contrast i s seen filling the stomach and duodenum indicating appropriate placement of the feeding tube.
--- NOTE | 2018-07-22 11:42 | EDPHYS ---
Physician Documentation [facility] Name: Shelia Miranda Age: 62 yrs Sex: Male : 1955 Arrival Date: 07/22/2018 Time: 10:31 Bed 25 Private MD: ED Physician Domingo Sharma HPI: 07/22 10:40 This 62 yrs old Black Male presents to ER via EMS with complaints of Displaced G-tube. jr8 10:40 Onset: The symptoms/episode began/occurred acutely, today. Associated signs and jr8 symptoms: The patient has no apparent associated signs or symptoms. The patient has experienced similar episodes in the past, multiple times. The patient has not recently seen a physician. Historical: - Allergies: 10:39 NKA; aj - Home Meds: 10:39 acetaminophen-codeine 300-30 mg Oral tab three times a day [Active]; aspirin 81 mg Oral aj chew 1 tab once daily [Active]; Catapres 0.1 mg Oral tab every 8 hours [Active]; ipratropium-albuterol 0.5 mg-3 mg(2.5 mg base)/3 mL Inhl nebu three times a day [Active]; lisinopril 20 mg Oral tab once daily [Active]; Tegretol 100 mg/5 mL Oral susp 10 mL twice a day [Active]; Vitamin D3 1,000 unit Oral tab daily [Active]; - PMHx: 10:39 Anxiety; Aphasia; BPH; Contracture; COPD; Dementia; Depression; DYSPHAGIA; aj Hypertension; Pneumonia; pressure ulcer stage 2; Schizophrenia; vitamin d deficiency; - Immunization history:: Adult Immunizations up to date. - Social history:: Smoking status: Patient/guardian denies using tobacco. - Ebola Screening: : Patient negative for fever greater than or equal to 101.5 degrees Fahrenheit, and additional compatible Ebola Virus Disease symptoms Patient denies exposure to infectious person Patient denies travel to an Ebola-affected area in the 21 days before illness onset No symptoms or risks identified at this time. ROS: 10:40 Eyes: Negative for injury, pain, redness, and discharge, ENT: Negative for injury, jr8 pain, and discharge, Neck: Negative for injury, pain, and swelling, Cardiovascular: Negative for chest pain, palpitations, and edema, Respiratory: Negative for shortness of breath, cough, wheezing, and pleuritic chest pain, Abdomen/GI: Negative for abdominal pain, nausea, vomiting, diarrhea, and constipation, Back: Negative for injury and pain, MS/Extremity: Negative for injury and deformity, Skin: Negative for injury, rash, and discoloration, Neuro: Negative for headache, weakness, numbness, tingling, and seizure. Exam: 10:40 Eyes: Pupils equal round and reactive to light, extra-ocular motions intact. Lids and jr8 lashes normal. Conjunctiva and sclera are non-icteric and not injected. Cornea within normal limits. Periorbital areas with no swelling, redness, or edema. ENT: Nares patent. No nasal discharge, no septal abnormalities noted. Tympanic membranes are normal and external auditory canals are clear. Oropharynx with no redness, swelling, or masses, exudates, or evidence of obstruction, uvula midline. Mucous membranes moist. Neck: Trachea midline, no thyromegaly or masses palpated, and no cervical lymphadenopathy. Supple, full range of motion without nuchal rigidity, or vertebral point tenderness. No Meningismus. Cardiovascular: Regular rate and rhythm with a normal S1 and S2. No gallops, murmurs, or rubs. Normal PMI, no JVD. No pulse deficits. Respiratory: Lungs have equal breath sounds bilaterally, clear to auscultation and percussion. No rales, rhonchi or wheezes noted. No increased work of breathing, no retractions or nasal flaring. Back: No spinal tenderness. No costovertebral tenderness. Full range of motion. Skin: Warm, dry with normal turgor. Normal color with no rashes, no lesions, and no evidence of cellulitis. MS/ Extremity: Pulses equal, no cyanosis. Neurovascular intact. Full, normal range of motion. Neuro: Awake and alert, GCS 15, oriented to person, place, time, and situation. Cranial nerves II-XII grossly intact. Motor strength 5/5 in all extremities. Sensory grossly intact. Cerebellar exam normal. Normal gait. 10:40 Abdomen/GI: Inspection: abdomen appears normal, gastrostomy site without discharge or erythema, Bowel sounds: active, Palpation: abdomen is soft and non-tender, in all quadrants, Indicators: McBurney's point is not tender, Berry's sign is negative, Rovsing's sign is negative, Liver: tenderness, is not appreciated. Vital Signs: 10:39 BP 126 / 74; Pulse 67; Resp 17; Temp 97.7(O); Pulse Ox 99% on R/A; Weight 72.57 kg; aj Height 6 ft. 0 in. (182.88 cm); 10:39 Body Mass Index 21.70 (72.57 kg, 182.88 cm) aj MDM: 10:34 Patient medically screened. [facility] 10:40 Data reviewed: vital signs, nurses notes, radiologic studies, plain films. Data jr8 interpreted: Pulse oximetry: on room air is 99 %. Interpretation: normal. Counseling: I had a detailed discussion with the patient and/or guardian regarding: the historical points, exam findings, and any diagnostic results supporting the discharge/admit diagnosis, radiology results, the need for outpatient follow up, a video control operator, to return to the emergency department if symptoms worsen or persist or if there are any questions or concerns that arise at home. 07/22 10:36 Order name: Abdomen 1 View (KUB) XRAY: gastrograffin to peg to verify lana 07/22 11:29 Order name: RAD; Complete Time: 11:32 EDMS Administered Medications: No medications were administered Disposition: 15:26 Co-signature as Attending Physician, Domingo Sharma MD I agree with the assessment and [facility] plan of care. Disposition: 07/22/18 11:33 Discharged to Home. Impression: Gastrostomy complications. - Condition is Stable. - Discharge Instructions: Gastrostomy Tube Replacement, Gastrostomy Tube Home Guide, Adult. - Medication Reconciliation Form, Thank You Letter, Antibiotic Education, Prescription Opioid Use form. - Follow up: Private Physician; When: As needed; Reason: Recheck today's complaints, Continuance of care, Re-evaluation by your physician. - Problem is new. - Symptoms have improved. Signatures: Dispatcher [employer] EDMS Shannen Sequeira RN RN aj Anderson, Corey, MD MD cha Riggs, Erika, REAL ESTATE CONSULTANT REAL ESTATE CONSULTANT ed1 Presley Gilbert PA PA jr8 Corrections: (The following items were deleted from the chart) 15:08 11:33 07/22/2018 11:33 Discharged to Home. Impression: Gastrostomy complications. ed1 Condition is Stable. Forms are Medication Reconciliation Form, Thank You Letter, Antibiotic Education, Prescription Opioid Use. Follow up: Private Physician; When: As needed; Reason: Recheck today's complaints, Continuance of care, Re-evaluation by your physician. Problem is new. Symptoms have improved. jr8
--- NOTE | 2018-07-22 11:42 | ER ---
Nurse's Notes [facility] Name: Shelia Miranda Age: 62 yrs Sex: Male : 1955 Arrival Date: 07/22/2018 Time: 10:31 Bed 25 Private MD: Diagnosis: Gastrostomy complications Presentation: 07/22 10:36 Presenting complaint: EMS states: PAtient removed feeding tube this AM. Transition of care: patient was not received from another setting of care. Onset of symptoms was July 22, 2018. Risk Assessment: Do you want to hurt yourself or someone else? Patient reports no desire to harm self or others. Initial Sepsis Screen: Does the patient meet any 2 criteria? No. Patient's initial sepsis screen is negative. Does the patient have a suspected source of infection? No. Patient's initial sepsis screen is negative. Care prior to arrival: None. 10:36 Method Of Arrival: EMS: [facility] 10:36 Acuity: WINSOME 4 aj Triage Assessment: 10:39 General: Appears in no apparent distress. comfortable, Behavior is calm, cooperative, aj appropriate for age. Pain: Denies pain. Neuro: Level of Consciousness is awake, Oriented to person, place. Respiratory: Airway is patent Respiratory effort is even, unlabored, Respiratory pattern is regular, symmetrical. GI: Abdomen is flat, non-distended, PEG tube Site clean. Derm: Skin is intact, is healthy with good turgor, Skin is pink, warm \\T\\ dry. normal. Historical: - Allergies: 10:39 NKA; aj - Home Meds: 10:39 acetaminophen-codeine 300-30 mg Oral tab three times a day [Active]; aspirin 81 mg Oral aj chew 1 tab once daily [Active]; Catapres 0.1 mg Oral tab every 8 hours [Active]; ipratropium-albuterol 0.5 mg-3 mg(2.5 mg base)/3 mL Inhl nebu three times a day [Active]; lisinopril 20 mg Oral tab once daily [Active]; Tegretol 100 mg/5 mL Oral susp 10 mL twice a day [Active]; Vitamin D3 1,000 unit Oral tab daily [Active]; - PMHx: 10:39 Anxiety; Aphasia; BPH; Contracture; COPD; Dementia; Depression; DYSPHAGIA; aj Hypertension; Pneumonia; pressure ulcer stage 2; Schizophrenia; vitamin d deficiency; - Immunization history:: Adult Immunizations up to date. - Social history:: Smoking status: Patient/guardian denies using tobacco. - Ebola Screening: : Patient negative for fever greater than or equal to 101.5 degrees Fahrenheit, and additional compatible Ebola Virus Disease symptoms Patient denies exposure to infectious person Patient denies travel to an Ebola-affected area in the 21 days before illness onset No symptoms or risks identified at this time. Screenin:42 Abuse screen: Denies threats or abuse. Denies injuries from another. Nutritional aj screening: No deficits noted. Tuberculosis screening: No symptoms or risk factors identified. Fall Risk None identified. Assessment: 10:42 Reassessment: No changes from previously documented assessment. aj 11:39 Reassessment: Patient appears in no apparent distress at this time. No changes from aj previously documented assessment. Patient and/or family updated on plan of care and expected duration. Pain level reassessed. Called Ellen at [facility], she stated "I will call [facility] to pick him up." Patient denies pain at this time. 12:01 Reassessment: Attempted to contact Ellen at [facility], placed on hold with no response after aj 5 minutes. 12:08 Reassessment: Spoke with Ellen at [facility], "[facility] told me at 1132 that they would aj be there within an hour.". 13:00 Reassessment: Called [facility] 3 times and asked to speak with Ellen, placed on hold with no aj response all three times. Called back for a fourth time and spoke with Olivia, "I will call our transport van and take care of this right now.". 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 Reports delays related to traffic. Vital Signs: 10:39 BP 126 / 74; Pulse 67; Resp 17; Temp 97.7(O); Pulse Ox 99% on R/A; Weight 72.57 kg; aj Height 6 ft. 0 in. (182.88 cm); 10:39 Body Mass Index 21.70 (72.57 kg, 182.88 cm) ED Course: 10:31 Patient arrived in ED. iw 10:34 Domingo Sharma MD is Attending Physician. lana 10:36 Shannen Sequeira, RN is Primary Nurse. aj 10:37 Triage completed. aj 10:39 Arm band placed on left wrist. Patient placed in an exam room, on a stretcher, on pulse aj oximetry. 10:40 Presley Gilbert PA is PHCP. jrSara 10:41 PEG tube replacement. Patient did not have IV access during this emergency room visit. aj 10:42 Patient has correct armband on for positive identification. aj 10:49 Oral care given. aj Administered Medications: No medications were administered Outcome: 11:33 Discharge ordered by . jr8 15:07 Discharged to shelter. ed1 15:07 Condition: stable 15:07 Discharge instructions given to EMS, Instructed on discharge instructions, follow up and referral plans. Demonstrated understanding of instructions, follow-up care. 15:08 Patient left the ED. ed1 Signatures: Shannen Sequeira, RN Domingo Perea MD MD cha Williams, Irene, Karina Ross RN, SUPERINTENDENT GENERATING PLANT SUPERINTENDENT GENERATING PLANT ed1 Presley Gilbert PA PA jr8
[2018-07-22 15:39] VITALS: BP 126/74; TEMP 97.7; O2SAT 99
== END 2018-07-22 15:08 | disposition home or self-care (01) ==
LOC: ER 10:29
DX: K94.29 Other complications of gastrostomy (principal); F20.9 Schizophrenia, unspecified; F03.90 Unspecified dementia, unspecified severity, without behavioral disturbance, psychotic disturbance, mood disturbance, and anxiety; I10 Essential (primary) hypertension; Z79.82 Long term (current) use of aspirin
CPT/HCPCS: 74018; 99283

== ENCOUNTER 2018-07-27 06:42 | Emergency (ER) | payer OTHER ==
--- NOTE | 2018-07-27 06:56 | EDPHYS ---
Physician Documentation [facility] Name: Shelia Miranda Age: 62 yrs Sex: Male : 1955 Arrival Date: 07/27/2018 Time: 06:43 Bed 19 Private MD: ED Physician Liv Chang HPI: 07/27 06:50 This 62 yrs old Black Male presents to ER via Unassigned with complaints of GTUBE. kb 06:50 Pt sent from [facility] for displaced G-tube. Staff does not know when it was pulled kb out. . Onset: The symptoms/episode began/occurred this morning. Severity of symptoms: At their worst the symptoms were mild. The patient has not experienced similar symptoms in the past. The patient has not recently seen a physician. Historical: - Allergies: 06:55 NKA; cc3 - Home Meds: 06:55 acetaminophen-codeine 300-30 mg Oral tab three times a day [Active]; aspirin 81 mg Oral cc3 chew 1 tab once daily [Active]; Catapres 0.1 mg Oral tab every 8 hours [Active]; ipratropium-albuterol 0.5 mg-3 mg(2.5 mg base)/3 mL Inhl nebu three times a day [Active]; lisinopril 20 mg Oral tab once daily [Active]; Tegretol 100 mg/5 mL Oral susp 10 mL twice a day [Active]; Vitamin D3 1,000 unit Oral tab daily [Active]; - PMHx: 06:55 Anxiety; Aphasia; BPH; Contracture; COPD; Dementia; Depression; DYSPHAGIA; cc3 Hypertension; Pneumonia; pressure ulcer stage 2; Schizophrenia; vitamin d deficiency; - Immunization history:: Adult Immunizations unknown. - Social history:: Smoking status: unknown. - Ebola Screening: : No symptoms or risks identified at this time. ROS: 06:50 Constitutional: Negative for fever, chills, and weight loss, Cardiovascular: Negative kb for chest pain, palpitations, and edema, Respiratory: Negative for shortness of breath, cough, wheezing, and pleuritic chest pain, Abdomen/GI: Negative for abdominal pain, nausea, vomiting, diarrhea, and constipation. Gastrostomy noted to upper abd MS/Extremity: Negative for injury and deformity, Skin: Negative for injury, rash, and discoloration, Neuro: Negative for headache, weakness, numbness, tingling, and seizure. Exam: 06:53 Constitutional: This is a well developed, well nourished patient who is awake, alert, kb and in no acute distress. Head/Face: Normocephalic, atraumatic. Chest/axilla: Normal chest wall appearance and motion. Nontender with no deformity. No lesions are appreciated. Cardiovascular: Regular rate and rhythm with a normal S1 and S2. No gallops, murmurs, or rubs. Normal PMI, no JVD. No pulse deficits. Respiratory: Lungs have equal breath sounds bilaterally, clear to auscultation and percussion. No rales, rhonchi or wheezes noted. No increased work of breathing, no retractions or nasal flaring. Skin: Warm, dry with normal turgor. Normal color with no rashes, no lesions, and no evidence of cellulitis. MS/ Extremity: Pulses equal, no cyanosis. Neurovascular intact. Full, normal range of motion. Neuro: Awake and alert, GCS 15, oriented to person, place, time, and situation. Cranial nerves II-XII grossly intact. Motor strength 5/5 in all extremities. Sensory grossly intact. Cerebellar exam normal. Normal gait. 06:53 Abdomen/GI: Inspection: gastrostomy noted, no tube in place. No bleeding, Bowel sounds: normal, in all quadrants, Palpation: abdomen is soft and non-tender. Vital Signs: 06:55 BP 131 / 89; Pulse 82; Resp 18 S; Temp 97.6(O); Pulse Ox 99% on R/A; cc3 Procedures: 06:58 G-tube placement: a 18 [place] catheter was placed, by the ED physician, Shari puga HOSPITAL CODER-C. MDM: 06:52 Data reviewed: vital signs, nurses notes. Data interpreted: Pulse oximetry: on room air kb is 100 %. Interpretation: normal. Counseling: I had a detailed discussion with the patient and/or guardian regarding: the historical points, exam findings, and any diagnostic results supporting the discharge/admit diagnosis, radiology results, the need for outpatient follow up, a family practitioner, to return to the emergency department if symptoms worsen or persist or if there are any questions or concerns that arise at home. 06:55 Patient medically screened. edd 07/27 06:47 Order name: PEG Tube Check w/contrast; Complete Time: 15:09 eb Administered Medications: No medications were administered Disposition: 07/27/18 06:55 Discharged to Home. Impression: Gastrostomy status - tube replaced. - Condition is Stable. - Discharge Instructions: Gastrostomy Tube Home Guide, Adult. - Medication Reconciliation Form, Thank You Letter, Antibiotic Education, Prescription Opioid Use form. - Follow up: Emergency Department; When: As needed; Reason: Worsening of condition. Follow up: Private Physician; When: 2 - 3 days; Reason: Recheck today's complaints, Continuance of care, Re-evaluation by your physician. Signatures: Dispatcher [employer] EDShari Quinn, [facility] CODER-Gunnar Burrows, JANESSA AEROPLANE PILOT Paris Rojas cc3 Corrections: (The following items were deleted from the chart) 07:23 06:55 07/27/2018 06:55 Discharged to Home. Impression: Gastrostomy status - tube em replaced. Condition is Stable. Forms are Medication Reconciliation Form, Thank You Letter, Antibiotic Education, Prescription Opioid Use. Follow up: Emergency Department; When: As needed; Reason: Worsening of condition. Follow up: Private Physician; When: 2 - 3 days; Reason: Recheck today's complaints, Continuance of care, Re-evaluation by your physician. kb
--- NOTE | 2018-07-27 07:24 | ER ---
Nurse's Notes [facility] Name: Shelia Miranda Age: 62 yrs Sex: Male : 1955 Arrival Date: 07/27/2018 Time: 06:43 Bed 19 Private MD: Diagnosis: Gastrostomy status-tube replaced Presentation: 07/27 06:55 Presenting complaint: EMS states: pulled out Fr. 18 G-tube. Transition of care: [address] Onset of symptoms was July 27, 2018. Risk Assessment: Do you want to hurt yourself or someone else? Patient reports no desire to harm self or others. Initial Sepsis Screen: Does the patient meet any 2 criteria? No. Patient's initial sepsis screen is negative. Does the patient have a suspected source of infection? No. Patient's initial sepsis screen is negative. Care prior to arrival: None. 06:55 Method Of Arrival: EMS: [place] [address] 06:55 Acuity: WINSOME 4 cc3 Historical: - Allergies: 06:55 NKA; cc3 - Home Meds: 06:55 acetaminophen-codeine 300-30 mg Oral tab three times a day [Active]; aspirin 81 mg Oral cc3 chew 1 tab once daily [Active]; Catapres 0.1 mg Oral tab every 8 hours [Active]; ipratropium-albuterol 0.5 mg-3 mg(2.5 mg base)/3 mL Inhl nebu three times a day [Active]; lisinopril 20 mg Oral tab once daily [Active]; Tegretol 100 mg/5 mL Oral susp 10 mL twice a day [Active]; Vitamin D3 1,000 unit Oral tab daily [Active]; - PMHx: 06:55 Anxiety; Aphasia; BPH; Contracture; COPD; Dementia; Depression; DYSPHAGIA; cc3 Hypertension; Pneumonia; pressure ulcer stage 2; Schizophrenia; vitamin d deficiency; - Immunization history:: Adult Immunizations unknown. - Social history:: Smoking status: unknown. - Ebola Screening: : No symptoms or risks identified at this time. Screenin:16 Abuse screen: no apparent signs noted. Nutritional screening: No deficits noted. em Tuberculosis screening: No symptoms or risk factors identified. Fall Risk Ambulatory Aid- None/Bed Rest/Nurse Assist (0 pts). Assessment: 06:55 Reassessment: CONSTRUCTION OPERATIONS MANAGER Shari inserted a new Fr. 18 G-tube and said will order for an xray cc3 before discharging the patient, instructed the [facility] to wait for the patient. 07:00 Reassessment: Handed over to morning shift for continuity of care. cc3 07:10 General: Appears in no apparent distress. comfortable, Behavior is calm, cooperative. em Pain: Unable to use pain scale. FLACC scale score is 0 out of 10. Neuro: Level of Consciousness is awake, alert, Paralysis from waist down. Cardiovascular: Capillary refill < 3 seconds Patient's skin is warm and dry. Respiratory: Airway is patent Respiratory effort is even, unlabored, Respiratory pattern is regular, symmetrical. GI: Abdomen is flat, G tube missing, site clean, no bleeding noted. Derm: Skin is intact, Skin is pink, warm \T\ dry. Musculoskeletal: Capillary refill < 3 seconds. 07:15 Reassessment: I agree with above assessment by Gunnar Hercules LVN. iw Vital Signs: 06:55 BP 131 / 89; Pulse 82; Resp 18 S; Temp 97.6(O); Pulse Ox 99% on R/A; cc3 ED Course: 06:43 Patient arrived in ED. ds1 06:49 Shari Silva FNP-C is [facility]. kb 06:49 Liv Chang MD is Attending Physician. kb 07:00 Report given to JANESSA Maher. cc3 07:06 Gunnar Hercules LVN is Primary Nurse. em 07:08 Triage completed. cc3 07:10 Arm band placed on. em 07:15 PEG Tube Check w/contrast In Process Unspecified. EDMS 07:16 Patient has correct armband on for positive identification. Placed in gown. Bed in low em position. Side rails up X2. 07:16 No provider procedures requiring assistance completed. Patient did not have IV access em during this emergency room visit. Administered Medications: No medications were administered Outcome: 06:55 Discharge ordered by . kb 07:16 Discharged to longterm. em 07:16 Condition: good 07:16 Discharge instructions given to longterm, Instructed on discharge instructions, follow up and referral plans. Demonstrated understanding of instructions, follow-up care. 07:23 Patient left the ED. em Signatures: Dispatcher [employer] EDShari Quinn FNP-C CUTTER FINISHER-Ckb Gunnar Hercules, WELL TENDER WELL TENDER Linnea Rodriguez ds1 Nazia Bose, ARIAS RN iw Paris Linares cc3 Corrections: (The following items were deleted from the chart) 07:07 07:06 BP 131 / 89; Pulse 82bpm; Resp 18bpm; Spontaneous; Pulse Ox 99% RA; Temp 97.6F cc3 Oral; cc3
[2018-07-27 07:31] VITALS: BP 131/89; TEMP 97.6; O2SAT 99
--- NOTE | 2018-07-27 13:21 | RAD REPORT ---
EXAM DESCRIPTION: RAD - ENTEROSTOMY TUBE CHECK W/CONTR - 07/27/2018 7:15 am CLINICAL HISTORY: POST NG PLACEMENT G-tube placement COMPARISON: ENTEROSTOMY TUBE CHECK W/CONTR dated 07/18/2018 FINDINGS: Two abdominal radiographs were performed pre and post contrast injection via gastrostomy t ube. The post-contrast image shows contrast within the stomach, indicating appropriate placement.
== END 2018-07-27 07:23 | disposition home or self-care (01) ==
LOC: ER 06:42
PROC: 0D20XYZ Change Other Device in Upper Intestinal Tract, External Approach (ICD-10-PCS; principal; 2018-07-27)
DX: Z43.1 Encounter for attention to gastrostomy (principal); E55.9 Vitamin D deficiency, unspecified; I10 Essential (primary) hypertension; J44.9 Chronic obstructive pulmonary disease, unspecified; F03.90 Unspecified dementia, unspecified severity, without behavioral disturbance, psychotic disturbance, mood disturbance, and anxiety; F20.9 Schizophrenia, unspecified; F41.9 Anxiety disorder, unspecified; F32.9 Major depressive disorder, single episode, unspecified; Z79.82 Long term (current) use of aspirin; Z79.899 Other long term (current) drug therapy; Z79.891 Long term (current) use of opiate analgesic
CPT/HCPCS: 49465; 99283

== ENCOUNTER 2018-07-28 06:56 | Emergency (ER) | payer OTHER ==
--- NOTE | 2018-07-28 07:23 | ER ---
Nurse's Notes [facility] Name: Shelia Miranda Age: 62 yrs Sex: Male : 1955 Arrival Date: 07/28/2018 Time: 07:04 Bed 15 Private MD: Diagnosis: Encounter for feeding tube replacement Presentation: 07/28 07:04 Presenting complaint: EMS states: Pt coming from [facility], staff reports ea he pulled out peg tube at 0510 this AM. Transition of care: patient was not received from another setting of care. Onset of symptoms was July 28, 2018. Risk Assessment: Do you want to hurt yourself or someone else? Patient reports no desire to harm self or others. Initial Sepsis Screen: Does the patient meet any 2 criteria? No. Patient's initial sepsis screen is negative. Does the patient have a suspected source of infection? No. Patient's initial sepsis screen is negative. Care prior to arrival: None. 07:04 Method Of Arrival: EMS: [facility] ea 07:04 Acuity: WINSOME 5 ea Historical: - Allergies: 07:09 NKA; ea - Home Meds: 07:09 Vitamin D3 1,000 unit Oral tab daily [Active]; Tegretol 100 mg/5 mL Oral susp 10 mL ea twice a day [Active]; lisinopril 20 mg Oral tab once daily [Active]; acetaminophen-codeine 300-30 mg Oral tab three times a day [Active]; aspirin 81 mg Oral chew 1 tab once daily [Active]; Catapres 0.1 mg Oral tab every 8 hours [Active]; ipratropium-albuterol 0.5 mg-3 mg(2.5 mg base)/3 mL Inhl nebu three times a day [Active]; - PMHx: 07:09 vitamin d deficiency; Schizophrenia; pressure ulcer stage 2; Pneumonia; Hypertension; ea DYSPHAGIA; Depression; Dementia; COPD; Contracture; BPH; Aphasia; Anxiety; - Immunization history:: Adult Immunizations unknown, Adult Immunizations up to date. - Social history:: Smoking status: unknown Smoking status: unknown. - Ebola Screening: : No symptoms or risks identified at this time No symptoms or risks identified at this time. - Family history:: not pertinent. - Hospitalizations: : No recent hospitalization is reported. Screenin:06 Abuse screen: Denies threats or abuse. Nutritional screening: No deficits noted. ea Tuberculosis screening: No symptoms or risk factors identified. Fall Risk None identified. Assessment: 07:19 Reassessment: spoke with Ellen at [facility], report given, she will arrange transport back tw2 to her facility. General: Appears in no apparent distress. Behavior is calm. Pain: Unable to use pain scale. Patient appears quiet, calm, nad. Neuro: Level of Consciousness is this is pts baseline, response to pain. Cardiovascular: Patient's skin is warm and dry. Respiratory: Airway is patent Respiratory effort is even, unlabored, Respiratory pattern is regular, symmetrical. GI: peg tube pulled out, scant blood noted, site was cleaned with NS, Dr. Peters replaced PEG tube with an 18 PEG tube, balloon inflated with 20 ml NS, pt tolerated well. placement xray pending. : No signs and/or symptoms were reported regarding the genitourinary system. 08:06 Reassessment: Patient appears in no apparent distress at this time. No changes from tw2 previously documented assessment. Patient and/or family updated on plan of care and expected duration. Pain level reassessed. Vital Signs: 07:00 BP 137 / 92; Pulse 75; Resp 18; Temp 98.7(O); Pulse Ox 98% on R/A; tw2 08:06 BP 138 / 94; Pulse 65; Resp 17; Pulse Ox 100% on R/A; tw2 ED Course: 07:00 Arm band placed on right wrist. Patient placed in an exam room, on a stretcher, on ea pulse oximetry. 07:00 Patient has correct armband on for positive identification. Bed in low position. Call ea light in reach. Side rails up X2. 07:04 Patient arrived in ED. tw2 07:04 Hakeem Peters MD is Attending Physician. rn 07:06 Triage completed. ea 07:19 Poppy Bowser RN is Primary Nurse. tw2 07:23 with replacement of size 18 PEG tube, pt tolerated well, balloon filled with 20 ml NS, tw2 gauze placed around peg site, secured with abdominal pad, tape and abdominal binder. Patient did not have IV access during this emergency room visit. Administered Medications: No medications were administered Outcome: 07:22 Discharge ordered by . rn 08:05 Discharged to detention. Report called to Ellen tw2 08:05 Condition: stable 08:05 Discharge instructions given to patient, detention, EMS, Instructed on discharge instructions, follow up and referral plans. 08:09 Patient left the ED. tw2 Signatures: Hakeem Peters MD MD rn Wise, Tara RN RN tw2 Debbie Felipe RN RN edi
--- NOTE | 2018-07-28 07:23 | EDPHYS ---
Physician Documentation [facility] Name: Shelia Miranda Age: 62 yrs Sex: Male : 1955 Arrival Date: 07/28/2018 Time: 07:04 Bed 15 Private MD: ED Physician Hakeem Peters HPI: 07/28 07:16 This 62 yrs old Black Male presents to ER via EMS with complaints of Pulled PEG tube rn out. 07:16 Pt pulled out PEG tube once again, last one placed 24 hours ago here, happens rn frequently. . Onset: The symptoms/episode began/occurred this morning. Severity of symptoms: At their worst the symptoms were mild in the emergency department the symptoms are unchanged. The patient has experienced similar episodes in the past. The patient has not recently seen a physician. Historical: - Allergies: 07:09 NKA; ea - Home Meds: 07:09 Vitamin D3 1,000 unit Oral tab daily [Active]; Tegretol 100 mg/5 mL Oral susp 10 mL ea twice a day [Active]; lisinopril 20 mg Oral tab once daily [Active]; acetaminophen-codeine 300-30 mg Oral tab three times a day [Active]; aspirin 81 mg Oral chew 1 tab once daily [Active]; Catapres 0.1 mg Oral tab every 8 hours [Active]; ipratropium-albuterol 0.5 mg-3 mg(2.5 mg base)/3 mL Inhl nebu three times a day [Active]; - PMHx: 07:09 vitamin d deficiency; Schizophrenia; pressure ulcer stage 2; Pneumonia; Hypertension; ea DYSPHAGIA; Depression; Dementia; COPD; Contracture; BPH; Aphasia; Anxiety; - Immunization history:: Adult Immunizations unknown, Adult Immunizations up to date. - Social history:: Smoking status: unknown Smoking status: unknown. - Ebola Screening: : No symptoms or risks identified at this time No symptoms or risks identified at this time. - Family history:: not pertinent. - Hospitalizations: : No recent hospitalization is reported. ROS: 07:16 Unable to obtain ROS due to baseline dementia. rn Exam: 07:16 Constitutional: This is a well developed, well nourished patient who is awake, and in rn no acute distress. Abdomen/GI: soft, non-tender, non-distended, left abdominal stoma open, no drainage Vital Signs: 07:00 BP 137 / 92; Pulse 75; Resp 18; Temp 98.7(O); Pulse Ox 98% on R/A; tw2 08:06 BP 138 / 94; Pulse 65; Resp 17; Pulse Ox 100% on R/A; tw2 Procedures: 07:16 G-tube placement: a 18 Welsh catheter was placed, by the ED physician, Hakeem Peters MD. rn MDM: 07:04 Patient medically screened. rn 07:16 Data reviewed: vital signs, nurses notes, and as a result, I will discharge patient. rn Counseling: I had a detailed discussion with the patient and/or guardian regarding: the historical points, exam findings, and any diagnostic results supporting the discharge/admit diagnosis, the need for outpatient follow up, to return to the emergency department if symptoms worsen or persist or if there are any questions or concerns that arise at home. Special discussion: I discussed with the patient/guardian in detail that at this point there is no indication for admission to the hospital. It is understood, however, that if the symptoms persist or worsen the patient needs to return immediately for re-evaluation. Administered Medications: No medications were administered Disposition: 07/28/18 07:22 Discharged to Home. Impression: Encounter for feeding tube replacement. - Condition is Stable. - Discharge Instructions: PEG Tube Home Guide. - Medication Reconciliation Form, Thank You Letter, Antibiotic Education, Prescription Opioid Use form. - Follow up: Private Physician; When: As needed; Reason: Recheck today's complaints, Re-evaluation by your physician. - Problem is new. - Symptoms have improved. Signatures: Hakeem Peters MD MD rn Wise, Tara, RN RN tw2 Antunez, Elena, RN RN ea Corrections: (The following items were deleted from the chart) 08:09 07:22 07/28/2018 07:22 Discharged to Home. Impression: Encounter for feeding tube tw2 replacement. Condition is Stable. Forms are Medication Reconciliation Form, Thank You Letter, Antibiotic Education, Prescription Opioid Use. Follow up: Private Physician; When: As needed; Reason: Recheck today's complaints, Re-evaluation by your physician. Problem is new. Symptoms have improved. rn
[2018-07-28 08:16] VITALS: TEMP 98.7
[2018-07-28 08:17] VITALS: BP 138/94; O2SAT 100
== END 2018-07-28 08:09 | disposition home or self-care (01) ==
LOC: ER 06:56
PROC: 0D20XUZ Change Feeding Device in Upper Intestinal Tract, External Approach (ICD-10-PCS; principal; 2018-07-28)
DX: K94.29 Other complications of gastrostomy (principal); Z43.1 Encounter for attention to gastrostomy; E55.9 Vitamin D deficiency, unspecified; F20.9 Schizophrenia, unspecified; I10 Essential (primary) hypertension; F32.9 Major depressive disorder, single episode, unspecified; F41.9 Anxiety disorder, unspecified; N40.0 Benign prostatic hyperplasia without lower urinary tract symptoms; J44.9 Chronic obstructive pulmonary disease, unspecified; F03.90 Unspecified dementia, unspecified severity, without behavioral disturbance, psychotic disturbance, mood disturbance, and anxiety; Z79.82 Long term (current) use of aspirin; Z79.899 Other long term (current) drug therapy
CPT/HCPCS: 99283

== ENCOUNTER 2018-07-29 11:48 | Emergency (ER) | payer OTHER ==
--- NOTE | 2018-07-29 14:07 | EDPHYS ---
Physician Documentation [facility] Name: Shelia Miranda Age: 62 yrs Sex: Male : 1955 Arrival Date: 07/29/2018 Time: 11:50 Bed 15 Private MD: ED Physician Hakeem Peters HPI: 07/29 12:08 This 62 yrs old Black Male presents to ER via EMS with complaints of Pulled G Tube out. jmm 12:08 Patient pulled out his g tube. This has happened on multiple occasions. Patient denies jmm pain, denies abdominal pain, denies chest pain, denies shortness fo breath. The patient has experienced similar episodes in the past, several times. Historical: - Allergies: 11:50 NKA; rb1 - Home Meds: 11:50 acetaminophen-codeine 300-30 mg Oral tab three times a day [Active]; lisinopril 20 mg rb1 Oral tab once daily [Active]; ipratropium-albuterol 0.5 mg-3 mg(2.5 mg base)/3 mL Inhl nebu three times a day [Active]; Catapres 0.1 mg Oral tab every 8 hours [Active]; aspirin 81 mg Oral chew 1 tab once daily [Active]; Vitamin D3 1,000 unit Oral tab daily [Active]; Tegretol 100 mg/5 mL Oral susp 10 mL twice a day [Active]; lorazepam 1 mg Oral tab 1 tab 3 times per day for Anxiety [Active]; Nitroglycerin 0.3 mg SL 1 tab every 5 minutes [Active]; Zoloft 50 mg Oral tab 1 tab once daily [Active]; acetaminophen-codeine 300-30 mg Oral tab 1 tab three times a day [Active]; - PMHx: 11:50 Anxiety; Aphasia; BPH; Contracture; COPD; Dementia; Depression; DYSPHAGIA; rb1 Hypertension; Pneumonia; pressure ulcer stage 2; Schizophrenia; vitamin d deficiency; - PSHx: 11:50 Unable to obtain; rb1 - Immunization history:: Adult Immunizations up to date. - Social history:: Smoking status: unknown. - Ebola Screening: : Patient negative for fever greater than or equal to 101.5 degrees Fahrenheit, and additional compatible Ebola Virus Disease symptoms. ROS: 12:08 Constitutional: Negative for fever, chills, and weight loss, Cardiovascular: Negative jmm for chest pain, palpitations, and edema, Respiratory: Negative for shortness of breath, cough, wheezing, and pleuritic chest pain, Abdomen/GI: Negative for abdominal pain, nausea, vomiting, diarrhea, and constipation. 12:08 All other systems are negative. Exam: 12:08 Head/Face: atraumatic. Eyes: EOMI, no conjunctival erythema appreciated ENT: Moist jm Mucus Membranes Neck: Trachea midline, Supple Chest/axilla: Normal chest wall appearance and motion. Cardiovascular: Regular rate and rhythm. No edema appreciated Respiratory: Normal respirations, no respiratory distress appreciated 12:08 Constitutional: The patient appears in no acute distress, alert, awake. 12:08 Abdomen/GI: Inspection: g tube insertion site does not have purulent drainage, no swelling, no induration is appreciated. . 12:08 Skin: Appearance: Color: normal in color. 12:08 Psych: Behavior/mood is pleasant, cooperative. Vital Signs: 11:50 BP 126 / 87; Pulse 65; Resp 18; Temp 98.3(TE); Pulse Ox 100% on R/A; Weight 77.56 kg rb1 (R); Pain 0/10; 12:50 BP 124 / 84; Pulse 66; Resp 17; Pulse Ox 99% on R/A; rb1 13:50 BP 125 / 83; Pulse 69; Resp 18; Pulse Ox 100% on R/A; rb1 14:50 BP 122 / 80; Pulse 65; Resp 17; Pulse Ox 99% ; rb1 Procedures: 13:06 G-tube placement: a 18 Slovak catheter was placed, by the ED physician, Charlie Saunders MDM: 12:08 Patient medically screened. [facility] 14:03 Data reviewed: vital signs, nurses notes. Counseling: I had a detailed discussion with kris the patient and/or guardian regarding: the historical points, exam findings, and any diagnostic results supporting the discharge/admit diagnosis, radiology results, the need for outpatient follow up, to return to the emergency department if symptoms worsen or persist or if there are any questions or concerns that arise at home. 07/29 12:09 Order name: Enterostomy Tube Check w/contr kris Administered Medications: No medications were administered Disposition: 18:31 Co-signature as Attending Physician, Hakeem Peters MD. rn Disposition: 11/27/18 14:06 Discharged to Home. Impression: Feeding tube replacement. - Condition is Stable. - Discharge Instructions: PEG Tube Home Guide. - Medication Reconciliation Form, Thank You Letter, Antibiotic Education, Prescription Opioid Use form. - Follow up: Private Physician; When: 2 - 3 days; Reason: Recheck today's complaints, Continuance of care, Re-evaluation by your physician. Signatures: Dispatcher [employer] EDMS Vicky Liao Joel, PA PA jmm Nieto, Roman, MD MD rn Hermelinda Boland RN RN rb1 Corrections: (The following items were deleted from the chart) 13:05 13:04 This 62 yrs old Black Male presents to ER via EMS with complaints of Pulled G jmm Tube out. kris 15:28 14:06 07/29/2018 14:06 Discharged to Home. Impression: Feeding tube replacement. bd Condition is Stable. Forms are Medication Reconciliation Form, Thank You Letter, Antibiotic Education, Prescription Opioid Use. Follow up: Private Physician; When: 2 - 3 days; Reason: Recheck today's complaints, Continuance of care, Re-evaluation by your physician. [facility]
--- NOTE | 2018-07-29 14:07 | ER ---
Nurse's Notes [facility] Name: Shelia Miranda Age: 62 yrs Sex: Male : 1955 Arrival Date: 07/29/2018 Time: 11:50 Bed 15 Private MD: Diagnosis: Feeding tube replacement Presentation: 07/29 11:50 Presenting complaint: EMS states: Pt. pulled his feeding tube out. [address] sent him here to have it reinserted. Transition of care: patient was received from another setting of care (long-term care facility), [facility]. Onset of symptoms was July 29, 2018. Risk Assessment: Do you want to hurt yourself or someone else? Patient reports no desire to harm self or others. Initial Sepsis Screen: Does the patient meet any 2 criteria? No. Patient's initial sepsis screen is negative. Does the patient have a suspected source of infection? No. Patient's initial sepsis screen is negative. Care prior to arrival: None. 11:50 Method Of Arrival: EMS: Home EMS [facility] 11:50 Acuity: WINSOME 4 rb1 Triage Assessment: 11:50 General: Appears in no apparent distress. comfortable, Behavior is calm, cooperative. rb1 Pain: Unable to use pain scale. FLACC scale score is 0 out of 10. Neuro: Level of Consciousness is awake, Oriented to person. Cardiovascular: Capillary refill < 3 seconds is brisk in bilateral fingers. Respiratory: Airway is patent Respiratory effort is even, unlabored, Respiratory pattern is regular, symmetrical. GI: Feeding tube has been pulled out by the pt. : incontinence. Derm: Skin is dry, Skin is normal, Skin temperature is warm. Historical: - Allergies: 11:50 NKA; rb1 - Home Meds: 11:50 acetaminophen-codeine 300-30 mg Oral tab three times a day [Active]; lisinopril 20 mg rb1 Oral tab once daily [Active]; ipratropium-albuterol 0.5 mg-3 mg(2.5 mg base)/3 mL Inhl nebu three times a day [Active]; Catapres 0.1 mg Oral tab every 8 hours [Active]; aspirin 81 mg Oral chew 1 tab once daily [Active]; Vitamin D3 1,000 unit Oral tab daily [Active]; Tegretol 100 mg/5 mL Oral susp 10 mL twice a day [Active]; lorazepam 1 mg Oral tab 1 tab 3 times per day for Anxiety [Active]; Nitroglycerin 0.3 mg SL 1 tab every 5 minutes [Active]; Zoloft 50 mg Oral tab 1 tab once daily [Active]; acetaminophen-codeine 300-30 mg Oral tab 1 tab three times a day [Active]; - PMHx: 11:50 Anxiety; Aphasia; BPH; Contracture; COPD; Dementia; Depression; DYSPHAGIA; rb1 Hypertension; Pneumonia; pressure ulcer stage 2; Schizophrenia; vitamin d deficiency; - PSHx: 11:50 Unable to obtain; rb1 - Immunization history:: Adult Immunizations up to date. - Social history:: Smoking status: unknown. - Ebola Screening: : Patient negative for fever greater than or equal to 101.5 degrees Fahrenheit, and additional compatible Ebola Virus Disease symptoms. Screenin:50 Abuse screen: Denies threats or abuse. Nutritional screening: Feeding tube. rb1 Tuberculosis screening: No symptoms or risk factors identified. Fall Risk No fall in past 12 months (0 pts). Secondary diagnosis (15 points) impaired mobility, No IV (0 pts). Ambulatory Aid- None/Bed Rest/Nurse Assist (0 pts). Gait- Impaired (20 pts.). Mental Status- Overestimates/Forgets Limitations (15 pts.). Total Stephens Fall Scale indicates High Risk Score (45 or more points). Fall prevention measures have been instituted. Side Rails Up X 2 Placed Close to Nursing Station 1:1 Attendant Assigned Frequent Obs/Assessments Occuring As available patient and family educated on Fall Prevention Program and Strategies. Assessment: 11:50 General: See triage assessment. rb1 12:50 Reassessment: Patient appears in no apparent distress at this time. Patient and/or rb1 family updated on plan of care and expected duration. Pain level reassessed. Patient denies pain at this time. 13:50 Reassessment: Patient appears in no apparent distress at this time. pt. is resting with rb1 eyes closed, respirations even unlabored. 14:50 Reassessment: Patient appears in no apparent distress at this time. Patient and/or rb1 family updated on plan of care and expected duration. Pain level reassessed. Patient denies pain at this time. Vital Signs: 11:50 BP 126 / 87; Pulse 65; Resp 18; Temp 98.3(TE); Pulse Ox 100% on R/A; Weight 77.56 kg rb1 (R); Pain 0/10; 12:50 BP 124 / 84; Pulse 66; Resp 17; Pulse Ox 99% on R/A; rb1 13:50 BP 125 / 83; Pulse 69; Resp 18; Pulse Ox 100% on R/A; rb1 14:50 BP 122 / 80; Pulse 65; Resp 17; Pulse Ox 99% ; rb1 ED Course: 11:50 Patient arrived in ED. bd 11:50 Arm band placed on right wrist. rb1 11:50 Patient has correct armband on for positive identification. Bed in low position. Call rb1 light in reach. Side rails up X2. Pulse ox on. NIBP on. 11:51 Chalrie Willis PA is PHCP. [facility] 11:51 Hakeem Peters MD is Attending Physician. [facility] 12:09 Hermelinda Boland, RN is Primary Nurse. rb1 12:12 Triage completed. rb1 15:28 No provider procedures requiring assistance completed. Patient did not have IV access rb1 during this emergency room visit. 15:47 Enterostomy Tube Check w/contr In Process Unspecified. EDMS Administered Medications: No medications were administered Outcome: 14:06 Discharge ordered by . [facility] 15:28 Patient left the ED. bd 15:28 Discharged to shelter. Report called to [facility] by JONH Damon rb1 15:28 Condition: stable 15:28 Discharge instructions given to patient, Instructed on discharge instructions, follow up and referral plans. Demonstrated understanding of instructions, follow-up care, Prescriptions given X none Signatures: Dispatcher [employer] EDMS Vicky Liao Joel, PA PA [facility] Hermelinda Boland, RN RN rb1 Corrections: (The following items were deleted from the chart) 19:52 12:50 Reassessment: Patient appears in no apparent distress at this time. Patient rb1 and/or family updated on plan of care and expected duration. Pain level reassessed. Patient is alert, oriented x 3, equal unlabored respirations, skin warm/dry/pink. Patient denies pain at this time. rb1
[2018-07-29 15:32] VITALS: BP 126/87; TEMP 98.3; O2SAT 100
--- NOTE | 2018-07-30 11:47 | RAD REPORT ---
EXAM DESCRIPTION: RAD - ENTEROSTOMY TUBE CHECK W/CONTR - 07/29/2018 3:46 pm CLINICAL HISTORY: Abdominal pain/pulled out gastrostomy tube FINDINGS: Gastrografin was administered into a gastrostomy tube within the left abdomen. The stomach is opacified with contrast. Contrast enters the duodenum. No extravasation of contrast se en
== END 2018-07-29 15:28 | disposition home or self-care (01) ==
LOC: ER 11:48
DX: Z43.1 Encounter for attention to gastrostomy (principal); F20.9 Schizophrenia, unspecified; F03.90 Unspecified dementia, unspecified severity, without behavioral disturbance, psychotic disturbance, mood disturbance, and anxiety; I10 Essential (primary) hypertension; F32.9 Major depressive disorder, single episode, unspecified; R47.02 Dysphasia; Z79.82 Long term (current) use of aspirin
CPT/HCPCS: 49465; 99284

== ENCOUNTER 2018-08-01 22:53 | Emergency (ER) | payer OTHER ==
--- NOTE | 2018-08-02 00:06 | ER ---
Nurse's Notes [facility] Name: Shelia Miranda Age: 62 yrs Sex: Male : 1955 Arrival Date: 08/01/2018 Time: 22:55 Bed 26 Private MD: Diagnosis: Encounter for attention to gastrostomy-and tube replacement Presentation: 08/01 22:56 Presenting complaint: EMS states: Pt pulled out his feeding tube. Transition of care: ed1 patient was received from another setting of care ([facility]. Onset of symptoms was August 01, 2018. Risk Assessment: Do you want to hurt yourself or someone else? Patient reports no desire to harm self or others. Initial Sepsis Screen: Does the patient meet any 2 criteria? No. Patient's initial sepsis screen is negative. Does the patient have a suspected source of infection? No. Patient's initial sepsis screen is negative. Care prior to arrival: None. 22:56 Method Of Arrival: EMS: [facility] ed1 23:05 Acuity: WINSOME 4 kr2 Triage Assessment: 23:02 General: Appears in no apparent distress. Behavior is calm, cooperative. Pain: Denies ed1 pain. EENT: No signs and/or symptoms were reported regarding the EENT system. Neuro: Level of Consciousness is awake, alert, obeys commands, Oriented to person. Cardiovascular: Denies chest pain, Heart tones S1 S2 present. Respiratory: Airway is patent Respiratory effort is even, unlabored, Respiratory pattern is regular, symmetrical, Breath sounds are clear bilaterally. GI: abdominal binder in place. : No signs and/or symptoms were reported regarding the genitourinary system. Derm: Skin is intact, Skin is dry, Skin is normal, Skin temperature is warm. Historical: - Allergies: 23:02 NKA; ed1 - Home Meds: 23:02 aspirin 81 mg Oral chew 1 tab once daily [Active]; Catapres 0.1 mg Oral tab every 8 ed1 hours PRN [Active]; Vitamin D3 1,000 unit Oral tab daily [Active]; ipratropium-albuterol 0.5 mg-3 mg(2.5 mg base)/3 mL Inhl nebu 3 times a day PRN [Active]; lisinopril 20 mg Oral tab once daily [Active]; lorazepam 1 mg Oral tab 1 tab every 8 hours for Anxiety [Active]; Nitroglycerin 0.3 mg SL 1 tab every 5 minutes X3 PRN [Active]; Tegretol 100 mg/5 mL Oral susp 10 mL twice a day [Active]; acetaminophen-codeine 300-30 mg Oral tab 1 tab every 6 hours PRN [Active]; acetaminophen-codeine 300-30 mg Oral tab three times a day [Active]; Zoloft 50 mg Oral tab 1 tab once daily [Active]; - PMHx: 23:02 Anxiety; Aphasia; BPH; Contracture; COPD; Dementia; Depression; DYSPHAGIA; Pneumonia; ed1 Hypertension; pressure ulcer stage 2; Schizophrenia; vitamin d deficiency; - PSHx: 23:02 Unable to obtain; ed1 - Immunization history:: Adult Immunizations up to date. - Social history:: Smoking status: Patient/guardian denies using tobacco. - Ebola Screening: : Patient negative for fever greater than or equal to 101.5 degrees Fahrenheit, and additional compatible Ebola Virus Disease symptoms Patient denies exposure to infectious person Patient denies travel to an Ebola-affected area in the 21 days before illness onset No symptoms or risks identified at this time. Screenin:05 Abuse screen: Denies threats or abuse. Denies injuries from another. Nutritional ed1 screening: No deficits noted. Tuberculosis screening: No symptoms or risk factors identified. Fall Risk Fall in past 12 months (25 points). Secondary diagnosis (15 points) impaired mobility, No IV (0 pts). Ambulatory Aid- None/Bed Rest/Nurse Assist (0 pts). Gait- Impaired (20 pts.). Mental Status- Overestimates/Forgets Limitations (15 pts.). Total Stephens Fall Scale indicates High Risk Score (45 or more points). Fall prevention measures have been instituted. Side Rails Up X 2 Placed Close to Nursing Station Frequent Obs/Assessments Occuring As available patient and family educated on Fall Prevention Program and Strategies. Assessment: 23:05 General: See triage assessment. ed1 23:10 Reassessment: I agree with assessment. 08/02 00:13 Reassessment: Patient appears in no apparent distress at this time. Patient and/or ed1 family updated on plan of care and expected duration. Pain level reassessed. G-tube replaced. Report called to [facility]. Vital Signs: 08/01 23:02 BP 118 / 80; Pulse 94; Resp 18; Temp 97.5(O); Pulse Ox 96% on R/A; Pain 0/10; ed1 12 00:13 BP 123 / 86; Pulse 71; Resp 18; Pulse Ox 100% on R/A; Pain 0/10; ed1 ED Course: 08/01 22:55 Patient arrived in ED. ed1 22:57 Charlene Cleaning [facility]C [facility] snw 22:57 Marlo Mills MD is Attending Physician. snw 23:02 Arm band placed on right wrist. ed1 23:05 Triage completed. kr2 23:05 Patient has correct armband on for positive identification. Placed in gown. Bed in low ed1 position. Call light in reach. Side rails up X2. Pulse ox on. NIBP on. Warm blanket given. 23:07 Karina Viveros LVN is Primary Nurse. ed1 23:58 X-ray completed. Portable x-ray completed in exam room. Patient tolerated procedure sg4 well. 12 00:13 No provider procedures requiring assistance completed. Patient did not have IV access ed1 during this emergency room visit. Administered Medications: No medications were administered Outcome: 00:05 Discharge ordered by . snw 00:13 Discharged to [facility] Report called to [facility] Care Transfer form ed1 completed. 00:13 Condition: good 00:13 Discharge instructions given to [facility], Instructed on discharge instructions, follow up and referral plans. Demonstrated understanding of instructions, follow-up care. 00:15 Patient left the ED. ed1 Signatures: Charlene Cleaning FNP-C MIMEOGRAPHER-Csnw Claudia Gayle, RN RN Karina Viveros LVN PUMPER HAND ed1 No Shabazz RN RN john2 Meenu Lucio sg4
--- NOTE | 2018-08-02 00:06 | EDPHYS ---
Physician Documentation [facility] Name: Shelia Miranda Age: 62 yrs Sex: Male : 1955 Arrival Date: 08/01/2018 Time: 22:55 Bed 26 Private MD: ED Physician Marlo Mills HPI: 08/02 00:25 This 62 yrs old Black Male presents to ER via EMS with complaints of Displaced G-tube. snw 00:25 Onset: The symptoms/episode began/occurred suddenly, today. Associated signs and snw symptoms: The patient has no apparent associated signs or symptoms. The patient has experienced similar episodes in the past, chronically. It is unknown whether or not the patient has recently seen a physician. Historical: - Allergies: 08/01 23:02 NKA; ed1 - Home Meds: 23:02 aspirin 81 mg Oral chew 1 tab once daily [Active]; Catapres 0.1 mg Oral tab every 8 ed1 hours PRN [Active]; Vitamin D3 1,000 unit Oral tab daily [Active]; ipratropium-albuterol 0.5 mg-3 mg(2.5 mg base)/3 mL Inhl nebu 3 times a day PRN [Active]; lisinopril 20 mg Oral tab once daily [Active]; lorazepam 1 mg Oral tab 1 tab every 8 hours for Anxiety [Active]; Nitroglycerin 0.3 mg SL 1 tab every 5 minutes X3 PRN [Active]; Tegretol 100 mg/5 mL Oral susp 10 mL twice a day [Active]; acetaminophen-codeine 300-30 mg Oral tab 1 tab every 6 hours PRN [Active]; acetaminophen-codeine 300-30 mg Oral tab three times a day [Active]; Zoloft 50 mg Oral tab 1 tab once daily [Active]; - PMHx: 23:02 Anxiety; Aphasia; BPH; Contracture; COPD; Dementia; Depression; DYSPHAGIA; Pneumonia; ed1 Hypertension; pressure ulcer stage 2; Schizophrenia; vitamin d deficiency; - PSHx: 23:02 Unable to obtain; ed1 - Immunization history:: Adult Immunizations up to date. - Social history:: Smoking status: Patient/guardian denies using tobacco. - Ebola Screening: : Patient negative for fever greater than or equal to 101.5 degrees Fahrenheit, and additional compatible Ebola Virus Disease symptoms Patient denies exposure to infectious person Patient denies travel to an Ebola-affected area in the 21 days before illness onset No symptoms or risks identified at this time. ROS: 08/02 00:25 Constitutional: Negative for fever, chills, and weight loss. snw Abdomen/GI: Positive for g-tube displacement. Exam: 08/01 23:38 Constitutional: This is a well developed, well nourished patient who is awake, alert, snw and in no acute distress. Head/Face: Normocephalic, atraumatic. Abdomen/GI: Soft, non-tender, with normal bowel sounds. No distension or tympany. No guarding or rebound. No evidence of tenderness throughout, pulled g-tube. Replaced and will send for enterostomy Vital Signs: 23:02 BP 118 / 80; Pulse 94; Resp 18; Temp 97.5(O); Pulse Ox 96% on R/A; Pain 0/10; ed1 08/02 00:13 BP 123 / 86; Pulse 71; Resp 18; Pulse Ox 100% on R/A; Pain 0/10; ed1 Procedures: 08/01 23:39 Performed enterostomy tube replaced and abd binder replaced. snw MDM: 23:19 Patient medically screened. snw 08/02 00:24 Data reviewed: vital signs, nurses notes. Data interpreted: Pulse oximetry: on room air snw is 100 %. Interpretation: normal. Counseling: I had a detailed discussion with the patient and/or guardian regarding: the historical points, exam findings, and any diagnostic results supporting the discharge/admit diagnosis, the presence of at least one elevated blood pressure reading (>120/80) during this emergency department visit, radiology results, the need for outpatient follow up, to return to the emergency department if symptoms worsen or persist or if there are any questions or concerns that arise at home. Special discussion: I have referred the patient to see his PCP for further evaluation of high blood pressure. Based on the history and exam findings, there is no indication for further emergent testing or inpatient evaluation. I discussed with the patient/guardian the need to see the primary care provider for further evaluation of the symptoms. 08/01 23:27 Order name: Enterostomy Tube Check w/contr snw Administered Medications: No medications were administered Disposition: 07:08 Co-signature as Attending Physician, Marlo Mills MD. gs Disposition: 08/02/18 00:05 Discharged to Home. Impression: Encounter for attention to gastrostomy - and tube replacement. - Condition is Stable. - Discharge Instructions: Gastrostomy Tube Replacement. - Medication Reconciliation Form, Thank You Letter, Antibiotic Education, Prescription Opioid Use form. - Follow up: Private Physician; When: 2 - 3 days; Reason: Recheck today's complaints, Continuance of care, Re-evaluation by your physician. Follow up: Emergency Department; When: As needed; Reason: Worsening of condition. Signatures: Dispatcher [employer] EDMS Charlene Cleaning, ANESTHESIOLOGY MEDICAL DOCTOR-C ANESTHESIOLOGY MEDICAL DOCTOR-Csnw Karina Viveros, FLARING MACHINE OPERATOR FLARING MACHINE OPERATOR ed1 Marlo Mills MD MD Corrections: (The following items were deleted from the chart) 00:15 00:05 08/02/2018 00:05 Discharged to Home. Impression: Encounter for attention to ed1 gastrostomy - and tube replacement. Condition is Stable. Forms are Medication Reconciliation Form, Thank You Letter, Antibiotic Education, Prescription Opioid Use. Follow up: Private Physician; When: 2 - 3 days; Reason: Recheck today's complaints, Continuance of care, Re-evaluation by your physician. Follow up: Emergency Department; When: As needed; Reason: Worsening of condition. snw
[2018-08-02 03:24] VITALS: TEMP 97.5
[2018-08-02 03:25] VITALS: BP 123/86; O2SAT 100
--- NOTE | 2018-08-02 12:20 | RAD REPORT ---
EXAM DESCRIPTION: RAD - ENTEROSTOMY TUBE CHECK W/CONTR - 08/02/2018 12:03 am CLINICAL HISTORY: g-tube placement COMPARISON: ENTEROSTOMY TUBE CHECK W/CONTR dated 07/29/2018 FINDINGS: Two plain radiographs were obtained, before and after injection of contrast into the exist ing G-tube. No fluoroscopy performed. On the post injection radiographs, contrast is seen filling the stomach, indicating adequate placement.
== END 2018-08-02 00:15 | disposition home or self-care (01) ==
LOC: ER 22:53
PROC: 0D20XUZ Change Feeding Device in Upper Intestinal Tract, External Approach (ICD-10-PCS; principal; 2018-08-01)
DX: K94.29 Other complications of gastrostomy (principal); Z43.1 Encounter for attention to gastrostomy; E55.9 Vitamin D deficiency, unspecified; I10 Essential (primary) hypertension; J44.9 Chronic obstructive pulmonary disease, unspecified; N40.0 Benign prostatic hyperplasia without lower urinary tract symptoms; F03.90 Unspecified dementia, unspecified severity, without behavioral disturbance, psychotic disturbance, mood disturbance, and anxiety; F41.9 Anxiety disorder, unspecified; F32.9 Major depressive disorder, single episode, unspecified; F20.9 Schizophrenia, unspecified; Z79.82 Long term (current) use of aspirin; Z79.891 Long term (current) use of opiate analgesic; Z79.899 Other long term (current) drug therapy
CPT/HCPCS: 49465; 99283

== ENCOUNTER 2018-08-03 17:05 | Emergency (ER) | payer OTHER ==
[2012-04-03 10:07] VITALS: BP 166/77
--- NOTE | 2018-08-03 17:19 | EDPHYS ---
Physician Documentation [facility] Name: Shelia Miranda Age: 62 yrs Sex: Male : 1955 Arrival Date: 08/03/2018 Time: 17:17 Bed 12 Private MD: ED Physician Domingo Sharma HPI: 08/03 17:20 This 62 yrs old Black Male presents to ER via Unassigned with complaints of removed kb g-tube. 17:20 Pt pulled out gastrostomy tube . Onset: The symptoms/episode began/occurred at an kb unknown time. Severity of symptoms: At their worst the symptoms were mild in the emergency department the symptoms are unchanged. The patient has experienced similar episodes in the past, multiple times. The patient has been recently seen at the [facility] Emergency Department, this week, for similar complaints. Historical: - Allergies: 17:37 NKA; hb - Immunization history:: Adult Immunizations up to date. - Social history:: Smoking status: Patient/guardian denies using tobacco. ROS: 17:19 Constitutional: Negative for fever, chills, and weight loss, Cardiovascular: Negative kb for chest pain, palpitations, and edema, Respiratory: Negative for shortness of breath, cough, wheezing, and pleuritic chest pain, Back: Negative for injury and pain, : Negative for injury, bleeding, discharge, and swelling, MS/Extremity: Negative for injury and deformity, Skin: Negative for injury, rash, and discoloration, Neuro: Negative for headache, weakness, numbness, tingling, and seizure. 17:19 Abdomen/GI: Positive for gastrostomy . Exam: 17:19 Constitutional: This is a well developed, well nourished patient who is awake, alert, kb and in no acute distress. Head/Face: Normocephalic, atraumatic. Chest/axilla: Normal chest wall appearance and motion. Nontender with no deformity. No lesions are appreciated. Cardiovascular: Regular rate and rhythm with a normal S1 and S2. No gallops, murmurs, or rubs. Normal PMI, no JVD. No pulse deficits. Respiratory: Lungs have equal breath sounds bilaterally, clear to auscultation and percussion. No rales, rhonchi or wheezes noted. No increased work of breathing, no retractions or nasal flaring. Back: No spinal tenderness. No costovertebral tenderness. Full range of motion. Skin: Warm, dry with normal turgor. Normal color with no rashes, no lesions, and no evidence of cellulitis. MS/ Extremity: Pulses equal, no cyanosis. Neurovascular intact. Full, normal range of motion. Neuro: Awake and alert, GCS 15, oriented to person, place, time, and situation. Cranial nerves II-XII grossly intact. Motor strength 5/5 in all extremities. Sensory grossly intact. Cerebellar exam normal. Normal gait. 17:19 Abdomen/GI: Inspection: gastrostomy noted, no bleeding or drainage . Vital Signs: 17:02 BP 158 / 102; Pulse 77; Resp 16; Temp 98; Pulse Ox 100% on R/A; Pain 0/10; hb Procedures: 17:17 G-tube placement: a 18 Latvian catheter was placed, by the ED physician, Shari DIALLO. MDM: 17:17 Patient medically screened. edd 17:17 Data reviewed: vital signs, nurses notes. Data interpreted: Pulse oximetry: on room air kb is 98 %. Interpretation: normal. Counseling: I had a detailed discussion with the patient and/or guardian regarding: the historical points, exam findings, and any diagnostic results supporting the discharge/admit diagnosis, the need for outpatient follow up, a family practitioner, to return to the emergency department if symptoms worsen or persist or if there are any questions or concerns that arise at home. Administered Medications: No medications were administered Disposition: 08/04 07:33 Co-signature as Attending Physician, Domingo Sharma MD I agree with the assessment and lana plan of care. Disposition: 18 17:18 Discharged to Home. Impression: Gastrostomy status - replaced. - Condition is Stable. - Discharge Instructions: PEG Tube Home Guide, [id number]. - Medication Reconciliation Form, Thank You Letter, Antibiotic Education, Prescription Opioid Use form. - Follow up: Emergency Department; When: As needed; Reason: Worsening of condition. Follow up: Private Physician; When: 2 - 3 days; Reason: Recheck today's complaints, Continuance of care, Re-evaluation by your physician. Signatures: Shari Silva, LIZC [employer]IC T[employer]TER-Domingo Cadet MD MD cha Baxter, Heather, RN RN hb Corrections: (The following items were deleted from the chart) 08/03 17:38 17:18 08/03/2018 17:18 Discharged to Home. Impression: Gastrostomy status - replaced. hb Condition is Stable. Forms are Medication Reconciliation Form, Thank You Letter, Antibiotic Education, Prescription Opioid Use. Follow up: Emergency Department; When: As needed; Reason: Worsening of condition. Follow up: Private Physician; When: 2 - 3 days; Reason: Recheck today's complaints, Continuance of care, Re-evaluation by your physician. kb
--- NOTE | 2018-08-03 17:39 | ER ---
Nurse's Notes [facility] Name: Shelia Miranda Age: 62 yrs Sex: Male : 1955 Arrival Date: 08/03/2018 Time: 17:17 Bed 12 Private MD: Diagnosis: Gastrostomy status-replaced Presentation: 08/03 17:00 Presenting complaint: EMS states: PEG tub dislodged. Transition of care: patient was hb received from another setting of care ([facility]. Onset of symptoms was August 03, 2018. Risk Assessment: Do you want to hurt yourself or someone else? Patient reports no desire to harm self or others. 17:00 Method Of Arrival: EMS: [facility] 17:00 Initial Sepsis Screen: Does the patient meet any 2 criteria? No. Patient's initial hb sepsis screen is negative. Does the patient have a suspected source of infection? No. Patient's initial sepsis screen is negative. Care prior to arrival: None. 17:00 Acuity: WINSOME 4 hb Triage Assessment: 17:05 General: Appears in no apparent distress. Behavior is calm, cooperative. Pain: Denies hb pain. EENT: No signs and/or symptoms were reported regarding the EENT system. Neuro: Level of Consciousness is awake, alert, obeys commands, Oriented to person. Cardiovascular: Capillary refill < 3 seconds Patient's skin is warm and dry. Respiratory: Airway is patent Respiratory effort is even, unlabored, Respiratory pattern is regular, symmetrical. GI: PEG is pink and not bleeding. : No signs and/or symptoms were reported regarding the genitourinary system. Derm: No signs and/or symptoms reported regarding the dermatologic system. Musculoskeletal: No signs and/or symptoms reported regarding the musculoskeletal system. Historical: - Allergies: 17:37 NKA; hb - Immunization history:: Adult Immunizations up to date. - Social history:: Smoking status: Patient/guardian denies using tobacco. Screenin:37 Abuse screen: Denies threats or abuse. Denies injuries from another. Nutritional hb screening: No deficits noted. Tuberculosis screening: No symptoms or risk factors identified. Fall Risk Total Stephens Fall Scale indicates High Risk Score (45 or more points). Fall prevention measures have been instituted. Side Rails Up X 2 As available patient and family educated on Fall Prevention Program and Strategies. Assessment: 17:05 General: see triage assessment. hb Vital Signs: 17:02 BP 158 / 102; Pulse 77; Resp 16; Temp 98; Pulse Ox 100% on R/A; Pain 0/10; hb ED Course: 17:04 Arm band placed on right wrist. hb 17:17 Patient arrived in ED. kb 17:17 Shari [facility] F[facility]-C [facility]. kb 17:17 Domingo Sharma MD is Attending Physician. kb 17:34 Dianna Tyler, RN is Primary Nurse. hb 17:35 Triage completed. hb 17:37 Patient has correct armband on for positive identification. hb 17:38 No provider procedures requiring assistance completed. Patient did not have IV access hb during this emergency room visit. Administered Medications: No medications were administered Outcome: 17:18 Discharge ordered by MD. kb 17:38 Discharged to fdc. hb 17:38 Condition: stable 17:38 Discharge instructions given to EMS, Instructed on discharge instructions, follow up and referral plans. 17:38 Patient left the ED. hb Signatures: Shari Silva FNP-C FNP-Dianna May, RN RN hb
== END 2018-08-03 17:38 | disposition home or self-care (01) ==
LOC: ER 17:05
PROC: 0D20XUZ Change Feeding Device in Upper Intestinal Tract, External Approach (ICD-10-PCS; principal; 2018-08-03)
DX: K94.29 Other complications of gastrostomy (principal); Z43.1 Encounter for attention to gastrostomy
CPT/HCPCS: 99283

== ENCOUNTER 2018-08-04 06:18 | Emergency (ER) | payer OTHER ==
--- NOTE | 2018-08-04 06:36 | EDPHYS ---
Physician Documentation [facility] Name: Shelia Miranda Age: 62 yrs Sex: Male : 1955 Arrival Date: 08/04/2018 Time: 06:19 Bed 6 Private MD: ED Physician Hakeem Peters HPI: 08/04 06:31 This 62 yrs old Black Male presents to ER via EMS with complaints of Pulled gastrostomy jr8 tube. 06:31 Patient came in via EMS for pulled gastrostomy tube Sometime last night . Severity of jr8 symptoms: At their worst the symptoms were very mild in the emergency department the symptoms are unchanged. The patient has experienced similar episodes in the past, chronically. The patient has been recently seen at the [facility] Emergency Department, last week, for similar complaints. Historical: - Allergies: 06:36 NKA; lp1 - Home Meds: 06:36 aspirin 81 mg Oral chew 1 tab once daily [Active]; Catapres 0.1 mg Oral tab every 8 lp1 hours PRN [Active]; Vitamin D3 1,000 unit Oral tab 2 tab daily [Active]; ipratropium-albuterol 0.5 mg-3 mg(2.5 mg base)/3 mL Inhl nebu 3 times a day PRN [Active]; lisinopril 20 mg Oral tab once daily [Active]; Nitroglycerin 0.3 mg SL 1 tab every 5 minutes X3 PRN [Active]; Tegretol 100 mg/5 mL Oral susp 10 mL twice a day [Active]; acetaminophen-codeine 300-30 mg Oral tab three times a day [Active]; Zoloft 50 mg Oral tab 1 tab once daily [Active]; lorazepam 1 mg Oral tab 1 tab every 8 hours for Anxiety [Active]; - PMHx: 06:36 Anxiety; Aphasia; BPH; Contracture; COPD; Dementia; Depression; DYSPHAGIA; lp1 Hypertension; Pneumonia; pressure ulcer stage 2; Schizophrenia; vitamin d deficiency; - PSHx: 06:36 Unable to obtain; lp1 - Immunization history:: Adult Immunizations up to date. - Social history:: Smoking status: unknown. - Ebola Screening: : No symptoms or risks identified at this time. ROS: 06:31 Constitutional: Negative for fever, chills, and weight loss. jr8 06:31 All other systems are negative. Exam: 06:31 Eyes: Pupils equal round and reactive to light, extra-ocular motions intact. Lids and jr8 lashes normal. Conjunctiva and sclera are non-icteric and not injected. Cornea within normal limits. Periorbital areas with no swelling, redness, or edema. ENT: Nares patent. No nasal discharge, no septal abnormalities noted. Tympanic membranes are normal and external auditory canals are clear. Oropharynx with no redness, swelling, or masses, exudates, or evidence of obstruction, uvula midline. Mucous membranes moist. Neck: Trachea midline, no thyromegaly or masses palpated, and no cervical lymphadenopathy. Supple, full range of motion without nuchal rigidity, or vertebral point tenderness. No Meningismus. Cardiovascular: Regular rate and rhythm with a normal S1 and S2. No gallops, murmurs, or rubs. Normal PMI, no JVD. No pulse deficits. Respiratory: Lungs have equal breath sounds bilaterally, clear to auscultation and percussion. No rales, rhonchi or wheezes noted. No increased work of breathing, no retractions or nasal flaring. Abdomen/GI: Soft, non-tender, with normal bowel sounds. No distension or tympany. No guarding or rebound. No evidence of tenderness throughout. Gastrostomy site clean and patent Back: No spinal tenderness. No costovertebral tenderness. Full range of motion. Skin: Warm, dry with normal turgor. Normal color with no rashes, no lesions, and no evidence of cellulitis. MS/ Extremity: Pulses equal, no cyanosis. Neurovascular intact. Full, normal range of motion. Neuro: Awake and alert, GCS 15, oriented to person, place, time, and situation. Cranial nerves II-XII grossly intact. Motor strength 5/5 in all extremities. Sensory grossly intact. Cerebellar exam normal. Normal gait. Vital Signs: 06:29 BP 137 / 84; Pulse 72; Resp 18; Temp 97(TE); Pulse Ox 98% on R/A; Weight 61.23 kg; lp1 Procedures: 06:31 G-tube placement: a 16 Albanian catheter was placed, by the ED physician, Presley VELEZ. jr8 MDM: 06:22 Patient medically screened. jr8 06:31 Data reviewed: vital signs, nurses notes, and as a result, I will discharge patient. jr8 Data interpreted: Pulse oximetry: on room air is 98 %. Interpretation: normal. Counseling: I had a detailed discussion with the patient and/or guardian regarding: the historical points, exam findings, and any diagnostic results supporting the discharge/admit diagnosis, the need for outpatient follow up, a blow machine tender starch spraying, to return to the emergency department if symptoms worsen or persist or if there are any questions or concerns that arise at home. Administered Medications: No medications were administered Disposition: 06:47 Co-signature as Attending Physician, Hakeem Peters MD. rn Disposition: 08/04/18 06:35 Discharged to Home. Impression: Gastrostomy complications. - Condition is Stable. - Discharge Instructions: Gastrostomy Tube Replacement, Gastrostomy Tube Home Guide, Adult. - Medication Reconciliation Form, Thank You Letter, Antibiotic Education, Prescription Opioid Use form. - Follow up: Private Physician; When: As needed; Reason: Recheck today's complaints, Continuance of care, Re-evaluation by your physician. - Problem is new. - Symptoms are resolved. Signatures: Hakeem Peters MD MD rn Nichole Manuel RN RN lp1 Presley Gilbert PA PA jr8 Corrections: (The following items were deleted from the chart) 06:32 06:31 The patient has not recently seen a physician, ghazal jr8 06:45 06:35 08/04/2018 06:35 Discharged to Home. Impression: Gastrostomy complications. lp1 Condition is Stable. Forms are Medication Reconciliation Form, Thank You Letter, Antibiotic Education, Prescription Opioid Use. Follow up: Private Physician; When: As needed; Reason: Recheck today's complaints, Continuance of care, Re-evaluation by your physician. Problem is new. Symptoms are resolved. jr8
--- NOTE | 2018-08-04 06:36 | ER ---
Nurse's Notes [facility] Name: Shelia Miranda Age: 62 yrs Sex: Male : 1955 Arrival Date: 08/04/2018 Time: 06:19 Bed 6 Private MD: Diagnosis: Gastrostomy complications Presentation: 08/04 06:28 Presenting complaint: EMS states: Patient pulled out G-tube; no trauma to site noted; lp1 abdominal binder in place. Transition of care: patient was not received from another setting of care. Onset of symptoms was August 04, 2018. Risk Assessment: Do you want to hurt yourself or someone else? Patient reports no desire to harm self or others. Initial Sepsis Screen: Does the patient meet any 2 criteria? No. Patient's initial sepsis screen is negative. Does the patient have a suspected source of infection? No. Patient's initial sepsis screen is negative. Care prior to arrival: None. 06:28 Method Of Arrival: EMS: [facility] lp1 06:28 Acuity: WINSOME 4 lp1 Historical: - Allergies: 06:36 NKA; lp1 - Home Meds: 06:36 aspirin 81 mg Oral chew 1 tab once daily [Active]; Catapres 0.1 mg Oral tab every 8 lp1 hours PRN [Active]; Vitamin D3 1,000 unit Oral tab 2 tab daily [Active]; ipratropium-albuterol 0.5 mg-3 mg(2.5 mg base)/3 mL Inhl nebu 3 times a day PRN [Active]; lisinopril 20 mg Oral tab once daily [Active]; Nitroglycerin 0.3 mg SL 1 tab every 5 minutes X3 PRN [Active]; Tegretol 100 mg/5 mL Oral susp 10 mL twice a day [Active]; acetaminophen-codeine 300-30 mg Oral tab three times a day [Active]; Zoloft 50 mg Oral tab 1 tab once daily [Active]; lorazepam 1 mg Oral tab 1 tab every 8 hours for Anxiety [Active]; - PMHx: 06:36 Anxiety; Aphasia; BPH; Contracture; COPD; Dementia; Depression; DYSPHAGIA; lp1 Hypertension; Pneumonia; pressure ulcer stage 2; Schizophrenia; vitamin d deficiency; - PSHx: 06:36 Unable to obtain; lp1 - Immunization history:: Adult Immunizations up to date. - Social history:: Smoking status: unknown. - Ebola Screening: : No symptoms or risks identified at this time. Screenin:38 Abuse screen: Denies threats or abuse. Denies injuries from another. Nutritional lp1 screening: No deficits noted. Tuberculosis screening: No symptoms or risk factors identified. Fall Risk Total Stephens Fall Scale indicates High Risk Score (45 or more points). Fall prevention measures have been instituted. Side Rails Up X 2. Assessment: 06:25 General: Appears in no apparent distress. Behavior is calm. Pain: Unable to use pain lp1 scale. FLACC scale score is 0 out of 10. Neuro: Level of Consciousness is awake. Cardiovascular: Patient's skin is warm and dry. Respiratory: Respiratory effort is even, unlabored. GI: Abdomen is flat, G-tube insertion site intact, dried skin noted around site. : No signs and/or symptoms were reported regarding the genitourinary system. EENT: No signs and/or symptoms were reported regarding the EENT system. Derm: Skin is intact, Skin is dry, Skin is normal. Musculoskeletal: No signs and/or symptoms reported regarding the musculoskeletal system. 06:30 Reassessment: Provider at bedside to reinsert G-tube, 16FR. lp1 Vital Signs: 06:29 BP 137 / 84; Pulse 72; Resp 18; Temp 97(TE); Pulse Ox 98% on R/A; Weight 61.23 kg; lp1 ED Course: 06:19 Patient arrived in ED. al2 06:22 Presley Gilbert PA is PHCP. jr8 06:22 Hakeem Peters MD is Attending Physician. jr8 06:22 Nichole Manuel, RN is Primary Nurse. lp1 06:29 Triage completed. lp1 06:31 Arm band placed on right wrist. lp1 06:39 Patient has correct armband on for positive identification. lp1 06:39 No provider procedures requiring assistance completed. Patient did not have IV access lp1 during this emergency room visit. Administered Medications: No medications were administered Outcome: 06:35 Discharge ordered by . jr8 06:44 Discharged to correction. lp1 06:44 Condition: good 06:44 Discharge instructions given to EMS, Instructed on discharge instructions, follow up and referral plans. 06:45 Patient left the ED. lp1 Signatures: Nichole Manuel, RN RN lp1 Presley Gilbert PA PA jr8 Bindu Lester2
[2018-08-04 06:52] VITALS: BP 137/84; TEMP 97; O2SAT 98
== END 2018-08-04 06:45 | disposition home or self-care (01) ==
LOC: ER 06:18
DX: K94.29 Other complications of gastrostomy (principal); F20.9 Schizophrenia, unspecified; F03.90 Unspecified dementia, unspecified severity, without behavioral disturbance, psychotic disturbance, mood disturbance, and anxiety; I10 Essential (primary) hypertension; Z79.82 Long term (current) use of aspirin
CPT/HCPCS: 99283

== ENCOUNTER 2018-08-04 09:08 | Emergency (ER) | payer OTHER ==
[2018-08-04] MEDS ORDERED: WATER FOR INJ,STERILE 10 ML ONE (09:35)
--- NOTE | 2018-08-04 09:44 | ER ---
Nurse's Notes [facility] Name: Shelia Miranda Age: 62 yrs Sex: Male : 1955 Arrival Date: 08/04/2018 Time: 09:10 Bed 19 Private MD: Diagnosis: Gastrostomy complication, unspecified;Gastrostomy status Presentation: 08/04 09:10 Presenting complaint: EMS states: pulled g tube out. Transition of care: patient was tw2 not received from another setting of care. Onset of symptoms was August 04, 2018. Risk Assessment: Do you want to hurt yourself or someone else? Patient reports no desire to harm self or others. Initial Sepsis Screen: Does the patient meet any 2 criteria? No. Patient's initial sepsis screen is negative. Does the patient have a suspected source of infection? No. Patient's initial sepsis screen is negative. Care prior to arrival: None. 09:10 Method Of Arrival: EMS: [facility] tw2 09:10 Acuity: WINSOME 4 tw2 Triage Assessment: 09:45 General: Behavior is calm. tw2 Historical: - Allergies: 09:38 NKA; tw2 - Immunization history:: Adult Immunizations. - Social history:: Smoking status: . - Family history:: not pertinent. - Ebola Screening: : Patient denies travel to an Ebola-affected area in the 21 days before illness onset. Screenin:34 Abuse screen: Denies threats or abuse. Nutritional screening: No deficits noted. tw2 Tuberculosis screening: No symptoms or risk factors identified. Fall Risk Secondary diagnosis (15 points) impaired mobility, altered. Assessment: 09:33 General: Appears in no apparent distress. Pain: Unable to use pain scale. Patient tw2 appears quiet. Cardiovascular: Patient's skin is warm and dry. Respiratory: Airway is patent Respiratory effort is even, unlabored, Respiratory pattern is regular, symmetrical. GI: pulled peg tube out. : No signs and/or symptoms were reported regarding the genitourinary system. Derm: No signs and/or symptoms reported regarding the dermatologic system. Skin is dry, Skin temperature is warm. Musculoskeletal: contracture noted to legs. 09:35 Reassessment: xray at bedside at this time. tw2 09:47 Reassessment: Patient appears in no apparent distress at this time. No changes from tw2 previously documented assessment. Patient and/or family updated on plan of care and expected duration. Pain level reassessed. Vital Signs: 09:33 BP 112 / 82; Pulse 86; Resp 17; Temp 98.3(O); Pulse Ox 99% on R/A; Pain 0/10; tw2 ED Course: 09:10 Patient arrived in ED. iw 09:12 Domingo Sharma MD is Attending Physician. lana 09:30 Poppy Bowser, RN is Primary Nurse. tw2 09:33 Triage completed. tw2 09:33 Arm band placed on. tw2 09:35 Bed in low position. Call light in reach. Pulse ox on. NIBP on. tw2 09:43 X-ray completed. Portable x-ray completed in exam room. Patient tolerated procedure ls3 well. 09:43 Tyron Paniagua MD is Referral Physician. [facility] 09:45 No provider procedures requiring assistance completed. Patient did not have IV access tw2 during this emergency room visit. Administered Medications: No medications were administered Outcome: :43 Discharge ordered by . [facility] 09:45 Discharged to [facility]. Report called to [facility]. tw2 09:45 Condition: stable 09:45 Discharge instructions given to EMS, Instructed on discharge instructions, follow up and referral plans. Demonstrated understanding of instructions, follow-up care. 09:47 Patient left the ED. tw2 Signatures: Domingo Sharma MD MD cha Williams, Irene, RN RN Poppy Bowser RN RN tw2 Jeff Gopal ls3
--- NOTE | 2018-08-04 09:44 | EDPHYS ---
Physician Documentation [facility] Name: Shelia Miranda Age: 62 yrs Sex: Male : 1955 Arrival Date: 08/04/2018 Time: 09:10 Bed 19 Private MD: ED Physician Domingo Sharma HPI: 08/04 09:39 This 62 yrs old Black Male presents to ER via EMS with complaints of peg out again. lana 09:39 The patient presents with abdominal pain in the epigastric area, in the upper abdomen. lana Onset: The symptoms/episode began/occurred just prior to arrival. The symptoms do not radiate. Associated signs and symptoms: none. The symptoms are described as sharp. Severity of pain: At its worst the pain was very mild in the emergency department the pain is unchanged. The patient has experienced similar episodes in the past, multiple times, chronically, with the last episode occurring last night. Historical: - Allergies: 09:38 NKA; tw2 - Immunization history:: Adult Immunizations. - Social history:: Smoking status: . - Family history:: not pertinent. - Ebola Screening: : Patient denies travel to an Ebola-affected area in the 21 days before illness onset. ROS: 09:39 Constitutional: Negative for fever, chills, and weight loss, Eyes: Negative for injury, lana pain, redness, and discharge, ENT: Negative for injury, pain, and discharge, Neck: Negative for injury, pain, and swelling, Cardiovascular: Negative for chest pain, palpitations, and edema, Respiratory: Negative for shortness of breath, cough, wheezing, and pleuritic chest pain, Back: Negative for injury and pain, : Negative for injury, bleeding, discharge, and swelling, MS/Extremity: Negative for injury and deformity, Skin: Negative for injury, rash, and discoloration, Neuro: Negative for headache, weakness, numbness, tingling, and seizure, Psych: Negative for depression, anxiety, suicide ideation, homicidal ideation, and hallucinations, Allergy/Immunology: Negative for hives, rash, and allergies, Endocrine: Negative for neck swelling, polydipsia, polyuria, polyphagia, and marked weight changes, Hematologic/Lymphatic: Negative for swollen nodes, abnormal bleeding, and unusual bruising. 09:39 Abdomen/GI: Positive for peg out. Exam: 09:39 Constitutional: This is a well developed, well nourished patient who is awake, alert, lana and in no acute distress. Head/Face: Normocephalic, atraumatic. Eyes: Pupils equal round and reactive to light, extra-ocular motions intact. Lids and lashes normal. Conjunctiva and sclera are non-icteric and not injected. Cornea within normal limits. Periorbital areas with no swelling, redness, or edema. ENT: Nares patent. No nasal discharge, no septal abnormalities noted. Tympanic membranes are normal and external auditory canals are clear. Oropharynx with no redness, swelling, or masses, exudates, or evidence of obstruction, uvula midline. Mucous membranes moist. Neck: Trachea midline, no thyromegaly or masses palpated, and no cervical lymphadenopathy. Supple, full range of motion without nuchal rigidity, or vertebral point tenderness. No Meningismus. Chest/axilla: Normal chest wall appearance and motion. Nontender with no deformity. No lesions are appreciated. Cardiovascular: Regular rate and rhythm with a normal S1 and S2. No gallops, murmurs, or rubs. Normal PMI, no JVD. No pulse deficits. Respiratory: Lungs have equal breath sounds bilaterally, clear to auscultation and percussion. No rales, rhonchi or wheezes noted. No increased work of breathing, no retractions or nasal flaring. Back: No spinal tenderness. No costovertebral tenderness. Full range of motion. Male : Normal genitalia with no discharge or lesions. Skin: Warm, dry with normal turgor. Normal color with no rashes, no lesions, and no evidence of cellulitis. MS/ Extremity: Pulses equal, no cyanosis. Neurovascular intact. Full, normal range of motion. Neuro: Awake and alert, GCS 15, oriented to person, place, time, and situation. Cranial nerves II-XII grossly intact. Motor strength 5/5 in all extremities. Sensory grossly intact. Cerebellar exam normal. Normal gait. Psych: Awake, alert, with orientation to person, place and time. Behavior, mood, and affect are within normal limits. 09:39 Abdomen/GI: Inspection: abdomen appears normal, Bowel sounds: normal, Palpation: abdomen is soft and non-tender, Liver: no appreciated palpable abnormalities, Hernia: not appreciated. Vital Signs: 09:33 BP 112 / 82; Pulse 86; Resp 17; Temp 98.3(O); Pulse Ox 99% on R/A; Pain 0/10; tw2 MDM: 09:12 Patient medically screened. [facility] 09:42 Data reviewed: vital signs, nurses notes, radiologic studies. [facility] 08/04 09:39 Order name: Abdomen 1 View (KUB) XRAY: gastrograffin 30 cc [facility] Administered Medications: No medications were administered Disposition: 08/04/18 09:43 Discharged to Home. Impression: Gastrostomy complication, unspecified, Gastrostomy status. - Condition is Stable. - Discharge Instructions: Gastrostomy Tube Replacement, PEG Tube Home Guide, [id number], Gastrostomy Tube Replacement, Care After, PEG Tube Home Guide. - Medication Reconciliation Form, Thank You Letter, Antibiotic Education, Prescription Opioid Use form. - Follow up: Private Physician; When: 2 - 3 days; Reason: Recheck today's complaints, Continuance of care, Re-evaluation by your physician. Follow up: Tyron Paniagua MD; When: 2 - 3 days; Reason: Recheck today's complaints, Continuance of care, Re-evaluation by your physician. - Problem is new. - Symptoms have improved. Signatures: Dispatcher [employer] EDMS Domingo Sharma MD MD cha Wise, Tara, RN RN tw2 Corrections: (The following items were deleted from the chart) 09:43 09:43 08/04/2018 09:43 Discharged to Home. Impression: Gastrostomy complication, lana unspecified; Gastrostomy status. Condition is Stable. Forms are Medication Reconciliation Form, Thank You Letter, Antibiotic Education, Prescription Opioid Use. Follow up: Private Physician; When: 2 - 3 days; Reason: Recheck today's complaints, Continuance of care, Re-evaluation by your physician. Problem is new. Symptoms have improved. [facility] 09:47 09:43 08/04/2018 09:43 Discharged to Home. Impression: Gastrostomy complication, tw2 unspecified; Gastrostomy status. Condition is Stable. Discharge Instructions: Gastrostomy Tube Replacement, PEG Tube Home Guide, [id number], Gastrostomy Tube Replacement, Care After, PEG Tube Home Guide. Forms are Medication Reconciliation Form, Thank You Letter, Antibiotic Education, Prescription Opioid Use. Follow up: Private Physician; When: 2 - 3 days; Reason: Recheck today's complaints, Continuance of care, Re-evaluation by your physician. Follow up: Tyron Paniagua; When: 2 - 3 days; Reason: Recheck today's complaints, Continuance of care, Re-evaluation by your physician. Problem is new. Symptoms have improved. lana
[2018-08-04 09:52] VITALS: BP 112/82; TEMP 98.3; O2SAT 99
--- NOTE | 2018-08-04 11:46 | RAD REPORT ---
EXAM DESCRIPTION: RAD - ENTEROSTOMY TUBE CHECK W/CONTR - 08/04/2018 9:47 am CLINICAL HISTORY: Abdominal pain/gastrostomy tube check FINDINGS: Contrast administered into the stomach via gastrostomy tube. Gastric body opacified. No extravasation contrast seen
== END 2018-08-04 09:47 | disposition home or self-care (01) ==
LOC: ER 09:08
DX: K94.29 Other complications of gastrostomy (principal)
CPT/HCPCS: 49465; 99283

== ENCOUNTER 2018-08-12 12:56 | Emergency (ER) | payer OTHER ==
--- NOTE | 2018-08-12 15:12 | RAD REPORT ---
EXAM DESCRIPTION: RAD - ENTEROSTOMY TUBE CHECK W/CONTR - 08/12/2018 2:53 pm CLINICAL HISTORY: Replacement or repositioning of PEG tube COMPARISON: Multiple prior repositioning procedure is FINDINGS: Two KUB films were obtained prior to and subsequent to repositioning of the PEG tube and r etrograde injection of contrast. All injected contrast remains within the lumen of the stomach. Patient has stool and dense contrast remaining throughout the colon. IMPRESSION: Repositioned tube in good positioning. No extravasation of contrast.
--- NOTE | 2018-08-12 15:44 | ER ---
Nurse's Notes [facility] Name: Shelia Miranda Age: 62 yrs Sex: Male : 1955 Arrival Date: 08/12/2018 Time: 12:58 Bed 23 Private MD: Diagnosis: Gastrostomy complications Presentation: 08/12 12:59 Presenting complaint: EMS states: Patient pulled out his feeding tube. Transition of kr2 care: patient was received from another setting of care (long-term care facility). Onset of symptoms was August 12, 2018. Risk Assessment: Do you want to hurt yourself or someone else? Patient reports no desire to harm self or others. Initial Sepsis Screen: Does the patient meet any 2 criteria? No. Patient's initial sepsis screen is negative. Does the patient have a suspected source of infection? No. Patient's initial sepsis screen is negative. Care prior to arrival: None. 12:59 Method Of Arrival: EMS: [facility] kr2 12:59 Acuity: WINSOME 4 kr2 Triage Assessment: 13:02 General: Appears in no apparent distress. Behavior is quiet. Pain: Denies pain. kr2 Historical: - Allergies: 13:02 NKA; kr2 - PMHx: 13:02 Anxiety; Aphasia; BPH; Contracture; COPD; Dementia; Depression; DYSPHAGIA; kr2 Hypertension; Pneumonia; pressure ulcer stage 2; Schizophrenia; vitamin d deficiency; - Immunization history:: Adult Immunizations up to date. - Social history:: Smoking status: unknown. - Ebola Screening: : No symptoms or risks identified at this time. Screenin:04 Abuse screen: Denies threats or abuse. Denies injuries from another. Nutritional kr2 screening: No deficits noted. Tuberculosis screening: No symptoms or risk factors identified. Fall Risk None identified. Assessment: 13:10 General: Appears in no apparent distress. Behavior is calm, quiet. Pain: Unable to use kr2 pain scale. Does not appear to understand pain scale. Neuro: Level of Consciousness is awake, alert, Oriented to person, situation. Cardiovascular: Capillary refill < 3 seconds in bilateral fingers Patient's skin is warm and dry. Respiratory: Airway is patent Respiratory effort is even, unlabored, Respiratory pattern is regular, symmetrical. GI: Abdomen is flat, non-distended, Bowel sounds present X 4 quads. Patient has a g-tube site, no tube in place at this time, no s/sx of infection. Per snf facility patient pulled out his tube. EENT: Oral mucosa is dry. Derm: Skin is pink, warm \T\ dry. Musculoskeletal: contractures of upper and lower extremities. 14:00 Reassessment: Patient appears in no apparent distress at this time. Patient and/or kr2 family updated on plan of care and expected duration. Pain level reassessed. Reassessment: No changes from previously documented assessment. Feeding tube replaced by Dr. Mills, patient tolerated well. 15:15 Reassessment: Patient appears in no apparent distress at this time. Patient and/or kr2 family updated on plan of care and expected duration. Pain level reassessed. 16:09 Reassessment: Patient appears in no apparent distress at this time. No changes from kr2 previously documented assessment. Patient and/or family updated on plan of care and expected duration. Pain level reassessed. [facility] notified patient ready for discharge and will arrange transportation. 17:05 Reassessment: Return call placed to [facility], they report transportation kr2 has been arranged through [facility]. 17:44 Reassessment: Patient appears in no apparent distress at this time. No changes from kr2 previously documented assessment. Patient and/or family updated on plan of care and expected duration. Pain level reassessed. Patient is alert, oriented x 3, equal unlabored respirations, skin warm/dry/pink. Vital Signs: 13:03 BP 135 / 86; Pulse 64; Resp 17; Temp 97.1; Pulse Ox 98% ; kr2 15:36 BP 154 / 84; Pulse 60; Resp 18; Pulse Ox 100% on R/A; kr2 ED Course: 12:58 Patient arrived in ED. kr2 13:00 Triage completed. kr2 13:02 Marlo Mills MD is Attending Physician. gs 13:03 Arm band placed on right wrist. kr2 13:04 Patient has correct armband on for positive identification. Bed in low position. Call kr2 light in reach. Side rails up X2. Pulse ox on. NIBP on. Door closed. Warm blanket given. Head of bed elevated. 13:55 No Shabazz RN is Primary Nurse. kr2 14:54 ENTEROSTOMY TUBE CHECK W/CONTR In Process Unspecified. EDMS 17:45 No provider procedures requiring assistance completed. Patient did not have IV access kr2 during this emergency room visit. Administered Medications: 14:35 Drug: Gastrografin Liquid 60 ml {Note: Administered by radiology .} Route: PO; kr2 15:01 Follow up: Response: No adverse reaction kr2 Outcome: 15:43 Discharge ordered by . 17:45 Discharged to [facility] via [facility] kr2 17:45 Condition: good 17:45 Discharge instructions given to EMS, Instructed on discharge instructions, Demonstrated understanding of instructions. 17:46 Patient left the ED. kr2 Signatures: Dispatcher [employer] EDMS Marlo Mills MD MD No Shabazz RN RN kr2
--- NOTE | 2018-08-12 15:44 | EDPHYS ---
Physician Documentation [facility] Name: Shelia Miranda Age: 62 yrs Sex: Male : 1955 Arrival Date: 08/12/2018 Time: 12:58 Bed 23 Private MD: ED Physician Marlo Mills HPI: 08/12 15:38 This 62 yrs old Black Male presents to ER via EMS with complaints of Problem With gs Feeding Tube - Patient removed. 15:38 Onset: The symptoms/episode began/occurred acutely, just prior to arrival. Modifying gs factors: The symptoms are alleviated by nothing, the symptoms are aggravated by nothing. Severity of pain: At its worst the pain was very mild in the emergency department the pain is unchanged. The patient has experienced similar episodes in the past, chronically. Historical: - Allergies: 13:02 NKA; kr2 - PMHx: 13:02 Anxiety; Aphasia; BPH; Contracture; COPD; Dementia; Depression; DYSPHAGIA; kr2 Hypertension; Pneumonia; pressure ulcer stage 2; Schizophrenia; vitamin d deficiency; - Immunization history:: Adult Immunizations up to date. - Social history:: Smoking status: unknown. - Ebola Screening: : No symptoms or risks identified at this time. ROS: 15:38 All other systems are negative. gs Exam: 15:38 Cardiovascular: Regular rate and rhythm with a normal S1 and S2. No gallops, murmurs, gs or rubs. Normal PMI, no JVD. No pulse deficits. Respiratory: Lungs have equal breath sounds bilaterally, clear to auscultation and percussion. No rales, rhonchi or wheezes noted. No increased work of breathing, no retractions or nasal flaring. 15:38 Constitutional: The patient appears alert, awake. 15:38 Abdomen/GI: stoma patent,. 15:38 Neuro: Exam negative for acute changes. Vital Signs: 13:03 BP 135 / 86; Pulse 64; Resp 17; Temp 97.1; Pulse Ox 98% ; kr2 15:36 BP 154 / 84; Pulse 60; Resp 18; Pulse Ox 100% on R/A; kr2 Procedures: 15:38 G-tube placement: a 16 Setswana catheter was placed, by the ED physician, Marlo harvey MD. MDM: 13:28 Patient medically screened. 15:38 Data reviewed: vital signs, nurses notes, and as a result, I will discharge patient. 08/12 14:53 Order name: ENTEROSTOMY TUBE CHECK W/CONTR; Complete Time: 15:36 EDMS Administered Medications: 14:35 Drug: Gastrografin Liquid 60 ml {Note: Administered by radiology .} Route: PO; kr2 15:01 Follow up: Response: No adverse reaction kr2 Disposition: 08/12/18 15:43 Discharged to Home. Impression: Gastrostomy complications. - Condition is Stable. - Discharge Instructions: Gastrostomy Tube Home Guide, Adult. - Medication Reconciliation Form, Thank You Letter, Antibiotic Education, Prescription Opioid Use form. - Follow up: Private Physician; When: 2 - 3 days; Reason: Re-evaluation by your physician. Signatures: Dispatcher [employer] [facility] Marlo Mills MD MD No Shabazz RN RN kr2 Corrections: (The following items were deleted from the chart) 14:53 13:55 Abdomen 1 View+RAD.RAD.BRZ ordered. [facility] 17:46 15:43 08/12/2018 15:43 Discharged to Home. Impression: Gastrostomy complications. kr2 Condition is Stable. Forms are Medication Reconciliation Form, Thank You Letter, Antibiotic Education, Prescription Opioid Use. Follow up: Private Physician; When: 2 - 3 days; Reason: Re-evaluation by your physician.
[2018-08-12 17:52] VITALS: TEMP 97.1
[2018-08-12 17:54] VITALS: BP 154/84; O2SAT 100
== END 2018-08-12 17:46 | disposition home or self-care (01) ==
LOC: ER 12:56
DX: K94.29 Other complications of gastrostomy (principal); I10 Essential (primary) hypertension; F03.90 Unspecified dementia, unspecified severity, without behavioral disturbance, psychotic disturbance, mood disturbance, and anxiety; F20.9 Schizophrenia, unspecified
CPT/HCPCS: 49465; 99284

== ENCOUNTER 2018-08-13 13:43 | Emergency (ER) | payer OTHER ==
--- NOTE | 2018-08-13 14:09 | EDPHYS ---
Physician Documentation [facility] Name: Shelia Miranda Age: 63 yrs Sex: Male : 1955 Arrival Date: 08/13/2018 Time: 13:47 Bed 26 Private MD: ED Physician Hakeem Peters HPI: 08/13 14:00 This 63 yrs old Black Male presents to ER via Unassigned with complaints of PEG tube rn removal. 14:00 Per prison report, Mr. 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 . Onset: The symptoms/episode began/occurred last night. Severity of symptoms: At their worst the symptoms were mild in the emergency department the symptoms are unchanged. The patient has experienced similar episodes in the past. The patient has been recently seen at the [facility] Emergency Department, yesterday. Historical: - Allergies: 14:20 NKA; tl3 - Home Meds: 14:20 acetaminophen-codeine 300-30 mg Oral tab three times a day [Active]; aspirin 81 mg Oral tl3 chew 1 tab once daily [Active]; Catapres 0.1 mg Oral tab every 8 hours PRN [Active]; ipratropium-albuterol 0.5 mg-3 mg(2.5 mg base)/3 mL Inhl nebu 3 times a day PRN [Active]; lisinopril 20 mg Oral tab once daily [Active]; lorazepam 1 mg Oral tab 1 tab every 8 hours for Anxiety [Active]; Nitroglycerin 0.3 mg SL 1 tab every 5 minutes X3 PRN [Active]; Tegretol 100 mg/5 mL Oral susp 10 mL twice a day [Active]; Vitamin D3 1,000 unit Oral tab 2 tab daily [Active]; Zoloft 50 mg Oral tab 1 tab once daily [Active]; - PMHx: 14:20 Anxiety; Aphasia; BPH; Contracture; COPD; Dementia; Depression; DYSPHAGIA; Pneumonia; tl3 Hypertension; pressure ulcer stage 2; Schizophrenia; vitamin d deficiency; - Immunization history:: Adult Immunizations unknown. - Social history:: Smoking status: unknown. - Family history:: not pertinent. - Ebola Screening: : No symptoms or risks identified at this time. - Hospitalizations: : No recent hospitalization is reported. ROS: 14:00 Constitutional: Negative for fever, chills, and weight loss, Abdomen/GI: Negative for rn abdominal pain, nausea, vomiting, diarrhea, and constipation. Exam: 14:00 Constitutional: THin male, no acute distress Abdomen/GI: soft, non-tender rn Vital Signs: 14:20 BP 123 / 87; Pulse 71; Resp 18; Pulse Ox 99% ; tl3 14:22 BP 107 / 70; Pulse 72; Resp 18; Pulse Ox 99% on R/A; tl3 15:49 BP 138 / 81; Pulse 66; Resp 18; Pulse Ox 99% on R/A; tl3 MDM: 13:47 Patient medically screened. rn 14:00 Differential Diagnosis feeding tube dislodgement. Data reviewed: vital signs, nurses rn notes, and as a result, I will discharge patient. Counseling: I had a detailed discussion with the patient and/or guardian regarding: the historical points, exam findings, and any diagnostic results supporting the discharge/admit diagnosis, the need for outpatient follow up, to return to the emergency department if symptoms worsen or persist or if there are any questions or concerns that arise at home. Special discussion: I discussed with the patient/guardian in detail that at this point there is no indication for admission to the hospital. It is understood, however, that if the symptoms persist or worsen the patient needs to return immediately for re-evaluation. Administered Medications: No medications were administered Disposition: 08/13/18 14:09 Discharged to Home. Impression: Encounter for feeding tube replacement. - Condition is Stable. - Discharge Instructions: PEG Tube Home Guide. - Medication Reconciliation Form, Thank You Letter, Antibiotic Education, Prescription Opioid Use form. - Follow up: Private Physician; When: As needed; Reason: Recheck today's complaints, Re-evaluation by your physician. - Problem is new. - Symptoms have improved. Signatures: Hakeem Peters MD MD rn Lowrey, Tammy, RN RN tl3 Corrections: (The following items were deleted from the chart) 15:51 14:09 08/13/2018 14:09 Discharged to Home. Impression: Encounter for feeding tube tl3 replacement. Condition is Stable. Forms are Medication Reconciliation Form, Thank You Letter, Antibiotic Education, Prescription Opioid Use. Follow up: Private Physician; When: As needed; Reason: Recheck today's complaints, Re-evaluation by your physician. Problem is new. Symptoms have improved. rn
--- NOTE | 2018-08-13 15:52 | ER ---
Nurse's Notes [facility] Name: Shelia Miranad Age: 63 yrs Sex: Male : 1955 Arrival Date: 08/13/2018 Time: 13:47 Bed 26 Private MD: Diagnosis: Encounter for feeding tube replacement Presentation: 08/13 13:45 Presenting complaint: EMS states: G-tube pulled out last night. Transition of care: tl3 patient was not received from another setting of care. Onset of symptoms was August 12, 2018. Risk Assessment: Do you want to hurt yourself or someone else? Patient reports no desire to harm self or others. Initial Sepsis Screen: Does the patient meet any 2 criteria? No. Patient's initial sepsis screen is negative. Does the patient have a suspected source of infection? No. Patient's initial sepsis screen is negative. Care prior to arrival: None. 13:45 Method Of Arrival: EMS: [facility] tl3 13:45 Acuity: WINSOME 4 tl3 Triage Assessment: 14:20 General: Appears in no apparent distress. Behavior is calm, cooperative. Pain: Unable tl3 to use pain scale. non verbal. EENT: No deficits noted. No signs and/or symptoms were reported regarding the EENT system. Neuro: Level of Consciousness is awake. Cardiovascular: Patient's skin is warm and dry. Respiratory: Airway is patent Respiratory effort is even, unlabored, Respiratory pattern is regular, symmetrical. GI: pt pulled out his g-tube, size 16fr. : No deficits noted. Historical: - Allergies: 14:20 NKA; tl3 - Home Meds: 14:20 acetaminophen-codeine 300-30 mg Oral tab three times a day [Active]; aspirin 81 mg Oral tl3 chew 1 tab once daily [Active]; Catapres 0.1 mg Oral tab every 8 hours PRN [Active]; ipratropium-albuterol 0.5 mg-3 mg(2.5 mg base)/3 mL Inhl nebu 3 times a day PRN [Active]; lisinopril 20 mg Oral tab once daily [Active]; lorazepam 1 mg Oral tab 1 tab every 8 hours for Anxiety [Active]; Nitroglycerin 0.3 mg SL 1 tab every 5 minutes X3 PRN [Active]; Tegretol 100 mg/5 mL Oral susp 10 mL twice a day [Active]; Vitamin D3 1,000 unit Oral tab 2 tab daily [Active]; Zoloft 50 mg Oral tab 1 tab once daily [Active]; - PMHx: 14:20 Anxiety; Aphasia; BPH; Contracture; COPD; Dementia; Depression; DYSPHAGIA; Pneumonia; tl3 Hypertension; pressure ulcer stage 2; Schizophrenia; vitamin d deficiency; - Immunization history:: Adult Immunizations unknown. - Social history:: Smoking status: unknown. - Family history:: not pertinent. - Ebola Screening: : No symptoms or risks identified at this time. - Hospitalizations: : No recent hospitalization is reported. Screenin:22 Abuse screen: Denies threats or abuse. Nutritional screening: No deficits noted. tl3 Tuberculosis screening: No symptoms or risk factors identified. Fall Risk Secondary diagnosis (15 points) impaired mobility. Assessment: 14:22 Reassessment: No changes from previously documented assessment. tl3 14:26 Reassessment: called [facility] for pt to be transported back to the 3 facility. 15:49 Reassessment: Patient appears in no apparent distress at this time. No changes from tl3 previously documented assessment. Patient and/or family updated on plan of care and expected duration. Pain level reassessed. Patient is alert, oriented x 3, equal unlabored respirations, skin warm/dry/pink. EMS here to transport back to facility. Vital Signs: 14:20 BP 123 / 87; Pulse 71; Resp 18; Pulse Ox 99% ; tl3 14:22 BP 107 / 70; Pulse 72; Resp 18; Pulse Ox 99% on R/A; tl3 15:49 BP 138 / 81; Pulse 66; Resp 18; Pulse Ox 99% on R/A; tl3 ED Course: 13:47 Patient arrived in ED. iw 13:47 Hakeem Peters MD is Attending Physician. rn 14:15 Patsy Lew, ARIAS is Primary Nurse. tl3 14:16 Triage completed. tl3 14:20 Arm band placed on right wrist. tl3 14:22 Patient has correct armband on for positive identification. Placed in gown. Bed in low tl3 position. Side rails up X2. Pulse ox on. NIBP on. 14:22 g-tube placement per Dr Peters. Patient did not have IV access during this emergency tl3 room visit. Administered Medications: No medications were administered Outcome: 14:09 Discharge ordered by . rn 15:49 Discharged to halfway. tl3 15:49 Condition: stable 15:49 Discharge instructions given to EMS. 15:51 Patient left the ED. tl3 Signatures: Nazia Bose, RN Hakeem Mock MD MD rn Lowrey, Tammy, RN RN tl3
[2018-08-13 16:00] VITALS: O2SAT 99
[2018-08-13 16:03] VITALS: BP 138/81
== END 2018-08-13 15:51 | disposition home or self-care (01) ==
LOC: ER 13:43
DX: Z43.1 Encounter for attention to gastrostomy (principal); Z79.82 Long term (current) use of aspirin; F03.90 Unspecified dementia, unspecified severity, without behavioral disturbance, psychotic disturbance, mood disturbance, and anxiety; I10 Essential (primary) hypertension; F32.9 Major depressive disorder, single episode, unspecified; F20.9 Schizophrenia, unspecified
CPT/HCPCS: 99283

== ENCOUNTER 2018-08-15 14:34 | Emergency (ER) | payer OTHER ==
--- NOTE | 2018-08-15 14:43 | EDPHYS ---
Physician Documentation [facility] Name: Shelia Miranda Age: 63 yrs Sex: Male : 1955 Arrival Date: 08/15/2018 Time: 14:36 Bed Treatment Private MD: ED Physician Domingo Sharma HPI: 08/15 14:50 This 63 yrs old Black Male presents to ER via EMS with complaints of removed peg tube. snw 14:50 The patient presents with g-tube replacement. The patient has experienced similar snw episodes in the past, chronically. It is unknown whether or not the patient has recently seen a physician. Historical: - Allergies: 14:40 NKA; ss - PMHx: 14:40 Anxiety; Aphasia; BPH; Contracture; COPD; Dementia; Depression; DYSPHAGIA; ss Hypertension; Pneumonia; pressure ulcer stage 2; Schizophrenia; vitamin d deficiency; - Immunization history:: Adult Immunizations up to date. - Social history:: Smoking status: Patient/guardian denies using tobacco. - Ebola Screening: : Patient denies exposure to infectious person Patient denies travel to an Ebola-affected area in the 21 days before illness onset. ROS: 14:48 Constitutional: Negative for fever, chills, and weight loss, Eyes: Negative for injury, snw pain, redness, and discharge, ENT: Negative for injury, pain, and discharge, Neck: Negative for injury, pain, and swelling, Cardiovascular: Negative for chest pain, palpitations, and edema, Respiratory: Negative for shortness of breath, cough, wheezing, and pleuritic chest pain, Back: Negative for injury and pain, : Negative for injury, bleeding, discharge, and swelling, MS/Extremity: Negative for injury and deformity, Skin: Negative for injury, rash, and discoloration, Neuro: Negative for headache, weakness, numbness, tingling, and seizure. 14:48 Abdomen/GI: Positive for g-tube replacement. Exam: 14:48 Constitutional: This is a well developed, well nourished patient who is awake, alert, snw and in no acute distress. Head/Face: Normocephalic, atraumatic. Eyes: Pupils equal round and reactive to light, extra-ocular motions intact. Lids and lashes normal. Conjunctiva and sclera are non-icteric and not injected. Cornea within normal limits. Periorbital areas with no swelling, redness, or edema. 14:48 Neck: Trachea midline, no thyromegaly or masses palpated, and no cervical lymphadenopathy. Supple, full range of motion without nuchal rigidity, or vertebral point tenderness. No Meningismus. Chest/axilla: Normal chest wall appearance and motion. Nontender with no deformity. No lesions are appreciated. Cardiovascular: Regular rate and rhythm with a normal S1 and S2. No gallops, murmurs, or rubs. Normal PMI, no JVD. No pulse deficits. Respiratory: Lungs have equal breath sounds bilaterally, clear to auscultation and percussion. No rales, rhonchi or wheezes noted. No increased work of breathing, no retractions or nasal flaring. Back: No spinal tenderness. No costovertebral tenderness. Full range of motion. Skin: Warm, dry with normal turgor. Normal color with no rashes, no lesions, and no evidence of cellulitis. MS/ Extremity: Pulses equal, no cyanosis. Neurovascular intact. Full, normal range of motion. Neuro: Awake and alert, GCS 15, oriented to person, place, time, and situation. Cranial nerves II-XII grossly intact. Motor strength 5/5 in all extremities. Sensory grossly intact. Cerebellar exam normal. Normal gait. Psych: Awake, alert, with orientation to person, place and time. Behavior, mood, and affect are within normal limits. 14:48 ENT: Dental exam: dental caries, that is severe, diffusely. 14:48 Abdomen/GI: Inspection: scarred stoma at lower epigastric area, no evidence of breakdown. Vital Signs: 14:43 BP 141 / 98; Pulse 82; Resp 16; Temp 97.6(TE); Pulse Ox 97% on R/A; Pain 0/10; ss Procedures: 14:47 Performed G-tube placement, Placed 18F G-tube and 20 ml balloon filled with NS. snw Gastrografin to check placement. MDM: 14:40 Patient medically screened. lana 14:49 Data reviewed: vital signs, nurses notes. Data interpreted: Pulse oximetry: on room air snw is 98 %. Interpretation: normal. Counseling: I had a detailed discussion with the patient and/or guardian regarding: the historical points, exam findings, and any diagnostic results supporting the discharge/admit diagnosis, the presence of at least one elevated blood pressure reading (>120/80) during this emergency department visit, radiology results, the need for outpatient follow up, to return to the emergency department if symptoms worsen or persist or if there are any questions or concerns that arise at home. Special discussion: Based on the history and exam findings, there is no indication for further emergent testing or inpatient evaluation. I discussed with the patient/guardian the need to see the primary care provider for further evaluation of the symptoms. 08/15 14:54 Order name: ENTEROSTOMY TUBE CHECK W/CONTR EDMS Administered Medications: No medications were administered Disposition: 16:16 Co-signature as Attending Physician, Domingo Sharma MD I agree with the assessment and lana plan of care. Disposition: 08/15/18 14:42 Discharged to Home. Impression: Encounter for fitting and adjustment of other gastrointestinal appliance and device. - Condition is Stable. - Discharge Instructions: Gastrostomy Tube Home Guide, Adult, Gastrostomy Tube Replacement, Care After. - Medication Reconciliation Form, Thank You Letter, Antibiotic Education, Prescription Opioid Use form. - Follow up: Private Physician; When: 2 - 3 days; Reason: Recheck today's complaints, Continuance of care, Re-evaluation by your physician. Follow up: Emergency Department; When: As needed; Reason: Worsening of condition. - Problem is an acute exacerbation. - Symptoms are unchanged. Signatures: Dispatcher [employer] [facility] Domingo Sharma MD MD cha Therrien, Shelly, [employer] Marisol Cordova RN RN ss Corrections: (The following items were deleted from the chart) 14:54 14:43 Abdomen 1 View (KUB)+RAD.RAD.BRZ ordered. [facility] 15:00 14:42 08/15/2018 14:42 Discharged to Home. Impression: Encounter for fitting and ss adjustment of other gastrointestinal appliance and device. Condition is Stable. Forms are Medication Reconciliation Form, Thank You Letter, Antibiotic Education, Prescription Opioid Use. Follow up: Private Physician; When: 2 - 3 days; Reason: Recheck today's complaints, Continuance of care, Re-evaluation by your physician. Follow up: Emergency Department; When: As needed; Reason: Worsening of condition. Problem is an acute exacerbation. Symptoms are unchanged. snw
--- NOTE | 2018-08-15 14:43 | ER ---
Nurse's Notes [facility] Name: Shelia Miranda Age: 63 yrs Sex: Male : 1955 Arrival Date: 08/15/2018 Time: 14:36 Bed Treatment Private MD: Diagnosis: Encounter for fitting and adjustment of other gastrointestinal appliance and device Presentation: 08/15 14:36 Presenting complaint: EMS states: removed peg tube, is an ongoing issue. Transition of ss care: patient was received from another setting of care (long-term care [facility]. Onset of symptoms is unknown. Risk Assessment: Do you want to hurt yourself or someone else? Patient reports no desire to harm self or others. Initial Sepsis Screen: Does the patient meet any 2 criteria? No. Patient's initial sepsis screen is negative. Does the patient have a suspected source of infection? No. Patient's initial sepsis screen is negative. Care prior to arrival: None. 14:36 Method Of Arrival: EMS ss 14:36 Acuity: WINSOME 4 ss Historical: - Allergies: 14:40 NKA; ss - PMHx: 14:40 Anxiety; Aphasia; BPH; Contracture; COPD; Dementia; Depression; DYSPHAGIA; ss Hypertension; Pneumonia; pressure ulcer stage 2; Schizophrenia; vitamin d deficiency; - Immunization history:: Adult Immunizations up to date. - Social history:: Smoking status: Patient/guardian denies using tobacco. - Ebola Screening: : Patient denies exposure to infectious person Patient denies travel to an Ebola-affected area in the 21 days before illness onset. Screenin:57 Abuse screen: Denies threats or abuse. Denies injuries from another. Nutritional ss screening: No deficits noted. Tuberculosis screening:. Fall Risk No fall in past 12 months (0 pts). Secondary diagnosis (15 points) impaired mobility, No IV (0 pts). Ambulatory Aid- None/Bed Rest/Nurse Assist (0 pts). Gait- Normal/Bed Rest/Wheelchair (0 pts) Mental Status- Oriented to own ability (0 pts). Assessment: 14:36 General: Appears in no apparent distress. comfortable, Behavior is calm, cooperative. ss Neuro: Level of Consciousness is awake, alert. Cardiovascular: Capillary refill < 3 seconds is sluggish in bilateral Patient's skin is warm and dry. Respiratory: Airway is patent Respiratory effort is even, unlabored, Respiratory pattern is regular, symmetrical. EENT: Oral mucosa is moist. Throat is clear. Derm: Skin is intact, is healthy with good turgor, Skin is dry, Skin is pink, warm \T\ dry. normal. 14:57 Reassessment: Patient appears in no apparent distress at this time. Patient is alert, ss oriented x 3, equal unlabored respirations, skin warm/dry/pink. abd binder in place to prevent patient from pulling [facility]. Vital Signs: 14:43 BP 141 / 98; Pulse 82; Resp 16; Temp 97.6(TE); Pulse Ox 97% on R/A; Pain 0/10; ss ED Course: 14:36 Patient arrived in ED. 14:36 Triage completed. 14:40 Domingo Sharma MD is Attending Physician. [facility] 14:40 Arm band placed on right wrist. 14:41 Charlene Cleaning, Y[facility]EL [facility]. snw 14:55 PEG tube insertion, 18 Fr. Patient did not have IV access during this emergency room ss visit. 14:56 ENTEROSTOMY TUBE CHECK W/CONTR In Process Unspecified. EDMS 14:57 Patient has correct armband on for positive identification. 15:00 Marisol Cordova, ARIAS is Primary Nurse. ss Administered Medications: No medications were administered Outcome: 14:42 Discharge ordered by . snw 14:57 Discharged to home ambulatory. 14:57 Condition: good 14:57 Discharge instructions given to EMS, Instructed on discharge instructions, follow up and referral plans. Demonstrated understanding of instructions, follow-up care, medications. 15:00 Patient left the ED. Signatures: Dispatcher [employer] EDAL Domingo Sharma MD MD cha Therrien, Shelly, FNP-C [employer]-Csnw Marisol Cordova, RN RN
--- NOTE | 2018-08-15 15:15 | RAD REPORT ---
EXAM DESCRIPTION: RAD - ENTEROSTOMY TUBE CHECK W/CONTR - 08/15/2018 2:55 pm CLINICAL HISTORY: Abdominal pain FINDINGS: Gastrografin was administered into a gastrostomy tube. The stomach is opacified with contr ast. No extravasation contrast is seen. No fluoroscopic spot images obtained
[2018-08-15 20:08] VITALS: BP 141/98; TEMP 97.6; O2SAT 97
== END 2018-08-15 15:00 | disposition home or self-care (01) ==
LOC: ER 14:34
DX: Z43.1 Encounter for attention to gastrostomy (principal)
CPT/HCPCS: 49465; 99283

== ENCOUNTER 2018-08-16 11:46 | Emergency (ER) | payer OTHER ==
--- NOTE | 2018-08-16 12:59 | RAD REPORT ---
EXAM DESCRIPTION: RAD - ENTEROSTOMY TUBE CHECK W/CONTR - 08/16/2018 12:33 pm CLINICAL HISTORY: Abdominal pain/gastrostomy tube placement FINDINGS: Percutaneous gastrostomy tube has been placed into the stomach. Gastrografin confirms the tube within the lumen of the stomach. No extravasation of contrast No fluoroscopic spot images obtained
--- NOTE | 2018-08-16 13:04 | ER ---
Nurse's Notes [facility] Name: Shelia Miranda Age: 63 yrs Sex: Male : 1955 Arrival Date: 08/16/2018 Time: 11:52 Bed 20 Private MD: Diagnosis: Gastrostomy complications Presentation: 08/16 11:52 Presenting complaint: EMS states: removed PEG tube. Pt seen yesterday for the same ss complaint. retirement reports that they have been trying an abd binder, and a onesie to stop PEG tube from being pulled out, but nothing has worked as of yet. Pt has no complaints and denies pulling out tube himself. Pt states, "I don't know what happened.". Transition of care: patient was received from another setting of care (long-term care facility), [facility]. Onset of symptoms was August 16, 2018. Risk Assessment: Do you want to hurt yourself or someone else? Patient reports no desire to harm self or others. Initial Sepsis Screen: Does the patient meet any 2 criteria? No. Patient's initial sepsis screen is negative. Does the patient have a suspected source of infection? No. Patient's initial sepsis screen is negative. Care prior to arrival: None. 11:52 Method Of Arrival: EMS: [facility] [place] 11:52 Acuity: WINSOME 4 ss Historical: - Allergies: 11:59 NKA; ss - PMHx: 11:59 Anxiety; Aphasia; Contracture; Dementia; COPD; Depression; BPH; DYSPHAGIA; ss Hypertension; Pneumonia; Schizophrenia; vitamin d deficiency; pressure ulcer stage 2; - Immunization history:: Adult Immunizations up to date. - Social history:: Smoking status: unknown. - Ebola Screening: : Patient denies exposure to infectious person Patient denies travel to an Ebola-affected area in the 21 days before illness onset. Screenin:59 Abuse screen: Denies threats or abuse. Denies injuries from another. Nutritional ss screening: No deficits noted. Tuberculosis screening: Never had TB. Fall Risk No fall in past 12 months (0 pts). Secondary diagnosis (15 points) impaired mobility, No IV (0 pts). Ambulatory Aid- None/Bed Rest/Nurse Assist (0 pts). Gait- Normal/Bed Rest/Wheelchair (0 pts) Mental Status- Oriented to own ability (0 pts). Assessment: 11:59 General: Appears in no apparent distress. comfortable. Pain: Denies pain. Neuro: Level ss of Consciousness is awake, alert, Oriented to person, place. Cardiovascular: Capillary refill is sluggish in bilateral fingers. Respiratory: Airway is patent Respiratory effort is even, unlabored. GI: Abdomen is flat, non-distended. GI: G tube has been pulled. No draining or bleeding observed. EENT: Oral mucosa is dry. Derm: Skin is pink, warm \\T\\ dry. 13:27 Reassessment: report given to [facility] facility. ss 13:37 Reassessment: Patient appears in no apparent distress at this time. Patient and/or em family updated on plan of care and expected duration. Pain level reassessed. report given to EMS, pt is awake and alert. Vital Signs: 11:59 BP 130 / 85; Pulse 72; Resp 16; Temp 97.2(TE); Pulse Ox 98% on R/A; Pain 0/10; ss ED Course: 11:52 Patient arrived in ED. ss 11:52 Charlie Willis PA is PHCP. [facility] 11:52 Marlo Mills MD is Attending Physician. [facility] 11:58 Triage completed. ss 11:59 Arm band placed on right wrist. ss 11:59 Patient has correct armband on for positive identification. Bed in low position. Call ss light in reach. Side rails up X2. 12:09 Gunnar Hercules LVN is Primary Nurse. em 12:15 insertion of G tube. Patient did not have IV access during this emergency room visit. em 12:33 Enterostomy Tube Check w/contr In Process Unspecified. EDMS 12:34 X-ray completed. Portable x-ray completed in exam room. Patient tolerated procedure sg4 well. Administered Medications: No medications were administered Outcome: 13:04 Discharge ordered by . [facility] 13:47 Discharged to [facility]. em 13:47 Condition: good 13:47 Discharge instructions given to EMS, Instructed on discharge instructions, follow up and referral plans. Demonstrated understanding of instructions, follow-up care. 13:48 Patient left the ED. em Signatures: Dispatcher [employer] EDMS Charlie Willis PA PA [facility] Gunnar Hercules LVN LVN em Marisol Cordova, RN RN ss Naveed Meenu sg4
--- NOTE | 2018-08-16 13:04 | EDPHYS ---
Physician Documentation [facility] Name: Shelia Miranda Age: 63 yrs Sex: Male : 1955 Arrival Date: 08/16/2018 Time: 11:52 Bed 20 Private MD: ED Physician Marlo Mills HPI: 08/16 12:01 This 63 yrs old Black Male presents to ER via EMS with complaints of REMOVED PEG TUBE. jmm 12:01 Onset: The symptoms/episode began/occurred acutely, today. The patient has experienced jmm similar episodes in the past, several times. The patient has been recently seen by a physician: yesterday. Historical: - Allergies: 11:59 NKA; ss - PMHx: :59 Anxiety; Aphasia; Contracture; Dementia; COPD; Depression; BPH; DYSPHAGIA; ss Hypertension; Pneumonia; Schizophrenia; vitamin d deficiency; pressure ulcer stage 2; - Immunization history:: Adult Immunizations up to date. - Social history:: Smoking status: unknown. - Ebola Screening: : Patient denies exposure to infectious person Patient denies travel to an Ebola-affected area in the 21 days before illness onset. ROS: 12:01 Constitutional: Negative for fever, chills, and weight loss, Respiratory: Negative for jmm shortness of breath, cough, wheezing, and pleuritic chest pain, Abdomen/GI: Negative for abdominal pain, nausea, vomiting, diarrhea, and constipation. 12:01 All other systems are negative. Exam: 12:01 Constitutional: This is a well developed, well nourished patient who is awake, alert, jmm and in no acute distress. Head/Face: atraumatic. Eyes: EOMI, no conjunctival erythema appreciated ENT: Moist Mucus Membranes Neck: Trachea midline, Supple Chest/axilla: Normal chest wall appearance and motion. Cardiovascular: Regular rate and rhythm. No edema appreciated Respiratory: Normal respirations, no respiratory distress appreciated 12:01 Abdomen/GI: peg tube insertion site noted without erythema or purulent drainage. 12:01 Skin: Appearance: Color: normal in color, Temperature: 12:01 Neuro: Orientation: no acute changes. 12:01 Psych: Behavior/mood is pleasant, cooperative. Vital Signs: 11:59 BP 130 / 85; Pulse 72; Resp 16; Temp 97.2(TE); Pulse Ox 98% on R/A; Pain 0/10; ss Procedures: 12:01 G-tube placement: a 18 Armenian catheter was placed, by the ED physician, Charlie VELEZ.kris MDM: 12:01 Patient medically screened. [facility] 13:03 Data reviewed: vital signs, nurses notes. Counseling: I had a detailed discussion with kris the patient and/or guardian regarding: the historical points, exam findings, and any diagnostic results supporting the discharge/admit diagnosis, radiology results, the need for outpatient follow up, to return to the emergency department if symptoms worsen or persist or if there are any questions or concerns that arise at home. 08/16 12:02 Order name: Enterostomy Tube Check w/contr; Complete Time: 13:03 kris Administered Medications: No medications were administered Disposition: 08/17 07:51 Co-signature as Attending Physician, Marlo Mills MD. Disposition: 08/16/18 13:04 Discharged to Home. Impression: Gastrostomy complications. - Condition is Stable. - Discharge Instructions: PEG Tube Home Guide. - Medication Reconciliation Form, Thank You Letter, Antibiotic Education, Prescription Opioid Use form. - Follow up: Private Physician; When: 2 - 3 days; Reason: Recheck today's complaints, Continuance of care, Re-evaluation by your physician. Signatures: Dispatcher [employer] EDCharlie Mariee PA PA jmm Munoz, Edgar, GLOVE SEWER GLOVE SEWER Marisol Abdul RN RN ss Starr, Gregory, MD MD Corrections: (The following items were deleted from the chart) 08/16 13:48 13:04 08/16/2018 13:04 Discharged to Home. Impression: Gastrostomy complications. em Condition is Stable. Forms are Medication Reconciliation Form, Thank You Letter, Antibiotic Education, Prescription Opioid Use. Follow up: Private Physician; When: 2 - 3 days; Reason: Recheck today's complaints, Continuance of care, Re-evaluation by your physician. kris
[2018-08-16 13:56] VITALS: BP 130/85; TEMP 97.2; O2SAT 98
== END 2018-08-16 13:48 | disposition home or self-care (01) ==
LOC: ER 11:46
DX: K94.29 Other complications of gastrostomy (principal)
CPT/HCPCS: 49465; 99283

== ENCOUNTER 2018-09-20 07:36 | Emergency (ER) | payer OTHER ==
--- NOTE | 2018-09-20 08:34 | ER ---
Nurse's Notes [facility] Name: Shelia Miranda Age: 63 yrs Sex: Male : 1955 Arrival Date: 09/20/2018 Time: 07:43 Bed 14 Private MD: Diagnosis: Encounter for fitting and adjustment of other gastrointestinal appliance and device Presentation: 09/20 07:44 Presenting complaint: EMS states: PULLED G TUBE OUT. Transition of care: patient was ls4 received from another setting of care ([facility]. Onset of symptoms was September 20, 2018. Risk Assessment: Do you want to hurt yourself or someone else? Patient reports no desire to harm self or others. Initial Sepsis Screen: Does the patient meet any 2 criteria? No. Patient's initial sepsis screen is negative. Does the patient have a suspected source of infection? No. Patient's initial sepsis screen is negative. Care prior to arrival: None. 07:44 Method Of Arrival: EMS: [facility] ls4 07:44 Acuity: WINSOME 4 ls4 Triage Assessment: 07:46 General: Appears in no apparent distress. Behavior is calm, cooperative. Pain: Denies ls4 pain. Neuro: No deficits noted. Cardiovascular: No deficits noted. Respiratory: No deficits noted. GI: No deficits noted. : No deficits noted. Derm: No deficits noted. Musculoskeletal: No deficits noted. Historical: - Allergies: 07:46 NKA; ls4 - Immunization history:: Adult Immunizations up to date. - Social history:: Smoking status: unknown. - Ebola Screening: : No symptoms or risks identified at this time. Screenin:57 Abuse screen: Denies threats or abuse. Denies injuries from another. Nutritional ls4 screening: No deficits noted. Tuberculosis screening: No symptoms or risk factors identified. Fall Risk None identified. Assessment: 07:49 General: SEE TRIAGE ASSESSMENT . GI: Abdomen is non-distended, PEG tube Site clean. ls4 DISPLACED. REPLACED BY ALEXX TAVERA. PT TOLERATED WELL. DRESSING AND PAPER TAPE APPLIED. BINDER CLOSED. Vital Signs: 07:46 BP 151 / 90; Pulse 88; Resp 16; Temp 98.2(O); Pulse Ox 96% on R/A; Pain 3/10; ls4 ED Course: 07:43 Patient arrived in ED. ls4 07:43 Joanna Hernandez, RN is Primary Nurse. ls4 07:44 Alexx Curtis NP is PHCP. pm1 07:44 Domingo Sharma MD is Attending Physician. pm1 07:45 Triage completed. ls4 07:46 Arm band placed on right wrist. ls4 07:57 Bed in low position. Call light in reach. Side rails up X 1. Warm blanket given. Verbal ls4 reassurance given. 07:57 No provider procedures requiring assistance completed. Patient did not have IV access ls4 during this emergency room visit. Administered Medications: No medications were administered Outcome: 08:33 Discharge ordered by . pm1 09:11 Discharged to [facility]. Report called to [facility] ls4 09:11 Condition: good 09:11 Discharge instructions given to EMS, Instructed on discharge instructions, follow up and referral plans. safety practices, Demonstrated understanding of instructions, follow-up care. 09:12 Patient left the ED. ls4 Signatures: Alexx Curtis NP HAIRSPRING CUTTER pm1 Joanna Hernandez, RN RN ls4
--- NOTE | 2018-09-20 08:34 | EDPHYS ---
Physician Documentation [facility] Name: Shelia Miranda Age: 63 yrs Sex: Male : 1955 Arrival Date: 09/20/2018 Time: 07:43 Bed 14 Private MD: ED Physician Domingo Sharma HPI: 09/20 07:52 This 63 yrs old Black Male presents to ER via EMS with complaints of Displaced G-tube. pm1 07:52 Onset: The symptoms/episode began/occurred this morning. Associated signs and symptoms: pm1 The patient has no apparent associated signs or symptoms. Modifying factors: The patient symptoms are alleviated by nothing, the patient symptoms are aggravated by nothing. The patient has experienced similar episodes in the past, multiple times. Historical: - Allergies: 07:46 NKA; ls4 - Immunization history:: Adult Immunizations up to date. - Social history:: Smoking status: unknown. - Ebola Screening: : No symptoms or risks identified at this time. ROS: 07:52 Constitutional: Negative for fever, chills, and weight loss, Eyes: Negative for injury, pm1 pain, redness, and discharge, ENT: Negative for injury, pain, and discharge, Neck: Negative for injury, pain, and swelling, Cardiovascular: Negative for chest pain, palpitations, and edema, Respiratory: Negative for shortness of breath, cough, wheezing, and pleuritic chest pain, Abdomen/GI: Negative for abdominal pain, nausea, vomiting, diarrhea, and constipation, Back: Negative for injury and pain, MS/Extremity: Negative for injury and deformity, Skin: Negative for injury, rash, and discoloration, Neuro: Negative for headache, weakness, numbness, tingling, and seizure. Exam: 07:52 Constitutional: This is a well developed, well nourished patient who is awake, alert, pm1 and in no acute distress. Head/Face: Normocephalic, atraumatic. Neck: Trachea midline, no thyromegaly or masses palpated, and no cervical lymphadenopathy. Supple, full range of motion without nuchal rigidity, or vertebral point tenderness. No Meningismus. Chest/axilla: Normal chest wall appearance and motion. Nontender with no deformity. No lesions are appreciated. Cardiovascular: Regular rate and rhythm with a normal S1 and S2. No gallops, murmurs, or rubs. Normal PMI, no JVD. No pulse deficits. Respiratory: Lungs have equal breath sounds bilaterally, clear to auscultation and percussion. No rales, rhonchi or wheezes noted. No increased work of breathing, no retractions or nasal flaring. 07:52 Back: No spinal tenderness. No costovertebral tenderness. Full range of motion. Skin: Warm, dry with normal turgor. Normal color with no rashes, no lesions, and no evidence of cellulitis. MS/ Extremity: Pulses equal, no cyanosis. Neurovascular intact. Full, normal range of motion. 07:52 Abdomen/GI: Inspection: stoma without any bleeding, redness, discharge , Bowel sounds: normal, Palpation: abdomen is soft and non-tender. Vital Signs: 07:46 BP 151 / 90; Pulse 88; Resp 16; Temp 98.2(O); Pulse Ox 96% on R/A; Pain 3/10; ls4 Procedures: 07:52 G-tube placement: a 18 Greek catheter was placed, by the ED physician, Alexx Curtis pm1 BOOSTER ASSEMBLER Will verify placement with x-ray and contrast. MDM: 07:52 Data reviewed: vital signs. Data interpreted: Pulse oximetry: on room air is 96 %. pm1 Interpretation: normal. 07:55 Patient medically screened. pm1 08:33 Counseling: I had a detailed discussion with the patient and/or guardian regarding: the pm1 historical points, exam findings, and any diagnostic results supporting the discharge/admit diagnosis, radiology results, the need for outpatient follow up, to return to the emergency department if symptoms worsen or persist or if there are any questions or concerns that arise at home. 09/20 07:51 Order name: Enterostomy Tube Check w/contr pm1 09/20 08:46 Order name: RAD; Complete Time: 08:50 EDMS Administered Medications: No medications were administered Disposition: 09/20/18 08:33 Discharged to Home. Impression: Encounter for fitting and adjustment of other gastrointestinal appliance and device. - Condition is Stable. - Discharge Instructions: Gastrostomy Tube Replacement, PEG Tube Home Guide, [id number]. - Medication Reconciliation Form, Thank You Letter form. - Follow up: Emergency Department; When: As needed; Reason: Worsening of condition. Follow up: Private Physician; When: 2 - 3 days; Reason: Recheck today's complaints, Continuance of care, Re-evaluation by your physician. - Problem is new. - Symptoms have improved. Addendum: 09/22/2018 07:42 Co-signature as Attending Physician, Domingo Sharma MD I agree with the assessment and c anderson plan of care. Signatures: Dispatcher [employer] EDKY Domingo Sharma MD MD cha Marinas, Patrick, BOOSTER ASSEMBLER BOOSTER ASSEMBLER pm1 Joanna Hernandez RN RN ls4 Corrections: (The following items were deleted from the chart) 09/20 09:12 08:33 09/20/2018 08:33 Discharged to Home. Impression: Encounter for fitting and ls4 adjustment of other gastrointestinal appliance and device. Condition is Stable. Discharge Instructions: PEG Tube Home Guide, [id number], Gastrostomy Tube Replacement. Forms are Medication Reconciliation Form, Thank You Letter, Antibiotic Education, Prescription Opioid Use. Follow up: Emergency Department; When: As needed; Reason: Worsening of condition. Follow up: Private Physician; When: 2 - 3 days; Reason: Recheck today's complaints, Continuance of care, Re-evaluation by your physician. Problem is new. Symptoms have improved. pm1
--- NOTE | 2018-09-20 08:46 | RAD REPORT ---
EXAM DESCRIPTION: RAD - ENTEROSTOMY TUBE CHECK W/CONTR - 09/20/2018 8:26 am CLINICAL HISTORY: Enterostomy tube check. Patient pulled out gastrostomy tube FINDINGS: Gastrografin was administered into the percutaneous gastrostomy tube. Contrast is present within the distal stomach extending into the duodenum. No extravasation of contrast is noted. No fluoroscopy was performed. No fluoroscopic spot images obtained
[2018-09-20 09:24] VITALS: BP 151/90; TEMP 98.2; O2SAT 96
== END 2018-09-20 09:12 | disposition home or self-care (01) ==
LOC: ER 07:36
DX: Z46.59 Encounter for fitting and adjustment of other gastrointestinal appliance and device (principal)
CPT/HCPCS: 49465

== ENCOUNTER 2018-09-25 16:22 | Emergency (ER) | payer OTHER ==
--- NOTE | 2018-09-25 17:46 | EDPHYS ---
Physician Documentation [facility] Name: Shelia Miranda Age: 63 yrs Sex: Male : 1955 Arrival Date: 09/25/2018 Time: 16:27 Bed 26 Private MD: ED Physician Jonathan Noble HPI: 09/25 17:08 This 63 yrs old Black Male presents to ER via EMS with complaints of pulled gastrostomy jr8 tube. 17:08 Patient brought to ED via EMS from [place] after pulling gastrostomy tube . Onset: The jr8 symptoms/episode began/occurred acutely, today. Severity of symptoms: At their worst the symptoms were mild in the emergency department the symptoms are unchanged. The patient has not experienced similar symptoms in the past. The patient has not recently seen a physician. Historical: - Allergies: 16:37 NKA; mg2 - Home Meds: 16:37 Zoloft 50 mg Oral tab 1 tab once daily [Active]; acetaminophen-codeine 300-30 mg Oral mg2 tab three times a day [Active]; aspirin 81 mg Oral chew 1 tab once daily [Active]; Catapres 0.1 mg Oral tab every 8 hours PRN [Active]; ipratropium-albuterol 0.5 mg-3 mg(2.5 mg base)/3 mL Inhl nebu 3 times a day PRN [Active]; lisinopril 20 mg Oral tab once daily [Active]; lorazepam 1 mg Oral tab 1 tab every 8 hours for Anxiety [Active]; Nitroglycerin 0.3 mg SL 1 tab every 5 minutes X3 PRN [Active]; Tegretol 100 mg/5 mL Oral susp 10 mL twice a day [Active]; Vitamin D3 1,000 unit Oral tab 2 tab daily [Active]; - PMHx: 16:37 Anxiety; Aphasia; BPH; Contracture; COPD; Dementia; Depression; DYSPHAGIA; mg2 Hypertension; Pneumonia; pressure ulcer stage 2; Schizophrenia; vitamin d deficiency; - PSHx: 16:37 Unable to obtain; mg2 - Immunization history:: Flu vaccine status is unknown. - Social history:: Smoking status: unknown. - Ebola Screening: : No symptoms or risks identified at this time. ROS: 17:08 Eyes: Negative for injury, pain, redness, and discharge, ENT: Negative for injury, jr8 pain, and discharge, Neck: Negative for injury, pain, and swelling, Cardiovascular: Negative for chest pain, palpitations, and edema, Respiratory: Negative for shortness of breath, cough, wheezing, and pleuritic chest pain, Abdomen/GI: Negative for abdominal pain, nausea, vomiting, diarrhea, and constipation, Back: Negative for injury and pain, Skin: Negative for injury, rash, and discoloration, Neuro: Negative for headache, weakness, numbness, tingling, and seizure. Exam: 17:08 Eyes: Pupils equal round and reactive to light, extra-ocular motions intact. Lids and jr8 lashes normal. Conjunctiva and sclera are non-icteric and not injected. Cornea within normal limits. Periorbital areas with no swelling, redness, or edema. ENT: Nares patent. No nasal discharge, no septal abnormalities noted. Tympanic membranes are normal and external auditory canals are clear. Oropharynx with no redness, swelling, or masses, exudates, or evidence of obstruction, uvula midline. Mucous membranes moist. Neck: Trachea midline, no thyromegaly or masses palpated, and no cervical lymphadenopathy. Supple, full range of motion without nuchal rigidity, or vertebral point tenderness. No Meningismus. Cardiovascular: Regular rate and rhythm with a normal S1 and S2. No gallops, murmurs, or rubs. Normal PMI, no JVD. No pulse deficits. Respiratory: Lungs have equal breath sounds bilaterally, clear to auscultation and percussion. No rales, rhonchi or wheezes noted. No increased work of breathing, no retractions or nasal flaring. Back: No spinal tenderness. No costovertebral tenderness. Full range of motion. Skin: Warm, dry with normal turgor. Normal color with no rashes, no lesions, and no evidence of cellulitis. MS/ Extremity: Pulses equal, no cyanosis. Neurovascular intact. Full, normal range of motion. Neuro: Awake and alert, GCS 15, oriented to person, place, time, and situation. Cranial nerves II-XII grossly intact. Motor strength 5/5 in all extremities. Sensory grossly intact. 17:08 Abdomen/GI: Inspection: Gastrostomy site noted. Patent with no bleeding or discharge , Bowel sounds: active, all quadrants, Palpation: abdomen is soft and non-tender, in all quadrants, Indicators: McBurney's point is not tender, Berry's sign is negative, Rovsing's sign is negative, Liver: tenderness, is not appreciated. Vital Signs: 16:38 BP 132 / 95; Pulse 64; Resp 18; Temp 97.5; Pulse Ox 100% on R/A; Pain 0/10; mg2 18:02 BP 147 / 90; Pulse 66; Resp 18; Pulse Ox 100% on R/A; Pain 0/10; mg2 19:53 BP 135 / 78; Pulse 60; Resp 18; Pulse Ox 100% on R/A; Pain 0/10; mg2 Procedures: 17:31 G-tube placement: a 18 Wolof catheter was placed, by the ED physician, Presley VELEZ. jr8 MDM: 16:27 Patient medically screened. jr8 17:08 Data reviewed: vital signs, nurses notes, radiologic studies, plain films. Data jr8 interpreted: Pulse oximetry: on room air is 100 %. Interpretation: normal. Counseling: I had a detailed discussion with the patient and/or guardian regarding: the historical points, exam findings, and any diagnostic results supporting the discharge/admit diagnosis, radiology results, the need for outpatient follow up, a family practitioner, a apprentice/lineman, to return to the emergency department if symptoms worsen or persist or if there are any questions or concerns that arise at home. 17:44 ED course: Normal placement of gastrostomy tube noted on KUB. jr8 09/25 17:04 Order name: Enterostomy Tube Check w/contr jr8 Administered Medications: No medications were administered Disposition: 09/25/18 17:46 Discharged to Home. Impression: Gastrostomy status - Replaced gastrostomy tube. - Condition is Stable. - Discharge Instructions: Gastrostomy Tube Home Guide, Adult. - Medication Reconciliation Form, Thank You Letter, Antibiotic Education, Prescription Opioid Use form. - Follow up: Private Physician; When: As needed; Reason: Recheck today's complaints, Continuance of care, Re-evaluation by your physician. - Problem is new. - Symptoms have improved. Addendum: 10/02/2018 08:56 Co-signature as Attending Physician, Jonathan Noble MD I agree with the assessment and k dr plan of care. Signatures: Dispatcher [employer] EDKS Jonathan Noble MD MD kdr Roszak, Josh, PA PA jr8 Erik Stroud, RN RN mg2 Corrections: (The following items were deleted from the chart) 09/25 19:54 17:46 09/25/2018 17:46 Discharged to Home. Impression: Gastrostomy status - Replaced mg2 gastrostomy tube. Condition is Stable. Forms are Medication Reconciliation Form, Thank You Letter, Antibiotic Education, Prescription Opioid Use. Follow up: Private Physician; When: As needed; Reason: Recheck today's complaints, Continuance of care, Re-evaluation by your physician. Problem is new. Symptoms have improved. jr8
--- NOTE | 2018-09-25 17:46 | ER ---
Nurse's Notes [facility] Name: Shelia Miranda Age: 63 yrs Sex: Male : 1955 Arrival Date: 09/25/2018 Time: 16:27 Bed 26 Private MD: Diagnosis: Gastrostomy status-Replaced gastrostomy tube Presentation: 09/25 16:27 Presenting complaint: EMS states: patient has dislodged gastric tube 3 hours ago. Last mg2 feeding was \T\ 6 am. Transition of care: patient was received from another setting of care (long-term care facility). Onset of symptoms was September 25, 2018. Risk Assessment: Do you want to hurt yourself or someone else? Patient reports no desire to harm self or others. Initial Sepsis Screen: Does the patient meet any 2 criteria? No. Patient's initial sepsis screen is negative. Does the patient have a suspected source of infection? No. Patient's initial sepsis screen is negative. Care prior to arrival: None. 16:27 Method Of Arrival: EMS: [place] [id number] 16:27 Acuity: WINSOME 5 mg2 Historical: - Allergies: 16:37 NKA; mg2 - Home Meds: 16:37 Zoloft 50 mg Oral tab 1 tab once daily [Active]; acetaminophen-codeine 300-30 mg Oral mg2 tab three times a day [Active]; aspirin 81 mg Oral chew 1 tab once daily [Active]; Catapres 0.1 mg Oral tab every 8 hours PRN [Active]; ipratropium-albuterol 0.5 mg-3 mg(2.5 mg base)/3 mL Inhl nebu 3 times a day PRN [Active]; lisinopril 20 mg Oral tab once daily [Active]; lorazepam 1 mg Oral tab 1 tab every 8 hours for Anxiety [Active]; Nitroglycerin 0.3 mg SL 1 tab every 5 minutes X3 PRN [Active]; Tegretol 100 mg/5 mL Oral susp 10 mL twice a day [Active]; Vitamin D3 1,000 unit Oral tab 2 tab daily [Active]; - PMHx: 16:37 Anxiety; Aphasia; BPH; Contracture; COPD; Dementia; Depression; DYSPHAGIA; mg2 Hypertension; Pneumonia; pressure ulcer stage 2; Schizophrenia; vitamin d deficiency; - PSHx: 16:37 Unable to obtain; mg2 - Immunization history:: Flu vaccine status is unknown. - Social history:: Smoking status: unknown. - Ebola Screening: : No symptoms or risks identified at this time. Screenin:44 Abuse screen: Denies threats or abuse. Denies injuries from another. Nutritional mg2 screening: No deficits noted. Tuberculosis screening: No symptoms or risk factors identified. Fall Risk Gait- Normal/Bed Rest/Wheelchair (0 pts). Assessment: 16:44 General: Appears in no apparent distress. comfortable, Behavior is calm, cooperative. mg2 Pain: Denies pain. Neuro: Level of Consciousness is awake, alert, obeys commands, Oriented to person, place, time, situation. Cardiovascular: Capillary refill < 3 seconds Patient's skin is warm and dry. Respiratory: Airway is patent Respiratory effort is even, unlabored, Respiratory pattern is regular, symmetrical. GI: pulled gastric tube. : No signs and/or symptoms were reported regarding the genitourinary system. EENT: No signs and/or symptoms were reported regarding the EENT system. Derm: Skin is intact, is healthy with good turgor, Skin is pink, warm \T\ dry. normal. Musculoskeletal: No signs and/or symptoms reported regarding the musculoskeletal system. 18:01 Reassessment: [facility] will be available to pharmacy picking tech the patient at 1930H. mg2 patient informed. Vital Signs: 16:38 BP 132 / 95; Pulse 64; Resp 18; Temp 97.5; Pulse Ox 100% on R/A; Pain 0/10; mg2 18:02 BP 147 / 90; Pulse 66; Resp 18; Pulse Ox 100% on R/A; Pain 0/10; mg2 19:53 BP 135 / 78; Pulse 60; Resp 18; Pulse Ox 100% on R/A; Pain 0/10; mg2 ED Course: 16:27 Patient arrived in ED. mg2 16:27 Presley Gilbert PA is PHCP. jr8 16:27 Jonathan Noble MD is Attending Physician. jr8 16:35 Triage completed. mg2 16:43 Arm band placed on. mg2 16:46 Patient did not have IV access during this emergency room visit. mg2 16:47 Patient has correct armband on for positive identification. Door closed. Warm blanket mg2 given. 17:06 Erik Stroud, RN is Primary Nurse. mg2 17:35 gastric tube insertion kangaroo F 18 done by AGUSTIN Sherwood. mg2 17:38 Enterostomy Tube Check w/contr In Process Unspecified. EDMS Administered Medications: No medications were administered Outcome: 17:46 Discharge ordered by MD. harman 19:53 Discharged to [facility]. Report called to [facility] mg2 19:53 Condition: stable 19:53 Instructed on discharge instructions, follow up and referral plans. 19:54 Patient left the ED. mg2 Signatures: Dispatcher [employer] EDMS Presley Gilbert PA PA jrErik Aguiar, RN RN mg2
--- NOTE | 2018-09-25 18:43 | RAD REPORT ---
EXAM DESCRIPTION: RAD - ENTEROSTOMY TUBE CHECK W/CONTR - 09/25/2018 5:43 pm CLINICAL HISTORY: enterostomy placement COMPARISON: ENTEROSTOMY TUBE CHECK W/CONTR dated 09/22/2018 FINDINGS: Three plain radiographs of the abdomen were performed. No fluoroscopy was performed. Four Horse Hitch Driver/pre-injection image shows a nonobstructive bowel-gas pattern. Contrast was then injected by the technologist via existing enterostomy tube. Post injection radiographs show contrast eliminating the small bowel indicating appropriate placement. No leakage of contrast seen.
[2018-09-25 21:22] VITALS: O2SAT 100
[2018-09-25 21:24] VITALS: BP 135/78
[2018-09-25 21:29] VITALS: TEMP 99.8
== END 2018-09-25 19:54 | disposition home or self-care (01) ==
LOC: ER 16:22
PROC: 0D20XUZ Change Feeding Device in Upper Intestinal Tract, External Approach (ICD-10-PCS; principal; 2018-09-25)
DX: Z43.1 Encounter for attention to gastrostomy (principal); F41.9 Anxiety disorder, unspecified; N40.0 Benign prostatic hyperplasia without lower urinary tract symptoms; J44.9 Chronic obstructive pulmonary disease, unspecified; F03.90 Unspecified dementia, unspecified severity, without behavioral disturbance, psychotic disturbance, mood disturbance, and anxiety; I10 Essential (primary) hypertension; F20.9 Schizophrenia, unspecified
CPT/HCPCS: 49465; 99283

== ENCOUNTER 2018-09-26 08:38 | Emergency (ER) | payer OTHER ==
--- NOTE | 2018-09-26 09:16 | ER ---
Nurse's Notes [facility] Name: Shelia Miranda Age: 63 yrs Sex: Male : 1955 Arrival Date: 09/26/2018 Time: 08:43 Bed 17 Private MD: Diagnosis: Gastrostomy status-tube replacement Presentation: 09/26 08:56 Presenting complaint: EMS states: displaced G tube. Transition of care: patient was not ss received from another setting of care. Onset of symptoms was September 26, 2018. Risk Assessment: Do you want to hurt yourself or someone else? Patient reports no desire to harm self or others. Initial Sepsis Screen: Does the patient meet any 2 criteria? No. Patient's initial sepsis screen is negative. Does the patient have a suspected source of infection? No. Patient's initial sepsis screen is negative. Care prior to arrival: None. 08:56 Method Of Arrival: EMS: [facility] 08:56 Acuity: WINSOME 4 ss Historical: - Allergies: 08:58 NKA; ss - PMHx: 08:58 Anxiety; Aphasia; BPH; COPD; Contracture; Dementia; Depression; DYSPHAGIA; ss Hypertension; Pneumonia; pressure ulcer stage 2; Schizophrenia; vitamin d deficiency; - Immunization history:: Adult Immunizations up to date. - Social history:: Smoking status: Patient/guardian denies using tobacco, Patient/guardian denies using alcohol, street drugs, The patient lives with family. - Ebola Screening: : Patient denies exposure to infectious person Patient denies travel to an Ebola-affected area in the 21 days before illness onset. - Family history:: not pertinent. Screenin:47 Abuse screen: no apparent signs noted. Nutritional screening: On NPO diet. Tuberculosis em screening: No symptoms or risk factors identified. Fall Risk None identified. Assessment: 08:47 General: Appears in no apparent distress. comfortable, Behavior is calm, cooperative. em Pain: Denies pain. Neuro: Level of Consciousness is awake, alert, Oriented to person, place, situation. Cardiovascular: Patient's skin is warm and dry. Respiratory: Airway is patent Respiratory effort is even, unlabored, Respiratory pattern is regular, symmetrical. GI: Abdomen is flat, PEG tube missing, G-tube at bedside, site clean, no drainage or redness noted. Derm: Skin is intact. 09:00 General: The previous assessment is accurate. Pt is Alert \T\ oriented to person, place ss and situation. . 10:31 Reassessment: spoke with [facility] who reports that they will arrange ss transportation back to jail [facility]. 11:00 Reassessment: Patient appears in no apparent distress at this time. Patient is alert, em oriented x 3, equal unlabored respirations, skin warm/dry/pink. 12:17 Reassessment: Patient appears in no apparent distress at this time. Patient is alert, em oriented x 3, equal unlabored respirations, skin warm/dry/pink. 13:20 Reassessment: Patient appears in no apparent distress at this time. Patient is alert, em oriented x 3, equal unlabored respirations, skin warm/dry/pink. report given to [facility]. Vital Signs: 08:49 BP 159 / 90; Pulse 78; Resp 18; Temp 98.3(O); Pulse Ox 100% on R/A; em 11:00 BP 154 / 80; Pulse 78; Resp 18; Pulse Ox 99% on R/A; em 12:18 BP 157 / 93; Pulse 74; Resp 16; Pulse Ox 100% on R/A; em ED Course: 08:43 Patient arrived in ED. ss 08:47 Charlene Cleaning FNP-C is PHCP. snw 08:47 Patient has correct armband on for positive identification. Bed in low position. Call em light in reach. Side rails up X2. Pulse ox on. NIBP on. 08:48 Liv Chang MD is Attending Physician. ma2 08:57 Triage completed. ss 08:58 Arm band placed on right wrist. ss 09:21 Gunnar Hercules LVN is Primary Nurse. em 13:54 No provider procedures requiring assistance completed. Patient did not have IV access em during this emergency room visit. Administered Medications: No medications were administered Outcome: 09:16 Discharge ordered by . ma2 13:54 [address] to jail. em 13:54 Condition: good 13:54 Discharge instructions given to jail, EMS. 13:55 Patient left the ED. em Signatures: Charlene Cleaning FNP-C [employer] Gunnar Hercules LVN LVN em Marisol Cordova RN RN Liv Chang MD MD ma2 Corrections: (The following items were deleted from the chart) 12: 12:53 BP 121 / 79; Pulse 89bpm; Resp 18bpm; Pulse Ox 96% 2 lpm Nasal Cannula; Temp em 99.2F Oral; Pain 0/10; em 12:57 12:53 Blood Glucose: Blood Glucose [id number]=031 mg/dL. em em
--- NOTE | 2018-09-26 09:16 | EDPHYS ---
Physician Documentation [facility] Name: Shelia Miranda Age: 63 yrs Sex: Male : 1955 Arrival Date: 09/26/2018 Time: 08:43 Bed 17 Private MD: ED Physician Liv Chang HPI: 09/26 09:13 This 63 yrs old Black Male presents to ER via EMS with complaints of pulled g tube. ma2 09:13 sudden 1 hour ago constant has had this before . ma2 Historical: - Allergies: 08:58 NKA; ss - PMHx: 08:58 Anxiety; Aphasia; BPH; COPD; Contracture; Dementia; Depression; DYSPHAGIA; ss Hypertension; Pneumonia; pressure ulcer stage 2; Schizophrenia; vitamin d deficiency; - Immunization history:: Adult Immunizations up to date. - Social history:: Smoking status: Patient/guardian denies using tobacco, Patient/guardian denies using alcohol, street drugs, The patient lives with family. - Ebola Screening: : Patient denies exposure to infectious person Patient denies travel to an Ebola-affected area in the 21 days before illness onset. - Family history:: not pertinent. ROS: 09:13 Constitutional: Negative for fever, chills, and weight loss. ma2 09:13 All other systems are negative. Exam: 09:13 Constitutional: This is a well developed, well nourished patient who is awake, alert, ma2 and in no acute distress. Chest/axilla: Normal chest wall appearance and motion. Nontender with no deformity. No lesions are appreciated. Cardiovascular: Regular rate and rhythm with a normal S1 and S2. No gallops, murmurs, or rubs. Normal PMI, no JVD. No pulse deficits. Respiratory: Lungs have equal breath sounds bilaterally, clear to auscultation and percussion. No rales, rhonchi or wheezes noted. No increased work of breathing, no retractions or nasal flaring. Vital Signs: 08:49 BP 159 / 90; Pulse 78; Resp 18; Temp 98.3(O); Pulse Ox 100% on R/A; em 11:00 BP 154 / 80; Pulse 78; Resp 18; Pulse Ox 99% on R/A; em 12:18 BP 157 / 93; Pulse 74; Resp 16; Pulse Ox 100% on R/A; em Procedures: 09:13 G-tube placement: a 16 Togolese catheter was placed, by the ED physician, Liv Chang MD. MDM: 08:48 Patient medically screened. ma2 09:13 Differential Diagnosis g tube pulled, has had this before . Data reviewed: vital signs, maFanny nurses notes, EMS record, residential records. Counseling: I had a detailed discussion with the patient and/or guardian regarding: the historical points, exam findings, and any diagnostic results supporting the discharge/admit diagnosis, the presence of at least one elevated blood pressure reading (>120/80) during this emergency department visit, radiology results, the need for outpatient follow up. 09/26 09:24 Order name: PEG Tube Check w/contrast em 09/26 10:21 Order name: CRISTO HURTADO Administered Medications: No medications were administered Disposition: 09/26/18 09:16 Discharged to Home. Impression: Gastrostomy status - tube replacement . - Condition is Stable. - Discharge Instructions: Gastrostomy Tube Home Guide, Adult. - Medication Reconciliation Form, Thank You Letter, Antibiotic Education, Prescription Opioid Use form. - Follow up: Private Physician; When: Tomorrow; Reason: Continuance of care. Signatures: Dispatcher [employer] Gunnar Enriquez, Marisol James LVN, RN RN Liv Lewis MD MD nc2 Corrections: (The following items were deleted from the chart) 13:55 09:16 09/26/2018 09:16 Discharged to Home. Impression: Gastrostomy status - tube em replacement . Condition is Stable. Forms are Medication Reconciliation Form, Thank You Letter, Antibiotic Education, Prescription Opioid Use. Follow up: Private Physician; When: Tomorrow; Reason: Continuance of care. ma2
--- NOTE | 2018-09-26 10:20 | RAD REPORT ---
EXAM DESCRIPTION: RAD - ENTEROSTOMY TUBE CHECK W/CONTR - 09/26/2018 10:07 am CLINICAL HISTORY: Gastrostomy tube placement FINDINGS: Gastrografin was administered into a percutaneous gastrostomy tube. The tube lies within t he lumen of the stomach. No extravasation of contrast seen No fluoroscopic spot imaging obtained. Fluoroscopy time 0
[2018-09-26 14:11] VITALS: TEMP 98.3
[2018-09-26 14:14] VITALS: BP 157/93; O2SAT 100
== END 2018-09-26 13:55 | disposition home or self-care (01) ==
LOC: ER 08:38
DX: Z43.1 Encounter for attention to gastrostomy (principal); F03.90 Unspecified dementia, unspecified severity, without behavioral disturbance, psychotic disturbance, mood disturbance, and anxiety; F20.9 Schizophrenia, unspecified
CPT/HCPCS: 49465; 99283

== ENCOUNTER 2018-10-14 23:15 | Emergency (ER) | payer OTHER ==
--- NOTE | 2018-10-15 01:23 | ER ---
Nurse's Notes [facility] Name: Sheila Miranda Age: 63 yrs Sex: Male : 1955 Arrival Date: 10/14/2018 Time: 23:20 Bed 20 Private MD: Diagnosis: Gastrostomy status-replacement of gastrostomy tube Presentation: 10/14 23:20 Presenting complaint: EMS states: that they were told by [facility] that pt pulled fc his G tube out before noon. They attempted to replace it but pt was too combative so they sent him to the ER. Transition of care: patient was received from another setting of care ([facility]. Onset of symptoms was October 14, 2018. Risk Assessment: Do you want to hurt yourself or someone else? Patient reports no desire to harm self or others. Care prior to arrival: None. 23:20 Method Of Arrival: [facility] 23:20 Acuity: WINSOME 4 23:37 Initial Sepsis Screen: Does the patient meet any 2 criteria? No. Patient's initial jd3 sepsis screen is negative. Does the patient have a suspected source of infection? No. Patient's initial sepsis screen is negative. Historical: - Allergies: 23:31 NKA; fc - Home Meds: 23:31 aspirin 81 mg Oral chew 1 tab once daily [Active]; Catapres 0.1 mg Oral tab every 8 fc hours PRN [Active]; Vitamin D3 1,000 unit Oral tab 2 tab daily [Active]; hydroxyzine HCl 50 mg Oral tab 2 tabs every 8 hours [Active]; ipratropium-albuterol 0.5 mg-3 mg(2.5 mg base)/3 mL Inhl nebu 3 times a day PRN [Active]; lisinopril 20 mg Oral tab 1 tab once daily [Active]; lorazepam 1 mg Oral tab 1 tab every 8 hours for Anxiety [Active]; Nitroglycerin 0.3 mg SL 1 tab every 5 minutes X3 PRN [Active]; Tegretol 100 mg/5 mL Oral susp 10 mL twice a day [Active]; acetaminophen 325 mg Oral tab 2 tabs q6hrs prn [Active]; acetaminophen-codeine 300-30 mg Oral tab three times a day [Active]; Zoloft 50 mg Oral tab 1 tab once daily [Active]; - PMHx: 23:31 Anxiety; BPH; Dementia; Contracture; Aphasia; COPD; Depression; DYSPHAGIA; fc Hypertension; Pneumonia; pressure ulcer stage 2; Schizophrenia; vitamin d deficiency; - Immunization history:: Last tetanus immunization: unknown, Flu vaccine status is unknown. - Social history:: Smoking status: Patient/guardian denies using tobacco. - Ebola Screening: : Patient negative for fever greater than or equal to 101.5 degrees Fahrenheit, and additional compatible Ebola Virus Disease symptoms Patient denies exposure to infectious person Patient denies travel to an Ebola-affected area in the 21 days before illness onset. Screenin:20 Abuse screen: Denies threats or abuse. Nutritional screening: No deficits noted. fc Tuberculosis screening: No symptoms or risk factors identified. 10/15 00:19 Fall Risk Secondary diagnosis (15 points) impaired mobility, Gait- Impaired (20 pts.). jd3 Total Stephens Fall Scale indicates Low Risk Score (25-44 pts). Fall prevention measures have been instituted. Side Rails Up X 2 Placed close to Nursing Station Frequent Obs/Assesments occuring. Assessment: 10/14 23:35 General: Appears in no apparent distress. Behavior is calm. Pain: Unable to use pain jd3 scale. Does not appear to understand pain scale. Neuro: Level of Consciousness is awake, Oriented to none. Cardiovascular: Capillary refill < 3 seconds Patient's skin is warm and dry. Respiratory: Airway is patent Respiratory effort is even, unlabored, Respiratory pattern is regular, symmetrical. GI: Abdomen is round pt reported to have pulled out PEG tube. : No signs and/or symptoms were reported regarding the genitourinary system. EENT: No signs and/or symptoms were reported regarding the EENT system. Derm: Skin is intact, Skin is dry, Skin is normal, Skin temperature is warm. 10/15 00:19 Reassessment: Patient appears in no apparent distress at this time. No changes from jd3 previously documented assessment. Patient and/or family updated on plan of care and expected duration. Pain level reassessed. 01:36 Reassessment: Patient appears in no apparent distress at this time. Patient and/or jd3 family updated on plan of care and expected duration. Pain level reassessed. Vital Signs: 10/14 23:24 BP 123 / 79; Pulse 84; Resp 16; Pulse Ox 100% on R/A; mw2 10/15 00:20 BP 149 / 88; Pulse 85; Resp 17 S; Pulse Ox 100% on R/A; jd3 01:38 BP 154 / 86; Pulse 78; Resp 17 S; Pulse Ox 99% on R/A; jd3 ED Course: 10/14 23:20 Patient arrived in ED. fc 23:20 Arm band placed on Patient placed in an exam room, on a stretcher. fc 23:20 Patient has correct armband on for positive identification. Bed in low position. Call fc light in reach. Side rails up X2. 23:24 Triage completed. fc 23:24 Domingo Bronson PA is PHCP. cp 23:24 Domingo Sharma MD is Attending Physician. cp 23:35 Suraj Almonte, ARIAS is Primary Nurse. jd3 10/15 01:10 provider replaced PEG tube. Patient did not have IV access during this emergency room jd3 visit. 01:12 X-ray completed. Portable x-ray completed in exam room. Patient tolerated procedure kw well. 01:16 Enterostomy Tube Check w/contr In Process Unspecified. EDMS Administered Medications: No medications were administered Outcome: 01:22 Discharge ordered by . cp 01:37 Discharged to [facility]. report given to [facility] jd3 01:37 Condition: stable 01:37 Instructed on discharge instructions, follow up and referral plans. Demonstrated understanding of instructions, follow-up care. 01:39 Patient left the ED. jd3 Signatures: Dispatcher [employer] EDMS Claudia Gayle, RN ARIAS Kelsey Garcia Corey, PA PA cp Suraj Almonte, ARIAS RN j Meenu Yoon [facility]
--- NOTE | 2018-10-15 01:23 | EDPHYS ---
Physician Documentation [facility] Name: Shelia Miranda Age: 63 yrs Sex: Male : 1955 Arrival Date: 10/14/2018 Time: 23:20 Bed 20 Private MD: ED Physician Domingo Sharma HPI: 10/14 23:30 This 63 yrs old Black Male presents to ER via EMS with complaints of needs gastrostomy cp tube replaced. 23:30 The patient was previously evaluated in the emergency department 09-26-2018. Previous cp care: gastrostomy tube was replaced. 23:30 The patient has experienced similar episodes in the past, multiple times. cp Historical: - Allergies: 23:31 NKA; fc - Home Meds: 23:31 aspirin 81 mg Oral chew 1 tab once daily [Active]; Catapres 0.1 mg Oral tab every 8 fc hours PRN [Active]; Vitamin D3 1,000 unit Oral tab 2 tab daily [Active]; hydroxyzine HCl 50 mg Oral tab 2 tabs every 8 hours [Active]; ipratropium-albuterol 0.5 mg-3 mg(2.5 mg base)/3 mL Inhl nebu 3 times a day PRN [Active]; lisinopril 20 mg Oral tab 1 tab once daily [Active]; lorazepam 1 mg Oral tab 1 tab every 8 hours for Anxiety [Active]; Nitroglycerin 0.3 mg SL 1 tab every 5 minutes X3 PRN [Active]; Tegretol 100 mg/5 mL Oral susp 10 mL twice a day [Active]; acetaminophen 325 mg Oral tab 2 tabs q6hrs prn [Active]; acetaminophen-codeine 300-30 mg Oral tab three times a day [Active]; Zoloft 50 mg Oral tab 1 tab once daily [Active]; - PMHx: 23:31 Anxiety; BPH; Dementia; Contracture; Aphasia; COPD; Depression; DYSPHAGIA; fc Hypertension; Pneumonia; pressure ulcer stage 2; Schizophrenia; vitamin d deficiency; - Immunization history:: Last tetanus immunization: unknown, Flu vaccine status is unknown. - Social history:: Smoking status: Patient/guardian denies using tobacco. - Ebola Screening: : Patient negative for fever greater than or equal to 101.5 degrees Fahrenheit, and additional compatible Ebola Virus Disease symptoms Patient denies exposure to infectious person Patient denies travel to an Ebola-affected area in the 21 days before illness onset. ROS: 23:35 Constitutional: Negative for fever. cp 23:35 Abdomen/GI: Positive for gastric stoma without gastrostomy tube. cp 23:35 Unable to obtain ROS due to patient non-verbal. cp Exam: 23:40 Constitutional: The patient appears in no acute distress, alert, awake, cp non-diaphoretic, non-toxic, well developed. 23:40 Head/Face: Normocephalic, atraumatic. cp 23:40 Eyes: Periorbital structures: appear normal, Pupils: equal, round, and reactive to light and accomodation, Conjunctiva: normal, Sclera: no appreciated abnormality, Lids and lashes: appear normal, bilaterally. 23:40 ENT: External ear(s): are unremarkable, Nose: is normal, Mouth: Lips: dry, Oral mucosa: cp moist, Posterior pharynx: Airway: no evidence of obstruction, patent. 23:40 Chest/axilla: Inspection: normal, Palpation: is normal, no crepitus, no tenderness. 23:40 Cardiovascular: Rate: normal, Rhythm: regular. 23:40 Respiratory: the patient does not display signs of respiratory distress, Respirations: normal, no use of accessory muscles, no retractions, no splinting, no tachypnea, labored breathing, is not present, Breath sounds: are clear throughout, no decreased breath sounds, no stridor, no wheezing. 23:40 Abdomen/GI: Inspection: gastric stoma left upper abdomen, Bowel sounds: active, all quadrants, Palpation: soft, in all quadrants, involuntary guarding, is not appreciated. 23:40 Skin: cellulitis, is not appreciated, no rash present. cp Vital Signs: 23:24 BP 123 / 79; Pulse 84; Resp 16; Pulse Ox 100% on R/A; mw2 10/15 00:20 BP 149 / 88; Pulse 85; Resp 17 S; Pulse Ox 100% on R/A; jd3 01:38 BP 154 / 86; Pulse 78; Resp 17 S; Pulse Ox 99% on R/A; jd3 Procedures: 01:20 G-tube placement: a 16 Turkish catheter was placed, by the ED physician, Domingo VELEZ cp proper placement verified by KUB with contrast. MDM: 10/14 23:24 Patient medically screened. cp 10/15 01:21 Data reviewed: vital signs, nurses notes, radiologic studies, plain films. cp 01:21 Test interpretation: by ED physician or midlevel provider: plain radiologic studies. cp Response to treatment: the patient's symptoms have resolved after treatment, and as a result, I will discharge patient. 10/15 00:40 Order name: Enterostomy Tube Check w/contr cp Administered Medications: No medications were administered Disposition: 03:52 Chart complete. cp 06:55 Co-signature as Attending Physician, Domingo Sharma MD I agree with the assessment and [facility] plan of care. Disposition: 10/15/18 01:22 Discharged to Home. Impression: Gastrostomy status - replacement of gastrostomy tube. - Condition is Stable. - Discharge Instructions: Gastrostomy Tube Home Guide, Adult. - Medication Reconciliation Form, Thank You Letter, Antibiotic Education, Prescription Opioid Use form. - Follow up: Private Physician; When: 1 - 2 days; Reason: Recheck today's complaints. - Problem is an ongoing problem. - Symptoms have improved. Signatures: Dispatcher [employer] EDPA Domingo Shrama MD MD cha Chretien, Felicia RN RN Domingo Carr PA PA uSraj Erickson RN RN jd3 Corrections: (The following items were deleted from the chart) 01:39 01:22 10/15/2018 01:22 Discharged to Home. Impression: Gastrostomy status - replacement jd3 of gastrostomy tube. Condition is Stable. Forms are Medication Reconciliation Form, Thank You Letter, Antibiotic Education, Prescription Opioid Use. Follow up: Private Physician; When: 1 - 2 days; Reason: Recheck today's complaints. Problem is an ongoing problem. Symptoms have improved. cp
[2018-10-15 02:20] VITALS: BP 154/86; O2SAT 99
--- NOTE | 2018-10-15 08:12 | RAD REPORT ---
EXAM DESCRIPTION: RAD - ENTEROSTOMY TUBE CHECK W/CONTR - 10/15/2018 1:15 am CLINICAL HISTORY: Peg tube placement FINDINGS: Gastrografin was administered into a percutaneous tube within the right upper quadrant. Contrast fills either the distal stomach or duodenal bulb. Contrast traverses the proximal duodenum. No extravasation contrast seen. No fluoroscopic spot images obtained. Fluoroscopy time 0
== END 2018-10-15 01:39 | disposition home or self-care (01) ==
LOC: ER 23:15
PROC: 0D20XUZ Change Feeding Device in Upper Intestinal Tract, External Approach (ICD-10-PCS; principal; 2018-10-14)
DX: Z43.1 Encounter for attention to gastrostomy (principal); F41.9 Anxiety disorder, unspecified; N40.1 Benign prostatic hyperplasia with lower urinary tract symptoms; F32.9 Major depressive disorder, single episode, unspecified; I10 Essential (primary) hypertension; F20.9 Schizophrenia, unspecified; Z79.82 Long term (current) use of aspirin
CPT/HCPCS: 49465; 99283

== ENCOUNTER 2018-10-17 21:44 | Emergency (ER) | payer OTHER ==
--- NOTE | 2018-10-17 23:16 | ER ---
Nurse's Notes [facility] Name: Shelia Miranda Age: 63 yrs Sex: Male : 1955 Arrival Date: 10/17/2018 Time: 21:51 Bed 26 Private MD: Diagnosis: Encounter for attention to gastrostomy-PEG tube replacement Presentation: 10/17 21:52 Presenting complaint: EMS states: for PEG tube insertion. Transition of care: patient mg2 was received from another setting of care ([facility]. Onset of symptoms was October 17, 2018. Risk Assessment: Do you want to hurt yourself or someone else? Patient reports no desire to harm self or others. Initial Sepsis Screen: Does the patient meet any 2 criteria? No. Patient's initial sepsis screen is negative. Does the patient have a suspected source of infection? No. Patient's initial sepsis screen is negative. Care prior to arrival: None. 21:52 Method Of Arrival: EMS: [facility] [place] [place] 21:52 Acuity: WINSOME 4 mg2 Triage Assessment: 21:59 General: Appears in no apparent distress. comfortable, Behavior is calm, cooperative. mg2 Pain: Denies pain. EENT: No deficits noted. Neuro: No deficits noted. Cardiovascular: Capillary refill < 3 seconds Patient's skin is warm and dry. Respiratory: Airway is patent Respiratory effort is even, unlabored, Respiratory pattern is regular, symmetrical. GI: for PEG tube insertion. : No signs and/or symptoms were reported regarding the genitourinary system. Derm: Skin is intact, is healthy with good turgor, Skin is pink, warm \T\ dry. normal. Musculoskeletal: Circulation, motion, and sensation intact. Capillary refill < 3 seconds. Historical: - Allergies: 21:56 NKA; mg2 - Home Meds: 21:56 acetaminophen 325 mg Oral tab 2 tabs q6hrs prn [Active]; mg2 21:57 acetaminophen-codeine 300-30 mg Oral tab three times a day [Active]; aspirin 81 mg Oral mg2 chew 1 tab once daily [Active]; Catapres 0.1 mg Oral tab every 8 hours PRN [Active]; hydroxyzine HCl 50 mg Oral tab 2 tabs every 8 hours [Active]; ipratropium-albuterol 0.5 mg-3 mg(2.5 mg base)/3 mL Inhl nebu 3 times a day PRN [Active]; lisinopril 20 mg Oral tab 1 tab once daily [Active]; lorazepam 1 mg Oral tab 1 tab every 8 hours for Anxiety [Active]; Nitroglycerin 0.3 mg SL 1 tab every 5 minutes X3 PRN [Active]; Tegretol 100 mg/5 mL Oral susp 10 mL twice a day [Active]; Vitamin D3 1,000 unit Oral tab 2 tab daily [Active]; Zoloft 50 mg Oral tab 1 tab once daily [Active]; - PMHx: 21:56 Anxiety; BPH; Contracture; COPD; Aphasia; Dementia; Depression; DYSPHAGIA; mg2 Hypertension; Pneumonia; pressure ulcer stage 2; Schizophrenia; vitamin d deficiency; - PSHx: 21:56 Unable to obtain; mg2 - Immunization history:: Flu vaccine status is unknown. - Social history:: Smoking status: unknown. - Ebola Screening: : No symptoms or risks identified at this time. Screenin:58 Abuse screen: Denies threats or abuse. Denies injuries from another. Nutritional mg2 screening: No deficits noted. Tuberculosis screening: No symptoms or risk factors identified. Fall Risk Gait- Weak (10 pts.). Assessment: 21:59 Reassessment: see triage assessment. mg2 23:32 Reassessment: peg tube placement checked thru xray. discharge via [facility]. mg2 Vital Signs: 21:55 BP 131 / 89; Pulse 74; Resp 18; Temp 98.8; Pulse Ox 100% on R/A; Pain 0/10; mg2 23:00 BP 135 / 78; Pulse 80; Resp 18; Pulse Ox 100% on R/A; Pain 0/10; mg2 ED Course: 21:51 Patient arrived in ED. mg2 21:54 Triage completed. mg2 21:57 Alexx Curtis NP is PHCP. pm1 21:57 Liv Chang MD is Attending Physician. pm1 21:58 Arm band placed on. mg2 21:58 Patient did not have IV access during this emergency room visit. mg2 22:03 Erik Stroud, RN is Primary Nurse. mg2 22:03 Patient has correct armband on for positive identification. mg2 22:18 peg tube insertion by AYSE Coffey using fr 12 kangaroo PEG tube. mg2 22:54 PEG Tube Check w/contrast In Process Unspecified. EDMS Administered Medications: No medications were administered Outcome: 23:16 Discharge ordered by MD. pm1 23:34 Discharged to [facility]. Report called to handed over to [facility]. mg2 23:34 Condition: stable 23:34 Discharge instructions given to patient, EMS, Instructed on discharge instructions, follow up and referral plans. Demonstrated understanding of instructions, follow-up care. 23:35 Patient left the ED. mg2 Signatures: Dispatcher [employer] EDMS Alexx Curtis, AYSE WOODWORK SALVAGE INSPECTOR pm1 Erik Stroud, RN RN mg2
--- NOTE | 2018-10-17 23:17 | EDPHYS ---
Physician Documentation [facility] Name: Shelia Miranda Age: 63 yrs Sex: Male : 1955 Arrival Date: 10/17/2018 Time: 21:51 Bed 26 Private MD: ED Physician Liv Chang HPI: 10/17 22:30 This 63 yrs old Black Male presents to ER via EMS with complaints of PEG Tube Problem. pm1 22:30 PEG tube was dislodged. Onset: The symptoms/episode began/occurred today. The patient pm1 has experienced similar episodes in the past, multiple times, with the last episode occurring 3 day(s) ago. The patient has been recently seen at the [facility] Emergency Department, this week, for similar complaints 16 emirati PEG placed. Historical: - Allergies: 21:56 NKA; mg2 - Home Meds: 21:56 acetaminophen 325 mg Oral tab 2 tabs q6hrs prn [Active]; mg2 21:57 acetaminophen-codeine 300-30 mg Oral tab three times a day [Active]; aspirin 81 mg Oral mg2 chew 1 tab once daily [Active]; Catapres 0.1 mg Oral tab every 8 hours PRN [Active]; hydroxyzine HCl 50 mg Oral tab 2 tabs every 8 hours [Active]; ipratropium-albuterol 0.5 mg-3 mg(2.5 mg base)/3 mL Inhl nebu 3 times a day PRN [Active]; lisinopril 20 mg Oral tab 1 tab once daily [Active]; lorazepam 1 mg Oral tab 1 tab every 8 hours for Anxiety [Active]; Nitroglycerin 0.3 mg SL 1 tab every 5 minutes X3 PRN [Active]; Tegretol 100 mg/5 mL Oral susp 10 mL twice a day [Active]; Vitamin D3 1,000 unit Oral tab 2 tab daily [Active]; Zoloft 50 mg Oral tab 1 tab once daily [Active]; - PMHx: 21:56 Anxiety; BPH; Contracture; COPD; Aphasia; Dementia; Depression; DYSPHAGIA; mg2 Hypertension; Pneumonia; pressure ulcer stage 2; Schizophrenia; vitamin d deficiency; - PSHx: 21:56 Unable to obtain; mg2 - Immunization history:: Flu vaccine status is unknown. - Social history:: Smoking status: unknown. - Ebola Screening: : No symptoms or risks identified at this time. ROS: 22:30 Constitutional: Negative for fever, chills, and weight loss, Eyes: Negative for injury, pm1 pain, redness, and discharge, ENT: Negative for injury, pain, and discharge, Neck: Negative for injury, pain, and swelling, Cardiovascular: Negative for chest pain, palpitations, and edema, Respiratory: Negative for shortness of breath, cough, wheezing, and pleuritic chest pain, Abdomen/GI: Negative for abdominal pain, nausea, vomiting, diarrhea, and constipation, Back: Negative for injury and pain, MS/Extremity: Negative for injury and deformity, Skin: Negative for injury, rash, and discoloration, Neuro: Negative for headache, weakness, numbness, tingling, and seizure. Exam: 22:30 Constitutional: This is a well developed, well nourished patient who is awake, alert, pm1 and in no acute distress. Head/Face: Normocephalic, atraumatic. Eyes: Pupils equal round and reactive to light, extra-ocular motions intact. Lids and lashes normal. Conjunctiva and sclera are non-icteric and not injected. Cornea within normal limits. Periorbital areas with no swelling, redness, or edema. ENT: Nares patent. No nasal discharge, no septal abnormalities noted. Tympanic membranes are normal and external auditory canals are clear. Oropharynx with no redness, swelling, or masses, exudates, or evidence of obstruction, uvula midline. Mucous membranes moist. Neck: Trachea midline, no thyromegaly or masses palpated, and no cervical lymphadenopathy. Supple, full range of motion without nuchal rigidity, or vertebral point tenderness. No Meningismus. Chest/axilla: Normal chest wall appearance and motion. Nontender with no deformity. No lesions are appreciated. Cardiovascular: Regular rate and rhythm with a normal S1 and S2. No gallops, murmurs, or rubs. Normal PMI, no JVD. No pulse deficits. Respiratory: Lungs have equal breath sounds bilaterally, clear to auscultation and percussion. No rales, rhonchi or wheezes noted. No increased work of breathing, no retractions or nasal flaring. Abdomen/GI: Soft, non-tender, with normal bowel sounds. No distension or tympany. No guarding or rebound. No evidence of tenderness throughout. Back: No spinal tenderness. No costovertebral tenderness. Full range of motion. Skin: Warm, dry with normal turgor. Normal color with no rashes, no lesions, and no evidence of cellulitis. MS/ Extremity: Pulses equal, no cyanosis. Neurovascular intact. Full, normal range of motion. 22:30 Skin: cellulitis, is not appreciated, on the abdomen and surrounding the stoma. pm1 Vital Signs: 21:55 BP 131 / 89; Pulse 74; Resp 18; Temp 98.8; Pulse Ox 100% on R/A; Pain 0/10; mg2 23:00 BP 135 / 78; Pulse 80; Resp 18; Pulse Ox 100% on R/A; Pain 0/10; mg2 Procedures: 22:13 G-tube placement: a 12 Palauan catheter was placed, by the ED physician, Alexx Curtis pm1 CHIP BIN OPERATOR. MDM: 22:00 Patient medically screened. pm1 22:13 Data reviewed: vital signs. Data interpreted: Pulse oximetry: on room air is 100 %. pm1 Interpretation: normal. 23:06 ED course: PEG tube was likely out for an extended amount of time and stoma has started pm1 to heal and close. Unable to place replacement PEG tube of the same size, 16 emirati, as the one previously placed in this ER 3 days ago. 23:15 Counseling: I had a detailed discussion with the patient and/or guardian regarding: the pm1 historical points, exam findings, and any diagnostic results supporting the discharge/admit diagnosis, the need for outpatient follow up, to return to the emergency department if symptoms worsen or persist or if there are any questions or concerns that arise at home. 10/17 22:14 Order name: PEG Tube Check w/contrast pm1 Administered Medications: No medications were administered Disposition: 10/18 04:39 Co-signature as Attending Physician, Liv Chang MD. al2 Disposition: 10/17/18 23:16 Discharged to Home. Impression: Encounter for attention to gastrostomy - PEG tube replacement. - Condition is Stable. - Discharge Instructions: Gastrostomy Tube Replacement, Gastrostomy Tube Home Guide, Adult, Gastrostomy Tube Replacement, Care After. - Medication Reconciliation Form, Thank You Letter form. - Follow up: Emergency Department; When: As needed; Reason: Worsening of condition. Follow up: Private Physician; When: 2 - 3 days; Reason: Recheck today's complaints, Continuance of care, Re-evaluation by your physician. - Problem is new. - Symptoms have improved. Signatures: Dispatcher [employer] EDMS Alexx Curtis, CHIP BIN OPERATOR CHIP BIN OPERATOR pm1 Liv Chang MD MD ma2 Erik Stroud, RN RN mg2 Corrections: (The following items were deleted from the chart) 10/17 23:35 23:16 10/17/2018 23:16 Discharged to Home. Impression: Encounter for attention to mg2 gastrostomy - PEG tube replacement. Condition is Stable. Forms are Medication Reconciliation Form, Thank You Letter, Antibiotic Education, Prescription Opioid Use. Follow up: Emergency Department; When: As needed; Reason: Worsening of condition. Follow up: Private Physician; When: 2 - 3 days; Reason: Recheck today's complaints, Continuance of care, Re-evaluation by your physician. Problem is new. Symptoms have improved. pm1
[2018-10-18 00:43] VITALS: TEMP 98.8; O2SAT 100
[2018-10-18 00:45] VITALS: BP 135/78
--- NOTE | 2018-10-18 11:50 | RAD REPORT ---
EXAM DESCRIPTION: RAD - ENTEROSTOMY TUBE CHECK W/CONTR - 10/17/2018 10:57 pm CLINICAL HISTORY: PEG tube placement COMPARISON: ENTEROSTOMY TUBE CHECK W/CONTR dated 10/15/2018 FINDINGS: Two radiographs of the abdomen are submitted pre and post injection of contrast via G tube . The post-contrast radiograph shows contrast filling the small intestine, indicating adequate placem ent. No leakage of contrast seen.
== END 2018-10-17 23:35 | disposition home or self-care (01) ==
LOC: ER 21:44
DX: Z43.1 Encounter for attention to gastrostomy (principal); I10 Essential (primary) hypertension; F20.9 Schizophrenia, unspecified; F03.90 Unspecified dementia, unspecified severity, without behavioral disturbance, psychotic disturbance, mood disturbance, and anxiety; R13.10 Dysphagia, unspecified; Z79.82 Long term (current) use of aspirin
CPT/HCPCS: 49465; 99283

== ENCOUNTER 2018-12-11 16:44 | Emergency (ER) | payer OTHER ==
--- NOTE | 2018-12-11 18:01 | RAD REPORT ---
EXAM DESCRIPTION: RAD - ENTEROSTOMY TUBE CHECK W/CONTR - 12/11/2018 5:37 pm CLINICAL HISTORY: Gastrostomy tube placement FINDINGS: Contrast was administered into the percutaneous gastrostomy tube. The lumen of the stomach is opacified. Contrast flows into the duodenum. No extravasation contrast Zero fluoroscopy performed. Zero fluoroscopic spot images obtained
--- NOTE | 2018-12-11 18:14 | ER ---
Nurse's Notes [facility] Name: Shelia Miranda Age: 63 yrs Sex: Male : 1955 Arrival Date: 12/11/2018 Time: 16:43 Bed 16 Private MD: Diagnosis: Encounter for attention to gastrostomy;Encounter for fitting and adjustment of other gastrointestinal appliance and device Presentation: 12/11 16:40 Presenting complaint: EMS states: Pt. pulled out his PEG tube. BP 143/89, P 78, T 96.4, rb1 R 18, 98% RA. Transition of care: patient was received from another setting of care ([facility]), [facility]. Onset of symptoms was December 11, 2018 at 12:00. Risk Assessment: Do you want to hurt yourself or someone else? Patient reports no desire to harm self or others. Initial Sepsis Screen: Does the patient meet any 2 criteria? No. Patient's initial sepsis screen is negative. Does the patient have a suspected source of infection? No. Patient's initial sepsis screen is negative. Care prior to arrival: None. 16:40 Method Of Arrival: EMS: [place] [id number] 16:40 Acuity: WINSOME 3 rb1 Triage Assessment: 16:40 General: Appears in no apparent distress. comfortable, Behavior is calm, cooperative. rb1 Pain: Denies pain. Neuro: Level of Consciousness is awake, Oriented to person. Cardiovascular: Capillary refill < 3 seconds is brisk in bilateral fingers. Respiratory: Airway is patent Respiratory effort is even, unlabored, Respiratory pattern is regular, symmetrical. GI: Pt. pulled PEG tube out. Incontinent of bowel and bladder. : incontinence. Derm: Skin is dry, Skin is normal, Skin temperature is warm. Historical: - Allergies: 16:40 NKA; rb1 - Home Meds: 16:40 acetaminophen 325 mg Oral tab 2 tabs q6hrs prn [Active]; acetaminophen-codeine 300-30 rb1 mg Oral tab three times a day [Active]; aspirin 81 mg Oral chew 1 tab once daily [Active]; Catapres 0.1 mg Oral tab every 8 hours PRN [Active]; hydroxyzine HCl 50 mg Oral tab 2 tabs every 8 hours [Active]; ipratropium-albuterol 0.5 mg-3 mg(2.5 mg base)/3 mL Inhl nebu 3 times a day PRN [Active]; lisinopril 20 mg Oral tab 1 tab once daily [Active]; lorazepam 1 mg Oral tab 1 tab every 8 hours for Anxiety [Active]; Nitroglycerin 0.3 mg SL 1 tab every 5 minutes X3 PRN [Active]; Tegretol 100 mg/5 mL Oral susp 10 mL twice a day [Active]; Vitamin D3 1,000 unit Oral tab 2 tab daily [Active]; Zoloft 50 mg Oral tab 1 tab once daily [Active]; - PMHx: 16:40 Anxiety; Aphasia; Contracture; COPD; BPH; Dementia; Depression; DYSPHAGIA; rb1 Hypertension; Pneumonia; Schizophrenia; pressure ulcer stage 2; vitamin d deficiency; - PSHx: 16:40 Unable to obtain; rb1 - Immunization history:: Adult Immunizations up to date. - Social history:: Smoking status: unknown. - Ebola Screening: : Patient negative for fever greater than or equal to 101.5 degrees Fahrenheit, and additional compatible Ebola Virus Disease symptoms. Screenin:40 Abuse screen: Denies threats or abuse. Nutritional screening: No deficits noted. rb1 Tuberculosis screening: No symptoms or risk factors identified. Fall Risk No fall in past 12 months (0 pts). Secondary diagnosis (15 points) impaired mobility, No IV (0 pts). Ambulatory Aid- None/Bed Rest/Nurse Assist (0 pts). Gait- Impaired (20 pts.). Mental Status- Oriented to own ability (0 pts). Total Stephens Fall Scale indicates Low Risk Score (25-44 pts). Fall prevention measures have been instituted. Side Rails Up X 2 Placed close to Nursing Station 1:1 attendant Assigned to Pt. Frequent Obs/Assesments occuring As available Patient and Family Educated on Fall Prevention Program and strategies. Assessment: 16:40 General: See triage assessment. rb1 17:40 Reassessment: Patient appears in no apparent distress at this time. No changes from rb1 previously documented assessment. 18:40 Reassessment: Patient appears in no apparent distress at this time. Patient and/or rb1 family updated on plan of care and expected duration. Pain level reassessed. Patient is alert, oriented x 3, equal unlabored respirations, skin warm/dry/pink. 19:00 Reassessment: Report given to ARIAS Stokes at [facility]. Information from rb1 the [facility] was given. All questions asked and answered. They will provide transportation back to the facility. 20:28 Reassessment: No changes from previously documented assessment. Patient and/or family jb4 updated on plan of care and expected duration. Pain level reassessed. Pt is resting in bed with eyes closed, respirations even and unlabored. Pt awaiting transport back to facility. 21:25 Reassessment: Pt leaving via EMS for transport back to facility. Awake and Alert jb4 respirations even and unlabored. No s/s of distress or pain noted. Vital Signs: 16:40 BP 154 / 93; Pulse 79; Resp 16; Temp 97.8(A); Pulse Ox 98% on R/A; rb1 17:40 BP 151 / 99; Pulse 76; Resp 17; Pulse Ox 97% on R/A; Pain 0/10; rb1 18:40 BP 144 / 83; Pulse 91; Resp 17; Pulse Ox 100% on R/A; rb1 20:00 BP 150 / 97; Pulse 80; Resp 16; Pulse Ox 96% on R/A; jb4 21:00 BP 155 / 92; Pulse 90; Resp 16; Pulse Ox 97% on R/A; jb4 ED Course: 16:40 Arm band placed on right wrist. rb1 16:40 Patient has correct armband on for positive identification. Bed in low position. Call rb1 light in reach. Side rails up X2. Pulse ox on. NIBP on. Warm blanket given. 16:43 Patient arrived in ED. rb1 16:45 Charl[facility] Cleaning [facility]C [facility] snw 16:45 Hakeem Peters MD is Attending Physician. snw 16:49 Hermelinda Boland, ARIAS is Primary Nurse. rb1 16:58 Triage completed. rb1 17:34 X-ray completed. Portable x-ray completed in exam room. Patient tolerated procedure ml well. 17:37 Enterostomy Tube Check w/contr In Process Unspecified. EDMS 19:05 Report given to ARIAS Lindsay. rb1 21:30 No provider procedures requiring assistance completed. Patient did not have IV access jb4 during this emergency room visit. Administered Medications: No medications were administered Outcome: 18:14 Discharge ordered by . snw 21:25 Discharged to [facility]. jb4 21:25 Condition: stable 21:25 Discharge instructions given to EMS, Instructed on discharge instructions, follow up and referral plans. Demonstrated understanding of instructions, follow-up care. 21:30 Patient left the ED. jb4 Signatures: Dispatcher [employer] EDCharlene Alexandre, SHELDON-C ALTERNATIVE ENERGY TECHNICIAN-Jodi Bautista Rebecca, ARIAS BIANCHI [facility] Brenton Tanner RN RN jb4 Corrections: (The following items were deleted from the chart) 21:04 20:28 Reassessment: No changes from previously documented assessment. Patient and/or jb4 family updated on plan of care and expected duration. Pain level reassessed. Pt is resting in bed with eyes closed, respirations even and unlabored. jb4
--- NOTE | 2018-12-11 18:15 | EDPHYS ---
Physician Documentation [facility] Name: Shelia Miranda Age: 63 yrs Sex: Male : 1955 Arrival Date: 12/11/2018 Time: 16:43 Bed 16 Private MD: ED Physician Hakeem Peters HPI: 12/11 17:14 This 63 yrs old Black Male presents to ER via EMS with complaints of Dislodged PEG Tube.snw 17:14 Onset: The symptoms/episode began/occurred at an unknown time. Associated signs and snw symptoms: The patient has no apparent associated signs or symptoms. Modifying factors: The patient symptoms are alleviated by nothing, the patient symptoms are aggravated by nothing. The patient has experienced similar episodes in the past, chronically. It is unknown whether or not the patient has recently seen a physician. Historical: - Allergies: 16:40 NKA; rb1 - Home Meds: 16:40 acetaminophen 325 mg Oral tab 2 tabs q6hrs prn [Active]; acetaminophen-codeine 300-30 rb1 mg Oral tab three times a day [Active]; aspirin 81 mg Oral chew 1 tab once daily [Active]; Catapres 0.1 mg Oral tab every 8 hours PRN [Active]; hydroxyzine HCl 50 mg Oral tab 2 tabs every 8 hours [Active]; ipratropium-albuterol 0.5 mg-3 mg(2.5 mg base)/3 mL Inhl nebu 3 times a day PRN [Active]; lisinopril 20 mg Oral tab 1 tab once daily [Active]; lorazepam 1 mg Oral tab 1 tab every 8 hours for Anxiety [Active]; Nitroglycerin 0.3 mg SL 1 tab every 5 minutes X3 PRN [Active]; Tegretol 100 mg/5 mL Oral susp 10 mL twice a day [Active]; Vitamin D3 1,000 unit Oral tab 2 tab daily [Active]; Zoloft 50 mg Oral tab 1 tab once daily [Active]; - PMHx: 16:40 Anxiety; Aphasia; Contracture; COPD; BPH; Dementia; Depression; DYSPHAGIA; rb1 Hypertension; Pneumonia; Schizophrenia; pressure ulcer stage 2; vitamin d deficiency; - PSHx: 16:40 Unable to obtain; rb1 - Immunization history:: Adult Immunizations up to date. - Social history:: Smoking status: unknown. - Ebola Screening: : Patient negative for fever greater than or equal to 101.5 degrees Fahrenheit, and additional compatible Ebola Virus Disease symptoms. ROS: 17:13 Constitutional: Negative for fever, chills, and weight loss, Eyes: Negative for injury, snw pain, redness, and discharge, ENT: Negative for injury, pain, and discharge, Neck: Negative for injury, pain, and swelling, Cardiovascular: Negative for chest pain, palpitations, and edema, Respiratory: Negative for shortness of breath, cough, wheezing, and pleuritic chest pain, Back: Negative for injury and pain, : Negative for injury, bleeding, discharge, and swelling, MS/Extremity: Negative for injury and deformity, Skin: Negative for injury, rash, and discoloration, Neuro: Negative for headache, weakness, numbness, tingling, and seizure. 17:13 Abdomen/GI: Positive for enterostomy tube replacement. Exam: 17:10 Constitutional: Mr Miranda is well known to me. He is less talkative and reclined much snw more than in previous visits. It is clear he has lost weight. He denies pain and voices no complaints. Vital signs stable. Head/Face: Normocephalic, atraumatic. Eyes: Pupils equal round and reactive to light, extra-ocular motions intact. Lids and lashes normal. Conjunctiva and sclera are non-icteric and not injected. Cornea within normal limits. Periorbital areas with no swelling, redness, or edema. ENT: Nares patent. No nasal discharge, no septal abnormalities noted. Tympanic membranes are normal and external auditory canals are clear. Oropharynx with no redness, swelling, or masses, exudates, or evidence of obstruction, uvula midline. Mucous membranes moist. Neck: Trachea midline, no thyromegaly or masses palpated, and no cervical lymphadenopathy. Supple, full range of motion without nuchal rigidity, or vertebral point tenderness. No Meningismus. Chest/axilla: Normal chest wall appearance and motion. Nontender with no deformity. No lesions are appreciated. Cardiovascular: Regular rate and rhythm with a normal S1 and S2. No gallops, murmurs, or rubs. Normal PMI, no JVD. No pulse deficits. Respiratory: Lungs have equal breath sounds bilaterally, clear to auscultation and percussion. No rales, rhonchi or wheezes noted. No increased work of breathing, no retractions or nasal flaring. Back: No spinal tenderness. No costovertebral tenderness. Full range of motion. 17:10 Abdomen/GI: Inspection: scar(s), are noted in the left upper quadrant, some dried blood at enterostomy site, 18F tube replaced. Pt tolerated well, Palpation: nontender. Vital Signs: 16:40 BP 154 / 93; Pulse 79; Resp 16; Temp 97.8(A); Pulse Ox 98% on R/A; rb1 17:40 BP 151 / 99; Pulse 76; Resp 17; Pulse Ox 97% on R/A; Pain 0/10; rb1 18:40 BP 144 / 83; Pulse 91; Resp 17; Pulse Ox 100% on R/A; rb1 20:00 BP 150 / 97; Pulse 80; Resp 16; Pulse Ox 96% on R/A; jb4 21:00 BP 155 / 92; Pulse 90; Resp 16; Pulse Ox 97% on R/A; jb4 MDM: 16:45 Patient medically screened. snw 18:12 Data reviewed: vital signs, nurses notes, radiologic studies, plain films. Data snw interpreted: Pulse oximetry: on room air is 98 %. Interpretation: normal. Counseling: I had a detailed discussion with the patient and/or guardian regarding: the historical points, exam findings, and any diagnostic results supporting the discharge/admit diagnosis, radiology results, to return to the emergency department if symptoms worsen or persist or if there are any questions or concerns that arise at home. Special discussion: Based on the history and exam findings, there is no indication for further emergent testing or inpatient evaluation. I discussed with the patient/guardian the need to see the dental laboratory technology teacher for further evaluation of the symptoms. I discussed with the patient/guardian the need to see the primary care provider for further evaluation of the symptoms. 12/11 17:10 Order name: Enterostomy Tube Check w/contr; Complete Time: 18:09 snw Administered Medications: No medications were administered Disposition: 12/11/18 18:14 Discharged to Home. Impression: Encounter for attention to gastrostomy, Encounter for fitting and adjustment of other gastrointestinal appliance and device. - Condition is Stable. - Discharge Instructions: Gastrostomy Tube Home Guide, Adult, Gastrostomy Tube Replacement, Care After. - Medication Reconciliation Form, Thank You Letter, Antibiotic Education, Prescription Opioid Use form. - Follow up: Private Physician; When: 2 - 3 days; Reason: Recheck today's complaints, Continuance of care, Re-evaluation by your physician. Follow up: Emergency Department; When: As needed; Reason: Worsening of condition. Addendum: 12/13/2018 19:46 Co-signature as Attending Physician, Hakeem Peters MD. r n Signatures: Dispatcher [employer] EDMS Charlene Cleaning, BRIDAL SALES CONSULTANT-C BRIDAL SALES CONSULTANT-Csnw Hakeem Peters MD MD rn Hermelinda Boland, RN RN Brenton Parrish RN RN jb4 Corrections: (The following items were deleted from the chart) 12/11 21:30 18:14 12/11/2018 18:14 Discharged to Home. Impression: Encounter for attention to jb4 gastrostomy; Encounter for fitting and adjustment of other gastrointestinal appliance and device. Condition is Stable. Forms are Medication Reconciliation Form, Thank You Letter, Antibiotic Education, Prescription Opioid Use. Follow up: Private Physician; When: 2 - 3 days; Reason: Recheck today's complaints, Continuance of care, Re-evaluation by your physician. Follow up: Emergency Department; When: As needed; Reason: Worsening of condition. snw
[2018-12-11 21:47] VITALS: BP 144/83; O2SAT 100
== END 2018-12-11 21:30 | disposition home or self-care (01) ==
LOC: ER 16:44
PROC: 0D20XUZ Change Feeding Device in Upper Intestinal Tract, External Approach (ICD-10-PCS; principal; 2018-12-11)
DX: K94.23 Gastrostomy malfunction (principal); Z43.1 Encounter for attention to gastrostomy; Z79.82 Long term (current) use of aspirin; F41.9 Anxiety disorder, unspecified; J44.9 Chronic obstructive pulmonary disease, unspecified; F03.90 Unspecified dementia, unspecified severity, without behavioral disturbance, psychotic disturbance, mood disturbance, and anxiety; F32.9 Major depressive disorder, single episode, unspecified; I10 Essential (primary) hypertension; F20.9 Schizophrenia, unspecified
CPT/HCPCS: 49465; 99284

== ENCOUNTER 2018-12-12 22:06 | Emergency (ER) | payer OTHER ==
--- NOTE | 2018-12-12 22:17 | EDPHYS ---
Physician Documentation [facility] Name: Shelia Miranda Age: 63 yrs Sex: Male : 1955 Arrival Date: 12/12/2018 Time: 22:13 Bed 28 Private MD: ED Physician Mayo Martin HPI: 12/13 00:00 This 63 yrs old Black Male presents to ER via EMS with complaints of Pulled Gastrostomy jr8 tube. 00:00 Patient transported via EMS for pulled gastrostomy tube. Onset: The symptoms/episode jr8 began/occurred acutely, today. Severity of symptoms: At their worst the symptoms were very mild in the emergency department the symptoms are unchanged. The patient has experienced similar episodes in the past, multiple times. The patient has been recently seen at the [facility] Department, yesterday, for similar complaints. Historical: - Allergies: 12/12 22:30 NKA; mg2 - PMHx: 22:30 Anxiety; BPH; COPD; Aphasia; Contracture; Dementia; DYSPHAGIA; Depression; mg2 Hypertension; Pneumonia; pressure ulcer stage 2; Schizophrenia; vitamin d deficiency; - Immunization history:: Flu vaccine status is unknown. - Social history:: Smoking status: unknown. - Ebola Screening: : No symptoms or risks identified at this time. ROS: 12/13 00:00 Eyes: Negative for injury, pain, redness, and discharge, ENT: Negative for injury, jr8 pain, and discharge, Neck: Negative for injury, pain, and swelling, Cardiovascular: Negative for chest pain, palpitations, and edema, Respiratory: Negative for shortness of breath, cough, wheezing, and pleuritic chest pain, Abdomen/GI: Negative for abdominal pain, nausea, vomiting, diarrhea, and constipation, Back: Negative for injury and pain, MS/Extremity: Negative for injury and deformity, Skin: Negative for injury, rash, and discoloration, Neuro: Negative for headache, weakness, numbness, tingling, and seizure. Exam: 00:00 Eyes: Pupils equal round and reactive to light, extra-ocular motions intact. Lids and jr8 lashes normal. Conjunctiva and sclera are non-icteric and not injected. Cornea within normal limits. Periorbital areas with no swelling, redness, or edema. ENT: Nares patent. No nasal discharge, no septal abnormalities noted. Tympanic membranes are normal and external auditory canals are clear. Oropharynx with no redness, swelling, or masses, exudates, or evidence of obstruction, uvula midline. Mucous membranes moist. Neck: Trachea midline, no thyromegaly or masses palpated, and no cervical lymphadenopathy. Supple, full range of motion without nuchal rigidity, or vertebral point tenderness. No Meningismus. Cardiovascular: Regular rate and rhythm with a normal S1 and S2. No gallops, murmurs, or rubs. Normal PMI, no JVD. No pulse deficits. Respiratory: Lungs have equal breath sounds bilaterally, clear to auscultation and percussion. No rales, rhonchi or wheezes noted. No increased work of breathing, no retractions or nasal flaring. Back: No spinal tenderness. No costovertebral tenderness. Full range of motion. Skin: Warm, dry with normal turgor. Normal color with no rashes, no lesions, and no evidence of cellulitis. MS/ Extremity: Pulses equal, no cyanosis. Neurovascular intact. Full, normal range of motion. Neuro: Awake and alert, GCS 15, oriented to person, place, time, and situation. Cranial nerves II-XII grossly intact. Motor strength 5/5 in all extremities. Sensory grossly intact. 00:00 Abdomen/GI: Inspection: gastrostomy stoma site patent and without discharge or erythema , Bowel sounds: active, all quadrants, Palpation: abdomen is soft and non-tender, in all quadrants, Indicators: McBurney's point is not tender, Berry's sign is negative, Rovsing's sign is negative, Liver: tenderness, is not appreciated. Vital Signs: 12/12 22:27 BP 163 / 99; Pulse 90; Resp 18; Temp 98.4; Pulse Ox 100% on R/A; Pain 0/10; mg2 Procedures: 12/13 00:02 G-tube placement: a 16 Faroese catheter was placed, by the ED physician, Presley VELEZ. jr8 MDM: 12/12 22:14 Patient medically screened. jr8 22:16 Data reviewed: vital signs, nurses notes, and as a result, I will discharge patient. jr8 Data interpreted: Pulse oximetry: on room air is 100 %. Interpretation: normal. Counseling: I had a detailed discussion with the patient and/or guardian regarding: the historical points, exam findings, and any diagnostic results supporting the discharge/admit diagnosis, the need for outpatient follow up, a [facility], to return to the emergency department if symptoms worsen or persist or if there are any questions or concerns that arise at home. Administered Medications: No medications were administered Disposition: 12/13 07:11 Co-signature as Attending Physician, Mayo Martin MD I agree with the assessment and tw4 plan of care. Disposition: 12/12/18 22:16 Discharged to Home. Impression: Encounter for attention to gastrostomy. - Condition is Stable. - Discharge Instructions: Gastrostomy Tube Replacement. - Medication Reconciliation Form, Thank You Letter, Antibiotic Education, Prescription Opioid Use form. - Follow up: Private Physician; When: 2 - 3 days; Reason: Recheck today's complaints, Continuance of care, Re-evaluation by your physician. - Problem is new. - Symptoms have improved. Signatures: Presley Gilbert PA PA jr8 Mayo Martin MD MD tw4 Erik Stroud RN RN mg2 Corrections: (The following items were deleted from the chart) 12/12 22:36 22:16 12/12/2018 22:16 Discharged to Home. Impression: Encounter for attention to mg2 gastrostomy. Condition is Stable. Forms are Medication Reconciliation Form, Thank You Letter, Antibiotic Education, Prescription Opioid Use. Follow up: Private Physician; When: 2 - 3 days; Reason: Recheck today's complaints, Continuance of care, Re-evaluation by your physician. Problem is new. Symptoms have improved. jr8
--- NOTE | 2018-12-12 22:37 | ER ---
Nurse's Notes [facility] Name: Shelia Miranda Age: 63 yrs Sex: Male : 1955 Arrival Date: 12/12/2018 Time: 22:13 Bed 28 Private MD: Diagnosis: Encounter for attention to gastrostomy Presentation: 12/12 22:21 Presenting complaint: EMS states: patient is for reinsertion of PEG tube. Transition of mg2 care: patient was not received from another setting of care. Onset of symptoms was December 12, 2018. Risk Assessment: Do you want to hurt yourself or someone else? Patient reports no desire to harm self or others. Initial Sepsis Screen: Does the patient meet any 2 criteria? No. Patient's initial sepsis screen is negative. Does the patient have a suspected source of infection? No. Patient's initial sepsis screen is negative. Care prior to arrival: None. 22:21 Method Of Arrival: EMS: [facility] mg2 22:21 Acuity: WINSOME 4 mg2 Historical: - Allergies: 22:30 NKA; mg2 - PMHx: 22:30 Anxiety; BPH; COPD; Aphasia; Contracture; Dementia; DYSPHAGIA; Depression; mg2 Hypertension; Pneumonia; pressure ulcer stage 2; Schizophrenia; vitamin d deficiency; - Immunization history:: Flu vaccine status is unknown. - Social history:: Smoking status: unknown. - Ebola Screening: : No symptoms or risks identified at this time. Screenin:32 Abuse screen: Denies threats or abuse. Denies injuries from another. Nutritional mg2 screening: No deficits noted. Tuberculosis screening: No symptoms or risk factors identified. Fall Risk None identified. Assessment: 22:32 General: Appears in no apparent distress. comfortable, Behavior is calm, cooperative. mg2 Pain: Denies pain. GI: PEG tube out and for reinsertion. Vital Signs: 22:27 BP 163 / 99; Pulse 90; Resp 18; Temp 98.4; Pulse Ox 100% on R/A; Pain 0/10; mg2 ED Course: 22:13 Patient arrived in ED. do 22:14 Presley Gilbert PA is PHCP. jr8 22:14 Mayo Martin MD is Attending Physician. jr8 22:17 Erik Stroud RN is Primary Nurse. mg2 22:27 Triage completed. mg2 22:31 Arm band placed on. mg2 22:33 fr. 16 PEG tube reinsertion done by provider AGUSTIN Sherwood, placement confirmed ( flushed mg2 well without resistance). Patient did not have IV access during this emergency room visit. 22:35 Patient has correct armband on for positive identification. Door closed. mg2 Administered Medications: No medications were administered Outcome: 22:16 Discharge ordered by MD. harman 22:35 Discharged to [facility]. Report called to Nurse Ken of [place] [id number] 22:35 Condition: stable 22:35 Discharge instructions given to EMS, Instructed on discharge instructions, Demonstrated understanding of instructions, follow-up care. 22:36 Patient left the ED. mg2 Signatures: Presley Gilbert PA PA jr8 Cookie Reyes Michele, RN RN mg2
[2018-12-12 22:59] VITALS: BP 163/99; TEMP 98.4; O2SAT 100
== END 2018-12-12 22:36 | disposition home or self-care (01) ==
LOC: ER 22:06
DX: Z43.1 Encounter for attention to gastrostomy (principal); I10 Essential (primary) hypertension; F03.90 Unspecified dementia, unspecified severity, without behavioral disturbance, psychotic disturbance, mood disturbance, and anxiety; F20.9 Schizophrenia, unspecified
CPT/HCPCS: 99283

== ENCOUNTER 2018-12-15 14:11 | Emergency (ER) | payer OTHER ==
--- NOTE | 2018-12-15 14:56 | EDPHYS ---
Physician Documentation [facility] Name: Shelia Miranda Age: 63 yrs Sex: Male : 1955 Arrival Date: 12/15/2018 Time: 14:14 Bed 17 Private MD: ED Physician Domingo Sharma HPI: 12/15 14:48 This 63 yrs old Black Male presents to ER via EMS with complaints of Displaced G-tube. lana 14:48 The patient presents with abdominal pain in the upper abdomen. Onset: The lana symptoms/episode began/occurred at an unknown time. The symptoms do not radiate. Associated signs and symptoms: none. The symptoms are described as vague. The patient has experienced similar episodes in the past, multiple times, chronically, with the last episode occurring last week. Historical: - Allergies: 14:16 NKA; ss - Home Meds: 14:16 Zoloft 50 mg Oral tab 1 tab once daily [Active]; hydroxyzine HCl 50 mg Oral tab 2 tabs ss every 8 hours [Active]; ipratropium-albuterol 0.5 mg-3 mg(2.5 mg base)/3 mL Inhl nebu 3 times a day PRN [Active]; lisinopril 20 mg Oral tab 1 tab once daily [Active]; lorazepam 1 mg Oral tab 1 tab every 8 hours for Anxiety [Active]; Nitroglycerin 0.3 mg SL 1 tab every 5 minutes X3 PRN [Active]; Tegretol 100 mg/5 mL Oral susp 10 mL twice a day [Active]; Vitamin D3 1,000 unit Oral tab 2 tab daily [Active]; aspirin 81 mg Oral chew 1 tab once daily [Active]; Catapres 0.1 mg Oral tab every 8 hours PRN [Active]; acetaminophen-codeine 300-30 mg Oral tab three times a day [Active]; acetaminophen 325 mg Oral tab 2 tabs q6hrs prn [Active]; - PMHx: 14:16 Anxiety; COPD; Contracture; BPH; Aphasia; Dementia; DYSPHAGIA; Depression; ss Hypertension; Pneumonia; pressure ulcer stage 2; Schizophrenia; vitamin d deficiency; - Family history:: not pertinent. ROS: 14:48 Constitutional: Negative for fever, chills, and weight loss, Eyes: Negative for injury, lana pain, redness, and discharge, ENT: Negative for injury, pain, and discharge, Neck: Negative for injury, pain, and swelling, Cardiovascular: Negative for chest pain, palpitations, and edema, Respiratory: Negative for shortness of breath, cough, wheezing, and pleuritic chest pain, Back: Negative for injury and pain, : Negative for injury, bleeding, discharge, and swelling, MS/Extremity: Negative for injury and deformity, Skin: Negative for injury, rash, and discoloration, Neuro: Negative for headache, weakness, numbness, tingling, and seizure, Psych: Negative for depression, anxiety, suicide ideation, homicidal ideation, and hallucinations, Allergy/Immunology: Negative for hives, rash, and allergies, Endocrine: Negative for neck swelling, polydipsia, polyuria, polyphagia, and marked weight changes, Hematologic/Lymphatic: Negative for swollen nodes, abnormal bleeding, and unusual bruising. 14:48 Abdomen/GI: Positive for abdominal pain, of the left upper quadrant, PEG OUT. Exam: 14:48 Constitutional: This is a well developed, well nourished patient who is awake, alert, lana and in no acute distress. Head/Face: Normocephalic, atraumatic. Eyes: Pupils equal round and reactive to light, extra-ocular motions intact. Lids and lashes normal. Conjunctiva and sclera are non-icteric and not injected. Cornea within normal limits. Periorbital areas with no swelling, redness, or edema. ENT: Nares patent. No nasal discharge, no septal abnormalities noted. Tympanic membranes are normal and external auditory canals are clear. Oropharynx with no redness, swelling, or masses, exudates, or evidence of obstruction, uvula midline. Mucous membranes moist. Neck: Trachea midline, no thyromegaly or masses palpated, and no cervical lymphadenopathy. Supple, full range of motion without nuchal rigidity, or vertebral point tenderness. No Meningismus. Chest/axilla: Normal chest wall appearance and motion. Nontender with no deformity. No lesions are appreciated. Cardiovascular: Regular rate and rhythm with a normal S1 and S2. No gallops, murmurs, or rubs. Normal PMI, no JVD. No pulse deficits. Respiratory: Lungs have equal breath sounds bilaterally, clear to auscultation and percussion. No rales, rhonchi or wheezes noted. No increased work of breathing, no retractions or nasal flaring. Back: No spinal tenderness. No costovertebral tenderness. Full range of motion. Male : Normal genitalia with no discharge or lesions. Skin: Warm, dry with normal turgor. Normal color with no rashes, no lesions, and no evidence of cellulitis. MS/ Extremity: Pulses equal, no cyanosis. Neurovascular intact. Full, normal range of motion. Neuro: Awake and alert, GCS 15, oriented to person, place, time, and situation. Cranial nerves II-XII grossly intact. Motor strength 5/5 in all extremities. Sensory grossly intact. Cerebellar exam normal. Normal gait. Psych: Awake, alert, with orientation to person, place and time. Behavior, mood, and affect are within normal limits. 14:48 Abdomen/GI: Inspection: abdomen appears normal, Bowel sounds: normal, Palpation: mild abdominal tenderness, in the left upper quadrant. Vital Signs: 14:14 BP 118 / 79; Pulse 76; Resp 20; Temp 97.8; Pulse Ox 96% on R/A; sg MDM: 14:25 Patient medically screened. [facility] 14:48 Data reviewed: vital signs, nurses notes, radiologic studies. [facility] 12/15 14:57 Order name: ENTEROSTOMY TUBE CHECK W/CONTR EDMS Administered Medications: 15:30 Drug: Gastrografin Liquid 30 ml Route: PO; sg Disposition: 12/15/18 14:55 Discharged to Home. Impression: Gastrostomy status, Gastrostomy complications. - Condition is Stable. - Discharge Instructions: Gastrostomy Tube Home Guide, Adult, PEG Tube Home Guide, [id number], PEG Tube Home Guide. - Medication Reconciliation Form, Thank You Letter, Antibiotic Education, Prescription Opioid Use form. - Follow up: Private Physician; When: 2 - 3 days; Reason: Recheck today's complaints, Continuance of care, Re-evaluation by your physician. - Problem is new. - Symptoms have improved. Signatures: Dispatcher [employer] EDMS Cortes Monae, RN RN Domingo Witt MD MD cha Smirch, Shelby, RN RN ss Corrections: (The following items were deleted from the chart) 14:58 14:28 Abdomen 1 View+RAD.RAD.BRZ ordered. [facility] 17:45 14:55 12/15/2018 14:55 Discharged to Home. Impression: Gastrostomy status; Gastrostomy sg complications. Condition is Stable. Forms are Medication Reconciliation Form, Thank You Letter, Antibiotic Education, Prescription Opioid Use. Follow up: Private Physician; When: 2 - 3 days; Reason: Recheck today's complaints, Continuance of care, Re-evaluation by your physician. Problem is new. Symptoms have improved. lana
--- NOTE | 2018-12-15 14:56 | ER ---
Nurse's Notes [facility] Name: Shelia Miranda Age: 63 yrs Sex: Male : 1955 Arrival Date: 12/15/2018 Time: 14:14 Bed 17 Private MD: Diagnosis: Gastrostomy status;Gastrostomy complications Presentation: 12/15 14:14 Presenting complaint: FDC reports patient's PEG tube has come out. Transition ss of care: patient was not received from another setting of care. Onset of symptoms was December 15, 2018. Risk Assessment: Do you want to hurt yourself or someone else? Patient reports no desire to harm self or others. Initial Sepsis Screen:. Care prior to arrival: None. 14:14 Method Of Arrival: EMS: [facility] 14:14 Acuity: WINSOME 4 ss Historical: - Allergies: 14:16 NKA; ss - Home Meds: 14:16 Zoloft 50 mg Oral tab 1 tab once daily [Active]; hydroxyzine HCl 50 mg Oral tab 2 tabs ss every 8 hours [Active]; ipratropium-albuterol 0.5 mg-3 mg(2.5 mg base)/3 mL Inhl nebu 3 times a day PRN [Active]; lisinopril 20 mg Oral tab 1 tab once daily [Active]; lorazepam 1 mg Oral tab 1 tab every 8 hours for Anxiety [Active]; Nitroglycerin 0.3 mg SL 1 tab every 5 minutes X3 PRN [Active]; Tegretol 100 mg/5 mL Oral susp 10 mL twice a day [Active]; Vitamin D3 1,000 unit Oral tab 2 tab daily [Active]; aspirin 81 mg Oral chew 1 tab once daily [Active]; Catapres 0.1 mg Oral tab every 8 hours PRN [Active]; acetaminophen-codeine 300-30 mg Oral tab three times a day [Active]; acetaminophen 325 mg Oral tab 2 tabs q6hrs prn [Active]; - PMHx: 14:16 Anxiety; COPD; Contracture; BPH; Aphasia; Dementia; DYSPHAGIA; Depression; ss Hypertension; Pneumonia; pressure ulcer stage 2; Schizophrenia; vitamin d deficiency; - Family history:: not pertinent. Screenin:40 Abuse screen: Denies threats or abuse. Denies injuries from another. Nutritional sg screening: No deficits noted. Tuberculosis screening: No symptoms or risk factors identified. Never had TB. Fall Risk None identified. Assessment: 14:40 General: Behavior is cooperative, quiet. Pain: Denies pain. Neuro: Level of sg Consciousness is awake, obeys commands, Oriented to person, situation. Cardiovascular: Capillary refill is brisk in bilateral fingers Patient's skin is warm and dry. Chest pain is denied. Respiratory: Airway is patent Respiratory effort is even, unlabored, Respiratory pattern is regular, symmetrical. GI: Abdomen is flat, non-distended, Site clean. Site reddened. : No signs and/or symptoms were reported regarding the genitourinary system. EENT: No signs and/or symptoms were reported regarding the EENT system. Derm: Skin is pink, warm \T\ dry. Musculoskeletal: Circulation, motion, and sensation intact. Swelling absent. Vital Signs: 14:14 BP 118 / 79; Pulse 76; Resp 20; Temp 97.8; Pulse Ox 96% on R/A; sg ED Course: 14:14 Patient arrived in ED. ss 14:15 Triage completed. 14:15 Arm band placed on. sg 14:19 Cortes Monae, RN is Primary Nurse. 14:25 Domingo Sharma MD is Attending Physician. [facility] [place] 14:50 insertion of 16 fr G tube by , pt tolerated procedure well, awaiting xray at this time, will continue to monitor. 15:33 ENTEROSTOMY TUBE CHECK W/CONTR In Process Unspecified. EDMS Administered Medications: 15:30 Drug: Gastrografin Liquid 30 ml Route: PO; sg Outcome: 14:55 Discharge ordered by . lana 17:45 Patient left the ED. sg Signatures: Dispatcher [employer] EDMS Cortes Monae, RN RN Domingo Sharma MD MD cha Smirch, Shelby, RN RN
--- NOTE | 2018-12-15 15:39 | RAD REPORT ---
EXAM DESCRIPTION: RAD - ENTEROSTOMY TUBE CHECK W/CONTR - 12/15/2018 3:32 pm CLINICAL HISTORY: Enterostomy tube placement FINDINGS: Contrast was administered into the percutaneous enterostomy tube. The tip of the catheter either lies within the distal stomach or proximal duodenum. Contrast enters the second portion of the duodenum. No extravasation contrast Zero fluoroscopy performed. Zero fluoroscopic spot images obtained
[2018-12-15 18:39] VITALS: BP 118/79; TEMP 97.8; O2SAT 96
== END 2018-12-15 17:45 | disposition home or self-care (01) ==
LOC: ER 14:11
DX: K94.29 Other complications of gastrostomy (principal); E55.9 Vitamin D deficiency, unspecified; I10 Essential (primary) hypertension; J44.9 Chronic obstructive pulmonary disease, unspecified; N40.0 Benign prostatic hyperplasia without lower urinary tract symptoms; F32.9 Major depressive disorder, single episode, unspecified; F41.9 Anxiety disorder, unspecified; F20.9 Schizophrenia, unspecified; F03.90 Unspecified dementia, unspecified severity, without behavioral disturbance, psychotic disturbance, mood disturbance, and anxiety; Z79.899 Other long term (current) drug therapy
CPT/HCPCS: 49465; 99283

== ENCOUNTER 2018-12-27 13:17 | Emergency (ER) | payer OTHER ==
[2018-12-27] MEDS ORDERED: NA CHLORIDE 0.9% 1,000 ML ONE (13:49)
[2018-12-27 14:05] LABS: Absolute Lymphocytes (CBC) 0.5 K/uL (0.7-4.9); Absolute Monocytes 0.7 K/uL (0.1-1.3); Absolute Neutrophil 7.7 K/uL (1.8-8.0); Basophils % 0.2 % (0-1.3); Eosinophils % 0.5 % (0-4.4); Hematocrit 32.4 % (39.6-49.0); Lymphocytes % 5.6 % (15.3-44.8); MPV 9.5 fL (7.6-11.3); Monocytes % 7.7 % (3.3-12.3); RBC Red Blood Cell Count 3.65 M/uL (4.33-5.43)
[2018-12-27 14:13] LABS: Potassium 3.6 mmol/L (3.5-5.1)
[2018-12-27 14:52] LABS: Urine Amorphous Sediment 2+ /HPF (NONE SEEN); Urine Bacteria <20 /HPF (NONE SEEN); Urine Culture Reflex Order NOT NEEDED; Urine Mucus 1+ /HPF (NONE SEEN)
[2018-12-27 14:52] LABS: Urine Blood 3+ (NEG); Urine Glucose NEGATIVE (NEG); Urine Protein 2+ (NEG)
[2018-12-27] MEDS ORDERED: ACETAMINOPHEN 650MG/RECT SUPP PR ONE (14:52)
--- NOTE | 2018-12-27 15:04 | RAD REPORT ---
EXAM DESCRIPTION: Dustin Single View12/27/2018 2:02 pm CLINICAL HISTORY: Cough COMPARISON: April 2018 FINDINGS: Air beneath right hemidiaphragm represents pneumoperitoneum. Small right pleural effusion with right basilar atelectasis The heart is normal size
--- NOTE | 2018-12-27 15:05 | RAD REPORT ---
EXAM DESCRIPTION: CT - Abdomen Pelvis Wo Contrast - 12/27/2018 2:31 pm CLINICAL HISTORY: Abdominal pain COMPARISON: April 2018 TECHNIQUE: Computed axial tomography of the abdomen and pelvis was obtained. IV was not requested. O ral contrast was given. Coronal reconstructions performed. All CT scans are performed using dose optimization technique as appropriate and may include automated exposure control or mA/KV adjustment according to patient size. FINDINGS: The evaluation of solid organs and vessels is limited secondary to the lack of contrast a dministration. A small right pleural effusion. Bibasilar atelectasis. The liver, spleen, pancreas, adrenals and kidneys appear grossly normal. The appendix is normal. There is no evidence of diverticulitis. A percutaneous tube has its tip in the stomach. A small amount of pneumoperitoneum is present within the right upper quadrant. A 7 centimeter fluid c ollection contains air within the right upper quadrant A Santiago catheter is present within the bladder IMPRESSION: Pneumoperitoneum may be secondary to perforated viscus or recent dislodgement from the stomach of the gastrostomy tube. 7 centimeter fluid collection within the right upper quadrant may represent an abscess.
[2018-12-27 15:25] LABS: Blood Morphology Comment NOT SEEN (NOT SEEN); Platelet Estimate ADEQ; Urine White Blood Cell Casts OK
[2018-12-27] MEDS ORDERED: PIPER/TAZO/NS 3.375gm 3.375 GM/100 ML BAG ONE (15:42)
[2018-12-27] MEDS ORDERED: VANCOMYCIN/NS 1 gm 1 GM/250 ML BAG IV SCH (16:00)
--- NOTE | 2018-12-27 16:10 | ER ---
Nurse's Notes [facility] Name: Shelia Miranda Age: 63 yrs Sex: Male : 1955 Arrival Date: 12/27/2018 Time: 13:18 Bed 6 Private MD: Diagnosis: Peritoneal abscess;Pneumoperitoneum Presentation: 12/27 13:19 Presenting complaint: EMS states: called for pt per respiratory therapist visited the correction facility, noticed a low O2 sat and SOB, 92% on RA, 99% on 2L; BP stable, STach at 121; BGL- 144; reports fever of 103.4 per nsg home; 101 per EMS rectal; PEG tube out unknown when, but per correction, pt is being fed orally;. Transition of care: patient was received from another setting of care (long-term care facility). Onset of symptoms was December 27, 2018. Risk Assessment: Do you want to hurt yourself or someone else? Patient reports no desire to harm self or others. Initial Sepsis Screen: Does the patient meet any 2 criteria? RR > 20 per min. Temp <36.0*C (96.8*F)) or > 38.3*C (100.9*F). HR > 90 bpm. Yes Does the patient have a suspected source of infection? Yes:. Care prior to arrival: None. 13:19 Method Of Arrival: EMS: [facility] 13:19 Acuity: WINSOME 2 Triage Assessment: 13:31 General: Appears in no apparent distress. uncomfortable, Behavior is calm, cooperative, hj appropriate for age. Pain: Denies pain. EENT: No signs and/or symptoms were reported regarding the EENT system. Neuro: Level of Consciousness is awake, alert, obeys commands, Oriented to. Cardiovascular: Heart tones S1 S2 present Capillary refill < 3 seconds Patient's skin is warm and dry. Rhythm is sinus tachycardia. Respiratory: Reports shortness of breath Airway is patent Respiratory effort is even, unlabored, Respiratory pattern is regular, symmetrical, Onset: The symptoms/episode began/occurred this morning, the patient has mild shortness of breath. GI: Abdomen is no PEG tube, with pus draining out of the stoma;. : No signs and/or symptoms were reported regarding the genitourinary system. Derm: No signs and/or symptoms reported regarding the dermatologic system. Musculoskeletal: No signs and/or symptoms reported regarding the musculoskeletal system. Historical: - Allergies: 13:30 NKA; hj - Home Meds: 13:33 aspirin 81 mg Oral chew 1 tab once daily [Active]; Catapres 0.1 mg Oral tab every 8 hj hours PRN [Active]; Vitamin D3 1,000 unit Oral tab 2 tab daily [Active]; acetaminophen 325 mg Oral tab 2 tabs q6hrs prn [Active]; acetaminophen-codeine 300-30 mg Oral tab three times a day [Active]; hydroxyzine HCl 50 mg Oral tab 2 tabs every 8 hours [Active]; ipratropium-albuterol 0.5 mg-3 mg(2.5 mg base)/3 mL Inhl nebu 3 times a day PRN [Active]; lisinopril 20 mg Oral tab 1 tab once daily [Active]; Tegretol 100 mg/5 mL Oral susp 10 mL twice a day [Active]; lorazepam 1 mg Oral tab 1 tab every 8 hours for Anxiety [Active]; Nitroglycerin 0.3 mg SL 1 tab every 5 minutes X3 PRN [Active]; Zoloft 50 mg Oral tab 1 tab once daily [Active]; - PMHx: 13:30 Anxiety; Aphasia; BPH; Contracture; COPD; Dementia; Depression; DYSPHAGIA; hj Hypertension; Pneumonia; pressure ulcer stage 2; Schizophrenia; vitamin d deficiency; - Immunization history:: Adult Immunizations up to date. - Social history:: Smoking status: Patient/guardian denies using tobacco, Patient/guardian denies using alcohol. - Ebola Screening: : Patient negative for fever greater than or equal to 101.5 degrees Fahrenheit, and additional compatible Ebola Virus Disease symptoms Patient denies exposure to infectious person Patient denies travel to an Ebola-affected area in the 21 days before illness onset. - Family history:: not pertinent. - Hospitalizations: : No recent hospitalization is reported. Screenin:31 Abuse screen: Denies threats or abuse. Denies injuries from another. Nutritional hj screening: No deficits noted. Tuberculosis screening: No symptoms or risk factors identified. Fall Risk Secondary diagnosis (15 points) impaired mobility. Assessment: 13:34 Cardiovascular: Capillary refill < 3 seconds Patient's skin is warm and dry. hj Respiratory: Airway is patent Respiratory effort is unlabored, Respiratory pattern is regular, symmetrical, 14:30 Reassessment: CT RESULTS PENDING FOR DISPO. bp 15:35 Reassessment: PT PULLING ON TSE AND DIGGING IN OWN RECTUM. PT VERBALLY REDIRECTED TO bp CEASE. NOTIFIED OF PT BEHAVIOR. 15:53 Reassessment: applied oral swab per pt request;. hj 17:30 Reassessment: EMS AT B/S FOR TRANSPORT. bp Vital Signs: 13:22 BP 115 / 88; Pulse 121; Resp 18; Temp 97.7(O); Pulse Ox 90% on R/A; Weight 68.04 kg; hj Height 5 ft. 11 in. (180.34 cm); Pain 0/10; 13:33 Temp 103.5(R); hj 14:46 BP 113 / 77; Pulse 109; Resp 18; Pulse Ox 93% on 2 lpm NC; hj 14:56 Temp 99.4(O); hj 15:08 BP 131 / 82; Pulse 91; Resp 18; Pulse Ox 97% on 2 lpm NC; hj 15:36 BP 123 / 81; Pulse 104; Resp 20; Pulse Ox 93% ; bp 15:53 BP 114 / 79; Pulse 102; Resp 18; Temp 98.5(TE); Pulse Ox 94% on 2 lpm NC; hj 17:30 BP 111 / 81; Pulse 100; Resp 20; Pulse Ox 95% ; bp 13:22 Body Mass Index 20.92 (68.04 kg, 180.34 cm) hj ED Course: 13:18 Patient arrived in ED. hj 13:22 Triage completed. hj 13:22 Hakeem Peters MD is Attending Physician. rn 13:27 Ander Lopez, ARIAS is Primary Nurse. hj 13:33 Arm band placed on left wrist. hj 13:34 Patient has correct armband on for positive identification. Placed in gown. Bed in low hj position. Call light in reach. Side rails up X2. 13:57 Initial lab(s) drawn, by ED staff, sent to lab. Inserted saline lock: 22 gauge in right hj antecubital area, using aseptic technique. ,using aseptic technique. BP, RN Blood collected. 13:59 XRAY Chest (1 view) In Process Unspecified. EDMS 14:06 Wound Culture Sent. bp 14:07 Tse cath inserted, using sterile technique, 18 Fr., by va, balloon inflated, to bp gravity drainage. 14:31 Abdomen In Process Unspecified. EDMS 15:12 Charlene Cleaning FNP-C is PHCP. snw 15:49 initiated a transfer with Jojo at the [facility] center. eb 15:58 connected the surgeon vocational examiner for [facility] with Dr. Peters for patient transfer eb consultation. 16:31 administrative approval given by Rosy Christian RN pesticide use medical coordinator/ noel Reyna has accepted the patient in transfer at the [facility]/ patient is going to [address]/ report to be called to [phone]. 17:26 No provider procedures requiring assistance completed. Patient transferred, IV remains hj in place. intact. Administered Medications: 13:51 Drug: NS 0.9% 1000 ml Route: IV; Rate: 1000 ml; Site: right antecubital; hj 14:50 Follow up: IV Status: Completed infusion; IV Intake: 1000ml hj 14:35 Drug: Tylenol Suppository 650 mg Route: SD; hj 14:45 Follow up: Response: No adverse reaction; Temperature is decreased hj 15:34 Drug: Zosyn 3.375 grams Route: IVPB; Infused Over: 60 mins; Site: right antecubital; bp 16:00 Follow up: IV Status: Completed infusion; IV Intake: 100ml hj 16:04 Drug: vancoMYCIN 1 grams Route: IVPB; Infused Over: 2 hrs; Site: right antecubital; hj 17:06 Follow up: IV Status: Infusion continued upon transfer hj 17:05 Drug: D5-1/2 NS with KCl 20 mEq/L 1000 ml Route: IV; Rate: 100 ml/hr; Site: right hj antecubital; 17:12 Follow up: IV Status: Infusion continued upon transfer Point of Care Testing: Blood Glucose: 13:22 Blood Glucose: 145 mg/dL; hj Ranges: Intake: 14:50 IV: 1000ml; Total: 1000ml. hj 16:00 IV: 100ml; Total: 1100ml. Outcome: 16:09 ER care complete, transfer ordered by MD. victor 17:26 Transferred by ground EMS to [facility], Transfer form completed. hj X-rays sent w/ patient. 17:26 Condition: stable 17:26 Instructed on the need for transfer, Demonstrated understanding of instructions. 17:31 Patient left the ED. bp Addendum: 01/01/2019 08:06 Addendum: Culture Results: Positive wound culture. Phone call Attempt #1 pt remains at i [facility], culture report faxed to ARIAS Almeida. Signatures: Dispatcher [employer] EDMS Charlene Cleaning, NIGHT BAKER-C NIGHT BAKER-Csnw Nazia Bose, RN RN iw Hakeem Peters MD MD rn Joaquin, Henry, RN RN hj Peltier, Brian, RN RN bp Botello, Elizabeth eb Corrections: (The following items were deleted from the chart) 12/27 14:47 13:22 BP 115 / 88; Pulse 121bpm; Resp 18bpm; Pulse Ox 95% RA; Temp 97.7F Oral; 68.04 hj kg; Height 5 ft. 11 in.; BMI: 20.9; Pain 0/10; hj
--- NOTE | 2018-12-27 16:10 | EDPHYS ---
Physician Documentation [facility] Name: Shelia Miranda Age: 63 yrs Sex: Male : 1955 Arrival Date: 12/27/2018 Time: 13:18 Bed 6 Private MD: ED Physician Hakeem Peters HPI: 12/27 13:31 This 63 yrs old Black Male presents to ER via EMS with complaints of Shortness Of rn Breath. 13:31 This 63 yrs old Black Male presents to ER via EMS with complaints of fever. rn 13:31 The patient has shortness of breath at rest. rn 13:33 The patient reports fever, that was measured at 102 degrees Fahrenheit. Onset: The rn symptoms/episode began/occurred at an unknown time. Modifying factors: there are no obvious modifying factors. Severity of symptoms: At their worst the symptoms were mild in the emergency department the symptoms are unchanged. It is unknown whether or not the patient has had similar symptoms in the past. Per EMS, longterm noted fever today, unknown start time, patient reports cough and sob. Feeding tube was pulled out at some point, no idea when per EMS or staff, but per staff report, they have been attempting oral feeds lately. . Historical: - Allergies: 13:30 NKA; hj - Home Meds: 13:33 aspirin 81 mg Oral chew 1 tab once daily [Active]; Catapres 0.1 mg Oral tab every 8 hj hours PRN [Active]; Vitamin D3 1,000 unit Oral tab 2 tab daily [Active]; acetaminophen 325 mg Oral tab 2 tabs q6hrs prn [Active]; acetaminophen-codeine 300-30 mg Oral tab three times a day [Active]; hydroxyzine HCl 50 mg Oral tab 2 tabs every 8 hours [Active]; ipratropium-albuterol 0.5 mg-3 mg(2.5 mg base)/3 mL Inhl nebu 3 times a day PRN [Active]; lisinopril 20 mg Oral tab 1 tab once daily [Active]; Tegretol 100 mg/5 mL Oral susp 10 mL twice a day [Active]; lorazepam 1 mg Oral tab 1 tab every 8 hours for Anxiety [Active]; Nitroglycerin 0.3 mg SL 1 tab every 5 minutes X3 PRN [Active]; Zoloft 50 mg Oral tab 1 tab once daily [Active]; - PMHx: 13:30 Anxiety; Aphasia; BPH; Contracture; COPD; Dementia; Depression; DYSPHAGIA; hj Hypertension; Pneumonia; pressure ulcer stage 2; Schizophrenia; vitamin d deficiency; - Immunization history:: Adult Immunizations up to date. - Social history:: Smoking status: Patient/guardian denies using tobacco, Patient/guardian denies using alcohol. - Ebola Screening: : Patient negative for fever greater than or equal to 101.5 degrees Fahrenheit, and additional compatible Ebola Virus Disease symptoms Patient denies exposure to infectious person Patient denies travel to an Ebola-affected area in the 21 days before illness onset. - Family history:: not pertinent. - Hospitalizations: : No recent hospitalization is reported. ROS: 13:33 Constitutional: + fever Eyes: Negative for injury, pain, redness, and discharge, ENT: rn Negative for injury, pain, and discharge, Cardiovascular: Negative for chest pain, palpitations, and edema, Respiratory: + sob and cough Abdomen/GI: + abd pain MS/Extremity: Negative for injury and deformity, Skin: Negative for injury, rash, and discoloration, Neuro: Negative for headache, numbness, tingling, and seizure. Exam: 13:37 Constitutional: This is a well developed, well nourished patient who is awake, alert, rn responsive and communicative Head/Face: Normocephalic, atraumatic. ENT: dry MM, no stridor Cardiovascular: Tachycardic, regular, no murmur Respiratory: Mild tachypnea with shallow breaths, no wheezing, diminished at bases Abdomen/GI: + diffuse abd tenderness, with brown discharge from stoma MS/ Extremity: No cyanosis, + contractures throughout Neuro: Awake, alert, follows commands and answers questions appropriately. Vital Signs: 13:22 BP 115 / 88; Pulse 121; Resp 18; Temp 97.7(O); Pulse Ox 90% on R/A; Weight 68.04 kg; hj Height 5 ft. 11 in. (180.34 cm); Pain 0/10; 13:33 Temp 103.5(R); hj 14:46 BP 113 / 77; Pulse 109; Resp 18; Pulse Ox 93% on 2 lpm NC; hj 14:56 Temp 99.4(O); hj 15:08 BP 131 / 82; Pulse 91; Resp 18; Pulse Ox 97% on 2 lpm NC; hj 15:36 BP 123 / 81; Pulse 104; Resp 20; Pulse Ox 93% ; bp 15:53 BP 114 / 79; Pulse 102; Resp 18; Temp 98.5(TE); Pulse Ox 94% on 2 lpm NC; hj 17:30 BP 111 / 81; Pulse 100; Resp 20; Pulse Ox 95% ; bp 13:22 Body Mass Index 20.92 (68.04 kg, 180.34 cm) Procedures: 13:48 G-tube placement: a 16 Hungarian catheter was placed, by the ED physician, Hakeem Peters MD rn Santiago catheter placed in stoma after culture obtained, until CT results return.. MDM: 13:22 Patient medically screened. rn 15:26 ED course: Charlene avery consulted with Dr. Paniagua regarding ct findings, will eval rn shortly. Abx ordered. . 15:46 ED course: NO IR available, Dr. Paniagua recommends transfer to [facility]. Abx being rn given, along with fluids. . 16:07 Differential diagnosis: bacterial infection, pneumonia UTI. Data reviewed: vital signs, rn nurses notes, lab test result(s), radiologic studies, CT scan, plain films, and as a result, I will admit patient. Counseling: I had a detailed discussion with the patient and/or guardian regarding: the historical points, exam findings, and any diagnostic results supporting the discharge/admit diagnosis, lab results, radiology results, the need to transfer to another facility, [facility] does not immediately have the required specialist. Admission orders: after a detailed discussion of the patient's condition and case, the admit orders are written by me. ED course: Accepted for transfer to [facility], ICU care, for intra-abdominal abscess and pneumoperitoneum. . 12/27 13:23 Order name: CBC with Diff; Complete Time: 15:27 rn 12/27 13:23 Order name: Basic Metabolic Panel; Complete Time: 14:34 rn 12/27 13:23 Order name: Urine Culture rn 12/27 13:23 Order name: Urine Microscopic Only; Complete Time: 14:59 rn 12/27 13:23 Order name: Procalcitonin; Complete Time: 14:34 rn 12/27 13:23 Order name: Lactate; Complete Time: 14:34 rn 12/27 13:23 Order name: XRAY Chest (1 view); Complete Time: 15:07 rn 12/27 13:23 Order name: Blood Culture Adult (2) rn 12/27 13:23 Order name: Flu; Complete Time: 14:34 rn 12/27 13:51 Order name: Wound Culture 12/27 13:52 Order name: Wound Culture EDGA 12/27 14:23 Order name: Urine Dipstick--Ancillary (enter results) 12/27 14:23 Order name: Urine Dipstick-Ancillary; Complete Time: 14:59 EDMS 12/27 14:34 Order name: CBC Smear Scan; Complete Time: 15:27 EDGA 12/27 13:23 Order name: IV Start; Complete Time: 14:06 rn 12/27 13:23 Order name: Urine Dipstick-Ancillary (obtain specimen); Complete Time: 14:33 rn 12/27 14:18 Order name: Abdomen ; Complete Time: 15:07 EDGA 12/27 15:59 Order name: NPO; Complete Time: 16:04 snw Administered Medications: 13:51 Drug: NS 0.9% 1000 ml Route: IV; Rate: 1000 ml; Site: right antecubital; hj 14:50 Follow up: IV Status: Completed infusion; IV Intake: 1000ml hj 14:35 Drug: Tylenol Suppository 650 mg Route: AZ; hj 14:45 Follow up: Response: No adverse reaction; Temperature is decreased hj 15:34 Drug: Zosyn 3.375 grams Route: IVPB; Infused Over: 60 mins; Site: right antecubital; bp 16:00 Follow up: IV Status: Completed infusion; IV Intake: 100ml hj 16:04 Drug: vancoMYCIN 1 grams Route: IVPB; Infused Over: 2 hrs; Site: right antecubital; hj 17:06 Follow up: IV Status: Infusion continued upon transfer hj 17:05 Drug: D5-1/2 NS with KCl 20 mEq/L 1000 ml Route: IV; Rate: 100 ml/hr; Site: right hj antecubital; 17:12 Follow up: IV Status: Infusion continued upon transfer Point of Care Testing: Blood Glucose: 13:22 Blood Glucose: 145 mg/dL; Ranges: Critical Glucose Levels:Adult <50 mg/dl or >400 mg/dl <40 mg/dl or >180 mg/dl Disposition: 12/27/18 16:[address] [facility]. Diagnosis are Peritoneal abscess, Pneumoperitoneum. - Reason for transfer: Higher level of care. - Accepting physician is . - Condition is Stable. - Problem is new. - Symptoms have improved. Critical care time excluding procedures: 16:07 Critical care time: Bedside Care: 25 minutes, Consultation: 5 minutes. Total time: 30 rn minutes Signatures: Dispatcher [employer] EDGA Charlene Avery, YAM CURER-C YAM CURER-Csnw Hakeem Peters MD MD rn Joaquin, Henry RN Westley Gaston RN RN bp Corrections: (The following items were deleted from the chart) 13:38 13:33 Constitutional: Negative for fever, chills, and weight loss, rn rn 14:18 13:55 Abdomen Pelvis W Con+CT.RAD.BRZ ordered. [facility] 17:31 16:09 12/27/2018 16:[address] [facility]. Diagnosis is bp Peritoneal abscess; Pneumoperitoneum. Reason for transfer: Higher level of care. Accepting physician is . Condition is Stable. Problem is new. Symptoms have improved. rn
[2018-12-27] MEDS ORDERED: D5.45NS W/KCL 20MEQ 1,000 ML IV ONE (17:21)
[2018-12-27 17:43] VITALS: TEMP 98.5
[2018-12-27 17:44] VITALS: BP 111/81; O2SAT 95
--- NOTE | 2018-12-29 08:52 | CON ---
Date of Consultation: 12/27/2018 Brief History Of Present Illness: The patient is a 60-year-old male with multiple m edical problems including schizophrenia, dementia, COPD, diabetes. Resident of correction. He has been to the hospital many times with altered mental status and pulling his G-tube out, and having it reinserted on multiple occasions. He has had this instrumented in the range of 100 times by report. He presents from the correction with a fever specifically today of 103, confirmed in the ER. On examination, the patient is awake and verbal, but has poor insight into his medical history. Past Medical History: As above. Significant for hypertension, seizures, diabetes, brain injury, dem entia, COPD, schizophrenia, anxiety, depression, pneumonia, enlarged prostate. Past Surgical History: Includes a trach and PEG. The PEG tube has been replaced as above multiple t imes in ERs, not requiring admission, and he has been reported to me that he has had his G-tube manip ulated and replaced in the range of 100 time. Allergies: NO KNOWN DRUG ALLERGIES. Home Medications: Include Cogentin, Tegretol, Ativan, calcium carbonate, nitroglycerin, aspirin, Cat apres, Prinivil, Seroquel, Tylenol, TwoCal HN, Perforomist. Review of Systems: Unable to obtain. Social History: Unable to obtain. The patient lives in correction facility as described in the [facility] area. Physical Examination: General: At the time of my examination, he is awake, alert. He has low-grade disorientation, but is verbal. HEENT: Otherwise normocephalic. Sclerae anicteric. Mucous membranes are moist. Oropharynx clear. Neck: Supple. No JVD. Chest: Normal expansion and excursion. Abdomen: Soft. Nontender to the PEG tube site. G-tube is in place. He has mild tenderness of the right upper quadrant. Otherwise, remainder of the abdominal exam is benign. Extremities: No clubbing, cyanosis, or edema. Laboratory Data: Reveals a white blood count of 8.9, hemoglobin 10.6, hematocrit 32.4, platelet coun t 261, neutrophils 86%. Sodium 148, potassium 3.6, chloride 108, carbon dioxide 31, BUN 37, creatini ne 1.82, glucose is 156. Lactic acid 1.0. Procalcitonin 1.35. He had imaging performed, which incl uded a CT scan of the abdomen and pelvis, which the official impression is pneumoperitoneum, may be s econdary to perforated viscus, a recent dislodgement from the stomach of the gastrostomy tube. There is a 7 cm fluid collection in the right upper quadrant, which may represent an abscess. The percuta neous tube has its tip in the stomach. A small amount of pneumoperitoneum is present within the righ t upper quadrant as described. A small right pleural effusion and bibasilar atelectasis are also huyen dent. He had a chest x-ray performed as well, which was officially read as air beneath the right hem idiaphragm represents pneumoperitoneum, small right pleural effusion with right basilar atelectasis. Heart is normal size. Assessment And Plan: 1.This is a 63-year-old male with multiple medical problems including baseline altered mental status , dementia, who comes in with a fluid collection of the right upper quadrant, which is likely due to the repeated dislodgement and replacement of the tube. I am unsure if this is tube feedings from a r ecent dislodgement and attempt to feeding through this, or if this is an abscess as I have high iva rn that this may be abscess in nature with the air-fluid level evidence. I recommend interventional radiologic drainage of this culture and examination of this to see if this is G-tube feedings versus an infected collection. 2.Antibiotic coverage. 3.IV fluid hydration. 4.Do not feed through G-tube at this time until confirmation of position is made with contrast study. Thank you for this interesting consult. VINNIE/MILAN Voice ID: [id number] Report ID: [id number]
== END 2018-12-27 17:31 | disposition short-term general hospital (02) ==
LOC: ER 13:17
DX: K65.1 Peritoneal abscess (principal); K66.8 Other specified disorders of peritoneum; I10 Essential (primary) hypertension; F20.9 Schizophrenia, unspecified; F03.90 Unspecified dementia, unspecified severity, without behavioral disturbance, psychotic disturbance, mood disturbance, and anxiety; J44.9 Chronic obstructive pulmonary disease, unspecified; F41.9 Anxiety disorder, unspecified; F32.9 Major depressive disorder, single episode, unspecified; Z79.82 Long term (current) use of aspirin
CPT/HCPCS: 36415; 51702; 71045; 74176; 80048; 81003; 81015; 82962; 83605; 84145; 85025; 87040; 87070; 87077; 87086; 87088; 87186; 87205; 87804; 96361; 96365; 96367; 99285; J2543; J3370; J7030